=== PATIENT | female | born 1945 | race Caucasian/White ===

== ENCOUNTER → 2020-03-07 | Outpatient (CLI) | payer MEDICARE ==
[2020-03-07 12:28] LABS: Basophils % (A) 1 %; Eosinophils # (A) 0.1 k/uL (0-0.7); Eosinophils % (A) 2 %; HCT 40.3 % (34.0-46.0); HGB 13.2 gm/dL (11.4-16.0); Lymphocytes # (A) 0.7 k/uL (1.0-4.8); Lymphocytes % (A) 11 %; MCH 31.5 pg (25.0-35.0); MCHC 32.7 g/dL (31.0-37.0); MCV 96.4 fL (80.0-100.0); Mean Platelet Volume 7.1; Monocytes # (A) 0.4 k/uL (0-1.0); Monocytes % (A) 6 %; Neutrophils % (A) 79 %; Platelet Count 279 k/uL (150-450); RBC 4.18 m/uL (3.80-5.40); RDW 12.9 % (11.5-15.5); WBC 6.3 k/uL (3.8-10.6)
[2020-03-07 20:13] LABS: Hemoglobin A1C 6.3 % (4.0-6.0)
[2020-03-07 20:59] LABS: African American GFR (CKD) 84.8 (60.0-200.0); Albumin 4.4 g/dL (3.80-4.90); Albumin/Globulin Ratio 2.44 (1.60-3.17); Calcium 9.2 mg/dL (8.7-10.3); Chol/HDL Ratio 1.98; Globulin 1.8 g/dL (1.6-3.3); LDL Cholesterol,Calculated 69.6 mg/dL (0.0-131.0); Non-African American GFR(CKD) 73.1 (60.0-200.0); Potassium 4.7 mmol/L (3.5-5.5); Total Bilirubin 0.6 mg/dL (0.3-1.2); Total Protein 6.2 g/dL (6.2-8.2); VLDL Calculation 15.4 mg/dL (5.00-40.00)
== END | disposition home or self-care (01) ==
LOC: LABWHC1 09:44
DX: R79.89 Other specified abnormal findings of blood chemistry (principal); E78.00 Pure hypercholesterolemia, unspecified; R73.03 Prediabetes; E55.9 Vitamin D deficiency, unspecified
CPT/HCPCS: 36415; 80053; 80061; 82306; 83036; 84443; 85025

== ENCOUNTER → 2020-09-12 | Outpatient (CLI) | payer MEDICARE ==
--- NOTE | 2020-09-15 13:22 | MM ---
Reason for exam: screening (asymptomatic). Last mammogram was performed 18 years and 9 months ago. History: Patient is postmenopausal. Physical Findings: A clinical breast exam by your physician is recommended on an annual basis and results should be correlated with mammographic findings. MG 3D Screening Mammo W/Cad Bilateral CC and MLO view(s) were taken. Prior study comparison: March 20, 2017, mammogram, performed at [facility]. May 02, 2015, mammogram, performed at [facility]. There are scattered fibroglandular densities. Focal asymmetry right MLO view. No significant changes when compared with prior studies. ASSESSMENT: Benign, BI-RAD 2 RECOMMENDATION: Routine screening mammogram of both breasts in 1 year.
== END | disposition home or self-care (01) ==
LOC: RADMAMWWP 13:56
PROVIDERS: ATTEND Family Medicine
DX: Z12.31 Encounter for screening mammogram for malignant neoplasm of breast (principal)
CPT/HCPCS: 77063; 77067

== ENCOUNTER → 2021-04-03 | Outpatient (CLI) | payer MEDICARE ==
--- NOTE | 2021-04-04 08:11 | CT ---
EXAMINATION TYPE: CT cervical spine wo con DATE OF EXAM: 04/03/2021 COMPARISON: NONE HISTORY: right side neck pain CT DLP: 377 mGycm. Automated Exposure Control for Dose Reduction was Utilized. TECHNIQUE: CT scan of the cervical spine is obtained without contrast, axial images are obtained, sa gittal and coronal reformatted images are also reviewed. FINDINGS: Cervical spine is visualized in its entirety from C1 through upper thoracic levels, demonst rates satisfactory alignment without evidence of acute fracture or dislocation. Prevertebral soft ti ssue appears within normal limits. The C1-C2 articulation is within normal limits on the coronal carl ges. Vertebral body heights are maintained. There is disc calcification with moderate narrowing C3-C4 and C4-C5 levels. There is disc calcification with advanced narrowing and some ossific fusion at C5- C6 level. There is mild disc space narrowing with large anterior spurs at C2-C3 level. Axial images at C2-C3 level shows a left paracentral spur effacing the anterolateral thecal sac and u ncovertebral facet degenerative changes bilaterally causing mild bilateral neural foraminal narrowing . Axial images at C3-C4 level shows uncovertebral facet spurring and posterior bony projections mildly effacing left anterolateral thecal sac, there is moderate left and mild right-sided neural foraminal narrowing. Axial images at C4-C5 level shows uncovertebral facet spurring greater on the right causing moderate right greater than left bilateral neural foraminal narrowing. Axial images at C5-C6 level shows uncovertebral facet spurring greater on the left causing mild to mo derate left greater than right bilateral neural foraminal narrowing. Posterior bony projections of th e anterior thecal sac. Axial images at C6-C7 level show left-sided uncovertebral facet spurring greater on the left causing moderate left-sided neural foraminal narrowing. There is more mild right-sided neural foraminal narro wing noted. Axial images at C7-T1 level appear within normal limits. Lung apices show no pneumothorax. Thyroid gland appears within normal limits. IMPRESSION: Multilevel degenerative changes in the cervical spine as detailed above.
== END | disposition home or self-care (01) ==
LOC: RADCTMAIN 17:23
PROVIDERS: ATTEND Family Medicine
DX: M47.812 Spondylosis without myelopathy or radiculopathy, cervical region (principal)
CPT/HCPCS: 72125

== ENCOUNTER → 2021-04-17 | Outpatient (CLI) | payer MEDICARE ==
--- NOTE | 2021-04-17 08:44 | MR ---
EXAMINATION TYPE: MR brain wo/w con DATE OF EXAM: 04/17/2021 COMPARISON: NONE HISTORY: Headache TECHNIQUE: Multiplanar, multisequence images of the brain and brainstem is performed without and with IV contras t, utilizing 7 mL intravenous Gadavist . FINDINGS: Diffusion weighted images demonstrate no evidence of a recent infarct or other diffusion ab normality. There is mild ventricular and sulcal prominence. Some scattered small foci of T2 hyperint ensity throughout the white matter bilaterally are present. Approximately 15-20 small scattered lesio ns. Lesions are nonspecific in appearance and distribution. Midline structures demonstrate normal morphology. The craniocervical junction appears within normal limits. Post contrast images demonstrate no abnormal enhancement. The dural venous sinuses appear pa tent. The visualized sinuses are clear and the globes are intact. IMPRESSION: There is mild diffuse cerebral atrophy and mild nonspecific white matter changes favor pr oduct of chronic small vessel ischemic change in patient of this age And/or product of altered vascul ar mechanics related to product of migraine headaches is in differential. No enhancing masses are not ed.
== END | disposition home or self-care (01) ==
LOC: RADMRIMAIN 05:57
PROVIDERS: ATTEND Family Medicine
DX: G31.9 Degenerative disease of nervous system, unspecified (principal)
CPT/HCPCS: 70553; A9585

== ENCOUNTER → 2022-01-18 | Outpatient (CLI) | payer MEDICARE | END | disposition home or self-care (01) | LOC: LABWHC1 10:32 | PROVIDERS: ATTEND Otolaryngology | DX: J30.89 Other allergic rhinitis (principal) | CPT/HCPCS: 36415 ==

== ENCOUNTER 2022-02-06 12:42 | Emergency (ER) | payer MEDICARE ==
[2022-02-07] MEDS ORDERED: SODIUM CHLORIDE 0.9% 500 ML 500 ML IV STA (01:46)
[2022-02-07] MEDS ORDERED: ONDANSETRON 4 MG/2 ML VIAL IVP STA (01:46)
--- NOTE | 2022-02-07 02:12 | ED ---
General Adult HPI - General Stated complaint: SOB, chest pains,blood in urine Time Seen by Provider: 02/07/22 01:31 Source: patient, RN notes reviewed Mode of arrival: ambulatory Limitations: no limitations - History of Present Illness Initial comments: 76-year-old female presents to the emergency Department with complaints of left back and flank pain that has been ongoing for the past month. Patient states she was seen by her PCP who did a urine test earlier today and found it positive for blood therefore was sent to the emergency department to do concern of possible kidney stone. Patient reports accompanying symptom of nausea, no vomiting. States she has been taking Tylenol at home thinking that this was arthritis. Reports Tylenol did not alleviate her discomfort. Denies fever, chills headache, dizziness, chest pain, shortness of breath, abdominal pain, vomiting, diarrhea, dysuria, or hematuria. No recent heavy lifting, bending, or strenuous/exertional activity. Review of Systems ROS Statement: Those systems with pertinent positive or pertinent negative responses have been documented in the HPI. ROS Other: All systems not noted in ROS Statement are negative. General Exam Limitations: no limitations General appearance: alert, in no apparent distress (Well-developed, well- nourished female in no acute distress, though does appear somewhat uncomfortable.) ENT exam: Present: normal exam, normal oropharynx, mucous membranes moist Respiratory exam: Present: normal lung sounds bilaterally. Absent: respiratory distress, wheezes, rales, rhonchi, stridor Cardiovascular Exam: Present: regular rate, normal rhythm, normal heart sounds. Absent: systolic murmur, diastolic murmur, rubs, gallop, clicks GI/Abdominal exam: Present: soft, normal bowel sounds. Absent: distended, tenderness, guarding, rebound, rigid Extremities exam: Present: normal inspection, full ROM, normal capillary refill. Absent: pedal edema Back exam: Present: CVA tenderness (L) Neurological exam: Present: alert, oriented X3 Psychiatric exam: Present: flat affect Skin exam: Present: warm, dry, intact, normal color Course - Reevaluation(s) Reevaluation #1: 02/07/22 03:00 Patient updated on findings of laboratory studies including nitrite positive UTI. She has a penicillin ALLERGY therefore will be treated with nitrofurantoin and instructed to follow up with her PCP for a recheck. Medical Decision Making - Medical Decision Making This is a pleasant 76-year-old female who presents to the emergency Department with complaints of left back and flank pain. Upon exam, patient is well- appearing and in no acute distress. She has mild left CVA tenderness upon palpation. Minimal nausea and no vomiting. Laboratory studies were obtained showing Urinalysis with 1+ ketones, small amount of blood, nitrite positive, moderate leukocyte Estrase, 1 urine RBC/hpf, and 14 urine WBC/hpf. Given these findings, no imaging was necessary and she will be started on Antibiotic therapy for UTI. Instructed to follow up with her PCP for a recheck after treatment. Return parameters discussed in detail. Patient verbalizes understanding and agrees with this plan. Attending:Marcie. - Lab Data Result diagrams: 02/07/22 02:04 02/07/22 02:04 Lab Results 02/07/22 02/07/22 02/07/22 Range/Units 02:04 02:04 02:20 WBC 7.4 (3.8-10.6) k/uL RBC 4.42 (3.80-5.40) m/uL Hgb 13.6 (11.4-16.0) gm/dL Hct 41.9 (34.0-46.0) % MCV 94.7 (80.0-100.0) fL MCH 30.9 (25.0-35.0) pg MCHC 32.6 (31.0-37.0) g/dL RDW 12.7 (11.5-15.5) % Plt Count 283 (150-450) k/uL MPV 7.4 Neutrophils % 74 % Lymphocytes % 15 % Monocytes % 7 % Eosinophils % 2 % Basophils % 1 % Neutrophils # 5.4 (1.3-7.7) k/uL Lymphocytes # 1.1 (1.0-4.8) k/uL Monocytes # 0.5 (0-1.0) k/uL Eosinophils # 0.1 (0-0.7) k/uL Basophils # 0.1 (0-0.2) k/uL Sodium 132 L (137-145) mmol/L Potassium 4.0 (3.5-5.1) mmol/L Chloride 98 (98-107) mmol/L Carbon Dioxide 21 L (22-30) mmol/L Anion Gap 13 mmol/L BUN 11 (7-17) mg/dL Creatinine 0.59 (0.52-1.04) mg/dL Est GFR (CKD-EPI)AfAm >90 (>60 ml/min/1.73 sqM) Est GFR (CKD-EPI)NonAf >90 (>60 ml/min/1.73 sqM) Glucose 203 H (74-99) mg/dL Calcium 9.5 (8.4-10.2) mg/dL Total Bilirubin 0.6 (0.2-1.3) mg/dL AST 23 (14-36) U/L ALT 20 (4-34) U/L Alkaline Phosphatase 104 (38-126) U/L Total Protein 6.9 (6.3-8.2) g/dL Albumin 4.6 (3.5-5.0) g/dL Urine Color Yellow Urine Appearance Cloudy H (Clear) Urine pH 5.5 (5.0-8.0) Ur Specific [place] 1.014 (1.001-1.035) Urine Protein Negative (Negative) Urine Glucose (UA) Negative (Negative) Urine Ketones 1+ H (Negative) Urine Blood Small H (Negative) Urine Nitrite Positive H (Negative) Urine Bilirubin Negative (Negative) Urine Urobilinogen <2.0 (<2.0) mg/dL Ur Leukocyte Esterase Moderate H (Negative) Urine RBC 1 (0-5) /hpf Urine WBC 14 H (0-5) /hpf Ur Squamous Epith Cells 1 (0-4) /hpf Urine Bacteria Moderate H (None) /hpf Urine Mucus Rare H (None) /hpf Disposition Clinical Impression: UTI (urinary tract infection) Disposition: HOME SELF-CARE Condition: Stable Instructions (If sedation given, give patient instructions): Urinary Tract Infection in Women (ED) Additional Instructions: Increase intake of water. Urinate frequently. Take full course of antibiotic. Follow-up with your PCP for a recheck after completion of medication. Return to the emergency department with any new, worsening, or concerning symptoms. Is patient prescribed a controlled substance at d/c from ED?: No When asked, does pt state using other controlled substances?: No Referrals: German Leigh MD [Primary Care Provider] - 1-2 days Time of Disposition: 03:14
[2022-02-07 02:17] LABS: Basophils # (A) 0.1 k/uL (0-0.2); Basophils % (A) 1 %; Eosinophils # (A) 0.1 k/uL (0-0.7); Eosinophils % (A) 2 %; HCT 41.9 % (34.0-46.0); HGB 13.6 gm/dL (11.4-16.0); Lymphocytes # (A) 1.1 k/uL (1.0-4.8); Lymphocytes % (A) 15 %; MCH 30.9 pg (25.0-35.0); MCHC 32.6 g/dL (31.0-37.0); MCV 94.7 fL (80.0-100.0); Mean Platelet Volume 7.4; Monocytes # (A) 0.5 k/uL (0-1.0); Monocytes % (A) 7 %; Neutrophils # (A) 5.4 k/uL (1.3-7.7); Neutrophils % (A) 74 %; Platelet Count 283 k/uL (150-450); RBC 4.42 m/uL (3.80-5.40); RDW 12.7 % (11.5-15.5); WBC 7.4 k/uL (3.8-10.6)
[2022-02-07 02:26] LABS: ALT 20 U/L (4-34); AST 23 U/L (14-36); African American GFR (CKD) >90 (>60 ml/min/1.73 sqM); Albumin 4.6 g/dL (3.5-5.0); Alkaline Phosphatase 104 U/L (38-126); Anion Gap 13 mmol/L; Blood Urea Nitrogen 11 mg/dL (7-17); Calcium 9.5 mg/dL (8.4-10.2); Carbon Dioxide 21 mmol/L (22-30); Chloride 98 mmol/L (98-107); Glucose 203 mg/dL (74-99); Non-African American GFR(CKD) >90 (>60 ml/min/1.73 sqM); Sodium 132 mmol/L (137-145); Total Bilirubin 0.6 mg/dL (0.2-1.3); Total Protein 6.9 g/dL (6.3-8.2)
[2022-02-07] MEDS ORDERED: ACETAMINOPHEN TAB 500 MG TAB PO STA (02:44)
[2022-02-07 02:46] LABS: Appearance,Urine Cloudy (Clear); Bacteria,Urine Moderate /hpf; Bilirubin,Urine Negative (Negative); Blood,Urine Small (Negative); Color,Urine Yellow; Glucose,Urine (UA) Negative (Negative); Ketones,Urine 1+ (Negative); Leukocyte Esterase,Urine Moderate (Negative); Mucus,Urine Rare /hpf; Nitrite,Urine Positive (Negative); PH, Urine 5.5 (5.0-8.0); Protein,Urine Negative (Negative); RBC,Urine 1 /hpf (0-5); Specific Gravity,Urine 1.014 (1.001-1.035); Squamous Epithelial Cell,Urine 1 /hpf (0-4); Urobilinogen,Urine <2.0 mg/dL (<2.0); WBC,Urine 14 /hpf (0-5)
[2022-02-07] MEDS ORDERED: ACET/COD 300 MG/30 MG STARTER PACK 6 TAB BTL PO STA (03:12)
== END 2022-02-07 03:25 | disposition home or self-care (01) ==
LOC: EC 12:42
DX: N39.0 Urinary tract infection, site not specified (principal)
CPT/HCPCS: 36415; 80053; 85025; 81001; 87086; 99284; 96374; 96361; J2405

== ENCOUNTER 2022-02-13 18:15 | Emergency (ER) | payer MEDICARE ==
[2022-02-13 18:24] VITALS: RESP 18; TEMP 98
--- NOTE | 2022-02-13 18:51 | ED ---
Chest Pain HPI - General Chief Complaint: Chest Pain Stated Complaint: chest pain, ADRIAN, anxiety Time Seen by Provider: 02/13/22 18:21 Source: patient Mode of arrival: EMS - History of Present Illness Initial Comments: This patient is 76-year-old woman who presents with recurrence of epigastric pain radiating to her back. Patient has been seen here couple of times recently for this same. She states that she was given treatment for urinary tract infection and did briefly feel better but that the pain has recurred. She has a difficult time exactly characterizing it. No dyspnea, palpitations, vomiting though there is some associated nausea. MD Complaint: chest pain -: days(s) Onset: during rest Pain Location: epigastric Pain Radiation: back Severity: moderate Quality: aching Consistency: intermittent Improves With: eating Worsens With: nothing Context: other Anginal Symptoms: nausea Treatments Prior to Arrival: none - Related Data Home Medications Medication Instructions Recorded Confirmed Aspirin/Acetaminophen/Caffeine 0.5 tab PO TID 02/13/22 02/13/22 [Excedrin Extra Strength Caplet] Atorvastatin [Lipitor] 20 mg PO HS 02/13/22 02/13/22 Cephalexin [Keflex] 500 mg PO TID 02/13/22 02/13/22 Metoprolol Tartrate [Lopressor] 50 mg PO DAILY 02/13/22 02/13/22 Propafenone [Rythmol] 150 mg PO BID 02/13/22 02/13/22 lisinopriL 2.5 mg PO DAILY 02/13/22 02/13/22 metFORMIN HCL [Glucophage] 500 mg PO HS 02/13/22 02/13/22 Previous Rx's Medication Instructions Recorded HYDROcodone/APAP 5-325MG [[place] 1 tab PO Q4HR PRN 3 Days #12 tab 02/13/22 5-325] Pantoprazole [Protonix] 40 mg PO DAILY #10 tab 02/13/22 Allergies Allergy/AdvReac Type Severity Reaction Status Date / Time Penicillins Allergy Rash/Hives Verified 02/13/22 21:29 Review of Systems ROS Statement: Those systems with pertinent positive or pertinent negative responses have been documented in the HPI. ROS Other: All systems not noted in ROS Statement are negative. Constitutional: Denies: fever, chills Respiratory: Denies: cough, dyspnea Cardiovascular: Reports: as per HPI, chest pain. Denies: palpitations, edema, syncope Gastrointestinal: Reports: as per HPI, abdominal pain, nausea. Denies: vomiting, diarrhea, constipation Genitourinary: Denies: dysuria, hematuria Musculoskeletal: Reports: back pain Skin: Denies: rash Neurological: Denies: headache, weakness EKG Findings - EKG Results: EKG: interpreted by QUE CARMONA, sinus rhythm (Heart rate 68 bpm), normal axis, normal QRS, normal ST/T Past Medical History Past Medical History: Atrial Fibrillation, Diabetes Mellitus, Hypertension History of Any Multi-Drug Resistant Organisms: None Reported Past Surgical History: Appendectomy, Cholecystectomy, Heart Catheterization Past Psychological History: No Psychological Hx Reported Smoking Status: Never smoker Past Alcohol Use History: Occasional Past Drug Use History: None Reported General Exam General appearance: alert, in no apparent distress Head exam: Present: atraumatic, normocephalic Eye exam: Present: normal appearance. Absent: scleral icterus, conjunctival injection Neck exam: Present: normal inspection Respiratory exam: Present: normal lung sounds bilaterally. Absent: respiratory distress, wheezes, rales, rhonchi, stridor Cardiovascular Exam: Present: regular rate, normal rhythm, normal heart sounds. Absent: systolic murmur, diastolic murmur, rubs, gallop GI/Abdominal exam: Present: soft, tenderness (mild epigastric tenderness). Absent: distended, guarding, rebound, rigid, mass, pulsatile mass, hernia Extremities exam: Present: normal inspection, normal capillary refill. Absent: pedal edema, calf tenderness Back exam: Present: normal inspection. Absent: CVA tenderness (R), CVA tenderness (L) Neurological exam: Present: alert Skin exam: Present: warm, dry, intact, normal color. Absent: rash Course Vital Signs 02/13/22 02/13/22 02/13/22 18:17 20:36 22:50 Temperature 98.0 F Pulse Rate 64 68 65 Respiratory 18 18 18 Rate Blood Pressure 159/84 167/77 154/72 O2 Sat by Pulse 100 98 96 Oximetry Chest Pain MDM - MDM Patient 76-year-old woman with epigastric pain radiating to her back. Given the recurrent visits patient has CT included an workup which does appear to show s ome duodenitis. Discussed appropriate further care and follow-up, at this point patient would like to go home with medication. Discussed return parameters as well. Disposition Clinical Impression: Duodenitis Disposition: HOME SELF-CARE Condition: Good Instructions (If sedation given, give patient instructions): Duodenitis (ED) Prescriptions: HYDROcodone/APAP 5-325MG [[place] 5-325] 1 tab PO Q4HR PRN 3 Days #12 tab PRN Reason: Pain Pantoprazole [Protonix] 40 mg PO DAILY #10 tab Is patient prescribed a controlled substance at d/c from ED?: Yes When asked, does pt state using other controlled substances?: No If prescribed controlled substance>3 days was MAPS reviewed?: Prescribed <3 Days If opioid is for acute pain is fill amount 7 days or less?: Yes If Rx opioid, was Start Talking consent form obtained?: Yes Referrals: German Leigh MD [Primary Care Provider] - 1-2 days
[2022-02-13] MEDS ORDERED: HYDROcodone/APAP 5-325MG 1 EACH TAB PO STA (19:01)
[2022-02-13 20:00] LABS: Basophils # (A) 0.1 k/uL (0-0.2); Basophils % (A) 1 %; Eosinophils # (A) 0.2 k/uL (0-0.7); Eosinophils % (A) 2 %; HCT 42.3 % (34.0-46.0); HGB 13.7 gm/dL (11.4-16.0); Lymphocytes % (A) 12 %; MCH 30.7 pg (25.0-35.0); MCHC 32.5 g/dL (31.0-37.0); MCV 94.7 fL (80.0-100.0); Mean Platelet Volume 7.9; Monocytes # (A) 0.6 k/uL (0-1.0); Monocytes % (A) 7 %; Neutrophils # (A) 6.2 k/uL (1.3-7.7); Neutrophils % (A) 76 %; Platelet Count 315 k/uL (150-450); RBC 4.47 m/uL (3.80-5.40); RDW 12.4 % (11.5-15.5); WBC 8.2 k/uL (3.8-10.6)
[2022-02-13 20:11] LABS: ALT 23 U/L (4-34); AST 27 U/L (14-36); African American GFR (CKD) >90 (>60 ml/min/1.73 sqM); Albumin 4.6 g/dL (3.5-5.0); Alkaline Phosphatase 120 U/L (38-126); Anion Gap 15 mmol/L; Blood Urea Nitrogen 12 mg/dL (7-17); Carbon Dioxide 20 mmol/L (22-30); Chloride 101 mmol/L (98-107); Glucose 205 mg/dL (74-99); Magnesium 1.4 mg/dL (1.6-2.3); Non-African American GFR(CKD) 83 (>60 ml/min/1.73 sqM); Potassium 4.2 mmol/L (3.5-5.1); Sodium 136 mmol/L (137-145); Total Bilirubin 0.3 mg/dL (0.2-1.3); Total Protein 6.8 g/dL (6.3-8.2)
[2022-02-13 20:12] LABS: INR 0.9 (<1.2); Partial Thromboplastin Time 23.4 sec (22.0-30.0)
--- NOTE | 2022-02-13 20:28 | XR ---
EXAMINATION TYPE: XR chest 2V DATE OF EXAM: 02/13/2022 COMPARISON: NONE HISTORY: Chest pain TECHNIQUE: 2 views FINDINGS: Heart is normal. Lungs are clear. Diaphragm is normal. Bony thorax appears normal. There ar e chest leads. IMPRESSION: No active cardiopulmonary disease.
[2022-02-13 21:06] LABS: Appearance,Urine Clear (Clear); Bilirubin,Urine Negative (Negative); Blood,Urine Negative (Negative); Color,Urine Light Yellow; Glucose,Urine (UA) Negative (Negative); Ketones,Urine Negative (Negative); Leukocyte Esterase,Urine Negative (Negative); Nitrite,Urine Negative (Negative); Protein,Urine Negative (Negative); Urobilinogen,Urine <2.0 mg/dL (<2.0)
[2022-02-13] MEDS ORDERED: MAGNESIUM SULFATE-D5W PMX 1 GM in DEXTROSE/WATER 1 100ML.BAG IVPB ONE (22:10)
[2022-02-13 22:52] VITALS: BP 154/72; PULSE 65
--- NOTE | 2022-02-13 22:53 | CT ---
EXAM: CT Angiography Chest With Intravenous Contrast CLINICAL HISTORY: ITS.REASON CT Reason: back pain TECHNIQUE: Axial computed tomographic angiography images of the chest with intravenous contrast. CTDI is 13.29 mGy and DLP is 659.45 mGy-cm. This CT exam was performed using one or more of the following dose reduction techniques: automated exposure control, adjustment of the mA and/or kV according to patient size, and/or use of iterative reconstruction technique. MIP reconstructed images were created and reviewed. COMPARISON: Chest x-ray study of 02/13/2022. FINDINGS: Pulmonary arteries: No central pulmonary emboli is detected. No peripheral pulmonary emboli detected. Aorta: Atherosclerotic disease of the thoracic aorta. On sagittal imaging, atherosclerotic disease of the thoracic aorta is noted. No thoracic aortic aneurysm. Lungs: Minimal scarring and subsegmental atelectasis at the lung bases. The airway is normal. No mass. Pleural space: No pleural effusions are noted. No pneumothorax. Heart: Unremarkable. No cardiomegaly. No significant pericardial effusion. No evidence of RV dysfunction. Thyroid: The visualized thyroid gland is unremarkable. Bones/joints: Moderate to severe degenerative disc disease of the thoracic spine. No acute fracture. No dislocation. Soft tissues: Unremarkable. Lymph nodes: Unremarkable. No enlarged lymph nodes. Other findings: ASCVD. IMPRESSION: 1. No central or peripheral pulmonary emboli detected. 2. Atherosclerotic disease of the thoracic aorta which is otherwise unremarkable. 3. No evidence of thoracic aortic dissection. EXAM: CT Angiography Abdomen and Pelvis With Intravenous Contrast CLINICAL HISTORY: ITS.REASON CT Reason: back pain TECHNIQUE: Axial computed tomographic angiography images of the abdomen and pelvis with intravenous contrast. CTDI is 13.29 mGy and DLP is 659.45 mGy-cm. This CT exam was performed using one or more of the following dose reduction techniques: automated exposure control, adjustment of the mA and/or kV according to patient size, and/or use of iterative reconstruction technique. MIP reconstructed images were created and reviewed. COMPARISON: No previous studies. FINDINGS: VASCULATURE: Aorta: Atherosclerotic disease of the abdominal aorta extending to the common iliac arteries. Abdominal aorta is normal in caliber. No abdominal aortic aneurysm. No dissection. Celiac trunk and mesenteric arteries: Flow is noted within the celiac, SMA, the renal arteries, and KARLA. Renal arteries: See above. Iliac arteries: Good flow within the common iliac, external and internal iliac arteries, extending to the common femoral arteries. Lung bases: Unremarkable. No mass. No consolidation. ABDOMEN: Liver: Diffuse fatty infiltration of liver. Gallbladder and bile ducts: Status post cholecystectomy. No ductal dilation. Pancreas: Unremarkable. No ductal dilation. No mass. Spleen: Unremarkable. No splenomegaly. Adrenals: Unremarkable. No mass. Kidneys and ureters: No renal calculus or hydronephrosis. Stomach and bowel: Wall thickening of the proximal duodenum suggestive of duodenitis. Moderate quantity of stool throughout the colon without bowel obstruction. Diverticulosis without diverticulitis. PELVIS: Appendix: No appendicitis. Bladder: Bladder is underdistended. Reproductive: Unremarkable as visualized. ABDOMEN and PELVIS: Intraperitoneal space: Unremarkable. No significant fluid collection. No free air. Bones/joints: No acute fracture. No dislocation. Soft tissues: Unremarkable. Lymph nodes: Unremarkable. No enlarged lymph nodes. IMPRESSION: 1. Atherosclerotic disease of the abdominal aorta. 2. Good flow within abdominal aorta and its major branches. 3. Findings suggestive of proximal duodenitis is seen on coronal image 17. 4. Status post cholecystectomy. 5. No hydronephrosis. 6. No appendicitis. 7. No bowel obstruction. 8. There reticulosis without diverticulitis.
[2022-02-13] MEDS ORDERED: FAMOTIDINE 20 MG/2 ML VIAL IV STA (23:10)
[2022-02-13] MEDS ORDERED: PANTOPRAZOLE 40 MG/10 ML VIAL IVP STA (23:16)
== END 2022-02-13 23:40 | disposition home or self-care (01) ==
LOC: EC 18:15
DX: K29.80 Duodenitis without bleeding (principal); E11.9 Type 2 diabetes mellitus without complications; I10 Essential (primary) hypertension; Z88.0 Allergy status to penicillin
CPT/HCPCS: 36415; 93005; 80053; 83735; 84484; 85025; 85610; 85730; 81003; 71046; 71275; 74174; 99285; 96365; 96375; J3475; C9113; Q9967

== ENCOUNTER 2022-03-17 18:30 | Inpatient (IN) | payer MEDICARE ==
[2022-03-17] MEDS ORDERED: MORPHINE SULFATE 2 MG/ML SYRINGE IVP STA (19:56)
[2022-03-17] MEDS ORDERED: ONDANSETRON 4 MG/2 ML VIAL IVP STA (19:56)
[2022-03-17] MEDS ORDERED: SODIUM CHLORIDE 0.9% 500 ML 500 ML IV STA (19:56)
--- NOTE | 2022-03-17 20:07 | ED ---
Neck Injury/Pain HPI - General Chief Complaint: Neck Pain/Injury Stated Complaint: neck & back pain Time Seen by Provider: 03/17/22 19:46 Source: RN notes reviewed Mode of arrival: EMS Limitations: no limitations - History of Present Illness Initial Comments: This is a pleasant 76-year-old female who arrives via EMS. Patient states he started developing pain across her posterior shoulders and neck about 5 or 6 days ago. Patient states any movement exacerbates the pain. Patient states when she had the initial pain she felt like she could not move her left arm and some pain going down her left leg with some disability affecting her left leg as well. She states the legs have become normal but she still having a sense of pain to her neck which is exacerbated by any movement of the head. Patient states also exacerbated by moving the upper extremities. She is denying any chest pain. Patient denies any fall at home. She lives [place]. Note that the patient did slip out of the wheelchair on arrival here today. No headache, no fever or chills, no changes in vision or hearing, no sore throat or difficulty with speech,, no chest pain or shortness of breath, no abdominal pain, no nausea or vomiting, no changes in urination or bowel movements, no numbness or tingling, no extremity pain, no skin rashes or lesions. Past medical, surgical, social, and family history reviewed. - Related Data Home Medications Medication Instructions Recorded Confirmed Aspirin/Acetaminophen/Caffeine 0.5 tab PO TID 02/13/22 02/13/22 [Excedrin Extra Strength Caplet] Atorvastatin [Lipitor] 20 mg PO HS 02/13/22 02/13/22 Cephalexin [Keflex] 500 mg PO TID 02/13/22 02/13/22 Metoprolol Tartrate [Lopressor] 50 mg PO DAILY 02/13/22 02/13/22 Propafenone [Rythmol] 150 mg PO BID 02/13/22 02/13/22 lisinopriL 2.5 mg PO DAILY 02/13/22 02/13/22 metFORMIN HCL [Glucophage] 500 mg PO HS 02/13/22 02/13/22 Previous Rx's Medication Instructions Recorded HYDROcodone/APAP 5-325MG [[place] 1 tab PO Q4HR PRN 3 Days #12 tab 02/13/22 5-325] Pantoprazole [Protonix] 40 mg PO DAILY #10 tab 02/13/22 Allergies Allergy/AdvReac Type Severity Reaction Status Date / Time Penicillins Allergy Rash/Hives Verified 02/13/22 21:29 Review of Systems ROS Statement: Those systems with pertinent positive or pertinent negative responses have been documented in the HPI. ROS Other: All systems not noted in ROS Statement are negative. Past Medical History Past Medical History: Atrial Fibrillation, Diabetes Mellitus, Hypertension History of Any Multi-Drug Resistant Organisms: None Reported Past Surgical History: Appendectomy, Cholecystectomy, Heart Catheterization Past Psychological History: No Psychological Hx Reported Smoking Status: Never smoker Past Alcohol Use History: Occasional Past Drug Use History: None Reported General Exam - General Exam Comments Initial Comments: Somewhat thin and deconditioned appearing elderly female who appears to be slightly older than her stated age. In significant distress secondary to neck and pain in her posterior shoulder area. Limitations: no limitations General appearance: alert, in no apparent distress Head exam: Present: atraumatic, normocephalic, normal inspection Eye exam: Present: normal appearance, PERRL, EOMI. Absent: scleral icterus, conjunctival injection, periorbital swelling ENT exam: Present: normal exam, normal oropharynx, mucous membranes dry, mucous membranes moist, normal external ear exam Neck exam: Present: normal inspection, tenderness, other (Range of motion is limited. Patient has tenderness to cervical paraspinals. Axial rotation significantly limited. Forward flexion, extension, and lateral bending all limited secondary to pain). Absent: meningismus, full ROM, lymphadenopathy Respiratory exam: Present: normal lung sounds bilaterally. Absent: respiratory distress, wheezes, rales, rhonchi, stridor, chest wall tenderness, accessory muscle use, decreased breath sounds, prolonged expiratory Cardiovascular Exam: Present: normal rhythm, tachycardia, normal heart sounds. Absent: systolic murmur, diastolic murmur, rubs, gallop, clicks GI/Abdominal exam: Present: soft, normal bowel sounds. Absent: distended, tenderness, guarding, rebound, rigid Extremities exam: Present: normal inspection, full ROM, normal capillary refill. Absent: tenderness, pedal edema, joint swelling, calf tenderness Back exam: Present: normal inspection Neurological exam: Present: alert, oriented X3, CN II-XII intact, other (Gait not tested due to patient condition. Patient needed assistance getting from wheelchair into the bed.). Absent: motor sensory deficit Psychiatric exam: Present: normal affect, normal mood Skin exam: Present: warm, dry, intact, normal color. Absent: rash Course Vital Signs 03/17/22 03/17/22 03/18/22 19:33 22:22 01:53 Pulse Rate 116 H 93 93 Respiratory 18 18 16 Rate Blood Pressure 143/81 143/86 125/68 O2 Sat by Pulse 92 L 94 L 93 L Oximetry - Reevaluation(s) Reevaluation #1: 03/17/22 22:59 Computed tomography scan of the cervical spine shows multilevel degenerative disc disease which with corresponding to the patient's symptomology. No acute fracture. Brain shows no acute intracranial process. Angiography is essentially negative. Reevaluation #2: 03/17/22 23:03 Medical record is reviewed Symptoms are improved here in the emergency department Patient is informed of results and questions answered Patient in no distress Reevaluation #3: 03/18/22 00:50 Note that the patient is being admitted for inability to ambulate, generalized weakness due to presumed COVID-19 infection. Patient has no respiratory distress. Reevaluation #4: 03/18/22 02:57 Patient reevaluated several times about the course of stay. Patient neurologically intact. Alert and oriented 4. Cranial nerves II through XII intact. No focal neurologic deficits. Case was discussed in detail with the [facility] for Alisha ANDERSON. Patient admitted to that service for further evaluation and treatment. Medical Decision Making - Medical Decision Making This patient denies falling at home but 5 or 6 days ago states that she initially had trouble moving her left side. This does raise a suspicion of possible TIA. Patient states she had no mechanical injury. Now has pain in her neck and feels like she cannot move either arm or move her neck without significant pain. Patient did slip out of the wheelchair here in the ER today but states that she did not sustain any injury or does she have any pain in ex cess of what she came in with. Patient has been taking Excedrin at home. - Lab Data Result diagrams: 03/17/22 20:52 03/17/22 20:52 Lab Results 03/17/22 03/17/22 03/17/22 Range/Units 20:52 20:52 20:52 WBC 9.1 (3.8-10.6) k/uL RBC 3.84 (3.80-5.40) m/uL Hgb 12.3 (11.4-16.0) gm/dL Hct 34.8 (34.0-46.0) % MCV 90.6 (80.0-100.0) fL MCH 31.9 (25.0-35.0) pg MCHC 35.2 (31.0-37.0) g/dL RDW 12.3 (11.5-15.5) % Plt Count 278 (150-450) k/uL MPV 8.4 Neutrophils % 84 % Lymphocytes % 7 % Monocytes % 5 % Eosinophils % 0 % Basophils % 0 % Neutrophils # 7.6 (1.3-7.7) k/uL Lymphocytes # 0.6 L (1.0-4.8) k/uL Monocytes # 0.5 (0-1.0) k/uL Eosinophils # 0.0 (0-0.7) k/uL Basophils # 0.0 (0-0.2) k/uL Sodium 134 L (137-145) mmol/L Potassium 3.6 (3.5-5.1) mmol/L Chloride 96 L (98-107) mmol/L Carbon Dioxide 25 (22-30) mmol/L Anion Gap 13 mmol/L BUN 10 (7-17) mg/dL Creatinine 0.67 (0.52-1.04) mg/dL Est GFR (CKD-EPI)AfAm >90 (>60 ml/min/1.73 sqM) Est GFR (CKD-EPI)NonAf 86 (>60 ml/min/1.73 sqM) Glucose 194 H (74-99) mg/dL Calcium 9.2 (8.4-10.2) mg/dL Magnesium 1.4 L (1.6-2.3) mg/dL Total Bilirubin 0.8 (0.2-1.3) mg/dL AST 23 (14-36) U/L ALT 20 (4-34) U/L Alkaline Phosphatase 126 (38-126) U/L Troponin I <0.012 (0.000-0.034) ng/mL Total Protein 6.2 L (6.3-8.2) g/dL Albumin 3.8 (3.5-5.0) g/dL Urine Color Urine Appearance (Clear) Urine pH (5.0-8.0) Ur Specific [place] (1.001-1.035) Urine Protein (Negative) Urine Glucose (UA) (Negative) Urine Ketones (Negative) Urine Blood (Negative) Urine Nitrite (Negative) Urine Bilirubin (Negative) Urine Urobilinogen (<2.0) mg/dL Ur Leukocyte Esterase (Negative) Urine RBC (0-5) /hpf Urine WBC (0-5) /hpf Urine WBC Clumps (None) /hpf Ur Squamous Epith Cells (0-4) /hpf Urine Bacteria (None) /hpf Hyaline Casts (0-2) /lpf Urine Mucus (None) /hpf Coronavirus (PCR) (Not Detectd) 03/17/22 03/17/22 Range/Units 20:52 22:34 WBC (3.8-10.6) k/uL RBC (3.80-5.40) m/uL Hgb (11.4-16.0) gm/dL Hct (34.0-46.0) % MCV (80.0-100.0) fL MCH (25.0-35.0) pg MCHC (31.0-37.0) g/dL RDW (11.5-15.5) % Plt Count (150-450) k/uL MPV Neutrophils % % Lymphocytes % % Monocytes % % Eosinophils % % Basophils % % Neutrophils # (1.3-7.7) k/uL Lymphocytes # (1.0-4.8) k/uL Monocytes # (0-1.0) k/uL Eosinophils # (0-0.7) k/uL Basophils # (0-0.2) k/uL Sodium (137-145) mmol/L Potassium (3.5-5.1) mmol/L Chloride (98-107) mmol/L Carbon Dioxide (22-30) mmol/L Anion Gap mmol/L BUN (7-17) mg/dL Creatinine (0.52-1.04) mg/dL Est GFR (CKD-EPI)AfAm (>60 ml/min/1.73 sqM) Est GFR (CKD-EPI)NonAf (>60 ml/min/1.73 sqM) Glucose (74-99) mg/dL Calcium (8.4-10.2) mg/dL Magnesium (1.6-2.3) mg/dL Total Bilirubin (0.2-1.3) mg/dL AST (14-36) U/L ALT (4-34) U/L Alkaline Phosphatase (38-126) U/L Troponin I (0.000-0.034) ng/mL Total Protein (6.3-8.2) g/dL Albumin (3.5-5.0) g/dL Urine Color Yellow Urine Appearance Clear (Clear) Urine pH 6.0 (5.0-8.0) Ur Specific [place] 1.050 H (1.001-1.035) Urine Protein 1+ H (Negative) Urine Glucose (UA) Negative (Negative) Urine Ketones 2+ H (Negative) Urine Blood Negative (Negative) Urine Nitrite Negative (Negative) Urine Bilirubin Negative (Negative) Urine Urobilinogen 2.0 (<2.0) mg/dL Ur Leukocyte Esterase Moderate H (Negative) Urine RBC 1 (0-5) /hpf Urine WBC 29 H (0-5) /hpf Urine WBC Clumps Rare H (None) /hpf Ur Squamous Epith Cells 3 (0-4) /hpf Urine Bacteria Occasional H (None) /hpf Hyaline Casts 3 H (0-2) /lpf Urine Mucus Occasional H (None) /hpf Coronavirus (PCR) Detected A (Not Detectd) - EKG Data EKG Comments: EKG done at 2058 and read by the ED attending physician reveals sinus rhythm with a rate of 92 normal intervals. Borderline left axis deviation. Patient does have some T-wave flattening in the lateral precordial leads as well as lead 2 and aVF. This slightly more pronounced than the previous EKG from 02/13/2022. Disposition Clinical Impression: COVID-19, Cervicalgia, Hypomagnesemia, Inability to walk Disposition: ADMITTED IP TO THIS [facility] Condition: Poor Time of Disposition: 00:05
--- NOTE | 2022-03-17 20:45 | XR ---
EXAMINATION TYPE: XR chest 1V portable DATE OF EXAM: 03/17/2022 8:29 PM COMPARISON: Chest x-ray 02/13/2022 TECHNIQUE: XR chest 1V portable . CLINICAL INDICATION:Female, 76 years old with history of chest pain; FINDINGS: Lungs/Pleura: Low lung volumes are present. There is no evidence of pleural effusion, focal consolida tion, or pneumothorax. Pulmonary vascularity: Unremarkable. Heart/mediastinum: Heart is prominent in size which may be accentuated from low lung volumes. Athero sclerotic calcifications are seen in the aorta. Musculoskeletal: No acute osseous pathology. IMPRESSION: No acute cardiopulmonary disease/process.
[2022-03-17 21:13] LABS: Basophils % (A) 0 %; Eosinophils % (A) 0 %; HCT 34.8 % (34.0-46.0); HGB 12.3 gm/dL (11.4-16.0); Lymphocytes # (A) 0.6 k/uL (1.0-4.8); Lymphocytes % (A) 7 %; MCH 31.9 pg (25.0-35.0); MCHC 35.2 g/dL (31.0-37.0); MCV 90.6 fL (80.0-100.0); Mean Platelet Volume 8.4; Monocytes # (A) 0.5 k/uL (0-1.0); Monocytes % (A) 5 %; Neutrophils # (A) 7.6 k/uL (1.3-7.7); Neutrophils % (A) 84 %; Platelet Count 278 k/uL (150-450); RBC 3.84 m/uL (3.80-5.40); RDW 12.3 % (11.5-15.5); WBC 9.1 k/uL (3.8-10.6)
[2022-03-17 21:24] LABS: ALT 20 U/L (4-34); AST 23 U/L (14-36); African American GFR (CKD) >90 (>60 ml/min/1.73 sqM); Albumin 3.8 g/dL (3.5-5.0); Alkaline Phosphatase 126 U/L (38-126); Anion Gap 13 mmol/L; Blood Urea Nitrogen 10 mg/dL (7-17); Calcium 9.2 mg/dL (8.4-10.2); Carbon Dioxide 25 mmol/L (22-30); Chloride 96 mmol/L (98-107); Glucose 194 mg/dL (74-99); Magnesium 1.4 mg/dL (1.6-2.3); Non-African American GFR(CKD) 86 (>60 ml/min/1.73 sqM); Potassium 3.6 mmol/L (3.5-5.1); Sodium 134 mmol/L (137-145); Total Bilirubin 0.8 mg/dL (0.2-1.3); Total Protein 6.2 g/dL (6.3-8.2)
--- NOTE | 2022-03-17 22:09 | CT ---
EXAMINATION TYPE: CT brain cspine wo con CT DLP: 1383.3 mGycm, Automated exposure control for dose reduction was used. DATE OF EXAM: 03/17/2022 10:00 PM COMPARISON: MRI brain 04/17/2021. CLINICAL INDICATION:Female, 76 years old with history of neck pain; fall, neck pain TECHNIQUE: Brain: Multiple axial CT images of the brain were obtained without IV contrast. Cspine: Axial CT images from the skull base to the inferior aspect of T2 we obtained without intraven ous contrast. Coronal and sagittal reformatted images were also reviewed. FINDINGS: Brain: Extra-axial spaces: No abnormal extra-axial fluid collections. Ventricular system: Within normal limits Cerebral parenchyma: No acute intraparenchymal hemorrhage or mass effect. The amin-white junction is well differentiated. Scattered hypoattenuating areas are seen within the white matter. Cerebellum: Unremarkable. Mass effect: No evidence of midline shift. Intracranial vasculature: Atherosclerotic calcifications of the intracranial vessels. Soft tissues: Normal. Calvarium/osseous structures: No depressed skull fracture. Paranasal sinuses and mastoid air cells: Mild scattered mucosal thickening and or secretions. Visualized orbits: Bilateral aphakia Cervical spine: Fracture: None. Osseous structures: Multilevel degenerative disc disease changes with endplate spurring and disc oste ophyte complex's. Vertebral alignment: Dextro curvature of the cervical spine which may be positional. The craniocervic al and cervicothoracic junctions are normally aligned. Spinal canal/Neural Foramina: No evidence of significant spinal canal narrowing. No evidence for sign ificant neural foraminal stenosis. Neck soft tissues: Prevertebral soft tissues are within normal limits. Other: The airway is patent. The lung apices are clear. IMPRESSION: 1. No acute intracranial process. 2. No evidence for cervical spine fracture. 3. Moderate degenerative changes of the cervical spine.
--- NOTE | 2022-03-17 22:40 | CT ---
EXAMINATION TYPE: CT angio head neck DATE OF EXAM: 03/17/2022 COMPARISON: None HISTORY: neck pain after fall CT DLP: 405.6 mGycm Automated exposure control for dose reduction was used. CONTRAST: Performed with IV Contrast, patient injected with 65cc mL of Isovue 370. Images obtained from the aortic arch through the vertex of the brain with the IV contrast. There are Three-D postprocessed images. There is normal branching pattern of the great vessels and aortic arch. There is bilateral arterial f low in the subclavian arteries. There is arterial flow in the common internal and external carotid ar teries bilaterally. There is wide patency of the carotid artery bifurcations. There is arterial flow in both vertebral arteries. There is no evidence of carotid or vertebral artery aneurysm or dissectio n. There is arterial flow in the vertebral basilar artery system. There is arterial flow in the anterior middle and posterior cerebral arteries bilaterally. No mass ef fect. No evidence of intracranial aneurysm or neovascularity. No evidence of intracranial hemodynamic arterial stenosis. There is normal enhancement of the venous sinuses. There is normal aeration of th e mastoid sinuses. There is mucosal thickening in the ethmoid air cells. IMPRESSION: Negative CT angiogram of the neck. Negative CT angiogram of the brain. No evidence of stenosis.
[2022-03-17] MEDS ORDERED: Magnesium Replacement Protocol 1 EACH MISC MISCELLANE PRN (23:00)
[2022-03-17 23:03] LABS: Appearance,Urine Clear (Clear); Bacteria,Urine Occasional /hpf; Bilirubin,Urine Negative (Negative); Blood,Urine Negative (Negative); Color,Urine Yellow; Glucose,Urine (UA) Negative (Negative); Hyaline Casts,Urine 3 /lpf (0-2); Ketones,Urine 2+ (Negative); Leukocyte Esterase,Urine Moderate (Negative); Mucus,Urine Occasional /hpf; Nitrite,Urine Negative (Negative); Protein,Urine 1+ (Negative); RBC,Urine 1 /hpf (0-5); Squamous Epithelial Cell,Urine 3 /hpf (0-4); WBC,Urine 29 /hpf (0-5)
[2022-03-18] MEDS: MAGNESIUM SULFATE-D5W PMX 1 GM in DEXTROSE/WATER 1 100ML.BAG IVPB SCH ×3 (00:47→03:03)
[2022-03-18] MEDS ORDERED: NALOXONE 0.4 MG/ML 1 ML VIAL IV PRN (00:47)
[2022-03-18] MEDS ORDERED: ONDANSETRON 4 MG/2 ML VIAL IVP PRN (00:47)
[2022-03-18] MEDS: MORPHINE SULFATE 4 MG/ML SYRINGE IV PRN ×4 (03:01→21:34)
[2022-03-18] MEDS: SODIUM CHLORIDE 0.9% 1,000 ML IV SCH (03:02)
[2022-03-18] MEDS ORDERED: dexAMETHasone 2 MG TAB PO SCH (09:00)
[2022-03-18] MEDS ORDERED: HEPARIN SODIUM,PORCINE/PF 5,000 UNIT/0.5 ML SYRINGE SQ SCH (09:00)
[2022-03-18] MEDS: ALBUTEROL HFA INHALER INHALATION PRN (09:31)
[2022-03-18] MEDS: METOPROLOL TARTRATE 25 MG TAB PO SCH ×2 (11:39→21:34)
[2022-03-18] MEDS: ACETAMINOPHEN TAB 325 MG TAB PO PRN (17:30)
[2022-03-18] MEDS ORDERED: ZOLPIDEM 5 MG TAB PO PRN (20:20)
--- NOTE | 2022-03-18 20:34 | P.HPIM ---
History of Present Illness H&P Date: 03/18/22 Chief Complaint: Neck pain and back pain Patient is a 76-year-old female with a known history of hypertension, diabetes type 2 [id number] atrial fibrillation not on anticoagulation presents to ER by EMS. Patient states that patient started having back pain and pain across the shoulders and neck for the past 5 to 6 days. She felt like she could not move her left arm and also pain going down the left leg and unable to move around due to pain. Patient is having generalized body aches. No complaints of chest pain or shortness of breath. Patient otherwise denied any complaints of fever or chills. No fall or patient states that she slipped out of the wheelchair on arrival to the hospital.. No nausea vomiting abdominal pain or diarrhea. No headache or dizziness. No numbness or tingling. Urinary dysuria or hematuria. Patient was tachycardic on admission heart rate 116 and pulse ox 92% on room air. T-max 100.3 CT head and cervical spine showed no acute intracranial process. No evidence for cervical spine fracture. Moderate degenerative changes of the cervical spine. CT angiogram of the head and neck is negative. Chest x-ray showed no acute cardiopulmonary process EKG showed normal sinus rhythm Laboratory WBC 9.1 hemoglobin 12.3 and platelets 278 Sodium 134 potassium 3.6 chloride 96 bicarb is 25 BUN 10 and creatinine 0.67 and blood sugar is 194 magnesium 1.4 Urinalysis showed 2+ ketones moderate leukocyte esterase and elevated WBCs. Coronavirus PCR detected. Review of Systems Constitutional: Patient denies any fever or chills at home. Generalized weakness and body aches.. Abdomen: Patient denied any nausea or vomiting or abd. pain Cardiovascular: Patient denies any chest pain or short of breath no palpi tations. Respiratory: patient denied any cough . no sputum production. No shortness of breath Neurologic: Patient denied any numbness or tingling headache. Musculoskeletal: Patient denies any complaints of joint swelling or deformity. Patient complains of neck pain and back pain. Skin: Negative Psychiatric: Negative Endocrine: No heat or cold intolerance. No recent weight gain. Genitourinary: No dysuria or hematuria. All other 14 point ROS negative except the above Past Medical History Past Medical History: Atrial Fibrillation, Diabetes Mellitus, Hypertension History of Any Multi-Drug Resistant Organisms: None Reported Past Surgical History: Appendectomy, Cholecystectomy, Heart Catheterization Past Anesthesia/Blood Transfusion Reactions: No Reported Reaction Past Psychological History: No Psychological Hx Reported Smoking Status: Never smoker Past Alcohol Use History: Occasional Past Drug Use History: None Reported Medications and Allergies Home Medications Medication Instructions Recorded Confirmed Type Aspirin/Acetaminophen/Caffeine 0.5 - 1 tab PO TID PRN 02/13/22 03/18/22 History [Excedrin Extra Strength Caplet] Atorvastatin [Lipitor] 20 mg PO HS 02/13/22 03/18/22 History Metoprolol Tartrate [Lopressor] 50 mg PO BID 02/13/22 03/18/22 History Pantoprazole [Protonix] 40 mg PO DAILY #10 tab 02/13/22 03/18/22 Rx Propafenone [Rythmol] 150 mg PO BID 02/13/22 03/18/22 History lisinopriL 2.5 mg PO DAILY 02/13/22 03/18/22 History metFORMIN HCL [Glucophage] 500 mg PO HS 02/13/22 03/18/22 History Azelastine HCl 2 spr NASAL BID PRN 03/18/22 03/18/22 History Ipratropium Vivian 0.06%Nasal 2 spray EA NOSTRIL QID PRN 03/18/22 03/18/22 History [Atrovent Nasal 0.06%] Zolpidem [Ambien] 5 mg PO HS PRN 03/18/22 03/18/22 History Allergies Allergy/AdvReac Type Severity Reaction Status Date / Time Penicillins Allergy Rash/Hives Verified 03/18/22 12:09 Physical Exam Vitals: Vital Signs Temp Pulse Pulse Resp BP BP Pulse Ox 03/18/22 08:00 100.3 F H 112 H 17 142/84 93 L 03/18/22 05:54 98.0 F 65 18 126/62 94 L 03/18/22 03:48 60 16 133/63 92 L 03/18/22 01:53 93 16 125/68 93 L 03/17/22 22:22 93 18 143/86 94 L 03/17/22 19:33 116 H 18 143/81 92 L Intake and Output 03/17/22 03/18/22 03/18/22 22:59 06:59 14:59 Other: Weight 64.41 kg 64.41 kg PHYSICAL EXAMINATION: Patient is lying in the bed comfortably, no acute distress, awake alert and oriented.. HEENT: Normocephalic. Neck is supple. Pupils reactive. Nostrils clear. Oral cavity is moist. Neck reveals no JVD, carotid bruits, or thyromegaly. CHEST EXAMINATION: Trachea is central. Symmetrical expansion. Lung king clear to auscultation and percussion. CARDIAC: Normal S1, S2 with no gallops. No murmurs ABDOMEN: Soft. Bowel sounds present. Nontender. No organomegaly. No abdominal bruits. Extremities: reveal no edema. No clubbing or cyanosis Neurologically awake, alert, oriented x3 with well-coordinated movements. No focal deficits noted Skin: No rash or skin lesions. Psychiatric: Coperative. Nonsuicidal, Musculoskeletal: No joint swelling or deformity. Normal range of motion. Results CBC & Chem 7: 03/17/22 20:52 03/17/22 20:52 Labs: Abnormal Lab Results - Last 24 Hours (Table) 03/17/22 03/17/22 03/17/22 Range/Units 20:52 20:52 20:52 Lymphocytes # 0.6 L (1.0-4.8) k/uL Sodium 134 L (137-145) mmol/L Chloride 96 L (98-107) mmol/L Glucose 194 H (74-99) mg/dL Magnesium 1.4 L (1.6-2.3) mg/dL Total Protein 6.2 L (6.3-8.2) g/dL Ur Specific [place] (1.001-1.035) Urine Protein (Negative) Urine Ketones (Negative) Ur Leukocyte Esterase (Negative) Urine WBC (0-5) /hpf Urine WBC Clumps (None) /hpf Urine Bacteria (None) /hpf Hyaline Casts (0-2) /lpf Urine Mucus (None) /hpf Coronavirus (PCR) Detected A (Not Detectd) 03/17/22 Range/Units 22:34 Lymphocytes # (1.0-4.8) k/uL Sodium (137-145) mmol/L Chloride (98-107) mmol/L Glucose (74-99) mg/dL Magnesium (1.6-2.3) mg/dL Total Protein (6.3-8.2) g/dL Ur Specific [place] 1.050 H (1.001-1.035) Urine Protein 1+ H (Negative) Urine Ketones 2+ H (Negative) Ur Leukocyte Esterase Moderate H (Negative) Urine WBC 29 H (0-5) /hpf Urine WBC Clumps Rare H (None) /hpf Urine Bacteria Occasional H (None) /hpf Hyaline Casts 3 H (0-2) /lpf Urine Mucus Occasional H (None) /hpf Coronavirus (PCR) (Not Detectd) Thrombosis Risk Factor Assmnt - DVT/VTE Prophylaxis DVT/VTE Prophylaxis: Pharmacologic Prophylaxis ordered - Choose All That Apply Any of the Below Risk Factors Present?: No Each Risk Factor Represents 3 Points: Age 75 years or older Other congenital or acquired thrombophilia - If yes, enter type in comment: No Thrombosis Risk Factor Assessment Total Risk Factor Score: 3 Thrombosis Risk Factor Assessment Level: Moderate Risk Assessment and Plan Assessment: Acute COVID-19 infection Generalized weakness and body aches, neck pain Inability to move left upper and lower extremity likely due to pain. Work-up for acute CVA negative including CT head and CTA head and neck. Paroxysmal atrial fibrillation not on anticoagulation. On metoprolol and Rythmol. Diabetes type 2 [id number] Hypertension DVT prophylaxis Lovenox subcu Plan: Patient will be continued on telemetry monitoring. Continue with metoprolol and Rythmol. Oxygen supplementation as needed. Currently patient is on room air saturating at 92%. Follow-up respiratory status closely. Patient was also given a dose of dexamethasone in the ER. We will hold steroids at this time and continue with supportive care and multivitamins. Insulin sliding scale and follow-up closely. Prognosis guarded. PT OT will be consulted. Time with Patient: Greater than 30
[2022-03-18] MEDS: INSULIN ASPART (NovoLOG) 100 UNIT/ML VIAL SQ SCH (21:29)
[2022-03-18] MEDS: PROPAFENONE 150 MG TAB PO SCH (21:34)
[2022-03-18] MEDS: ATORVASTATIN 20 MG TAB PO SCH (21:34)
[2022-03-19] MEDS: SODIUM CHLORIDE 0.9% 1,000 ML IV SCH ×2 (00:13→13:22)
[2022-03-19 07:25] LABS: Glucose,Whole Blood 214 mg/dL (70-110)
[2022-03-19] MEDS: PROPAFENONE 150 MG TAB PO SCH ×2 (07:30→21:12)
[2022-03-19] MEDS: ACETAMINOPHEN TAB 325 MG TAB PO PRN (07:30)
[2022-03-19] MEDS: CHOLECALCIFEROL 25 MCG (1000 IU) TABLET PO SCH (07:30)
[2022-03-19] MEDS: ZINC SULFATE 220 MG CAP PO SCH (07:30)
[2022-03-19] MEDS: PANTOPRAZOLE 40 MG TABLET PO SCH (07:30)
[2022-03-19] MEDS: ASCORBIC ACID 500 MG TAB PO SCH (07:31)
[2022-03-19] MEDS: INSULIN ASPART (NovoLOG) 100 UNIT/ML VIAL SQ SCH ×4 (07:31→21:12)
[2022-03-19] MEDS: METOPROLOL TARTRATE 25 MG TAB PO SCH ×2 (07:31→21:12)
[2022-03-19] MEDS: ENOXAPARIN 40 MG/0.4 ML SYRINGE SQ SCH (07:31)
[2022-03-19] MEDS: ALBUTEROL HFA INHALER INHALATION PRN (09:17)
[2022-03-19 09:18] LABS: Basophils # (A) 0.03 X 10*3/uL (0.00-0.10); Basophils % (A) 0.3 %; Eosinophils # (A) 0.11 X 10*3/uL (0.04-0.35); Eosinophils % (A) 1.2 %; HCT 31.6 % (37.2-46.3); HGB 10.8 g/dL (12.0-15.0); Immature Grans, Automated 0.3 %; Lymphocytes # (A) 0.76 X 10*3/uL (0.90-5.00); Lymphocytes % (A) 8.5 %; MCH 30.9 pg (27.0-32.0); MCHC 34.2 g/dL (32.0-37.0); MCV 90.5 fL (80.0-97.0); Mean Platelet Volume 9.9 fL (9.5-12.2); Monocytes # (A) 0.86 X 10*3/uL (0.20-1.00); Monocytes % (A) 9.7 %; NRBC Per 100 WBC 0 /100 WBCS (0.0-0.0); Platelet Count 304 X 10*3/uL (140-440); RBC 3.49 X 10*6/uL (4.10-5.20); RDW 12.3 % (11.5-14.5); WBC 8.89 X 10*3/uL (4.50-10.00)
[2022-03-19 09:48] LABS: ALT 46 U/L (8-44); AST 55 U/L (13-35); African American GFR (CKD) 83.6 (60.0-200.0); Albumin 3.5 g/dL (3.8-4.9); Albumin/Globulin Ratio 1.75 (1.60-3.17); Alkaline Phosphatase 152 U/L (41-126); Blood Urea Nitrogen 7.6 mg/dL (9.0-27.0); Calcium 8.8 mg/dL (8.7-10.3); Carbon Dioxide 25.5 mmol/L (20.0-27.5); Chloride 98 mmol/L (96-109); Glucose 227 mg/dL (70-110); LDH 143 U/L (120-246); Magnesium 1.6 mg/dL (1.5-2.4); Non-African American GFR(CKD) 72.1 (60.0-200.0); Potassium 3.8 mmol/L (3.5-5.5); Sodium 134 mmol/L (135-145); Total Protein 5.5 g/dL (6.2-8.2)
[2022-03-19] MEDS ORDERED: Magnesium Replacement Protocol 1 EACH MISC MISCELLANE PRN (10:47)
[2022-03-19 11:23] LABS: Glucose,Whole Blood 301 mg/dL (70-110)
[2022-03-19] MEDS: MAGNESIUM SULFATE-D5W PMX 1 GM in DEXTROSE/WATER 1 100ML.BAG IVPB SCH ×2 (12:12→13:21)
[2022-03-19] MEDS: MORPHINE SULFATE 4 MG/ML SYRINGE IV PRN (12:30)
[2022-03-19 16:24] LABS: Glucose,Whole Blood 243 mg/dL (70-110)
--- NOTE | 2022-03-19 19:14 | CT ---
EXAMINATION TYPE: CT angio chest CT DLP: 312.4 mGycm, Automated exposure control for dose reduction was used. DATE OF EXAM: 03/19/2022 6:53 PM COMPARISON: 02/13/2022 CT. CLINICAL INDICATION:Female, 76 years old with history of elevated d-dimer; TECHNIQUE/CONTRAST: CTA scan of the thorax is performed with IV Contrast, patient injected with 80cc mL of Isovue 370, pu lmonary embolism protocol. MIP images are created and reviewed. FINDINGS: Pulmonary Artery: There is no evidence for a filling defect within the pulmonary vasculature to sugge st acute pulmonary embolism. The pulmonary artery is of normal size. Lungs/Pleura: No evidence of focal consolidation or pneumothorax. Trace bilateral pleural effusions s uggested. Airway: Large airways are patent. Heart: The heart is mildly enlarged for size. There is coronary artery atherosclerosis. Left atrial appendage occlusion device in place. Vasculature: No evidence of aortic aneurysm. Atherosclerosis of the arterial vasculature. Mediastinum: No gross evidence of adenopathy. Musculoskeletal: No acute osseous abnormalities, multilevel disc degeneration changes of the spine. Soft Tissues: Unremarkable. Lower neck: No significant findings. Upper Abdomen: Diffuse low-attenuation to the liver parenchyma. IMPRESSION: 1. No evidence of pulmonary embolism. 2. Hepatic steatosis.
[2022-03-19 19:49] LABS: Glucose,Whole Blood 255 mg/dL (70-110)
[2022-03-19] MEDS: ATORVASTATIN 20 MG TAB PO SCH (21:12)
[2022-03-20] MEDS: SODIUM CHLORIDE 0.9% 1,000 ML IV SCH ×3 (05:17→22:07)
[2022-03-20 07:02] LABS: Glucose,Whole Blood 222 mg/dL (70-110)
--- NOTE | 2022-03-20 07:02 | PN ---
PROGRESS NOTE SUBJECTIVE: This is a 76-year-old woman, who was admitted with COVID-19, is also running fever. The patient is ill looking today. No chest pain. No palpitations. No fever. The chest x-ray which was reviewed personally by me showed no acute abnormality. No fever. No cough. PHYSICAL EXAMINATION: VITAL SIGNS: Pulse is 85, blood pressure 110/60, respirations 16. CHEST: Clear to auscultation CARDIOVASCULAR: S1, S2. ABDOMEN: Soft. NERVOUS SYSTEM: No focal deficits. LABS: Hemoglobin 10.8. The rest of the labs are noted. UA possible UTI. ASSESSMENT: 1. Possible acute COVID-19. 2. Acute urinary tract infection, present on admission. 3. Diabetes mellitus, type 2. 4. Hypertension. RECOMMENDATIONS: Recommend to continue current management and symptomatic treatment. Recommend procalcitonin and empiric antibiotics also for UTI, cultures and also recommend Infectious Disease evaluation. Guarded prognosis. Further recommendations to follow. We will also check a D-dimer. See orders for details. MMODL / IJN: [id number] /
--- NOTE | 2022-03-20 07:27 | P.CONS ---
History of Present Illness - Reason for Consult Consult date: 03/19/22 - History of Present Illness Patient is a 76-year-old female presenting to the ER 2 days ago on 03/17/2022 for evaluation of pain to the posterior shoulder and neck area and this patient symptom has been going on for 5 to 6 days before presentation to the hospital patient denies any history of any trauma has been complaining of pain especially with the movement and has been complaining of some difficulty in the morning of the upper extremity patient denies any history of any fall patient denies having any headache or URI symptoms no fever no chills no chest pain or shortness with occasional cough no nausea vomiting abdominal pain no diarrhea with the symptom the patient was evaluated by the ER physician on arrival to the ER patient did have low-grade fever 100.3 F patient did have mild hypoxia O2 sats of 92% currently 96% on room air patient did have a normal white count with lymphopenia D-dimer was mildly elevated 3.79. Creatinine has been normal liver enzymes are normal procalcitonin was normal urine was mildly positive patient did have a positive COVID testing chest x-ray was negative for acute cardiopulmonary process patient did have a head and cervical spine CT no acute intracranial process no evidence of cervical spine fracture moderate degenerative disease infectious he was consulted for the positive COVID test Past Medical History Past Medical History: Atrial Fibrillation, Diabetes Mellitus, Hypertension History of Any Multi-Drug Resistant Organisms: None Reported Past Surgical History: Appendectomy, Cholecystectomy, Heart Catheterization Past Anesthesia/Blood Transfusion Reactions: No Reported Reaction Past Psychological History: No Psychological Hx Reported Smoking Status: Never smoker Past Alcohol Use History: Occasional Past Drug Use History: None Reported Medications and Allergies Home Medications Medication Instructions Recorded Confirmed Type Aspirin/Acetaminophen/Caffeine 0.5 - 1 tab PO TID PRN 02/13/22 03/18/22 History [Excedrin Extra Strength Caplet] Atorvastatin [Lipitor] 20 mg PO HS 02/13/22 03/18/22 History Metoprolol Tartrate [Lopressor] 50 mg PO BID 02/13/22 03/18/22 History Pantoprazole [Protonix] 40 mg PO DAILY #10 tab 02/13/22 03/18/22 Rx Propafenone [Rythmol] 150 mg PO BID 02/13/22 03/18/22 History lisinopriL 2.5 mg PO DAILY 02/13/22 03/18/22 History metFORMIN HCL [Glucophage] 500 mg PO HS 02/13/22 03/18/22 History Azelastine HCl 2 spr NASAL BID PRN 03/18/22 03/18/22 History Ipratropium [place] 0.06%Nasal 2 spray EA NOSTRIL QID PRN 03/18/22 03/18/22 His tory [Atrovent Nasal 0.06%] Zolpidem [Ambien] 5 mg PO HS PRN 03/18/22 03/18/22 History Allergies Allergy/AdvReac Type Severity Reaction Status Date / Time Penicillins Allergy Rash/Hives Verified 03/18/22 12:09 Physical Exam Vitals: Vital Signs Temp Pulse Resp BP Pulse Ox 03/19/22 14:00 98.9 F 85 16 120/67 97 03/19/22 10:00 98.6 F 72 16 112/74 96 03/19/22 06:52 100.1 F H 87 19 125/77 91 L 03/19/22 02:00 100.0 F H 84 17 146/82 93 L 03/18/22 20:00 98.6 F 98 16 139/73 93 L Intake and Output 03/19/22 03/19/22 03/19/22 06:59 14:59 22:59 Intake Total 500 Output Total 600 Balance 500 -600 Intake: Oral 500 Output: Urine 600 Other: Voiding Method External Catheter # Voids 2 Results CBC & Chem 7: 03/19/22 04:48 03/19/22 04:48 Labs: Abnormal Lab Results - Last 24 Hours (Table) 03/19/22 03/19/22 03/19/22 Range/Units 04:48 04:48 04:48 RBC 3.49 L (4.10-5.20) X 10*6/uL Hgb 10.8 L (12.0-15.0) g/dL Hct 31.6 L (37.2-46.3) % Lymphocytes # 0.76 L (0.90-5.00) X 10*3/uL Sodium 134 L (135-145) mmol/L BUN 7.6 L (9.0-27.0) mg/dL BUN/Creatinine Ratio 9.50 L (12.00-20.00) Ratio Glucose 227 H (70-110) mg/dL POC Glucose (mg/dL) (70-110) mg/dL Hemoglobin A1c 8.3 H (0.0-6.0) % AST 55 H (13-35) U/L ALT 46 H (8-44) U/L Alkaline Phosphatase 152 H (41-126) U/L C-Reactive Protein 19.60 H (0.00-0.80) mg/dL Total Protein 5.5 L (6.2-8.2) g/dL Albumin 3.5 L (3.8-4.9) g/dL 03/19/22 03/19/22 03/19/22 Range/Units 07:16 11:21 16:22 RBC (4.10-5.20) X 10*6/uL Hgb (12.0-15.0) g/dL Hct (37.2-46.3) % Lymphocytes # (0.90-5.00) X 10*3/uL Sodium (135-145) mmol/L BUN (9.0-27.0) mg/dL BUN/Creatinine Ratio (12.00-20.00) Ratio Glucose (70-110) mg/dL POC Glucose (mg/dL) 214 H 301 H 243 H (70-110) mg/dL Hemoglobin A1c (0.0-6.0) % AST (13-35) U/L ALT (8-44) U/L Alkaline Phosphatase (41-126) U/L C-Reactive Protein (0.00-0.80) mg/dL Total Protein (6.2-8.2) g/dL Albumin (3.8-4.9) g/dL Microbiology - Last 24 Hours (Table) 03/17/22 22:34 Urine Culture - Preliminary Urine,Voided Gram Neg Bacilli Assessment and Plan Plan: 1patient presented to hospital predominantly with the neck and upper back pain in this patient also have a low-grade fever did have a positive COVID test concerning for possible mild covid19 infection as the patient is currently not hypoxic or need for supplemental oxygen. 2symptom onset has been more than a week ago and the patient not requiring any supplemental oxygen both these factors will disqualify her for remdesivir per [facility] policy. 3patient to continue with the current supportive treatment of Lovenox zinc and ascorbic acid. 4we will check inflammatory markers 5-droplet isolation and respiratory support We will follow on clinical condition and cultures to further adjust medication if needed Thank you for this consultation will follow this patient along with you Time with Patient: Greater than 30
[2022-03-20] MEDS: METOPROLOL TARTRATE 25 MG TAB PO SCH ×2 (07:50→19:55)
[2022-03-20] MEDS: PANTOPRAZOLE 40 MG TABLET PO SCH (07:50)
[2022-03-20] MEDS: PROPAFENONE 150 MG TAB PO SCH ×2 (07:50→19:56)
[2022-03-20] MEDS: ZINC SULFATE 220 MG CAP PO SCH (07:50)
[2022-03-20] MEDS: ASCORBIC ACID 500 MG TAB PO SCH (07:50)
[2022-03-20] MEDS: INSULIN ASPART (NovoLOG) 100 UNIT/ML VIAL SQ SCH ×4 (07:50→19:54)
[2022-03-20] MEDS: ENOXAPARIN 40 MG/0.4 ML SYRINGE SQ SCH (07:51)
[2022-03-20] MEDS: CHOLECALCIFEROL 25 MCG (1000 IU) TABLET PO SCH (07:51)
[2022-03-20] MEDS: ALBUTEROL HFA INHALER INHALATION PRN (09:23)
[2022-03-20 10:10] LABS: Appearance,Urine Clear (Clear); Bilirubin,Urine Negative (Negative); Blood,Urine Negative (Negative); Color,Urine Yellow; Glucose,Urine (UA) 4+ (Negative); Ketones,Urine Negative (Negative); Leukocyte Esterase,Urine Small (Negative); Mucus,Urine Rare /hpf; Nitrite,Urine Negative (Negative); PH, Urine 6.5 (5.0-8.0); Protein,Urine 1+ (Negative); RBC,Urine 2 /hpf (0-5); Specific Gravity,Urine 1.021 (1.001-1.035); Squamous Epithelial Cell,Urine 1 /hpf (0-4); Urobilinogen,Urine <2.0 mg/dL (<2.0); WBC,Urine 7 /hpf (0-5)
[2022-03-20 10:37] LABS: Basophils # (A) 0.03 X 10*3/uL (0.00-0.10); Basophils % (A) 0.3 %; Eosinophils # (A) 0.08 X 10*3/uL (0.04-0.35); Eosinophils % (A) 0.9 %; HGB 10.3 g/dL (12.0-15.0); Immature Grans, Automated 0.3 %; Lymphocytes # (A) 0.75 X 10*3/uL (0.90-5.00); Lymphocytes % (A) 8.3 %; MCH 30.7 pg (27.0-32.0); MCHC 33.2 g/dL (32.0-37.0); MCV 92.5 fL (80.0-97.0); Monocytes # (A) 0.89 X 10*3/uL (0.20-1.00); Monocytes % (A) 9.8 %; NRBC Per 100 WBC 0 /100 WBCS (0.0-0.0); Neutrophils # (A) 7.29 X 10*3/uL (1.80-7.70); Neutrophils % (A) 80.4 %; Platelet Count 304 X 10*3/uL (140-440); RBC 3.35 X 10*6/uL (4.10-5.20); RDW 12.1 % (11.5-14.5); WBC 9.07 X 10*3/uL (4.50-10.00)
[2022-03-20] MEDS: ACETAMINOPHEN TAB 325 MG TAB PO PRN (10:51)
[2022-03-20 10:52] LABS: C Reactive Protein 18.7 mg/dL (0.00-0.80); Magnesium 1.6 mg/dL (1.5-2.4)
[2022-03-20 11:02] LABS: African American GFR (CKD) 98.2 (60.0-200.0); Albumin 3.4 g/dL (3.8-4.9); Albumin/Globulin Ratio 1.42 (1.60-3.17); Anion Gap 13.3 mmol/L (10.00-18.00); BUN/Creat Ratio 9.14 Ratio (12.00-20.00); Blood Urea Nitrogen 6.4 mg/dL (9.0-27.0); Calcium 8.9 mg/dL (8.7-10.3); Carbon Dioxide 23.7 mmol/L (20.0-27.5); Globulin 2.4 g/dL (1.6-3.3); Non-African American GFR(CKD) 84.8 (60.0-200.0); Potassium 3.9 mmol/L (3.5-5.5); Total Bilirubin 0.5 mg/dL (0.30-1.20); Total Protein 5.8 g/dL (6.2-8.2)
[2022-03-20] MEDS ORDERED: MAGNESIUM SULFATE-D5W PMX 1 GM in DEXTROSE/WATER 1 100ML.BAG IVPB ONE (11:02)
[2022-03-20 11:11] LABS: Erythrocyte Sedimentation Rate 93 mm/Hr (0-30)
[2022-03-20] MEDS: MAGNESIUM SULFATE-D5W PMX 1 GM in DEXTROSE/WATER 1 100ML.BAG IVPB SCH ×2 (11:29→12:31)
[2022-03-20 11:47] LABS: Glucose,Whole Blood 245 mg/dL (70-110)
[2022-03-20] MEDS: ALBUTEROL HFA INHALER INHALATION SCH ×2 (14:55→21:31)
--- NOTE | 2022-03-20 16:06 | P.PN ---
Subjective Progress Note Date: 03/20/22 This is a 76-year-old female who was recently admitted with generalized weakness fevers and found to have COVID-19 infection. Patient also started on antibiotics for urinary tract infection with preliminary culture showing gram- negative bacilli. Patient is extremely weak and physical therapy evaluated the patient recommending ECF. Case management is following and patient now agreeable to rehab and awaiting insurance authorization. Encouraged incentive spirometer and continued use at least 10 times every hour while awake. Patient did have albuterol inhalers as needed and will make that scheduled and encouraged increased activity as tolerated. Encouraged oral intake and will continue gentle IV hydration and follow-up labs. Patient is currently afebrile denies chest pain or shortness of breath. Patient reports to feeling weak and ill although somewhat improved from yesterday. Review of systems: Constitutional: reports of fatigue, fever, or chills Cardiovascular: No reports of chest pain or palpitations Respiratory: No reports of shortness of breath or cough GI: No reports of nausea, no reports of of vomiting, reports poor oral intake : No reports of dysuria or retention Neurovascular: reports of generalized weakness All medications have been reviewed Active Medications Acetaminophen (Acetaminophen Tab 325 Mg Tab) 650 mg PO Q6HR PRN PRN Reason: Mild Pain or Fever > 100.5 Last Admin: 03/20/22 10:51 Dose: 650 mg Albuterol Sulfate (Albuterol Hfa Inhaler) 2 puff INHALATION RT-Q6H [facility] Last Admin: 03/20/22 14:55 Dose: 2 puff Ascorbic Acid (Ascorbic Acid 500 Mg Tab) 500 mg PO DAILY [facility] Last Admin: 03/20/22 07:50 Dose: 500 mg Atorvastatin Calcium (Atorvastatin 20 Mg Tab) 20 mg PO HS [facility] Last Admin: 03/19/22 21:12 Dose: 20 mg Cholecalciferol (Cholecalciferol 25 Mcg (1000 Iu) Tablet) 25 mcg PO DAILY [facility] Last Admin: 03/20/22 07:51 Dose: 25 mcg Enoxaparin Sodium (Enoxaparin 40 Mg/0.4 Ml Syringe) 40 mg SQ DAILY [facility] Last Admin: 03/20/22 07:51 Dose: 40 mg Sodium Chloride (Saline 0.9%) 1,000 mls @ 75 mls/hr IV .[id number] [facility] Last Admin: 03/20/22 09:13 Dose: 75 mls/hr Ceftriaxone Sodium 2 gm/ (Sodium Chloride) 50 mls @ 100 mls/hr IVPB Q24HR [facility]; Protocol Last Admin: 03/20/22 07:49 Dose: 100 mls/hr Insulin Aspart (Insulin Aspart (Novolog) 100 Unit/Ml Vial) 0 unit SQ ACHS [facility]; Protocol Last Admin: 03/20/22 12:38 Dose: 2 unit Lisinopril (Lisinopril 2.5 Mg Tab) 2.5 mg PO DAILY [facility] Last Admin: 03/20/22 07:51 Dose: 2.5 mg Metoprolol Tartrate (Metoprolol Tartrate 25 Mg Tab) 25 mg PO BID [facility] Last Admin: 03/20/22 07:50 Dose: 25 mg Miscellaneous Information (Magnesium Replacement Protocol 1 Each Misc) 1 each MISCELLANE DAILY PRN; Protocol PRN Reason: Per Protocol Morphine Sulfate (Morphine Sulfate 4 Mg/Ml Syringe) 4 mg IV Q4HR PRN PRN Reason: Severe Pain (Scale 7 to 10) Last Admin: 03/19/22 12:30 Dose: 4 mg Naloxone HCl (Naloxone 0.4 Mg/Ml 1 Ml Vial) 0.2 mg IV Q2M PRN PRN Reason: Opioid Reversal Ondansetron HCl (Ondansetron 4 Mg/2 Ml Vial) 4 mg IVP Q8HR PRN PRN Reason: Nausea And Vomiting Pantoprazole Sodium (Pantoprazole 40 Mg Tablet) 40 mg PO [id number] [facility] Last Admin: 03/20/22 07:50 Dose: 40 mg Propafenone HCl (Propafenone 150 Mg Tab) 150 mg PO BID [facility] Last Admin: 03/20/22 07:50 Dose: 150 mg Zinc Sulfate (Zinc Sulfate 220 Mg Cap) 220 mg PO DAILY [facility] Last Admin: 03/20/22 07:50 Dose: 220 mg Zolpidem Tartrate (Zolpidem 5 Mg Tab) 5 mg PO HS PRN PRN Reason: Insomnia PHYSICAL EXAMINATION: GENERAL: The patient is alert and oriented x4, Well developed, well nourished. Ill-appearing elderly female HEENT: Pupils are round and equally reacting to light. EOMI. no scleral icterus. No conjunctival pallor. Normocephalic, atraumatic. No pharyngeal erythema. No thyromegaly. CARDIOVASCULAR: S1 and S2 muffled PULMONARY: diminished breath sounds bilaterally with no wheezing or rhonchi noted. ABDOMEN: soft. Nontender on exam. non-distended, normoactive bowel sounds. No palpable organomegaly. MUSCULOSKELETAL: No joint swelling or deformity. EXTREMITIES: No cyanosis, clubbing, or pedal edema. NEUROLOGICAL: Gross neurological examination did not reveal any focal deficits. Diffuse weakness SKIN: No rashes. Assessment: Acute COVID-19 infection Acute urinary tract infection, present on admission with Klebsiella pneumonia growing in the cultures Diabetes mellitus type 2, [id number] History of paroxysmal atrial fibrillation, currently rate controlled, not on anticoagulation Hypertension Elevated d-dimer with no evidence of PE on CTA GI prophylaxis DVT prophylaxis Full code Plan: Recommend to continue with current medications and management with anxiety following. Preliminary urine cultures were showing gram-negative bacilli although have resulted is Klebsiella pneumonia today and patient is continued on ceftriaxone with sensitivities. Will continue and transitioned oral antibiotics on discharge. Patient with significant weakness and will continue IV hydration and PT/OT therapy recommending ECF. Patient initially was resistant although agreeable to go to [facility]. Case management following working on insurance authorization. Recommend repeat labs in a.m. with possible discharge in 24 hours. Due to multiple convex medical issues, prognosis is guarded. The impression and plan of care has been dictated by Alisha Hunter, nurse practitioner as directed. Dr. Fortino MD I have performed a history and examination and MDM of this patient, discussed the same with the dictator, and agree with the dictator's assessment and plan as written ,documented as a scribe. Based on total visit time, I have performed more than 50% of the visit. Any additional findings or plans will be noted. Objective - Vital Signs Vital signs: Vital Signs Temp 98.6 F 03/20/22 13:52 Pulse 76 03/20/22 13:52 Resp 17 03/20/22 13:52 BP 131/79 03/20/22 13:52 Pulse Ox 94 L 03/20/22 13:52 FiO2 Intake & Output 03/19/22 03/20/22 03/20/22 18:59 06:59 18:59 Intake Total 1080 Output Total 800 Balance 280 Intake: Oral 1080 Output: Urine 800 Other: Voiding Method External Catheter # Voids 4 1 - Labs CBC & Chem 7: 03/20/22 06:35 03/20/22 06:35 Labs: Abnormal Lab Results - Last 24 Hours (Table) 03/19/22 03/19/22 03/19/22 Range/Units 16:09 16:22 19:48 RBC (4.10-5.20) X 10*6/uL Hgb (12.0-15.0) g/dL Hct (37.2-46.3) % Lymphocytes # (0.90-5.00) X 10*3/uL ESR (0-30) mm/Hr D-Dimer 3.79 H (<0.60) mg/L FEU BUN (9.0-27.0) mg/dL BUN/Creatinine Ratio (12.00-20.00) Ratio Glucose (70-110) mg/dL POC Glucose (mg/dL) 243 H 255 H (70-110) mg/dL AST (13-35) U/L Alkaline Phosphatase (41-126) U/L C-Reactive Protein (0.00-0.80) mg/dL Total Protein (6.2-8.2) g/dL Albumin (3.8-4.9) g/dL Albumin/Globulin Ratio (1.60-3.17) g/dL Urine Protein (Negative) Urine Glucose (UA) (Negative) Ur Leukocyte Esterase (Negative) Urine WBC (0-5) /hpf Urine Mucus (None) /hpf 03/20/22 03/20/22 03/20/22 Range/Units 06:35 06:35 07:00 RBC 3.35 L (4.10-5.20) X 10*6/uL Hgb 10.3 L (12.0-15.0) g/dL Hct 31.0 L (37.2-46.3) % Lymphocytes # 0.75 L (0.90-5.00) X 10*3/uL ESR 93 H (0-30) mm/Hr D-Dimer (<0.60) mg/L FEU BUN 6.4 L (9.0-27.0) mg/dL BUN/Creatinine Ratio 9.14 L (12.00-20.00) Ratio Glucose 200 H (70-110) mg/dL POC Glucose (mg/dL) 222 H (70-110) mg/dL AST 37 H (13-35) U/L Alkaline Phosphatase 162 H (41-126) U/L C-Reactive Protein 18.70 H (0.00-0.80) mg/dL Total Protein 5.8 L (6.2-8.2) g/dL Albumin 3.4 L (3.8-4.9) g/dL Albumin/Globulin Ratio 1.42 L (1.60-3.17) g/dL Urine Protein (Negative) Urine Glucose (UA) (Negative) Ur Leukocyte Esterase (Negative) Urine WBC (0-5) /hpf Urine Mucus (None) /hpf 03/20/22 03/20/22 Range/Units 10:00 11:45 RBC (4.10-5.20) X 10*6/uL Hgb (12.0-15.0) g/dL Hct (37.2-46.3) % Lymphocytes # (0.90-5.00) X 10*3/uL ESR (0-30) mm/Hr D-Dimer (<0.60) mg/L FEU BUN (9.0-27.0) mg/dL BUN/Creatinine Ratio (12.00-20.00) Ratio Glucose (70-110) mg/dL POC Glucose (mg/dL) 245 H (70-110) mg/dL AST (13-35) U/L Alkaline Phosphatase (41-126) U/L C-Reactive Protein (0.00-0.80) mg/dL Total Protein (6.2-8.2) g/dL Albumin (3.8-4.9) g/dL Albumin/Globulin Ratio (1.60-3.17) g/dL Urine Protein 1+ H (Negative) Urine Glucose (UA) 4+ H (Negative) Ur Leukocyte Esterase Small H (Negative) Urine WBC 7 H (0-5) /hpf Urine Mucus Rare H (None) /hpf Microbiology - Last 24 Hours (Table) 03/17/22 22:34 Urine Culture - Final Urine,Voided Klebsiella pneumoniae
[2022-03-20 16:53] LABS: Glucose,Whole Blood 296 mg/dL (70-110)
[2022-03-20] MEDS: ATORVASTATIN 20 MG TAB PO SCH (19:54)
[2022-03-20 20:03] LABS: Glucose,Whole Blood 253 mg/dL (70-110)
[2022-03-21] MEDS: ALBUTEROL HFA INHALER INHALATION SCH ×3 (00:18→12:07)
[2022-03-21 07:21] LABS: Glucose,Whole Blood 210 mg/dL (70-110)
[2022-03-21] MEDS: INSULIN ASPART (NovoLOG) 100 UNIT/ML VIAL SQ SCH ×3 (07:54→17:13)
[2022-03-21] MEDS: ENOXAPARIN 40 MG/0.4 ML SYRINGE SQ SCH (07:54)
[2022-03-21] MEDS: CHOLECALCIFEROL 25 MCG (1000 IU) TABLET PO SCH (07:55)
[2022-03-21] MEDS: ZINC SULFATE 220 MG CAP PO SCH (07:55)
[2022-03-21] MEDS: ASCORBIC ACID 500 MG TAB PO SCH (07:55)
[2022-03-21] MEDS: METOPROLOL TARTRATE 25 MG TAB PO SCH (07:55)
[2022-03-21] MEDS: PROPAFENONE 150 MG TAB PO SCH (07:56)
[2022-03-21] MEDS: PANTOPRAZOLE 40 MG TABLET PO SCH (07:56)
[2022-03-21 08:57] LABS: Basophils # (A) 0.04 X 10*3/uL (0.00-0.10); Basophils % (A) 0.4 %; Eosinophils # (A) 0.08 X 10*3/uL (0.04-0.35); Eosinophils % (A) 0.8 %; HCT 30.3 % (37.2-46.3); HGB 10.4 g/dL (12.0-15.0); Immature Grans, Automated 0.5 %; Lymphocytes # (A) 0.85 X 10*3/uL (0.90-5.00); Lymphocytes % (A) 8.9 %; MCH 31.2 pg (27.0-32.0); MCHC 34.3 g/dL (32.0-37.0); Mean Platelet Volume 9.9 fL (9.5-12.2); Monocytes # (A) 0.82 X 10*3/uL (0.20-1.00); Monocytes % (A) 8.6 %; NRBC Per 100 WBC 0 /100 WBCS (0.0-0.0); Neutrophils # (A) 7.68 X 10*3/uL (1.80-7.70); Neutrophils % (A) 80.8 %; Platelet Count 356 X 10*3/uL (140-440); RBC 3.33 X 10*6/uL (4.10-5.20); RDW 12.3 % (11.5-14.5); WBC 9.52 X 10*3/uL (4.50-10.00)
[2022-03-21 09:13] LABS: African American GFR (CKD) 83.6 (60.0-200.0); Albumin 3.6 g/dL (3.8-4.9); Albumin/Globulin Ratio 1.57 (1.60-3.17); Anion Gap 13.7 mmol/L (10.00-18.00); BUN/Creat Ratio 11.13 Ratio (12.00-20.00); Blood Urea Nitrogen 8.9 mg/dL (9.0-27.0); Carbon Dioxide 24.3 mmol/L (20.0-27.5); Globulin 2.3 g/dL (1.6-3.3); Magnesium 1.6 mg/dL (1.5-2.4); Non-African American GFR(CKD) 72.1 (60.0-200.0); Potassium 3.8 mmol/L (3.5-5.5); Total Bilirubin 0.5 mg/dL (0.30-1.20); Total Protein 5.9 g/dL (6.2-8.2)
[2022-03-21 11:52] LABS: Glucose,Whole Blood 231 mg/dL (70-110)
[2022-03-21 16:07] VITALS: BP 146/78; PULSE 89; RESP 16; TEMP 99.4
[2022-03-21 16:47] LABS: Glucose,Whole Blood 244 mg/dL (70-110)
--- NOTE | 2022-03-21 17:42 | P.DS ---
Providers Date of admission: 03/18/22 01:23 Expected date of discharge: 03/21/22 Attending physician: Eric Freitas Consults: 03/19/22 15:44 Consult Physician Routine Consulting Provider: Leonor Angela Consult Reason/Comments: covid Do you want consulting provider notified?: Yes Primary care physician: German Leigh Hospital Course: Final diagnosis Acute COVID-19 infection Acute urinary tract infection, present on admission with Klebsiella pneumonia growing in the cultures Diabetes mellitus type 2, [id number] History of paroxysmal atrial fibrillation, currently rate controlled, not on anticoagulation Hypertension Elevated d-dimer with no evidence of PE on CTA GI prophylaxis DVT prophylaxis Full code Discharge disposition Patient is being discharged in a stable condition with guarded prognosis to home with home care. Patient will follow-up with Dr. Leigh in the outpatient setting upon discharge. Patient is to continue with ceftin 500mg bid for the next five days to complete the course. Patient to continue with covid vitamins as well. Total time taken is greater than 35 minutes. Hospital course This is a 76-year-old female who was recently admitted with weakness and also UTI and also covid 19 infection and was being closely monitored. Patient with poor oral intake and dehydration and was hydrated and started on IV ceftriaxone along with vitamin c,d, and zinc. Patient urine cultures showing klebsiella pneumonia with sensitivities. Patient will continue on ceftin for 5 days bid to complete the course. ID following. Patient with weakness and evaluated by pt/ot and initially recommending ecf and patient was agreeable. Patient worked with physical therapy today with some improvement and would now like to go home with home care. Patient to follow up with Dr. Leigh this week. Currently no reports of chest pain, shortness of breath, or palpitations. Patient is afebrile. No reports of nausea or vomiting and patient is tolerating diet. Patient will be discharged home today. guarded prognosis Physical exam: Gen: This is a 76 year old female who is awake and alert and oriented x3. thin built eldery female HEENT: Head is atraumatic, normocephalic. Pupils equal, round. Sclerae is anicteric. NECK: Supple. No JVD. No lymphadenopathy. No thyromegaly. LUNGS: diminished breath sounds with no wheezes or rhonchi. No intercostal r etractions. HEART: Regular rate and rhythm. No murmur. ABDOMEN: Soft. Bowel sounds are present. No masses. No tenderness. EXTREMITIES: No pedal edema. No calf tenderness. NEUROLOGICAL: Patient is awake, alert and oriented x3. Cranial nerves 2 through 12 are grossly intact. Please refer to medication reconciliation sheet for a list of medications. The impression and plan of care has been dictated by Alisha Hunter, Nurse Practitioner as directed. MD Marisel I have performed a history and examination and MDM of this patient, discussed the same with the dictator, and agree with the dictator's assessment and plan as written ,documented as a scribe. Based on total visit time, I have performed more than 50% of the visit. Patient Condition at Discharge: Fair Plan - Discharge Summary Discharge Rx Participant: No New Discharge Prescriptions: New Metoprolol Tartrate [Lopressor] 25 mg PO BID 30 Days #60 tab Albuterol Inhaler [Ventolin Hfa Inhaler] 2 puff INHALATION RT-Q6H 30 Days #1 each Cholecalciferol [Vitamin D3 (25 Mcg = 1000 Iu)] 25 mcg PO DAILY #30 tab Zinc Sulfate [Orazinc] 220 mg PO DAILY 14 Days #14 cap Acetaminophen Tab [Tylenol] 650 mg PO Q6HR PRN tab PRN Reason: Mild Pain Or Fever > 100.5 Ascorbic Acid [Vitamin C] 500 mg PO DAILY 30 Days #30 tab cefUROXime axetiL [Ceftin] 500 mg PO BID 5 Days #10 tab Continue lisinopriL 2.5 mg PO DAILY Aspirin/Acetaminophen/Caffeine [Excedrin Extra Strength Caplet] 0.5 - 1 tab PO TID PRN PRN Reason: Migraine Headache Zolpidem [Ambien] 5 mg PO HS PRN PRN Reason: Insomnia Ipratropium [place] 0.06%Nasal [Atrovent Nasal 0.06%] 2 spray EA NOSTRIL QID PRN PRN Reason: WATERY NOSE metFORMIN HCL [Glucophage] 500 mg PO HS Propafenone [Rythmol] 150 mg PO BID Atorvastatin [Lipitor] 20 mg PO HS Pantoprazole [Protonix] 40 mg PO DAILY #10 tab Azelastine HCl 2 spr NASAL BID PRN PRN Reason: Allergy Symptoms Discontinued Metoprolol Tartrate [Lopressor] 50 mg PO BID Discharge Medication List Aspirin/Acetaminophen/Caffeine [Excedrin Extra Strength Caplet] 0.5 - 1 tab PO TID PRN 02/13/22 [History] Atorvastatin [Lipitor] 20 mg PO HS 02/13/22 [History] Pantoprazole [Protonix] 40 mg PO DAILY #10 tab 02/13/22 [Rx] Propafenone [Rythmol] 150 mg PO BID 02/13/22 [History] lisinopriL 2.5 mg PO DAILY 02/13/22 [History] metFORMIN HCL [Glucophage] 500 mg PO HS 02/13/22 [History] Azelastine HCl 2 spr NASAL BID PRN 03/18/22 [History] Ipratropium [place] 0.06%Nasal [Atrovent Nasal 0.06%] 2 spray EA NOSTRIL QID PRN 03/18/22 [History] Zolpidem [Ambien] 5 mg PO HS PRN 03/18/22 [History] Acetaminophen Tab [Tylenol] 650 mg PO Q6HR PRN tab 03/21/22 [Rx] Albuterol Inhaler [Ventolin Hfa Inhaler] 2 puff INHALATION RT-Q6H 30 Days #1 each 03/21/22 [Rx] Ascorbic Acid [Vitamin C] 500 mg PO DAILY 30 Days #30 tab 03/21/22 [Rx] Cholecalciferol [Vitamin D3 (25 Mcg = 1000 Iu)] 25 mcg PO DAILY #30 tab 03/21/22 [Rx] Metoprolol Tartrate [Lopressor] 25 mg PO BID 30 Days #60 tab 03/21/22 [Rx] Zinc Sulfate [Orazinc] 220 mg PO DAILY 14 Days #14 cap 03/21/22 [Rx] cefUROXime axetiL [Ceftin] 500 mg PO BID 5 Days #10 tab 03/21/22 [Rx] Follow up Appointment(s)/Referral(s): German Leigh MD [Primary Care Provider] - 1-2 days [facility], [NON-STAFF] - 1-2 Days Activity/Diet/Wound Care/Special Instructions: Activity Limited until follow-up Follow-up with primary care provider on discharge Continue with current medications Continue with antibiotics until finished Continue with incentive spirometer at least 10 times every hour while awake Discharge Disposition: HOME WITH HOME HEALTH SERVICES
== END 2022-03-21 18:30 | disposition home health service (06) | DRG 178 ==
LOC: EC 18:30 → 4SSUR 03-18 01:23
PROVIDERS: ADMIT Hospitalist; ATTEND Hospitalist
DX: U07.1 COVID-19 (principal); N39.0 Urinary tract infection, site not specified; E11.9 Type 2 diabetes mellitus without complications; I10 Essential (primary) hypertension; D72.810 Lymphocytopenia; B96.1 Klebsiella pneumoniae [K. pneumoniae] as the cause of diseases classified elsewhere; E83.42 Hypomagnesemia; I48.0 Paroxysmal atrial fibrillation; E86.0 Dehydration; R00.0 Tachycardia, unspecified; M50.30 Other cervical disc degeneration, unspecified cervical region; R26.2 Difficulty in walking, not elsewhere classified; R09.02 Hypoxemia; R79.89 Other specified abnormal findings of blood chemistry; M54.89 Other dorsalgia; R31.9 Hematuria, unspecified; Z28.310 Unvaccinated for COVID-19; Z79.899 Other long term (current) drug therapy; Z79.84 Long term (current) use of oral hypoglycemic drugs; Z88.0 Allergy status to penicillin
CPT/HCPCS: 36415; 70450; 70496; 70498; 71045; 71275; 72125; 80053; 81001; 83036; 83615; 83735; 83880; 84145; 84443; 84484; 85025; 85379; 85652; 86140; 87077; 87086; 87186; 87635; 93005; 94640; 96365; 96366; 96375; 99285

== ENCOUNTER 2022-05-17 22:44 | Inpatient (IN) | payer MEDICARE ==
[2022-05-17] MEDS ORDERED: SODIUM CHLORIDE 0.9% 1,000 ML IV STA (22:57)
[2022-05-17] MEDS ORDERED: ONDANSETRON 4 MG/2 ML VIAL IVP STA (22:57)
[2022-05-17] MEDS ORDERED: SODIUM CHLORIDE 0.9% 500 ML 500 ML IV STA (22:57)
--- NOTE | 2022-05-17 22:58 | ED ---
Weakness HPI - General Chief complaint: Nausea/Vomiting/Diarrhea Stated complaint: Diarrhea, COVID + Time Seen by Provider: 05/17/22 22:57 Source: patient, RN notes reviewed, old records reviewed Mode of arrival: EMS Limitations: no limitations - History of Present Illness Initial comments: This is a 77 show female DF for evaluation. Patient coming in for weakness not feeling well. Patient is positive for Kovic positive for fever no significant current shortness of breath but does have cough bodyaches pains and weakness. Decreased appetite lightheadedness and dizziness and dehydration per patient MD Complaint: generalized weakness, lack of energy, difficulty walking -: days(s) Location: generalized Severity: severe Severity scale (1-10): 8 Quality: tingling, aching Consistency: constant Improves with: none Worsens with: none Context: recent illness, history of similar Associated Symptoms: loss of appetite, nausea/vomiting, shortness of breath - Related Data Home Medications Medication Instructions Recorded Confirmed Aspirin/Acetaminophen/Caffeine 0.5 - 1 tab PO TID PRN 02/13/22 05/18/22 [Excedrin Extra Strength Caplet] Atorvastatin [Lipitor] 20 mg PO HS 02/13/22 05/18/22 Propafenone [Rythmol] 150 mg PO BID 02/13/22 05/18/22 lisinopriL 2.5 mg PO DAILY 02/13/22 05/18/22 metFORMIN HCL [Glucophage] 500 mg PO HS 02/13/22 05/18/22 Azelastine HCl [Astelin Nasal 2 spr NASAL BID PRN 03/18/22 05/18/22 [place]] Ipratropium [place] 0.06%Nasal 2 spray EA NOSTRIL QID PRN 03/18/22 05/18/22 [Atrovent Nasal 0.06%] Albuterol Inhaler [Ventolin Hfa 2 puff INHALATION RT-Q6H PRN 05/18/22 05/18/22 Inhaler] Metoprolol Tartrate [Lopressor] 50 mg PO DAILY 05/18/22 05/18/22 Montelukast [Singulair] 10 mg PO HS 05/18/22 05/18/22 traZODone HCL 100 mg PO HS 05/18/22 05/18/22 Previous Rx's Medication Instructions Recorded Pantoprazole [Protonix] 40 mg PO DAILY #10 tab 02/13/22 Acetaminophen Tab [Tylenol] 650 mg PO Q6HR PRN tab 03/21/22 Ascorbic Acid [Vitamin C] 500 mg PO DAILY 30 Days #30 tab 03/21/22 Cholecalciferol [Vitamin D3 (25 25 mcg PO DAILY #30 tab 03/21/22 Mcg = 1000 Iu)] Zinc Sulfate [Orazinc] 220 mg PO DAILY 14 Days #14 cap 03/21/22 Allergies Allergy/AdvReac Type Severity Reaction Status Date / Time Penicillins Allergy Rash/Hives Verified 05/18/22 07:29 on entire body Review of Systems ROS Statement: Those systems with pertinent positive or pertinent negative responses have been documented in the HPI. ROS Other: All systems not noted in ROS Statement are negative. Past Medical History Past Medical History: Atrial Fibrillation, Diabetes Mellitus, Hypertension History of Any Multi-Drug Resistant Organisms: None Reported Past Surgical History: Appendectomy, Cholecystectomy, Heart Catheterization Past Anesthesia/Blood Transfusion Reactions: No Reported Reaction Past Psychological History: No Psychological Hx Reported Smoking Status: Never smoker Past Alcohol Use History: Occasional Past Drug Use History: None Reported General Exam Limitations: no limitations General appearance: alert, in no apparent distress Head exam: Present: atraumatic, normocephalic, normal inspection Eye exam: Present: normal appearance, PERRL, EOMI. Absent: scleral icterus, conjunctival injection, periorbital swelling ENT exam: Present: normal exam, mucous membranes moist Neck exam: Present: normal inspection. Absent: tenderness, meningismus, lymphadenopathy Respiratory exam: Present: normal lung sounds bilaterally. Absent: respiratory distress, wheezes, rales, rhonchi, stridor Cardiovascular Exam: Present: regular rate, normal rhythm, normal heart sounds. Absent: systolic murmur, diastolic murmur, rubs, gallop, clicks GI/Abdominal exam: Present: soft, normal bowel sounds. Absent: distended, tenderness, guarding, rebound, rigid Extremities exam: Present: normal inspection, full ROM, normal capillary refill. Absent: tenderness, pedal edema, joint swelling, calf tenderness Back exam: Present: normal inspection Neurological exam: Present: alert, oriented X3, CN II-XII intact Psychiatric exam: Present: normal affect, normal mood Skin exam: Present: warm, dry, intact, normal color. Absent: rash Course Vital Signs 1205/18/22 05/18/22 22:53 00:00 01:00 Temperature 97.7 F Pulse Rate 97 90 88 Respiratory 18 16 16 Rate Blood Pressure 142/99 162/89 124/63 O2 Sat by Pulse 100 98 98 Oximetry 05/18/22 05/18/22 05/18/22 02:00 02:15 02:35 Temperature 98.5 F 98.4 F 98.5 F Pulse Rate 86 88 87 Respiratory 16 16 16 Rate Blood Pressure 101/56 113/59 118/60 O2 Sat by Pulse 98 98 Oximetry 05/18/22 05/18/22 05/18/22 04:07 04:25 04:50 Temperature 98.4 F 98.5 F 98.2 F Pulse Rate 80 80 81 Respiratory 16 16 16 Rate Blood Pressure 120/71 116/45 110/72 O2 Sat by Pulse 98 99 98 Oximetry 05/18/22 05/18/22 05/18/22 05:10 06:31 09:00 Temperature 98.4 F 98.5 F Pulse Rate 81 77 83 Respiratory 16 16 16 Rate Blood Pressure 117/63 116/58 124/74 O2 Sat by Pulse 98 98 96 Oximetry 05/18/22 05/18/22 05/18/22 10:00 11:00 11:15 Temperature Pulse Rate 87 Respiratory 18 Rate Blood Pressure 126/78 145/95 128/57 O2 Sat by Pulse Oximetry 05/18/22 05/18/22 05/18/22 11:30 11:45 12:00 Temperature Pulse Rate Respiratory Rate Blood Pressure 128/57 99/64 99/64 O2 Sat by Pulse Oximetry 05/18/22 05/18/22 05/18/22 12:15 12:30 12:45 Temperature Pulse Rate Respiratory Rate Blood Pressure 114/56 114/56 106/60 O2 Sat by Pulse Oximetry 05/18/22 05/18/22 05/18/22 13:00 13:15 13:30 Temperature Pulse Rate 90 Respiratory 18 Rate Blood Pressure 106/60 107/63 107/63 O2 Sat by Pulse 97 Oximetry 05/18/22 05/18/22 05/18/22 13:45 14:00 14:15 Temperature Pulse Rate Respiratory Rate Blood Pressure 112/74 112/74 134/78 O2 Sat by Pulse Oximetry 05/18/22 05/18/22 05/18/22 14:30 14:45 15:00 Temperature Pulse Rate 116 H Respiratory 20 Rate Blood Pressure 138/74 128/88 128/88 O2 Sat by Pulse 94 L Oximetry 05/18/22 05/18/22 05/18/22 15:15 15:30 15:45 Temperature Pulse Rate 114 H Respiratory Rate Blood Pressure 119/70 119/70 109/72 O2 Sat by Pulse Oximetry 05/18/22 16:00 Temperature Pulse Rate 110 H Respiratory 18 Rate Blood Pressure 109/72 O2 Sat by Pulse Oximetry - Reevaluation(s) Reevaluation #1: 05/17/22 Medical record is reviewed Patient symptoms improved here in the ER Patient informed of results and questions answered Reevaluation #2: Here in the emergency this patient was found to have positive GI bleed Medical Decision Making - Medical Decision Making 77 female DF for evaluation. Patient does have positive coronavirus. We'll admit for supportive care - Lab Data Result diagrams: 05/25/22 04:05 05/25/22 04:05 Lab Results 05/17/22 05/17/22 05/17/22 Range/Units 22:59 22:59 22:59 WBC 6.6 (3.8-10.6) k/uL RBC 3.36 L (3.80-5.40) m/uL Hgb 10.7 L (11.4-16.0) gm/dL Hct 30.9 L (34.0-46.0) % MCV 91.9 (80.0-100.0) fL MCH 31.9 (25.0-35.0) pg MCHC 34.8 (31.0-37.0) g/dL RDW 14.3 (11.5-15.5) % Plt Count 247 (150-450) k/uL MPV 8.4 Neutrophils % 63 % Lymphocytes % 24 % Monocytes % 6 % Eosinophils % 3 % Basophils % 1 % Neutrophils # 4.1 (1.3-7.7) k/uL Lymphocytes # 1.5 (1.0-4.8) k/uL Monocytes # 0.4 (0-1.0) k/uL Eosinophils # 0.2 (0-0.7) k/uL Basophils # 0.1 (0-0.2) k/uL PT 10.7 (9.0-12.0) sec INR 1.0 (<1.2) APTT 19.9 L (22.0-30.0) sec Sodium 136 L (137-145) mmol/L Potassium 4.3 (3.5-5.1) mmol/L Chloride 105 (98-107) mmol/L Carbon Dioxide 19 L (22-30) mmol/L Anion Gap 12 mmol/L BUN 31 H (7-17) mg/dL Creatinine 0.65 (0.52-1.04) mg/dL Est GFR (CKD-EPI)AfAm >90 (>60 ml/min/1.73 sqM) Est GFR (CKD-EPI)NonAf 87 (>60 ml/min/1.73 sqM) Glucose 153 H (74-99) mg/dL Lactic Ac Sepsis Rflx Plasma Lactic Acid [place] (0.7-2.0) mmol/L Calcium 9.5 (8.4-10.2) mg/dL Phosphorus 3.4 (2.5-4.5) mg/dL Magnesium 1.3 L (1.6-2.3) mg/dL Total Bilirubin 0.5 (0.2-1.3) mg/dL AST 25 (14-36) U/L ALT 22 (4-34) U/L Alkaline Phosphatase 76 (38-126) U/L Troponin I (0.000-0.034) ng/mL Total Protein 5.9 L (6.3-8.2) g/dL Albumin 3.9 (3.5-5.0) g/dL Blood Type Blood Type Confirm Blood Type Recheck Bld Type Recheck Status Antibody Screen Crossmatch Spec Expiration Date 05/17/22 05/17/22 05/18/22 Range/Units 22:59 22:59 00:14 WBC (3.8-10.6) k/uL RBC (3.80-5.40) m/uL Hgb (11.4-16.0) gm/dL Hct (34.0-46.0) % MCV (80.0-100.0) fL MCH (25.0-35.0) pg MCHC (31.0-37.0) g/dL RDW (11.5-15.5) % Plt Count (150-450) k/uL MPV Neutrophils % % Lymphocytes % % Monocytes % % Eosinophils % % Basophils % % Neutrophils # (1.3-7.7) k/uL Lymphocytes # (1.0-4.8) k/uL Monocytes # (0-1.0) k/uL Eosinophils # (0-0.7) k/uL Basophils # (0-0.2) k/uL PT (9.0-12.0) sec INR (<1.2) APTT (22.0-30.0) sec Sodium (137-145) mmol/L Potassium (3.5-5.1) mmol/L Chloride (98-107) mmol/L Carbon Dioxide (22-30) mmol/L Anion Gap mmol/L BUN (7-17) mg/dL Creatinine (0.52-1.04) mg/dL Est GFR (CKD-EPI)AfAm (>60 ml/min/1.73 sqM) Est GFR (CKD-EPI)NonAf (>60 ml/min/1.73 sqM) Glucose (74-99) mg/dL Lactic Ac Sepsis Rflx Y Plasma Lactic Acid [place] 4.0 H* (0.7-2.0) mmol/L Calcium (8.4-10.2) mg/dL Phosphorus (2.5-4.5) mg/dL Magnesium (1.6-2.3) mg/dL Total Bilirubin (0.2-1.3) mg/dL AST (14-36) U/L ALT (4-34) U/L Alkaline Phosphatase (38-126) U/L Troponin I <0.012 (0.000-0.034) ng/mL Total Protein (6.3-8.2) g/dL Albumin (3.5-5.0) g/dL Blood Type Blood Type Confirm Blood Type Recheck Bld Type Recheck Status Antibody Screen Crossmatch Spec Expiration Date 05/18/22 05/18/22 Range/Units 00:20 00:25 WBC (3.8-10.6) k/uL RBC (3.80-5.40) m/uL Hgb (11.4-16.0) gm/dL Hct (34.0-46.0) % MCV (80.0-100.0) fL MCH (25.0-35.0) pg MCHC (31.0-37.0) g/dL RDW (11.5-15.5) % Plt Count (150-450) k/uL MPV Neutrophils % % Lymphocytes % % Monocytes % % Eosinophils % % Basophils % % Neutrophils # (1.3-7.7) k/uL Lymphocytes # (1.0-4.8) k/uL Monocytes # (0-1.0) k/uL Eosinophils # (0-0.7) k/uL Basophils # (0-0.2) k/uL PT (9.0-12.0) sec INR (<1.2) APTT (22.0-30.0) sec Sodium (137-145) mmol/L Potassium (3.5-5.1) mmol/L Chloride (98-107) mmol/L Carbon Dioxide (22-30) mmol/L Anion Gap mmol/L BUN (7-17) mg/dL Creatinine (0.52-1.04) mg/dL Est GFR (CKD-EPI)AfAm (>60 ml/min/1.73 sqM) Est GFR (CKD-EPI)NonAf (>60 ml/min/1.73 sqM) Glucose (74-99) mg/dL Lactic Ac Sepsis Rflx Plasma Lactic Acid [place] (0.7-2.0) mmol/L Calcium (8.4-10.2) mg/dL Phosphorus (2.5-4.5) mg/dL Magnesium (1.6-2.3) mg/dL Total Bilirubin (0.2-1.3) mg/dL AST (14-36) U/L ALT (4-34) U/L Alkaline Phosphatase (38-126) U/L Troponin I (0.000-0.034) ng/mL Total Protein (6.3-8.2) g/dL Albumin (3.5-5.0) g/dL Blood Type O Positive Blood Type Confirm O Positive Blood Type Recheck No Previous Record Bld Type Recheck Status CABO Indicated Antibody Screen NEGATIVE Crossmatch See Detail Spec Expiration Date 05/21/20222319 - Radiology Data Radiology results: report reviewed (Chest x-rays negative for acute disease), image reviewed Disposition Clinical Impression: Dehydration, GI bleed, Melena, Bleeding duodenal ulcer, COVID-19, Nausea and vomiting, Diarrhea Disposition: ADMITTED IP TO THIS HOSP Condition: Serious Is patient prescribed a controlled substance at d/c from ED?: No Time of Disposition: 00:45
[2022-05-17 23:40] LABS: Basophils # (A) 0.1 k/uL (0-0.2); Basophils % (A) 1 %; Eosinophils # (A) 0.2 k/uL (0-0.7); Eosinophils % (A) 3 %; HCT 30.9 % (34.0-46.0); HGB 10.7 gm/dL (11.4-16.0); Lymphocytes # (A) 1.5 k/uL (1.0-4.8); Lymphocytes % (A) 24 %; MCH 31.9 pg (25.0-35.0); MCHC 34.8 g/dL (31.0-37.0); MCV 91.9 fL (80.0-100.0); Mean Platelet Volume 8.4; Monocytes # (A) 0.4 k/uL (0-1.0); Monocytes % (A) 6 %; Neutrophils # (A) 4.1 k/uL (1.3-7.7); Neutrophils % (A) 63 %; Platelet Count 247 k/uL (150-450); RBC 3.36 m/uL (3.80-5.40); RDW 14.3 % (11.5-15.5); WBC 6.6 k/uL (3.8-10.6)
[2022-05-17 23:50] LABS: ALT 22 U/L (4-34); AST 25 U/L (14-36); African American GFR (CKD) >90 (>60 ml/min/1.73 sqM); Albumin 3.9 g/dL (3.5-5.0); Alkaline Phosphatase 76 U/L (38-126); Anion Gap 12 mmol/L; Blood Urea Nitrogen 31 mg/dL (7-17); Calcium 9.5 mg/dL (8.4-10.2); Carbon Dioxide 19 mmol/L (22-30); Chloride 105 mmol/L (98-107); Glucose 153 mg/dL (74-99); Magnesium 1.3 mg/dL (1.6-2.3); Non-African American GFR(CKD) 87 (>60 ml/min/1.73 sqM); Phosphorus 3.4 mg/dL (2.5-4.5); Potassium 4.3 mmol/L (3.5-5.1); Sodium 136 mmol/L (137-145); Total Bilirubin 0.5 mg/dL (0.2-1.3); Total Protein 5.9 g/dL (6.3-8.2)
[2022-05-18 00:01] LABS: Prothrombin Time 10.7 sec (9.0-12.0)
[2022-05-18 00:03] LABS: Partial Thromboplastin Time 19.9 sec (22.0-30.0)
[2022-05-18] MEDS ORDERED: PANTOPRAZOLE 40 MG/10 ML VIAL IVP STA (00:12)
[2022-05-18] MEDS ORDERED: diphenhydrAMINE 50 MG/ML 1 ML VIAL IVP STA (00:13)
[2022-05-18] MEDS ORDERED: ACET/COD 300 MG/30 MG STARTER PACK 6 TAB BTL PO STA (00:36)
[2022-05-18] MEDS ORDERED: ONDANSETRON 4 MG ODT STARTER PACK 2 TAB BTL PO STA (00:36)
[2022-05-18] MEDS ORDERED: ONDANSETRON 4 MG/2 ML VIAL IVP PRN (00:38)
[2022-05-18] MEDS ORDERED: NALOXONE 0.4 MG/ML 1 ML VIAL IV PRN (00:38)
[2022-05-18] MEDS: SODIUM CHLORIDE 0.9% 1,000 ML IV SCH ×2 (01:45→19:17)
[2022-05-18] MEDS ORDERED: LORazepam 1 MG TAB PO STA (04:04)
[2022-05-18] MEDS: PANTOPRAZOLE 40 MG/10 ML VIAL IVP SCH ×2 (09:00→23:11)
--- NOTE | 2022-05-18 11:49 | P.CONS ---
History of Present Illness - Reason for Consult Consult date: 05/18/22 GI bleed Requesting physician: Santos Jack - Chief Complaint Black stool - History of Present Illness This is a pleasant 77-year-old female with a past medical history of atrial fibrillation not on anticoagulation, diabetes mellitus and hypertension. Patient came in yesterday with complaints of nausea vomiting and multiple episodes of black loose stool. Patient does have a history of atrial fibrillation however had watchman put in about 4 years ago. She she does take Excedrin daily. She denies any previous history of peptic ulcer disease and no previous EGD. Her last colonoscopy she states was 6-7 years ago. She states she is unsure what color her vomit was was mostly food. But she states that she had multiple loose stools yesterday. She is denying any abdominal pain, no nausea or vomiting at this time. She was noted to have an elevated BUN of 31 on admission with a stable hemoglobin of 10.7. Gastroenterology was consulted for to complete. Labs WBC 6.6 hemoglobin 10.7 hematocrit 30.9 platelet count 247,019 or 1.0 sodium 136 potassium 4.3 BUN 31 creatinine 0.65 glucose 153, lactic acid 4.0 now 2.0 magnesium 1.3 total bilirubin 0.5 AST 25 ALT 22 alkaline phosphatase 76 Review of Systems REVIEW OF SYSTEMS: CARDIOPULMONARY: No chest pain or shortness of breath. Gastrointestinal: No abdominal pain or epigastric pain, no acid reflux. Patient had diarrhea which she states was black, multiple episodes yesterday. Nausea with vomiting. No hematemesis, coffee-ground emesis. GENITOURINARY: No dysuria or hematuria. MUSCULOSKELETAL: Reports normal range of motion. SKIN: No rashes. No jaundice. ENDOCRINE: No chills, fevers. No excessive weight gain or loss. No polydipsia or polyuria. PSYCHIATRIC: Unremarkable. NEUROLOGY: No change in mental status. Denies dizziness, headache. ENT: Vision unremarkable. CONSTITUTIONAL: No recent weight loss. No fever, chills, night sweats. Past Medical History Past Medical History: Atrial Fibrillation, Diabetes Mellitus, Hypertension History of Any Multi-Drug Resistant Organisms: None Reported Past Surgical History: Appendectomy, Cholecystectomy, Heart Catheterization Past Anesthesia/Blood Transfusion Reactions: No Reported Reaction Past Psychological History: No Psychological Hx Reported Smoking Status: Never smoker Past Alcohol Use History: Occasional Past Drug Use History: None Reported Medications and Allergies Home Medications Medication Instructions Recorded Confirmed Type Aspirin/Acetaminophen/Caffeine 0.5 - 1 tab PO TID PRN 02/13/22 05/18/22 History [Excedrin Extra Strength Caplet] Atorvastatin [Lipitor] 20 mg PO HS 02/13/22 05/18/22 History Pantoprazole [Protonix] 40 mg PO DAILY #10 tab 02/13/22 05/18/22 Rx Propafenone [Rythmol] 150 mg PO BID 02/13/22 05/18/22 History lisinopriL 2.5 mg PO DAILY 02/13/22 05/18/22 History metFORMIN HCL [Glucophage] 500 mg PO HS 02/13/22 05/18/22 History Azelastine HCl [Astelin Nasal 2 spr NASAL BID PRN 03/18/22 05/18/22 History [place]] Ipratropium [place] 0.06%Nasal 2 spray EA NOSTRIL QID PRN 03/18/22 05/18/22 History [Atrovent Nasal 0.06%] Acetaminophen Tab [Tylenol] 650 mg PO Q6HR PRN tab 03/21/22 05/18/22 Rx Ascorbic Acid [Vitamin C] 500 mg PO DAILY 30 Days #30 tab 03/21/22 05/18/22 Rx Cholecalciferol [Vitamin D3 (25 25 mcg PO DAILY #30 tab 03/21/22 05/18/22 Rx Mcg = 1000 Iu)] Zinc Sulfate [Orazinc] 220 mg PO DAILY 14 Days #14 cap 03/21/22 05/18/22 Rx Albuterol Inhaler [Ventolin Hfa 2 puff INHALATION RT-Q6H PRN 05/18/22 05/18/22 History Inhaler] Metoprolol Tartrate [Lopressor] 50 mg PO DAILY 05/18/22 05/18/22 History Montelukast [Singulair] 10 mg PO HS 05/18/22 05/18/22 History traZODone HCL 100 mg PO HS 05/18/22 05/18/22 History Allergies Allergy/AdvReac Type Severity Reaction Status Date / Time Penicillins Allergy Rash/Hives Verified 05/18/22 07:29 on entire body Physical Exam Vitals: Vital Signs Temp Pulse Resp BP Pulse Ox 05/18/22 06:31 98.5 F 77 16 116/58 98 05/18/22 05:10 98.4 F 81 16 117/63 98 05/18/22 04:50 98.2 F 81 16 110/72 98 05/18/22 04:25 98.5 F 80 16 116/45 99 05/18/22 04:07 98.4 F 80 16 120/71 98 05/18/22 02:35 98.5 F 87 16 118/60 98 05/18/22 02:15 98.4 F 88 16 113/59 98 05/18/22 02:00 98.5 F 86 16 101/56 05/18/22 01:00 88 16 124/63 98 05/18/22 00:00 90 16 162/89 98 05/17/22 22:53 97.7 F 97 18 142/99 100 Intake and Output 05/17/22 05/18/22 05/18/22 22:59 06:59 14:59 Intake Total 561 Balance 561 Intake: Blood Product 561 Rc Pheresis 2 As3 Unit 281 [id number] Rc Pheresis As-3 Unit 280 [id number] Other: Weight 63.503 kg General appearance: The patient is alert, oriented, appears in no acute distress. HET: Head is normocephalic and atraumatic. Conjunctiva pink. Sclera anicteric. Neck: Supple without lymphadenopathy. Trachea midline. Heart: S1 S2. Regular rate and rhythm. Lungs: Clear to auscultation. Abdomen: Soft, nontender, nondistended with bowel sounds. No guarding or rigidity. Skin: No rashes. No jaundice. Extremities: Normal skin color and turgor. No pedal edema. Neurological: No focal deficits. Alert and oriented x3. Results CBC & Chem 7: 05/17/22 22:59 05/17/22 22:59 Labs: Abnormal Lab Results - Last 24 Hours (Table) 05/17/22 05/17/22 05/17/22 Range/Units 22:59 22:59 22:59 RBC 3.36 L (3.80-5.40) m/uL Hgb 10.7 L (11.4-16.0) gm/dL Hct 30.9 L (34.0-46.0) % APTT 19.9 L (22.0-30.0) sec Sodium 136 L (137-145) mmol/L Carbon Dioxide 19 L (22-30) mmol/L BUN 31 H (7-17) mg/dL Glucose 153 H (74-99) mg/dL Plasma Lactic Acid [place] (0.7-2.0) mmol/L Magnesium 1.3 L (1.6-2.3) mg/dL Total Protein 5.9 L (6.3-8.2) g/dL Crossmatch 05/17/22 05/18/22 Range/Units 22:59 00:20 RBC (3.80-5.40) m/uL Hgb (11.4-16.0) gm/dL Hct (34.0-46.0) % APTT (22.0-30.0) sec Sodium (137-145) mmol/L Carbon Dioxide (22-30) mmol/L BUN (7-17) mg/dL Glucose (74-99) mg/dL Plasma Lactic Acid [place] 4.0 H* (0.7-2.0) mmol/L Magnesium (1.6-2.3) mg/dL Total Protein (6.3-8.2) g/dL Crossmatch See Detail Assessment and Plan (1) GI bleed Narrative/Plan: 77-year-old female with past medical history of atrial fibrillation on anticoagulation however does state that she takes Excedrin daily presented to the emergency department with nausea vomiting and diarrhea. Patient states cannot pull loose stools yesterday Or black. She denies any hematemesis and states that she vomited was mostly food. Denies any abdominal pain no previous history of GI bleed no previous history of peptic ulcer disease. Hemoglobin stable at 10.7 or patient did have an elevated BUN of 31 which can be consistent with an upper GI bleed as well as black tarry stools. Possible etiologies include peptic ulcer disease, gastritis, esophagitis, AVM or other possible etiologies. We'll proceed with EGD this afternoon. Current Visit: Yes Status: Acute Code(s): K92.2 - GASTROINTESTINAL HEMORRHAGE, UNSPECIFIED SNOMED Code(s): 51399152 (2) Nausea and vomiting Current Visit: Yes Status: Acute Code(s): R11.2 - NAUSEA WITH VOMITING, UNSPECIFIED SNOMED Code(s): 53950046 (3) Diarrhea Narrative/Plan: Collect stool for C. diff Current Visit: Yes Status: Acute Code(s): R19.7 - DIARRHEA, UNSPECIFIED SNOMED Code(s): 48246186 (4) Melena Current Visit: Yes Status: Acute Code(s): K92.1 - MELENA SNOMED Code(s): 0210007 (5) Hypomagnesemia Current Visit: No Status: Acute Code(s): E83.42 - HYPOMAGNESEMIA SNOMED Code(s): 808709658 Plan: 1. Continue symptomatic and supportive care 2. Keep nothing by mouth 3. Protonix 40 mg daily 4. Daily CBC, transfuse her hemoglobin less than 7 5. Stool C. diff ordered 6. Patient scheduled for EGD this afternoon. Procedure discussed with patient including risks and benefits and patient is agreeable to proceed. Thank you for allowing us to participate in the care of the patient, the GI service will sign off, gastroenterology will not be available at the hospital this weekend and through next week. If further evaluation by gastroenterology is required the patient will need transfer as per the primary team's discretion. Dr. Mark Miller I agree with the dictator's note, documented as a scribe by Anat Camarillo.
[2022-05-18] MEDS ORDERED: ACETAMINOPHEN TAB 325 MG TAB PO PRN (12:49)
[2022-05-18] MEDS ORDERED: IPRATROPIUM BROMIDE 0.06% NASAL SPRAY (15 ML) EA NOSTRIL PRN (12:49)
[2022-05-18] MEDS ORDERED: ALBUTEROL NEBULIZED 2.5 MG/3 ML INHALATION PRN (12:49)
--- NOTE | 2022-05-18 12:56 | P.HPIM ---
History of Present Illness Patient is a pleasant thousand 7-year-old female with known history of atrial fibrillation but not on anticoagulation had a watchman procedure in the past came in with the complaints of multiple episodes of natalie blood in the stools. Patient does take Excedrin for migraine. Patient had history of peptic ulcer disease in the past denied any history of aortic sclerosis. Patient denied any abdominal pain. Patient is comparing of lightheadedness generalized weakness and tiredness. The patient's of present hemoglobin is around 10.7. Patient denied any hematemesis. REVIEW OF SYSTEMS: CONSTITUTIONAL: No fever, no malaise, no fatigue. HEENT: No recent visual problems or hearing problems. Denied any sore throat. CARDIOVASCULAR: No chest pain, orthopnea, PND, no palpitations, no syncope. PULMONARY: No shortness of breath, no cough, no hemoptysis. GASTROINTESTINAL: No diarrhea, no nausea, no vomiting, no abdominal pain. NEUROLOGICAL: No headaches, no weakness, no numbness. HEMATOLOGICAL: Denies any bleeding or petechiae. GENITOURINARY: Denies any burning micturition, frequency, or urgency. MUSCULOSKELETAL/RHEUMATOLOGICAL: Denies any joint pain, swelling, or any muscle pain. ENDOCRINE: Denies any polyuria or polydipsia. The rest of the 14-point review of systems is negative. PHYSICAL EXAMINATION: GENERAL: The patient is alert and oriented x3, not in any acute distress. Well developed, well nourished. HEENT: Pupils are round and equally reacting to light. EOMI. No scleral icterus. Does have conjunctival pallor. Normocephalic, atraumatic. No pharyngeal erythema. No thyromegaly. CARDIOVASCULAR: S1 and S2 present. No murmurs, rubs, or gallops. PULMONARY: Chest is clear to auscultation, no wheezing or crackles. ABDOMEN: Soft, nontender, nondistended, normoactive bowel sounds. No palpable o rganomegaly. MUSCULOSKELETAL: No joint swelling or deformity. EXTREMITIES: No cyanosis, clubbing, or pedal edema. NEUROLOGICAL: Gross neurological examination did not reveal any focal deficits. SKIN: No rashes. Assessment and plan -Acute GI bleed most probably lower GI bleed although there is concern about BECAUSE of which patient will start with upper GI endoscopy if that is negative may need colonoscopy at that time patient will be continued on Protonix gastroneurology evaluated the patient. Patient had acute symptomatic anemia from acute GI bleed -Atrial fibrillation presently not on any anticoagulation patient has proximal A. fib patient had a watchman procedure -Type 2 diabetes mellitus and patient will be started on sliding scale lisinopril will be held because of acute GI bleed and concerns of low blood pressure patient has symptomatic anemia. -Migraine for which patient takes Excedrin which can cause peptic ulcer disease DVT prophylaxis: Early ambulation and SCDs Past Medical History Past Medical History: Atrial Fibrillation, Diabetes Mellitus, Hypertension History of Any Multi-Drug Resistant Organisms: None Reported Past Surgical History: Appendectomy, Cholecystectomy, Heart Catheterization Past Anesthesia/Blood Transfusion Reactions: No Reported Reaction Past Psychological History: No Psychological Hx Reported Smoking Status: Never smoker Past Alcohol Use History: Occasional Past Drug Use History: None Reported Medications and Allergies Home Medications Medication Instructions Recorded Confirmed Type Aspirin/Acetaminophen/Caffeine 0.5 - 1 tab PO TID PRN 02/13/22 05/18/22 History [Excedrin Extra Strength Caplet] Atorvastatin [Lipitor] 20 mg PO HS 02/13/22 05/18/22 History Pantoprazole [Protonix] 40 mg PO DAILY #10 tab 02/13/22 05/18/22 Rx Propafenone [Rythmol] 150 mg PO BID 02/13/22 05/18/22 History lisinopriL 2.5 mg PO DAILY 02/13/22 05/18/22 History metFORMIN HCL [Glucophage] 500 mg PO HS 02/13/22 05/18/22 History Azelastine HCl [Astelin Nasal 2 spr NASAL BID PRN 03/18/22 05/18/22 History [place]] Ipratropium [place] 0.06%Nasal 2 spray EA NOSTRIL QID PRN 03/18/22 05/18/22 History [Atrovent Nasal 0.06%] Acetaminophen Tab [Tylenol] 650 mg PO Q6HR PRN tab 03/21/22 05/18/22 Rx Ascorbic Acid [Vitamin C] 500 mg PO DAILY 30 Days #30 tab 03/21/22 05/18/22 Rx Cholecalciferol [Vitamin D3 (25 25 mcg PO DAILY #30 tab 03/21/22 05/18/22 Rx Mcg = 1000 Iu)] Zinc Sulfate [Orazinc] 220 mg PO DAILY 14 Days #14 cap 03/21/22 05/18/22 Rx Albuterol Inhaler [Ventolin Hfa 2 puff INHALATION RT-Q6H PRN 05/18/22 05/18/22 History Inhaler] Metoprolol Tartrate [Lopressor] 50 mg PO DAILY 05/18/22 05/18/22 History Montelukast [Singulair] 10 mg PO HS 05/18/22 05/18/22 History traZODone HCL 100 mg PO HS 05/18/22 05/18/22 History Allergies Allergy/AdvReac Type Severity Reaction Status Date / Time Penicillins Allergy Rash/Hives Verified 05/18/22 07:29 on entire body Physical Exam Vitals: Vital Signs Temp Pulse Resp BP Pulse Ox 05/18/22 10:00 87 18 126/78 05/18/22 09:00 83 16 124/74 96 05/18/22 06:31 98.5 F 77 16 116/58 98 05/18/22 05:10 98.4 F 81 16 117/63 98 05/18/22 04:50 98.2 F 81 16 110/72 98 05/18/22 04:25 98.5 F 80 16 116/45 99 05/18/22 04:07 98.4 F 80 16 120/71 98 05/18/22 02:35 98.5 F 87 16 118/60 98 05/18/22 02:15 98.4 F 88 16 113/59 98 05/18/22 02:00 98.5 F 86 16 101/56 05/18/22 01:00 88 16 124/63 98 05/18/22 00:00 90 16 162/89 98 05/17/22 22:53 97.7 F 97 18 142/99 100 Intake and Output 05/17/22 05/18/22 05/18/22 22:59 06:59 14:59 Intake Total 561 Balance 561 Intake: Blood Product 561 Rc Pheresis 2 As3 Unit 281 [id number] Rc Pheresis As-3 Unit 280 [id number] Other: Weight 63.503 kg Results CBC & Chem 7: 05/17/22 22:59 05/17/22 22:59 Labs: Abnormal Lab Results - Last 24 Hours (Table) 05/17/22 05/17/22 05/17/22 Range/Units 22:59 22:59 22:59 RBC 3.36 L (3.80-5.40) m/uL Hgb 10.7 L (11.4-16.0) gm/dL Hct 30.9 L (34.0-46.0) % APTT 19.9 L (22.0-30.0) sec Sodium 136 L (137-145) mmol/L Carbon Dioxide 19 L (22-30) mmol/L BUN 31 H (7-17) mg/dL Glucose 153 H (74-99) mg/dL Plasma Lactic Acid Berhane (0.7-2.0) mmol/L Magnesium 1.3 L (1.6-2.3) mg/dL Total Protein 5.9 L (6.3-8.2) g/dL Crossmatch 05/17/22 05/18/22 Range/Units 22:59 00:20 RBC (3.80-5.40) m/uL Hgb (11.4-16.0) gm/dL Hct (34.0-46.0) % APTT (22.0-30.0) sec Sodium (137-145) mmol/L Carbon Dioxide (22-30) mmol/L BUN (7-17) mg/dL Glucose (74-99) mg/dL Plasma Lactic Acid Berhane 4.0 H* (0.7-2.0) mmol/L Magnesium (1.6-2.3) mg/dL Total Protein (6.3-8.2) g/dL Crossmatch See Detail
[2022-05-18] MEDS ORDERED: LIDOCAINE 2% INJ 20 MG/ML (2 ML VIAL) ONE ×2 (16:03→19:41)
[2022-05-18] MEDS ORDERED: PROPOFOL 10 MG/ML 20 ML VIAL IV ONE ×2 (16:03→19:41)
[2022-05-18] MEDS ORDERED: SODIUM CHLORIDE 0.9% 500 ML 500 ML IV ONE ×2 (16:04→16:38)
--- NOTE | 2022-05-18 16:45 | P.PCN ---
Date of Procedure: 05/18/22 Procedure(s) Performed: BRIEF HISTORY: Patient is a 77-year-old, pleasant, at female admitted hospital with black tarry stools since yesterday. She was seen in consultation the [facility] morning and hemoglobin was 10.6 g/dL. She is scheduled for an upper endoscopy today. The patient states in the last 10 hours she had multiple episodes of black tarry stools. Has been taking Excedrin with aspirin at home. No prior history of peptic ulcer disease.. PROCEDURE PERFORMED: Esophagogastroduodenoscopy with injection epinephrine and attempted Endo Clip placement. PREOPERATIVE DIAGNOSIS: Acute upper GI bleed. IV sedation per anesthesia. PROCEDURE: After informed consent was obtained, the patient was brought into the endoscopy unit. IV sedation was administered by Anesthesia under continuous monitoring. Initially the [employer] GIF-140 video endoscope was inserted into the mouth. Esophagus intubated without any difficulty. It was gradually advanced into the stomach and duodenum and carefully examined. The bulb of the duodenum appeared normal. As fresh blood noted in the duodenal bulb with clots noted. Irrigation was performed. At this time there was a tight duodenal stricture identified along the duodenal sweep and just distal to the stricture there was a visible vessel with active bleeding identified. At this time I injected 1 in 10,000 epinephrine and total of 30 mL was injected with good hemostasis. All of this I attempted to place endoclips but was not successful. Unfortunately the scope could not be advanced beyond the tight stricture. The scope at this time was withdrawn to the stomach, adequately insufflated with air, and upon careful examination, mucosa of the antrum, body, cardia and the fundus appeared normal. The scope was then withdrawn into the esophagus. The GE junction was located at 39 cm from the incisors. The esophagus appeared normal. There were no erosions or ulcerations seen and the patient tolerated the procedure well. IMPRESSION: 1. 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 Status post injection epinephrine and total of 15 mL injected with hemostasis. Attempted Endo Clip placement but was not successful.. 2. Small hiatal hernia.. RECOMMENDATIONS: The findings of this examination were discussed with the patient. No family present with the patient. She'll be transferred to the intensive care unit. was notified. Continue with Protonix 40 mg twice daily. Keep her nothing by mouth for now. Stat CBC and transfuse if hemoglobin is less than 8. Surgical consultation with Dr. Coreas was requested and he is aware of the patient's condition..
[2022-05-18 17:01] LABS: Glucose,Whole Blood 243 mg/dL (70-110)
[2022-05-18 17:39] LABS: Anisocytosis Slight; Basophils % (A) 0 %; Eosinophils # (A) 0.1 k/uL (0-0.7); Eosinophils % (A) 1 %; HCT 24.4 % (34.0-46.0); Lymphocytes # (A) 0.9 k/uL (1.0-4.8); Lymphocytes % (A) 13 %; MCH 31.2 pg (25.0-35.0); MCHC 33.4 g/dL (31.0-37.0); MCV 93.4 fL (80.0-100.0); Mean Platelet Volume 8.3; Monocytes # (A) 0.3 k/uL (0-1.0); Monocytes % (A) 4 %; Neutrophils % (A) 81 %; Platelet Count 174 k/uL (150-450); RBC 2.61 m/uL (3.80-5.40); RDW 16.2 % (11.5-15.5); WBC 7.4 k/uL (3.8-10.6)
[2022-05-18 17:53] LABS: HGB 8.1 gm/dL (11.4-16.0)
[2022-05-18] MEDS ORDERED: ROCURONIUM 10 MG/ML (5 ML VIAL) IV ONE (19:41)
[2022-05-18] MEDS ORDERED: fentaNYL (PF) 50 MCG/ML 2 ML AMP ONE (19:41)
[2022-05-18] MEDS ORDERED: SUCCINYLCHOLINE CHLORIDE 200 MG/10 ML VIAL IV ONE (19:41)
[2022-05-18] MEDS ORDERED: MIDAZOLAM 2 MG/2 ML VIAL ONE (19:41)
[2022-05-18] MEDS ORDERED: LACTATED RINGERS 1,000 ML IV ONE (19:44)
[2022-05-18] MEDS ORDERED: SODIUM CHLORIDE 0.9% 1,000 ML IV ONE (19:44)
[2022-05-18 19:47] LABS: Anisocytosis Slight; HCT 22.5 % (34.0-46.0); HGB 7.6 gm/dL (11.4-16.0); MCH 31.4 pg (25.0-35.0); MCHC 33.7 g/dL (31.0-37.0); MCV 93.1 fL (80.0-100.0); Mean Platelet Volume 7.9; Platelet Count 163 k/uL (150-450); RBC 2.41 m/uL (3.80-5.40); RDW 16.2 % (11.5-15.5); WBC 7.6 k/uL (3.8-10.6)
--- NOTE | 2022-05-18 19:53 | P.GSCN ---
History of Present Illness Consult date: 05/18/22 Reason for Consult: GI bleeding History of present illness: 77-year-old female came to the ER yesterday evening with acute GI bleed. Patient was having black stools. Apparently she was vomiting but reports are that this was nonbloody. Stools were black in color. Hemoglobin was 10.7. Patient was given 2 units repeat hemoglobin this afternoon after EGD was performed is 8.1 and recheck a few hours later 7.6. Patient has received a total of 2 units of blood. She is not on blood thinners. No history of known ulcer disease. During her EGD Dr. [place] was unable to intubate the duodenal bulb however she could see active bleeding coming from the duodenal bulb. At the injection initially did lead to cessation of the bleeding which restarted during the endoscopy. Attempts at clip placement were unsuccessful. Repeat appendectomy ejection temporized the bleeding again. After she has been in the ICU for the last few hours she has had continuous frequent melanotic stools. Patient states she feels like she is still bleeding. Hemodynamically is stable. Review of Systems The patient denies any acute changes in vision or hearing, no dysphagia or odynophagia, no chest pain or shortness of breath, no dysuria or hematuria, no headache, no runny nose, no unexplained weight loss Past Medical History Past Medical History: Atrial Fibrillation, Diabetes Mellitus, Hypertension History of Any Multi-Drug Resistant Organisms: None Reported Past Surgical History: Appendectomy, Cholecystectomy, Heart Catheterization Past Anesthesia/Blood Transfusion Reactions: No Reported Reaction Past Psychological History: No Psychological Hx Reported Smoking Status: Never smoker Past Alcohol Use History: Occasional Past Drug Use History: None Reported Medications and Allergies Home Medications Medication Instructions Recorded Confirmed Type Aspirin/Acetaminophen/Caffeine 0.5 - 1 tab PO TID PRN 02/13/22 05/18/22 History [Excedrin Extra Strength Caplet] Atorvastatin [Lipitor] 20 mg PO HS 02/13/22 05/18/22 History Pantoprazole [Protonix] 40 mg PO DAILY #10 tab 02/13/22 05/18/22 Rx Propafenone [Rythmol] 150 mg PO BID 02/13/22 05/18/22 History lisinopriL 2.5 mg PO DAILY 02/13/22 05/18/22 History metFORMIN HCL [Glucophage] 500 mg PO HS 02/13/22 05/18/22 History Azelastine HCl [Astelin Nasal 2 spr NASAL BID PRN 03/18/22 05/18/22 History [place]] Ipratropium [place] 0.06%Nasal 2 spray EA NOSTRIL QID PRN 03/18/22 05/18/22 His tory [Atrovent Nasal 0.06%] Acetaminophen Tab [Tylenol] 650 mg PO Q6HR PRN tab 03/21/22 05/18/22 Rx Ascorbic Acid [Vitamin C] 500 mg PO DAILY 30 Days #30 tab 03/21/22 05/18/22 Rx Cholecalciferol [Vitamin D3 (25 25 mcg PO DAILY #30 tab 03/21/22 05/18/22 Rx Mcg = 1000 Iu)] Zinc Sulfate [Orazinc] 220 mg PO DAILY 14 Days #14 cap 03/21/22 05/18/22 Rx Albuterol Inhaler [Ventolin Hfa 2 puff INHALATION RT-Q6H PRN 05/18/22 05/18/22 History Inhaler] Metoprolol Tartrate [Lopressor] 50 mg PO DAILY 05/18/22 05/18/22 History Montelukast [Singulair] 10 mg PO HS 05/18/22 05/18/22 History traZODone HCL 100 mg PO HS 05/18/22 05/18/22 History Allergies Allergy/AdvReac Type Severity Reaction Status Date / Time Penicillins Allergy Rash/Hives Verified 05/18/22 07:29 on entire body Surgical - Exam Vital Signs Temp Pulse Resp BP Pulse Ox 97.7 F 97 18 142/99 100 05/17/22 22:53 05/17/22 22:53 05/17/22 22:53 05/17/22 22:53 05/17/22 22:53 Physical exam: General: Well-developed, well-nourished HEENT: Normocephalic, sclerae nonicteric, conjunctiva pale Abdomen: Nontender, mild distention Extremities: No edema Neuro: Alert and oriented, anxious Results - Labs 05/18/22 19:33 05/17/22 22:59 Abnormal Lab Results - Last 24 Hours (Table) 05/17/22 05/17/22 05/17/22 Range/Units 22:59 22:59 22:59 RBC 3.36 L (3.80-5.40) m/uL Hgb 10.7 L (11.4-16.0) gm/dL Hct 30.9 L (34.0-46.0) % RDW (11.5-15.5) % Lymphocytes # (1.0-4.8) k/uL APTT 19.9 L (22.0-30.0) sec Sodium 136 L (137-145) mmol/L Carbon Dioxide 19 L (22-30) mmol/L BUN 31 H (7-17) mg/dL Glucose 153 H (74-99) mg/dL POC Glucose (mg/dL) (70-110) mg/dL Plasma Lactic Acid Ber[place]ane (0.7-2.0) mmol/L Magnesium 1.3 L (1.6-2.3) mg/dL Total Protein 5.9 L (6.3-8.2) g/dL Crossmatch 05/17/22 05/18/22 05/18/22 Range/Units 22:59 00:20 17:00 RBC (3.80-5.40) m/uL Hgb (11.4-16.0) gm/dL Hct (34.0-46.0) % RDW (11.5-15.5) % Lymphocytes # (1.0-4.8) k/uL APTT (22.0-30.0) sec Sodium (137-145) mmol/L Carbon Dioxide (22-30) mmol/L BUN (7-17) mg/dL Glucose (74-99) mg/dL POC Glucose (mg/dL) 243 H (70-110) mg/dL Plasma Lactic Acid [place] 4.0 H* (0.7-2.0) mmol/L Magnesium (1.6-2.3) mg/dL Total Protein (6.3-8.2) g/dL Crossmatch See Detail 05/18/22 05/18/22 Range/Units 17:06 19:33 RBC 2.61 L 2.41 L (3.80-5.40) m/uL Hgb 8.1 L D 7.6 L (11.4-16.0) gm/dL Hct 24.4 L 22.5 L (34.0-46.0) % RDW 16.2 H 16.2 H (11.5-15.5) % Lymphocytes # 0.9 L (1.0-4.8) k/uL APTT (22.0-30.0) sec Sodium (137-145) mmol/L Carbon Dioxide (22-30) mmol/L BUN (7-17) mg/dL Glucose (74-99) mg/dL POC Glucose (mg/dL) (70-110) mg/dL Plasma Lactic Acid [place] (0.7-2.0) mmol/L Magnesium (1.6-2.3) mg/dL Total Protein (6.3-8.2) g/dL Crossmatch Diabetes panel 05/17/22 Range/Units 22:59 Sodium 136 L (137-145) mmol/L Potassium 4.3 (3.5-5.1) mmol/L Chloride 105 (98-107) mmol/L Carbon Dioxide 19 L (22-30) mmol/L BUN 31 H (7-17) mg/dL Creatinine 0.65 (0.52-1.04) mg/dL Glucose 153 H (74-99) mg/dL Calcium 9.5 (8.4-10.2) mg/dL AST 25 (14-36) U/L ALT 22 (4-34) U/L Alkaline Phosphatase 76 (38-126) U/L Total Protein 5.9 L (6.3-8.2) g/dL Albumin 3.9 (3.5-5.0) g/dL Calcium panel 05/17/22 Range/Units 22:59 Calcium 9.5 (8.4-10.2) mg/dL Phosphorus 3.4 (2.5-4.5) mg/dL Albumin 3.9 (3.5-5.0) g/dL Pituitary panel 05/17/22 Range/Units 22:59 Sodium 136 L (137-145) mmol/L Potassium 4.3 (3.5-5.1) mmol/L Chloride 105 (98-107) mmol/L Carbon Dioxide 19 L (22-30) mmol/L BUN 31 H (7-17) mg/dL Creatinine 0.65 (0.52-1.04) mg/dL Glucose 153 H (74-99) mg/dL Calcium 9.5 (8.4-10.2) mg/dL Adrenal panel 05/17/22 Range/Units 22:59 Sodium 136 L (137-145) mmol/L Potassium 4.3 (3.5-5.1) mmol/L Chloride 105 (98-107) mmol/L Carbon Dioxide 19 L (22-30) mmol/L BUN 31 H (7-17) mg/dL Creatinine 0.65 (0.52-1.04) mg/dL Glucose 153 H (74-99) mg/dL Calcium 9.5 (8.4-10.2) mg/dL Total Bilirubin 0.5 (0.2-1.3) mg/dL AST 25 (14-36) U/L ALT 22 (4-34) U/L Alkaline Phosphatase 76 (38-126) U/L Total Protein 5.9 L (6.3-8.2) g/dL Albumin 3.9 (3.5-5.0) g/dL Assessment and Plan (1) Bleeding duodenal ulcer Narrative/Plan: 77 row female with actively bleeding duodenal ulcer. Options reviewed with the patient and also her daughter by phone. We'll proceed with exploratory laparotomy with control of bleeding duodenal ulcer at this time. Risks of rebleeding, leak, abscess, peritonitis, stricture, recurrent ulceration, hernia, respiratory failure, reviewed. They understand and wish to proceed. Current Visit: Yes Status: Acute Code(s): K26.4 - CHRONIC OR UNSPECIFIED DUODENAL ULCER WITH HEMORRHAGE SNOMED Code(s): 39614454
[2022-05-18] MEDS ORDERED: SODIUM CHLORIDE 0.9% 50 ML with ceFAZolin 2,000 MG IV ONE ×2 (20:00)
[2022-05-18] MEDS ORDERED: ATORVASTATIN 20 MG TAB PO SCH (21:00)
[2022-05-18] MEDS ORDERED: PROPAFENONE 150 MG TAB PO SCH (21:00)
[2022-05-18] MEDS ORDERED: traZODone HCL 100 MG TAB PO SCH (21:00)
[2022-05-18] MEDS ORDERED: propofoL 100 ML IV ONE (21:59)
[2022-05-18 22:02] LABS: Glucose,Whole Blood 218 mg/dL (70-110)
--- NOTE | 2022-05-18 22:08 | P.OP ---
Date of Procedure: 05/18/22 Procedure(s) Performed: PREOPERATIVE DIAGNOSIS: Bleeding duodenal ulcer POSTOPERATIVE DIAGNOSIS: Same with abdominal adhesions PROCEDURE: Exploratory laparotomy, lysis of adhesions, oversewing of bleeding duodenal ulcer SURGEON: Joss EBL: 50 mL ANESTHESIA: Gen. COMPLICATIONS: None OPERATIVE PROCEDURE: Patient placed on the operating table in the supine position. The patient was placed under general anesthesia. Upper midline incision was made using the scalpel. The saphenous tissues and fascia were d ivided using electrocautery. The patient had some adhesions between the omentum and the gallbladder fossa that were lysed using a combination of electrocautery and the 12 mm clipper where there were small vessels present. That allowed me to visualize the course of the second portion of the duodenum. There was some chronic adhesions of the elvi-intestinal fat in the duodenal region were divided using electrocautery. I could then visualize the pylorus in the first several centimeters of the duodenal wall nicely. There did appear to be some scarring along the medial aspect of the duodenum where the first and second portion of the duodenum met. An incision was made longitudinally along the distal stomach carrying this across the pyloric stricture into the duodenum. The length of this incision once we had adequate visualization was approximate 5 cm. Digital palpation of the wall of the duodenum did not initially reveal any definite abnormalities other than the scarring at the stricture site at the pylorus itself. I could not feel a posterior ulceration. As I'm more closely examined the duodenum I noticed that there was a 5 mm ulceration along the medial wall which corresponded with the area of scarring seen externally. The wall of the duodenum in that area was extremely thin and close to perforation. I suspect there was a periduodenal vessel that was the source of bleeding. 2 separate interrupted 3-0 silk sutures were then used internally to ligate the base of the ulcer here. There was no more room for additional suturing. No bleeding was seen during the evaluation of the duodenum. There were no other abnormalities noted and I was able to palpate the wall of the duodenum down to the middle of the third portion of the duodenum. I then closed the pyloromyotomy transversely. An inner running layer of 3-0 Vicryl sutures were first used followed by interrupted 3-0 GI silk sutures. No tearing of the serosa was seen. The abdomen was irrigated. A drain was placed exiting the right side of the abdomen running along the lateral aspect of the duodenum and beneath the liver margin. I then used to seal fibrin glue along the suture line. I then had excess stomach that was somewhat redundant there. This was loosely sutured on top of the closure as well. The midline fascia was then reapproximated using 2 separate #1 double-stranded PDS suture. Subcutaneous tissues were irrigated. No bleeding was seen. Skin was then closed using kirstie. Sterile dressings applied. DISPOSITION: Guarded to the ICU. Spoke with the patient's daughter Justine by phone after the completion of the case with an update as to her condition. She tolerated the procedure well.
[2022-05-18 22:27] LABS: ABG Base Excess -6.5 mmol/L; ABG HCO3 20 mmol/L (21-25); ABG PCO2 39 mmHg (35-45); ABG PH 7.31 (7.35-7.45); ABG PO2 356 mmHg (83-108); ABG TCO2 21 mmol/L (19-24); Allen Test Performed? Yes
[2022-05-18] MEDS: LACTATED RINGERS 1,000 ML IV SCH (22:35)
--- NOTE | 2022-05-18 22:39 | XR ---
EXAMINATION TYPE: XR chest 1V portable DATE OF EXAM: 05/18/2022 COMPARISON: 03/17/2022 HISTORY: Check tube placement TECHNIQUE: FINDINGS: The endotracheal tube is 1.5 cm from the karl. There is nasogastric tube in the stomach. Heart size is normal. There are no hilar masses. There is some mild linear density right midlung field. IMPRESSION: There is mild linear infiltrate or atelectasis in the right mid lung which appears new co mpared to old exam. No heart failure seen.
[2022-05-18 22:56] LABS: Glucose,Whole Blood 262 mg/dL (70-110)
[2022-05-18] MEDS: INSULIN ASPART (NovoLOG) 100 UNIT/ML VIAL SQ SCH (23:01)
[2022-05-18] MEDS: MORPHINE SULFATE 2 MG/ML SYRINGE IVP PRN (23:30)
[2022-05-19] MEDS: HYDROmorphone 1 MG/ML 1 ML SYRINGE IVP PRN ×5 (00:17→20:10)
[2022-05-19 02:37] LABS: Anisocytosis Moderate; HCT 28.6 % (34.0-46.0); MCH 29.2 pg (25.0-35.0); MCHC 33.8 g/dL (31.0-37.0); Microcytosis Slight; Platelet Count 171 k/uL (150-450); RBC 3.31 m/uL (3.80-5.40); RDW 21.7 % (11.5-15.5); WBC 13.1 k/uL (3.8-10.6)
[2022-05-19 03:00] LABS: HGB 9.7 gm/dL (11.4-16.0); MCV 86.3 fL (80.0-100.0)
[2022-05-19] MEDS: MORPHINE SULFATE 2 MG/ML SYRINGE IVP PRN ×4 (03:01→23:51)
[2022-05-19 03:14] LABS: Appearance,Urine Clear (Clear); Bacteria,Urine Rare /hpf; Bilirubin,Urine Negative (Negative); Blood,Urine Negative (Negative); Color,Urine Yellow; Glucose,Urine (UA) Negative (Negative); Ketones,Urine Trace (Negative); Leukocyte Esterase,Urine Small (Negative); Mucus,Urine Rare /hpf; Nitrite,Urine Negative (Negative); Protein,Urine Negative (Negative); RBC,Urine 3 /hpf (0-5); Specific Gravity,Urine 1.022 (1.001-1.035); Squamous Epithelial Cell,Urine <1 /hpf (0-4); Urobilinogen,Urine <2.0 mg/dL (<2.0); WBC,Urine 6 /hpf (0-5)
[2022-05-19 06:04] LABS: ABG Base Excess -4.4 mmol/L; ABG HCO3 19 mmol/L (21-25); ABG Oxygen Saturation 99.6 % (94-97); ABG PCO2 27 mmHg (35-45); ABG PH 7.46 (7.35-7.45); ABG PO2 132 mmHg (83-108); ABG TCO2 20 mmol/L (19-24); Allen Test Performed? Yes
[2022-05-19 06:39] LABS: Anisocytosis Moderate; Basophils % (A) 0 %; Eosinophils % (A) 0 %; HCT 27.6 % (34.0-46.0); HGB 9.5 gm/dL (11.4-16.0); Lymphocytes # (A) 0.5 k/uL (1.0-4.8); Lymphocytes % (A) 4 %; MCH 29.6 pg (25.0-35.0); MCHC 34.4 g/dL (31.0-37.0); MCV 86.2 fL (80.0-100.0); Mean Platelet Volume 8.3; Microcytosis Slight; Monocytes # (A) 0.6 k/uL (0-1.0); Monocytes % (A) 5 %; Neutrophils % (A) 89 %; Platelet Count 180 k/uL (150-450); RBC 3.21 m/uL (3.80-5.40); RDW 21.8 % (11.5-15.5); WBC 12.3 k/uL (3.8-10.6)
[2022-05-19 06:47] LABS: Glucose,Whole Blood 207 mg/dL (70-110)
[2022-05-19] MEDS: INSULIN ASPART (NovoLOG) 100 UNIT/ML VIAL SQ SCH ×4 (06:50→23:52)
[2022-05-19 06:54] LABS: ALT 29 U/L (4-34); AST 39 U/L (14-36); African American GFR (CKD) >90 (>60 ml/min/1.73 sqM); Albumin 2.9 g/dL (3.5-5.0); Alkaline Phosphatase 46 U/L (38-126); Anion Gap 7 mmol/L; Blood Urea Nitrogen 20 mg/dL (7-17); Calcium 7.3 mg/dL (8.4-10.2); Carbon Dioxide 17 mmol/L (22-30); Chloride 112 mmol/L (98-107); Glucose 191 mg/dL (74-99); Non-African American GFR(CKD) 89 (>60 ml/min/1.73 sqM); Potassium 3.6 mmol/L (3.5-5.1); Sodium 136 mmol/L (137-145); Total Bilirubin 0.7 mg/dL (0.2-1.3); Total Protein 4.7 g/dL (6.3-8.2)
[2022-05-19] MEDS ORDERED: Potassium Replacement Protocol 1 EACH MISC MISCELLANE PRN (06:58)
--- NOTE | 2022-05-19 08:07 | XR ---
EXAMINATION TYPE: XR chest 1V portable DATE OF EXAM: 05/19/2022 5:53 AM COMPARISON: Chest radiographs from 05/18/2022 TECHNIQUE: XR chest 1V portable Portable AP radiograph of the chest. CLINICAL INDICATION:Female, 77 years old with history of Tube Placement; FINDINGS: Lungs/Pleura: There is no evidence of pleural effusion, focal consolidation, or pneumothorax. Pulmonary vascularity: Unremarkable. Heart/mediastinum: Cardiomediastinal silhouette is unremarkable. Musculoskeletal: No acute osseous pathology. Other findings: Upper abdominal surgical clips and skin kirstie. Lines/Tubes: Endotracheal tube with distal tip 2.2 cm above the karl Nasogastric tube with its distal tip and side-port projecting under the diaphragm. IMPRESSION: Support tubes in appropriate position.
[2022-05-19] MEDS: POTASSIUM CHLORIDE 10 MEQ in WATER FOR INJECTION 1 100ML.BAG IVPB SCH ×4 (08:58→14:54)
[2022-05-19] MEDS: PANTOPRAZOLE 40 MG/10 ML VIAL IVP SCH ×2 (08:59→20:11)
[2022-05-19] MEDS: LACTATED RINGERS 1,000 ML IV SCH ×2 (08:59→18:04)
[2022-05-19] MEDS ORDERED: METOPROLOL TARTRATE 50 MG TAB PO SCH (09:00)
[2022-05-19] MEDS ORDERED: CHLORHEXIDINE GLUCONATE 15 ML CUP MUCOUS MEM SCH (09:00)
--- NOTE | 2022-05-19 10:03 | P.PN ---
Subjective Progress Note Date: 05/19/22 Principal diagnosis: Duodenal ulcer Patient doing well today. Hemodynamically stable overnight. Hemoglobin is stable at 9.5. Has received a total of 3 units. NG tube is bilious. JAYASHREE drain serosanguineous. Objective - Vital Signs Vital signs: Vital Signs Temp 97.9 F 05/19/22 08:00 Pulse 94 05/19/22 09:00 Resp 20 05/19/22 09:00 BP 151/86 05/19/22 09:00 Pulse Ox 99 05/19/22 09:00 FiO2 40 05/19/22 09:00 Intake & Output 05/18/22 05/19/22 05/19/22 18:59 06:59 18:59 Intake Total 1650 3248.760 491.446 Output Total 985 105 Balance 1650 2263.760 386.446 Weight 72.8 kg Intake: IV 500 2825 400 Lactated Ringers 1,000 ml 800 300 @ 100 mls/hr IV .Q10H [facility] Rx#:[id number] Potassium Chloride 10 meq 100 In Water For Injection 1 100ml.bag @ 100 mls/hr IVPB Q1H [facility] Rx#: [id number] Sodium Chloride 0.9% 1, 75 000 ml @ 75 mls/hr IV . [id number] [facility] Rx#:[id number] Intake, IV Titration 1150 144.760 91.446 Amount Sodium Chloride 0.9% 1, 150 75 000 ml @ 75 mls/hr IV . [id number] [facility] Rx#:[id number] Sodium Chloride 0.9% 500 1000 ml 500 ml @ 0 mls/hr IV . [facility] Rx#: [id number] propofoL 1,000 mg In 69.760 91.446 Empty Bag 1 bag @ 15 MCG/ KG/MIN 5.715 mls/hr IV . [id number] [facility] Rx#:[id number] Blood Product 279 Rc Pheresis As-3 Unit 279 [id number] Output: Drainage 50 20 Right Abdomen 50 20 Urine 885 85 Estimated Blood Loss 50 Other: Voiding Method Indwelling Catheter # Bowel Movements 2 1 - Exam Abdomen: Soft, nondistended, incision with small amount of strikethrough inferiorly - Labs CBC & Chem 7: 05/19/22 05:58 05/19/22 05:58 Labs: Abnormal Lab Results - Last 24 Hours (Table) 05/18/22 05/18/22 05/18/22 Range/Units 00:20 17:00 17:06 WBC (3.8-10.6) k/uL RBC 2.61 L (3.80-5.40) m/uL Hgb 8.1 L D (11.4-16.0) gm/dL Hct 24.4 L (34.0-46.0) % RDW 16.2 H (11.5-15.5) % Neutrophils # (1.3-7.7) k/uL Lymphocytes # 0.9 L (1.0-4.8) k/uL ABG pH (7.35-7.45) ABG pCO2 (35-45) mmHg ABG pO2 (83-108) mmHg ABG HCO3 (21-25) mmol/L ABG O2 Saturation (94-97) % Sodium (137-145) mmol/L Chloride (98-107) mmol/L Carbon Dioxide (22-30) mmol/L BUN (7-17) mg/dL Glucose (74-99) mg/dL POC Glucose (mg/dL) 243 H (70-110) mg/dL Calcium (8.4-10.2) mg/dL AST (14-36) U/L Total Protein (6.3-8.2) g/dL Albumin (3.5-5.0) g/dL Urine Ketones (Negative) Ur Leukocyte Esterase (Negative) Urine WBC (0-5) /hpf Urine Bacteria (None) /hpf Urine Mucus (None) /hpf Crossmatch See Detail 05/18/22 05/18/22 05/18/22 Range/Units 19:33 22:00 22:24 WBC (3.8-10.6) k/uL RBC 2.41 L (3.80-5.40) m/uL Hgb 7.6 L (11.4-16.0) gm/dL Hct 22.5 L (34.0-46.0) % RDW 16.2 H (11.5-15.5) % Neutrophils # (1.3-7.7) k/uL Lymphocytes # (1.0-4.8) k/uL ABG pH 7.31 L (7.35-7.45) ABG pCO2 (35-45) mmHg ABG pO2 356 H (83-108) mmHg ABG HCO3 20 L (21-25) mmol/L ABG O2 Saturation 100.0 H (94-97) % Sodium (137-145) mmol/L Chloride (98-107) mmol/L Carbon Dioxide (22-30) mmol/L BUN (7-17) mg/dL Glucose (74-99) mg/dL POC Glucose (mg/dL) 218 H (70-110) mg/dL Calcium (8.4-10.2) mg/dL AST (14-36) U/L Total Protein (6.3-8.2) g/dL Albumin (3.5-5.0) g/dL Urine Ketones (Negative) Ur Leukocyte Esterase (Negative) Urine WBC (0-5) /hpf Urine Bacteria (None) /hpf Urine Mucus (None) /hpf Crossmatch 05/18/22 05/19/22 05/19/22 Range/Units 22:55 02:06 02:55 WBC 13.1 H (3.8-10.6) k/uL RBC 3.31 L (3.80-5.40) m/uL Hgb 9.7 L D (11.4-16.0) gm/dL Hct 28.6 L (34.0-46.0) % RDW 21.7 H (11.5-15.5) % Neutrophils # (1.3-7.7) k/uL Lymphocytes # (1.0-4.8) k/uL ABG pH (7.35-7.45) ABG pCO2 (35-45) mmHg ABG pO2 (83-108) mmHg ABG HCO3 (21-25) mmol/L ABG O2 Saturation (94-97) % Sodium (137-145) mmol/L Chloride (98-107) mmol/L Carbon Dioxide (22-30) mmol/L BUN (7-17) mg/dL Glucose (74-99) mg/dL POC Glucose (mg/dL) 262 H (70-110) mg/dL Calcium (8.4-10.2) mg/dL AST (14-36) U/L Total Protein (6.3-8.2) g/dL Albumin (3.5-5.0) g/dL Urine Ketones Trace H (Negative) Ur Leukocyte Esterase Small H (Negative) Urine WBC 6 H (0-5) /hpf Urine Bacteria Rare H (None) /hpf Urine Mucus Rare H (None) /hpf Crossmatch 05/19/22 05/19/22 05/19/22 Range/Units 05:58 05:58 06:02 WBC 12.3 H (3.8-10.6) k/uL RBC 3.21 L (3.80-5.40) m/uL Hgb 9.5 L (11.4-16.0) gm/dL Hct 27.6 L (34.0-46.0) % RDW 21.8 H (11.5-15.5) % Neutrophils # 11.0 H (1.3-7.7) k/uL Lymphocytes # 0.5 L (1.0-4.8) k/uL ABG pH 7.46 H (7.35-7.45) ABG pCO2 27 L (35-45) mmHg ABG pO2 132 H (83-108) mmHg ABG HCO3 19 L (21-25) mmol/L ABG O2 Saturation 99.6 H (94-97) % Sodium 136 L (137-145) mmol/L Chloride 112 H (98-107) mmol/L Carbon Dioxide 17 L (22-30) mmol/L BUN 20 H (7-17) mg/dL Glucose 191 H (74-99) mg/dL POC Glucose (mg/dL) (70-110) mg/dL Calcium 7.3 L (8.4-10.2) mg/dL AST 39 H (14-36) U/L Total Protein 4.7 L (6.3-8.2) g/dL Albumin 2.9 L (3.5-5.0) g/dL Urine Ketones (Negative) Ur Leukocyte Esterase (Negative) Urine WBC (0-5) /hpf Urine Bacteria (None) /hpf Urine Mucus (None) /hpf Crossmatch 05/19/22 Range/Units 06:45 WBC (3.8-10.6) k/uL RBC (3.80-5.40) m/uL Hgb (11.4-16.0) gm/dL Hct (34.0-46.0) % RDW (11.5-15.5) % Neutrophils # (1.3-7.7) k/uL Lymphocytes # (1.0-4.8) k/uL ABG pH (7.35-7.45) ABG pCO2 (35-45) mmHg ABG pO2 (83-108) mmHg ABG HCO3 (21-25) mmol/L ABG O2 Saturation (94-97) % Sodium (137-145) mmol/L Chloride (98-107) mmol/L Carbon Dioxide (22-30) mmol/L BUN (7-17) mg/dL Glucose (74-99) mg/dL POC Glucose (mg/dL) 207 H (70-110) mg/dL Calcium (8.4-10.2) mg/dL AST (14-36) U/L Total Protein (6.3-8.2) g/dL Albumin (3.5-5.0) g/dL Urine Ketones (Negative) Ur Leukocyte Esterase (Negative) Urine WBC (0-5) /hpf Urine Bacteria (None) /hpf Urine Mucus (None) /hpf Crossmatch Assessment and Plan (1) Bleeding duodenal ulcer Narrative/Plan: Patient doing well postoperatively. She is awake on the ventilator. Hemodynamically is stable. Attempts to wean today. Continue antiacids. Current Visit: Yes Status: Acute Code(s): K26.4 - CHRONIC OR UNSPECIFIED DUODENAL ULCER WITH HEMORRHAGE SNOMED Code(s): 82535960
--- NOTE | 2022-05-19 11:47 | P.CNPUL ---
History of Present Illness Consult date: 05/19/22 Chief complaint: GIB History of present illness: 77-year-old female patient who was taken to the operating room for ongoing GI bleed. The patient was having upper GI bleed. The patient had an endoscopy by gastroenterology and was unable to control the bleed as there was an area of stenosis and the bleeding was post the area of duodenal stenosis. Based on that, the patient was taken to the operating room for a bleeding duodenal ulcer. The patient underwent expected laparotomy, lysis of adhesions, oversewing of the bleeding duodenal ulcer was done. Estimated blood loss was 50 mL. The patient was Intubated and currently she is in intensive care unit. This morning, she is off sedation and she is calm and comfortable, awake and follo wing commands and answering questions. She is currently on assist-control mode of mechanical ventilation rate of 20 with a tidal volume of 450 and FiO2 40% with a PEEP of 5. Noted yesterday she received a total of 3 units of packed RBC. The lowest hemoglobin was 7.6 and currently is at 9.5. Coagulation profile has been within normal limits. The patient takes excessive nonsteroidal anti-inflammatory medication. She does not take any form of anticoagulants. Blood gases this morning is showing a pH of 7.46 with a pCO2 of 27 and pO2 132. Chest x-ray essentially within normal limits. She has history of atrial fibrillation. Current rhythm is sinus pH is diabetic and she has hypertension. No other active issues for now. Hemodynamically stable. She is on no pressors. IV fluids are in the form of lactated Ringer at the rate of 100 mL an hour. Urine output is 20 mL an hour. Review of Systems ROS unobtainable: due to endotracheal tube Past Medical History Past Medical History: Atrial Fibrillation, Diabetes Mellitus, Hypertension History of Any Multi-Drug Resistant Organisms: None Reported Past Surgical History: Appendectomy, Cholecystectomy, Heart Catheterization Past Anesthesia/Blood Transfusion Reactions: No Reported Reaction Past Psychological History: No Psychological Hx Reported Smoking Status: Never smoker Past Alcohol Use History: Occasional Past Drug Use History: None Reported Medications and Allergies Home Medications Medication Instructions Recorded Confirmed Type Aspirin/Acetaminophen/Caffeine 0.5 - 1 tab PO TID PRN 02/13/22 05/18/22 History [Excedrin Extra Strength Caplet] Atorvastatin [Lipitor] 20 mg PO HS 02/13/22 05/18/22 History Pantoprazole [Protonix] 40 mg PO DAILY #10 tab 02/13/22 05/18/22 Rx Propafenone [Rythmol] 150 mg PO BID 02/13/22 05/18/22 History lisinopriL 2.5 mg PO DAILY 02/13/22 05/18/22 History metFORMIN HCL [Glucophage] 500 mg PO HS 02/13/22 05/18/22 History Azelastine HCl [Astelin Nasal 2 spr NASAL BID PRN 03/18/22 05/18/22 History [place]] Ipratropium [place] 0.06%Nasal 2 spray EA NOSTRIL QID PRN 03/18/22 05/18/22 History [Atrovent Nasal 0.06%] Acetaminophen Tab [Tylenol] 650 mg PO Q6HR PRN tab 03/21/22 05/18/22 Rx Ascorbic Acid [Vitamin C] 500 mg PO DAILY 30 Days #30 tab 03/21/22 05/18/22 Rx Cholecalciferol [Vitamin D3 (25 25 mcg PO DAILY #30 tab 03/21/22 05/18/22 Rx Mcg = 1000 Iu)] Zinc Sulfate [Orazinc] 220 mg PO DAILY 14 Days #14 cap 03/21/22 05/18/22 Rx Albuterol Inhaler [Ventolin Hfa 2 puff INHALATION RT-Q6H PRN 05/18/22 05/18/22 History Inhaler] Metoprolol Tartrate [Lopressor] 50 mg PO DAILY 05/18/22 05/18/22 History Montelukast [Singulair] 10 mg PO HS 05/18/22 05/18/22 History traZODone HCL 100 mg PO HS 05/18/22 05/18/22 History Allergies Allergy/AdvReac Type Severity Reaction Status Date / Time Penicillins Allergy Rash/Hives Verified 05/18/22 07:29 on entire body Physical Exam Vitals: Vital Signs Temp Pulse Resp BP Pulse Ox FiO2 05/19/22 11:00 90 20 133/85 98 40 05/19/22 10:00 101 H 20 132/92 98 40 05/19/22 09:00 94 20 151/86 99 40 05/19/22 08:16 40 05/19/22 08:00 97.9 F 98 20 142/79 98 40 05/19/22 07:00 96 20 150/97 98 40 05/19/22 06:30 101 H 20 130/89 98 40 05/19/22 06:00 106 H 20 140/82 99 40 05/19/22 05:30 101 H 20 156/87 100 40 05/19/22 05:00 96 20 157/91 99 40 05/19/22 04:30 106 H 20 156/87 99 40 05/19/22 04:00 98.8 F 98 20 156/89 99 40 05/19/22 03:53 40 05/19/22 03:45 96 20 151/89 99 40 05/19/22 03:30 98 20 158/92 99 40 05/19/22 03:26 40 05/19/22 03:20 40 05/19/22 03:15 96 20 153/86 99 40 05/19/22 03:00 94 20 139/86 99 40 05/19/22 02:45 96 20 137/82 99 40 05/19/22 02:30 99 20 149/80 99 40 05/19/22 02:19 40 05/19/22 02:15 96 20 153/91 99 40 05/19/22 02:00 97 20 141/79 99 40 05/19/22 01:45 97 20 139/80 99 40 05/19/22 01:30 97 20 128/78 97 40 05/19/22 01:15 98 20 126/80 99 40 05/19/22 01:00 99.6 F 101 H 20 127/80 99 40 05/19/22 00:45 101 H 20 128/74 99 40 05/19/22 00:30 105 H 20 112/74 98 40 05/19/22 00:15 108 H 20 114/75 99 50 05/19/22 00:08 40 05/19/22 00:00 99.5 F 106 H 21 116/75 99 40 05/18/22 23:45 112 H 22 125/79 99 50 05/18/22 23:30 107 H 20 131/91 99 50 05/18/22 23:15 98.6 F 99 20 104/72 98 50 05/18/22 23:00 117 H 22 168/92 96 50 05/18/22 22:55 98.8 F 112 H 20 168/92 05/18/22 22:45 99.1 F 108 H 20 139/80 94 L 50 05/18/22 22:33 50 05/18/22 22:30 106 H 20 171/92 97 50 05/18/22 22:15 98.2 F 109 H 20 144/76 98 100 05/18/22 22:10 100 05/18/22 22:00 92 13 05/18/22 19:30 87 21 160/74 100 05/18/22 19:15 87 20 162/69 97 05/18/22 19:00 78 23 97/80 99 05/18/22 18:45 77 23 99 05/18/22 18:30 98 19 98 05/18/22 18:17 98.1 F 84 23 97/80 98 05/18/22 16:00 110 H 18 109/72 05/18/22 15:45 114 H 109/72 05/18/22 15:30 119/70 05/18/22 15:15 119/70 05/18/22 15:00 116 H 20 128/88 94 L 05/18/22 14:45 128/88 05/18/22 14:30 138/74 05/18/22 14:15 134/78 05/18/22 14:00 112/74 05/18/22 13:45 112/74 05/18/22 13:30 90 18 107/63 97 05/18/22 13:15 107/63 05/18/22 13:00 106/60 05/18/22 12:45 106/60 05/18/22 12:30 114/56 05/18/22 12:15 114/56 05/18/22 12:00 99/64 05/18/22 11:45 99/64 Intake and Output 05/18/22 05/19/22 05/19/22 22:59 06:59 14:59 Intake Total 3753.969 1144.791 811.386 Output Total 550 435 155 Balance 3203.969 709.791 656.386 Intake: IV 2525 800 700 Lactated Ringers 1,000 ml 800 500 @ 100 mls/hr IV .Q10H [facility] Rx#:[id number] Potassium Chloride 10 meq 200 In Water For Injection 1 100ml.bag @ 100 mls/hr IVPB Q1H [facility] Rx#: [id number] Sodium Chloride 0.9% 1, 75 000 ml @ 75 mls/hr IV . [id number] [facility] Rx#:[id number] Intake, IV Titration 1228.969 65.791 111.386 Amount Sodium Chloride 0.9% 1, 225 000 ml @ 75 mls/hr IV . [id number] [facility] Rx#:[id number] Sodium Chloride 0.9% 500 1000 ml 500 ml @ 0 mls/hr IV . [facility] Rx#: [id number] propofoL 1,000 mg In 3.969 65.791 111.386 Empty Bag 1 bag @ 15 MCG/ KG/MIN 5.715 mls/hr IV . [id number] [facility] Rx#:[id number] Blood Product 0 279 Rc Pheresis As-3 Unit 0 279 [id number] Output: Drainage 50 20 Right Abdomen 50 20 Urine 500 385 135 Estimated Blood Loss 50 Other: Voiding Method Indwelling Catheter Indwelling Catheter # Bowel Movements 1 Weight 72.8 kg Gen. appearance the patient is awake and comfortable. She has an NG tube in place and she also has an orotracheal tube in place. She is awake and alert and following commands and answering questions. Head exam was generally normal. There was no scleral icterus or corneal arcus. Mucous membranes were moist. Neck was supple and without jugular venous distension, thyromegaly, or carotid bruits. Carotids were easily palpable bilaterally. There was no adenopathy. Lungs were clear to auscultation and percussion, and with normal diaphragmatic excursion. No wheezes or rales were noted. Cardiac exam revealed the PMI to be normally situated and sized. The rhythm was regular and no extrasystoles were noted during several minutes of auscultation. The first and second heart sounds were normal and physiologic splitting of the second heart sound was noted. There were no murmurs, rubs, clicks, or gallops. Abdomen is soft and the patient is admitted abdominal incision which is essentially dry. The patient has a JAYASHREE drain in the right lower quadrant. Hypoactive bowel sounds. No direct tenderness. No rebound tenderness or guarding. The extremities are slightly edematous. There is equal and symmetrical pulses Neurologically, the patient is awake and alert and the patient does not have any focal neurological deficit. Cranial nerves are essentially intact. Results - Laboratory Findings CBC and BMP: 1217/22 05:58 05/19/22 05:58 ABG ABG pH 7.46 (7.35-7.45) H 05/19/22 06:02 ABG pCO2 27 mmHg (35-45) L 05/19/22 06:02 ABG pO2 132 mmHg (83-108) H 05/19/22 06:02 ABG O2 Saturation 99.6 % (94-97) H 05/19/22 06:02 PT/INR, D-dimer PT 10.7 sec (9.0-12.0) 05/17/22 22:59 INR 1.0 (<1.2) 05/17/22 22:59 Abnormal lab findings: Abnormal Labs 05/17/22 05/17/22 05/17/22 22:59 22:59 22:59 WBC RBC 3.36 L Hgb 10.7 L Hct 30.9 L RDW Neutrophils # Lymphocytes # APTT 19.9 L ABG pH ABG pCO2 ABG pO2 ABG HCO3 ABG O2 Saturation Sodium 136 L Chloride Carbon Dioxide 19 L BUN 31 H Glucose 153 H POC Glucose (mg/dL) Plasma Lactic Acid [place] Calcium Magnesium 1.3 L AST Total Protein 5.9 L Albumin Urine Ketones Ur Leukocyte Esterase Urine WBC Urine Bacteria Urine Mucus Crossmatch 05/17/22 05/18/22 05/18/22 22:59 00:20 17:00 WBC RBC Hgb Hct RDW Neutrophils # Lymphocytes # APTT ABG pH ABG pCO2 ABG pO2 ABG HCO3 ABG O2 Saturation Sodium Chloride Carbon Dioxide BUN Glucose POC Glucose (mg/dL) 243 H Plasma Lactic Acid [place] 4.0 H* Calcium Magnesium AST Total Protein Albumin Urine Ketones Ur Leukocyte Esterase Urine WBC Urine Bacteria Urine Mucus Crossmatch See Detail 05/18/22 05/18/22 05/18/22 17:06 19:33 22:00 WBC RBC 2.61 L 2.41 L Hgb 8.1 L D 7.6 L Hct 24.4 L 22.5 L RDW 16.2 H 16.2 H Neutrophils # Lymphocytes # 0.9 L APTT ABG pH ABG pCO2 ABG pO2 ABG HCO3 ABG O2 Saturation Sodium Chloride Carbon Dioxide BUN Glucose POC Glucose (mg/dL) 218 H Plasma Lactic Acid [place] Calcium Magnesium AST Total Protein Albumin Urine Ketones Ur Leukocyte Esterase Urine WBC Urine Bacteria Urine Mucus Crossmatch 05/18/22 05/18/22 05/19/22 22:24 22:55 02:06 WBC 13.1 H RBC 3.31 L Hgb 9.7 L D Hct 28.6 L RDW 21.7 H Neutrophils # Lymphocytes # APTT ABG pH 7.31 L ABG pCO2 ABG pO2 356 H ABG HCO3 20 L ABG O2 Saturation 100.0 H Sodium Chloride Carbon Dioxide BUN Glucose POC Glucose (mg/dL) 262 H Plasma Lactic Acid [place] Calcium Magnesium AST Total Protein Albumin Urine Ketones Ur Leukocyte Esterase Urine WBC Urine Bacteria Urine Mucus Crossmatch 05/19/22 05/19/22 05/19/22 02:55 05:58 05:58 WBC 12.3 H RBC 3.21 L Hgb 9.5 L Hct 27.6 L RDW 21.8 H Neutrophils # 11.0 H Lymphocytes # 0.5 L APTT ABG pH ABG pCO2 ABG pO2 ABG HCO3 ABG O2 Saturation Sodium 136 L Chloride 112 H Carbon Dioxide 17 L BUN 20 H Glucose 191 H POC Glucose (mg/dL) Plasma Lactic Acid [place] Calcium 7.3 L Magnesium AST 39 H Total Protein 4.7 L Albumin 2.9 L Urine Ketones Trace H Ur Leukocyte Esterase Small H Urine WBC 6 H Urine Bacteria Rare H Urine Mucus Rare H Crossmatch 05/19/22 05/19/22 06:02 06:45 WBC RBC Hgb Hct RDW Neutrophils # Lymphocytes # APTT ABG pH 7.46 H ABG pCO2 27 L ABG pO2 132 H ABG HCO3 19 L ABG O2 Saturation 99.6 H Sodium Chloride Carbon Dioxide BUN Glucose POC Glucose (mg/dL) 207 H Plasma Lactic Acid [place] Calcium Magnesium AST Total Protein Albumin Urine Ketones Ur Leukocyte Esterase Urine WBC Urine Bacteria Urine Mucus Crossmatch - Diagnostic Findings Chest x-ray: image reviewed Assessment and Plan Plan: Upper GI bleeding secondary to bleeding duodenal ulcer Bleeding duodenal ulcer status post expected laparotomy, oversewing of the ulcer in addition to lisinopril adhesions. The patient's postop day #1 Blood loss anemia with a lowest hemoglobin of 7.6. The patient received a total of 3 units of packed RBC, currently stable hemoglobin Acute hypoxic respiratory failure following abdominal surgery, chest x-ray was noted. Blood gas was noted and the patient seems to be ready for extubation History of atrial fibrillation current rhythm is sinus Hypertension Diabetes mellitus Plan Continue lactated Ringer at the same rate of 75 mL an hour Patient is on no sedation Weaning parameters were checked and that adequate We will extubate the patient on nasal cannula We will going to keep the NG tube in place and keep the patient nothing by mouth for now Compression devices lower extremities Sliding-scale insulin coverage IV Protonix We'll continue to follow Time with Patient: Greater than 30
[2022-05-19 12:15] LABS: Glucose,Whole Blood 159 mg/dL (70-110)
--- NOTE | 2022-05-19 15:07 | P.PN ---
Subjective Patient is a pleasant thousand 7-year-old female with known history of atrial fibrillation but not on anticoagulation had a watchman procedure in the past came in with the complaints of multiple episodes of natalie blood in the stools. Patient does take Excedrin for migraine. Patient had history of peptic ulcer disease in the past denied any history of aortic sclerosis. Patient denied any abdominal pain. Patient is comparing of lightheadedness generalized weakness and tiredness. The patient's of present hemoglobin is around 10.7. Patient d enied any hematemesis. 05/19/2022 Patient is admitted for acute GI bleed, underwent upper GI endoscopy showed a be actively bleeding duodenal ulcer which was then cauterized. Subsequently patient was a taken to or for expiratory laparotomy lysis of adhesions and oversewing of a bleeding duodenal ulcer and patient was subsequently admitted to ICU and patient was intubated overnight patient was extubated today. Patient doesn't really has an NG tube with a greenish brownish discharge patient is bit drowsy. Review of systems: Unable to obtain as patient is bit drowsy and sleepy PHYSICAL EXAMINATION: GENERAL: Drowsy sleeping HEENT: Pupils are round and equally reacting to light. EOMI. No scleral icterus. Does have conjunctival pallor. Normocephalic, atraumatic. No pharyngeal erythema. No thyromegaly. CARDIOVASCULAR: S1 and S2 present. No murmurs, rubs, or gallops. PULMONARY: Chest is clear to auscultation, no wheezing or crackles. ABDOMEN: Soft, nontender, nondistended, normoactive bowel sounds. No palpable organomegaly. MUSCULOSKELETAL: No joint swelling or deformity. EXTREMITIES: No cyanosis, clubbing, or pedal edema. NEUROLOGICAL: Patient is bit drowsy from pain medications SKIN: No rashes. Assessment and plan -Acute GI bleed : Actively bleeding duodenal ulcer, patient or in the laparotomy and oversewing of duodenal ulcer. Patient will be continued on Protonix p resently has an NG tube significant drainage patient is receiving IV -Atrial fibrillation presently not on any anticoagulation patient has proximal A. fib patient had a watchman procedure -Type 2 diabetes mellitus and patient will be started on sliding scale. -Migraine for which patient takes Excedrin which can cause peptic ulcer disease DVT prophylaxis: Early ambulation and SCDs Objective - Vital Signs Vital signs: Vital Signs Temp 99.0 F 05/19/22 12:00 Pulse 105 H 12/17/22 14:00 Resp 23 05/19/22 14:00 BP 132/66 05/19/22 14:00 Pulse Ox 97 05/19/22 14:00 FiO2 40 05/19/22 12:00 Intake & Output 05/18/22 05/19/22 05/19/22 18:59 06:59 18:59 Intake Total 1650 3248.760 1011.386 Output Total 985 201 Balance 1650 2263.760 810.386 Weight 72.8 kg Intake: IV 500 2825 900 Lactated Ringers 1,000 ml 800 700 @ 100 mls/hr IV .Q10H [facility] Rx#:[id number] Potassium Chloride 10 meq 200 In Water For Injection 1 100ml.bag @ 100 mls/hr IVPB Q1H [facility] Rx#: [id number] Sodium Chloride 0.9% 1, 75 000 ml @ 75 mls/hr IV . [id number] [facility] Rx#:[id number] Intake, IV Titration 1150 144.760 111.386 Amount Sodium Chloride 0.9% 1, 150 75 000 ml @ 75 mls/hr IV . [id number] [facility] Rx#:[id number] Sodium Chloride 0.9% 500 1000 ml 500 ml @ 0 mls/hr IV . [facility] Rx#: [id number] propofoL 1,000 mg In 69.760 111.386 Empty Bag 1 bag @ 15 MCG/ KG/MIN 5.715 mls/hr IV . [id number] [facility] Rx#:[id number] Blood Product 279 Rc Pheresis As-3 Unit 279 [id number] Output: Drainage 50 20 Right Abdomen 50 20 Urine 885 181 Estimated Blood Loss 50 Other: Voiding Method Indwelling Catheter Indwelling Catheter # Bowel Movements 2 1 - Labs CBC & Chem 7: 05/19/22 05:58 05/19/22 12:58 Labs: Abnormal Lab Results - Last 24 Hours (Table) 05/18/22 05/18/22 05/18/22 Range/Units 00:20 17:00 17:06 WBC (3.8-10.6) k/uL RBC 2.61 L (3.80-5.40) m/uL Hgb 8.1 L D (11.4-16.0) gm/dL Hct 24.4 L (34.0-46.0) % RDW 16.2 H (11.5-15.5) % Neutrophils # (1.3-7.7) k/uL Lymphocytes # 0.9 L (1.0-4.8) k/uL ABG pH (7.35-7.45) ABG pCO2 (35-45) mmHg ABG pO2 (83-108) mmHg ABG HCO3 (21-25) mmol/L ABG O2 Saturation (94-97) % Sodium (137-145) mmol/L Chloride (98-107) mmol/L Carbon Dioxide (22-30) mmol/L BUN (7-17) mg/dL Glucose (74-99) mg/dL POC Glucose (mg/dL) 243 H (70-110) mg/dL Calcium (8.4-10.2) mg/dL AST (14-36) U/L Total Protein (6.3-8.2) g/dL Albumin (3.5-5.0) g/dL Urine Ketones (Negative) Ur Leukocyte Esterase (Negative) Urine WBC (0-5) /hpf Urine Bacteria (None) /hpf Urine Mucus (None) /hpf Crossmatch See Detail 05/18/22 05/18/22 05/18/22 Range/Units 19:33 22:00 22:24 WBC (3.8-10.6) k/uL RBC 2.41 L (3.80-5.40) m/uL Hgb 7.6 L (11.4-16.0) gm/dL Hct 22.5 L (34.0-46.0) % RDW 16.2 H (11.5-15.5) % Neutrophils # (1.3-7.7) k/uL Lymphocytes # (1.0-4.8) k/uL ABG pH 7.31 L (7.35-7.45) ABG pCO2 (35-45) mmHg ABG pO2 356 H (83-108) mmHg ABG HCO3 20 L (21-25) mmol/L ABG O2 Saturation 100.0 H (94-97) % Sodium (137-145) mmol/L Chloride (98-107) mmol/L Carbon Dioxide (22-30) mmol/L BUN (7-17) mg/dL Glucose (74-99) mg/dL POC Glucose (mg/dL) 218 H (70-110) mg/dL Calcium (8.4-10.2) mg/dL AST (14-36) U/L Total Protein (6.3-8.2) g/dL Albumin (3.5-5.0) g/dL Urine Ketones (Negative) Ur Leukocyte Esterase (Negative) Urine WBC (0-5) /hpf Urine Bacteria (None) /hpf Urine Mucus (None) /hpf Crossmatch 05/18/22 05/19/22 05/19/22 Range/Units 22:55 02:06 02:55 WBC 13.1 H (3.8-10.6) k/uL RBC 3.31 L (3.80-5.40) m/uL Hgb 9.7 L D (11.4-16.0) gm/dL Hct 28.6 L (34.0-46.0) % RDW 21.7 H (11.5-15.5) % Neutrophils # (1.3-7.7) k/uL Lymphocytes # (1.0-4.8) k/uL ABG pH (7.35-7.45) ABG pCO2 (35-45) mmHg ABG pO2 (83-108) mmHg ABG HCO3 (21-25) mmol/L ABG O2 Saturation (94-97) % Sodium (137-145) mmol/L Chloride (98-107) mmol/L Carbon Dioxide (22-30) mmol/L BUN (7-17) mg/dL Glucose (74-99) mg/dL POC Glucose (mg/dL) 262 H (70-110) mg/dL Calcium (8.4-10.2) mg/dL AST (14-36) U/L Total Protein (6.3-8.2) g/dL Albumin (3.5-5.0) g/dL Urine Ketones Trace H (Negative) Ur Leukocyte Esterase Small H (Negative) Urine WBC 6 H (0-5) /hpf Urine Bacteria Rare H (None) /hpf Urine Mucus Rare H (None) /hpf Crossmatch 05/19/22 05/19/22 05/19/22 Range/Units 05:58 05:58 06:02 WBC 12.3 H (3.8-10.6) k/uL RBC 3.21 L (3.80-5.40) m/uL Hgb 9.5 L (11.4-16.0) gm/dL Hct 27.6 L (34.0-46.0) % RDW 21.8 H (11.5-15.5) % Neutrophils # 11.0 H (1.3-7.7) k/uL Lymphocytes # 0.5 L (1.0-4.8) k/uL ABG pH 7.46 H (7.35-7.45) ABG pCO2 27 L (35-45) mmHg ABG pO2 132 H (83-108) mmHg ABG HCO3 19 L (21-25) mmol/L ABG O2 Saturation 99.6 H (94-97) % Sodium 136 L (137-145) mmol/L Chloride 112 H (98-107) mmol/L Carbon Dioxide 17 L (22-30) mmol/L BUN 20 H (7-17) mg/dL Glucose 191 H (74-99) mg/dL POC Glucose (mg/dL) (70-110) mg/dL Calcium 7.3 L (8.4-10.2) mg/dL AST 39 H (14-36) U/L Total Protein 4.7 L (6.3-8.2) g/dL Albumin 2.9 L (3.5-5.0) g/dL Urine Ketones (Negative) Ur Leukocyte Esterase (Negative) Urine WBC (0-5) /hpf Urine Bacteria (None) /hpf Urine Mucus (None) /hpf Crossmatch 05/19/22 05/19/22 Range/Units 06:45 12:14 WBC (3.8-10.6) k/uL RBC (3.80-5.40) m/uL Hgb (11.4-16.0) gm/dL Hct (34.0-46.0) % RDW (11.5-15.5) % Neutrophils # (1.3-7.7) k/uL Lymphocytes # (1.0-4.8) k/uL ABG pH (7.35-7.45) ABG pCO2 (35-45) mmHg ABG pO2 (83-108) mmHg ABG HCO3 (21-25) mmol/L ABG O2 Saturation (94-97) % Sodium (137-145) mmol/L Chloride (98-107) mmol/L Carbon Dioxide (22-30) mmol/L BUN (7-17) mg/dL Glucose (74-99) mg/dL POC Glucose (mg/dL) 207 H 159 H (70-110) mg/dL Calcium (8.4-10.2) mg/dL AST (14-36) U/L Total Protein (6.3-8.2) g/dL Albumin (3.5-5.0) g/dL Urine Ketones (Negative) Ur Leukocyte Esterase (Negative) Urine WBC (0-5) /hpf Urine Bacteria (None) /hpf Urine Mucus (None) /hpf Crossmatch
[2022-05-19 17:59] LABS: Glucose,Whole Blood 214 mg/dL (70-110)
[2022-05-19 23:48] LABS: Glucose,Whole Blood 157 mg/dL (70-110)
[2022-05-20] MEDS: LACTATED RINGERS 1,000 ML IV SCH ×3 (00:02→21:25)
[2022-05-20] MEDS: HYDROmorphone 1 MG/ML 1 ML SYRINGE IVP PRN ×2 (02:14→22:04)
[2022-05-20 06:11] LABS: Glucose,Whole Blood 171 mg/dL (70-110)
[2022-05-20] MEDS: MORPHINE SULFATE 2 MG/ML SYRINGE IVP PRN ×5 (06:15→21:21)
[2022-05-20] MEDS: INSULIN ASPART (NovoLOG) 100 UNIT/ML VIAL SQ SCH ×3 (06:15→18:38)
[2022-05-20 06:25] LABS: Anisocytosis Moderate; Basophils # (A) 0.1 k/uL (0-0.2); Basophils % (A) 1 %; Eosinophils # (A) 0.1 k/uL (0-0.7); Eosinophils % (A) 1 %; HCT 22.8 % (34.0-46.0); Lymphocytes # (A) 0.8 k/uL (1.0-4.8); Lymphocytes % (A) 10 %; MCH 28.9 pg (25.0-35.0); MCHC 33.9 g/dL (31.0-37.0); MCV 85.3 fL (80.0-100.0); Mean Platelet Volume 8.4; Microcytosis Slight; Monocytes # (A) 0.6 k/uL (0-1.0); Monocytes % (A) 7 %; Neutrophils # (A) 6.8 k/uL (1.3-7.7); Neutrophils % (A) 78 %; Platelet Count 148 k/uL (150-450); RBC 2.68 m/uL (3.80-5.40); RDW 21.3 % (11.5-15.5); WBC 8.7 k/uL (3.8-10.6)
[2022-05-20 06:26] LABS: HGB 7.8 gm/dL (11.4-16.0)
[2022-05-20 06:28] LABS: African American GFR (CKD) >90 (>60 ml/min/1.73 sqM); Anion Gap 4 mmol/L; Blood Urea Nitrogen 12 mg/dL (7-17); Calcium 7.1 mg/dL (8.4-10.2); Carbon Dioxide 23 mmol/L (22-30); Chloride 111 mmol/L (98-107); Glucose 149 mg/dL (74-99); Non-African American GFR(CKD) 89 (>60 ml/min/1.73 sqM); Potassium 3.7 mmol/L (3.5-5.1); Sodium 138 mmol/L (137-145)
[2022-05-20] MEDS: PANTOPRAZOLE 40 MG/10 ML VIAL IVP SCH ×2 (08:22→20:00)
[2022-05-20] MEDS: POTASSIUM CHLORIDE 10 MEQ in WATER FOR INJECTION 1 100ML.BAG IVPB SCH ×3 (08:23→22:32)
[2022-05-20] MEDS ORDERED: METOPROLOL TARTRATE 5 MG/5 ML VIAL IVP ONE ×2 (08:57→15:44)
--- NOTE | 2022-05-20 09:58 | P.PN ---
Subjective Progress Note Date: 05/20/22 Principal diagnosis: Duodenal ulcer Patient sitting up in a chair today. She was extubated yesterday. Complaining of mild incisional soreness and also soreness from the nasogastric tube. Gastric output has been bilious however today there was noted to be some blood with in the gastric tubing itself. No stools. JAYASHREE drain is serosanguineous. Somewhat more tachycardic today at 124. Blood pressure is stable. Hemoglobin 7.8 from 9.5 yesterday. Objective - Vital Signs Vital signs: Vital Signs Temp 99.3 F 05/20/22 08:54 Pulse 124 H 05/20/22 09:00 Resp 15 05/20/22 09:00 BP 139/83 05/20/22 09:00 Pulse Ox 97 05/20/22 09:00 FiO2 40 05/19/22 12:00 Intake & Output 05/19/22 05/20/22 05/20/22 18:59 06:59 18:59 Intake Total 4161.553 9383 300 Output Total 683 530 310 Balance 928.386 570 -10 Weight 77.2 kg Intake: IV 1500 1100 300 Lactated Ringers 1,000 ml 1300 1100 200 @ 100 mls/hr IV .Q10H [facility] Rx#:[id number] Potassium Chloride 10 meq 200 100 In Water For Injection 1 100ml.bag @ 100 mls/hr IVPB Q1H [facility] Rx#: [id number] Intake, IV Titration 111.386 Amount propofoL 1,000 mg In 111.386 Empty Bag 1 bag @ 15 MCG/ KG/MIN 5.715 mls/hr IV . [id number] [facility] Rx#:[id number] Output: Gastric Drainage 300 200 Drainage 60 40 Right Abdomen 60 40 Urine 323 490 110 Other: Voiding Method Indwelling Catheter Indwelling Catheter Indwelling Catheter - Exam Abdomen: Soft, nondistended, incision clean and dry, JAYASHREE serosanguineous - Labs CBC & Chem 7: 05/20/22 05:59 05/20/22 05:59 Labs: Abnormal Lab Results - Last 24 Hours (Table) 05/18/22 05/19/22 05/19/22 Range/Units 00:20 12:14 17:58 RBC (3.80-5.40) m/uL Hgb (11.4-16.0) gm/dL Hct (34.0-46.0) % RDW (11.5-15.5) % Plt Count (150-450) k/uL Lymphocytes # (1.0-4.8) k/uL Chloride (98-107) mmol/L Glucose (74-99) mg/dL POC Glucose (mg/dL) 159 H 214 H (70-110) mg/dL Calcium (8.4-10.2) mg/dL Crossmatch See Detail 05/19/22 05/20/22 05/20/22 Range/Units 23:46 05:59 05:59 RBC 2.68 L (3.80-5.40) m/uL Hgb 7.8 L D (11.4-16.0) gm/dL Hct 22.8 L (34.0-46.0) % RDW 21.3 H (11.5-15.5) % Plt Count 148 L (150-450) k/uL Lymphocytes # 0.8 L (1.0-4.8) k/uL Chloride 111 H (98-107) mmol/L Glucose 149 H (74-99) mg/dL POC Glucose (mg/dL) 157 H (70-110) mg/dL Calcium 7.1 L (8.4-10.2) mg/dL Crossmatch 05/20/22 Range/Units 06:10 RBC (3.80-5.40) m/uL Hgb (11.4-16.0) gm/dL Hct (34.0-46.0) % RDW (11.5-15.5) % Plt Count (150-450) k/uL Lymphocytes # (1.0-4.8) k/uL Chloride (98-107) mmol/L Glucose (74-99) mg/dL POC Glucose (mg/dL) 171 H (70-110) mg/dL Calcium (8.4-10.2) mg/dL Crossmatch Assessment and Plan (1) Bleeding duodenal ulcer Narrative/Plan: Patient overall doing fairly well. The blood present in the gastrostomy tube is most likely related to gastric wall suctioning. Its a very small volume and would not necessarily explain the patient's tachycardia or hemoglobin. When the patient was actively bleeding she was having numerous melanotic stools. She has not had any further stools. Continue to watch closely. Certainly if patient has evidence of significant rebleed would recommend tertiary care transfer for possible angioembolization and advanced GI support. No need for that at this time however. We'll watch closely. Keep nasogastric tube in place. Continue antiacids. Current Visit: Yes Status: Acute Code(s): K26.4 - CHRONIC OR UNSPECIFIED DUODENAL ULCER WITH HEMORRHAGE SNOMED Code(s): 27105593
[2022-05-20] MEDS: ACETAMINOPHEN IV (For NPO) 1,000 MG in EMPTY BAG 1 BAG IVPB PRN ×2 (10:35→23:39)
[2022-05-20 12:00] LABS: Glucose,Whole Blood 167 mg/dL (70-110)
--- NOTE | 2022-05-20 13:17 | P.PN ---
Subjective Progress Note Date: 05/20/22 On 05/20/2022, the patient is extubated and the patient is currently sitting up on a chair. NG tube is in place. She was having some gastric output and earlier this morning shows also producing some minimal amount of bloody output from the NG. She drops her hemoglobin down to 7.8 and the patient will be given units of packed RBC per surgical recommendation. He remains nothing by mouth. JAYASHREE drain is in place. Output has been 40 mL over the past 8 hours and the patient is on 2 L O2 nasal cannula. She remains on lactated Ringer at the rate of 100 mL an hour. Overall fluid balance +1.5 L over the past 24 hours. The patient's hemoglobin is at 7.8 with a white cell count of 8.7. Bicarb was 23 BUN is 12 creatinine 0.6. She remains on 2 L of oxygen by nasal cannula. Her cardiac rhythm remains sinus. She is using the incentive spirometer. She is falling approximately thousand. Objective - Vital Signs Vital signs: Vital Signs Temp 99.7 F H 05/20/22 12:00 Pulse 112 H 05/20/22 12:00 Resp 19 05/20/22 12:00 BP 132/82 05/20/22 12:00 Pulse Ox 96 05/20/22 12:00 FiO2 40 05/19/22 12:00 Intake & Output 05/19/22 05/20/22 05/20/22 18:59 06:59 18:59 Intake Total 7780.284 1272 900 Output Total 683 530 620 Balance 928.386 570 280 Weight 77.2 kg Intake: IV 1500 1100 900 ACETAMINOPHEN IV (For NPO 100 ) 1,000 mg In Empty Bag 1 bag @ 400 mls/hr IVPB Q6HR [facility] Rx#:[id number] Lactated Ringers 1,000 ml 1300 1100 600 @ 100 mls/hr IV .Q10H [facility] Rx#:[id number] Potassium Chloride 10 meq 200 200 In Water For Injection 1 100ml.bag @ 100 mls/hr IVPB Q1H [facility] Rx#: [id number] Intake, IV Titration 111.386 Amount propofoL 1,000 mg In 111.386 Empty Bag 1 bag @ 15 MCG/ KG/MIN 5.715 mls/hr IV . [id number] [facility] Rx#:[id number] Blood Product 0 Unit 0 Output: Gastric Drainage 300 300 Drainage 60 40 Right Abdomen 60 40 Urine 323 490 320 Other: Voiding Method Indwelling Catheter Indwelling Catheter Indwelling Catheter - Exam Gen. appearance the patient is awake extubated on 2 L of oxygen by nasal cannula Head exam was generally normal. There was no scleral icterus or corneal arcus. Mucous membranes were moist. Neck was supple and without jugular venous distension, thyromegaly, or carotid bruits. Carotids were easily palpable bilaterally. There was no adenopathy. Lungs were clear to auscultation and percussion, and with normal diaphragmatic excursion. No wheezes or rales were noted. Cardiac exam revealed the PMI to be normally situated and sized. The rhythm was regular and no extrasystoles were noted during several minutes of auscultation. The first and second heart sounds were normal and physiologic splitting of the second heart sound was noted. There were no murmurs, rubs, clicks, or gallops. Abdomen is soft and the patient is admitted abdominal incision which is essentially dry. The patient has a JAYASHREE drain in the right lower quadrant. Hypoactive bowel sounds. No direct tenderness. No rebound tenderness or guarding. The extremities are slightly edematous. There is equal and symmetrical pulses Neurologically, the patient is awake and alert and the patient does not have any focal neurological deficit. Cranial nerves are essentially intact. - Labs CBC & Chem 7: 05/20/22 05:59 05/20/22 05:59 Labs: Abnormal Lab Results - Last 24 Hours (Table) 05/18/22 05/19/22 05/19/22 Range/Units 00:20 17:58 23:46 RBC (3.80-5.40) m/uL Hgb (11.4-16.0) gm/dL Hct (34.0-46.0) % RDW (11.5-15.5) % Plt Count (150-450) k/uL Lymphocytes # (1.0-4.8) k/uL Chloride (98-107) mmol/L Glucose (74-99) mg/dL POC Glucose (mg/dL) 214 H 157 H (70-110) mg/dL Plasma Lactic Acid [place] (0.7-2.0) mmol/L Calcium (8.4-10.2) mg/dL Crossmatch See Detail 12/05/20/22 05/20/22 Range/Units 05:59 05:59 06:10 RBC 2.68 L (3.80-5.40) m/uL Hgb 7.8 L D (11.4-16.0) gm/dL Hct 22.8 L (34.0-46.0) % RDW 21.3 H (11.5-15.5) % Plt Count 148 L (150-450) k/uL Lymphocytes # 0.8 L (1.0-4.8) k/uL Chloride 111 H (98-107) mmol/L Glucose 149 H (74-99) mg/dL POC Glucose (mg/dL) 171 H (70-110) mg/dL Plasma Lactic Acid [place] (0.7-2.0) mmol/L Calcium 7.1 L (8.4-10.2) mg/dL Crossmatch 05/20/22 05/20/22 Range/Units 11:15 11:59 RBC (3.80-5.40) m/uL Hgb (11.4-16.0) gm/dL Hct (34.0-46.0) % RDW (11.5-15.5) % Plt Count (150-450) k/uL Lymphocytes # (1.0-4.8) k/uL Chloride (98-107) mmol/L Glucose (74-99) mg/dL POC Glucose (mg/dL) 167 H (70-110) mg/dL Plasma Lactic Acid [place] 0.6 L (0.7-2.0) mmol/L Calcium (8.4-10.2) mg/dL Crossmatch Assessment and Plan Plan: Upper GI bleeding secondary to bleeding duodenal ulcer, currently inactive and stable. The patient is postop day #2. Hemoglobin today is at 7.8. NG tube still in place. The patient remains nothing by mouth. Bleeding duodenal ulcer status post expected laparotomy, oversewing of the ulcer in addition to lisinopril adhesions. The patient's postop day # 2 Blood loss anemia with a lowest hemoglobin of 7.8. The patient received a total of 3 units of packed RBC, currently stable hemoglobin, another units of packed RBC to be given to this patient today. Acute hypoxic respiratory failure following abdominal surgery, chest x-ray was noted. Blood gas was noted and the patient seems to be ready for extubation History of atrial fibrillation current rhythm is sinus Hypertension Diabetes mellitus Plan Continue lactated Ringer at the same rate of 100 mL an hour Transfused another unit of packed RBC Continue using incentive spirometer We will going to keep the NG tube in place and keep the patient nothing by mouth for now Compression devices lower extremities Sliding-scale insulin coverage IV Protonix Monitor the output from the JAYASHREE Pain control with Dilaudid We'll continue to follow
[2022-05-20] MEDS: CEFEPIME 2 GM in SODIUM CHLORIDE 0.9% 100 ML IVPB SCH ×2 (15:25→23:59)
--- NOTE | 2022-05-20 15:26 | XR ---
EXAMINATION TYPE: XR chest 1V portable DATE OF EXAM: 05/20/2022 3:13 PM COMPARISON: Chest radiographs from 05/19/2011 TECHNIQUE: XR chest 1V portable Portable AP radiograph of the chest. CLINICAL INDICATION:Female, 77 years old with history of fever; FINDINGS: Lungs/Pleura: There is no evidence of pleural effusion, focal consolidation, or pneumothorax. Pulmonary vascularity: Unremarkable. Heart/mediastinum: Cardiomediastinal silhouette is unremarkable. Musculoskeletal: No acute osseous pathology. Other findings: None Lines/Tubes: Nasogastric tube with its distal tip and side-port projecting under the diaphragm. IMPRESSION: 1. No acute cardiopulmonary disease/process. 2. Nasogastric tube in appropriate position.
[2022-05-20] MEDS: metroNIDAZOLE-NS PMX 500 MG in SALINE 1 100ML.BAG IVPB SCH (16:08)
[2022-05-20] MEDS: FLUCONAZOLE IN NACL,ISO-OSM 200 MG in SALINE 1 100ML.BAG IVPB SCH (17:16)
[2022-05-20 18:12] LABS: Glucose,Whole Blood 174 mg/dL (70-110)
[2022-05-20 21:04] LABS: Anisocytosis Slight; HCT 24.8 % (34.0-46.0); HGB 8.3 gm/dL (11.4-16.0); Hypochromasia Slight; MCH 30.2 pg (25.0-35.0); MCHC 33.7 g/dL (31.0-37.0); MCV 89.8 fL (80.0-100.0); Mean Platelet Volume 7.9; Platelet Count 147 k/uL (150-450); RBC 2.76 m/uL (3.80-5.40); RDW 19.3 % (11.5-15.5)
--- NOTE | 2022-05-20 21:49 | P.CONS ---
History of Present Illness - Reason for Consult Consult date: 05/20/22 Fever Requesting physician: Alondra Barrientos - Chief Complaint Nausea vomiting x few days - History of Present Illness Patient is a 77-year-old female with a past medical history significant for diabetes mellitus hypertension and atrial fibrillation presenting to the ER 3 days ago for evaluation of nausea vomiting and multiple episodes of black stools in this patient who did have a previous history of peptic ulcer disease patient was evaluated by GI services and the patient did have EGD with evidence of bleeding duodenal ulcer which could not be treated en doscopically subsequently was evaluated by general surgery taken to the OR this patient is status post laparotomy oversewing of the bleeding duodenal ulcer there was no mention of any perforation as for his the surgical note is concerned however there was lysis of adhesion done, the patient did spike a fever this morning of 100.1F and the patient was slightly tachycardic that has prompted this infectious disease consultation, patient currently denies having any headache or urinary symptoms no chest pain or shortness of breath she did have some cough but not bringing up any sputum the patient is currently on room air patient be complaining of abdominal pain mostly epigastric area, which is s harp almost 10 out of 10 with some relief of the pain medication patient denies having any diarrhea Review of Systems Positive point has been mentioned in the HPI rest of the systems are negative Past Medical History Past Medical History: Atrial Fibrillation, Diabetes Mellitus, Hypertension History of Any Multi-Drug Resistant Organisms: None Reported Past Surgical History: Appendectomy, Cholecystectomy, Heart Catheterization Past Anesthesia/Blood Transfusion Reactions: No Reported Reaction Past Psychological History: No Psychological Hx Reported Smoking Status: Never smoker Past Alcohol Use History: Occasional Past Drug Use History: None Reported Medications and Allergies Home Medications Medication Instructions Recorded Confirmed Type Aspirin/Acetaminophen/Caffeine 0.5 - 1 tab PO TID PRN 02/13/22 05/18/22 History [Excedrin Extra Strength Caplet] Atorvastatin [Lipitor] 20 mg PO HS 02/13/22 05/18/22 History Pantoprazole [Protonix] 40 mg PO DAILY #10 tab 02/13/22 05/18/22 Rx Propafenone [Rythmol] 150 mg PO BID 02/13/22 05/18/22 History lisinopriL 2.5 mg PO DAILY 02/13/22 05/18/22 History metFORMIN HCL [Glucophage] 500 mg PO HS 02/13/22 05/18/22 History Azelastine HCl [Astelin Nasal 2 spr NASAL BID PRN 03/18/22 05/18/22 History [place]] Ipratropium [place] 0.06%Nasal 2 spray EA NOSTRIL QID PRN 03/18/22 05/18/22 History [Atrovent Nasal 0.06%] Acetaminophen Tab [Tylenol] 650 mg PO Q6HR PRN tab 03/21/22 05/18/22 Rx Ascorbic Acid [Vitamin C] 500 mg PO DAILY 30 Days #30 tab 03/21/22 05/18/22 Rx Cholecalciferol [Vitamin D3 (25 25 mcg PO DAILY #30 tab 03/21/22 05/18/22 Rx Mcg = 1000 Iu)] Zinc Sulfate [Orazinc] 220 mg PO DAILY 14 Days #14 cap 03/21/22 05/18/22 Rx Albuterol Inhaler [Ventolin Hfa 2 puff INHALATION RT-Q6H PRN 05/18/22 05/18/22 H istory Inhaler] Metoprolol Tartrate [Lopressor] 50 mg PO DAILY 05/18/22 05/18/22 History Montelukast [Singulair] 10 mg PO HS 05/18/22 05/18/22 History traZODone HCL 100 mg PO HS 05/18/22 05/18/22 History Allergies Allergy/AdvReac Type Severity Reaction Status Date / Time Penicillins Allergy Rash/Hives Verified 05/18/22 07:29 on entire body Physical Exam Vitals: Vital Signs Temp Pulse Resp BP Pulse Ox 05/20/22 15:00 115 H 20 137/72 95 05/20/22 14:00 114 H 18 154/79 94 L 05/20/22 13:29 99.1 F 112 H 16 154/79 94 L 05/20/22 13:00 101 H 15 130/75 95 05/20/22 12:00 99.7 F H 112 H 19 132/82 96 05/20/22 11:00 103 H 19 139/65 96 05/20/22 10:41 100 F H 114 H 17 139/65 97 05/20/22 10:32 100 F H 121 H 24 126/63 94 L 05/20/22 10:21 100 F H 112 H 22 128/69 96 05/20/22 10:11 100.1 F H 113 H 19 142/68 96 05/20/22 10:00 114 H 19 136/68 96 05/20/22 09:00 124 H 15 139/83 97 05/20/22 08:54 99.3 F 05/20/22 08:43 96 05/20/22 08:00 99.7 F H 125 H 15 133/67 93 L 05/20/22 07:00 112 H 17 144/79 98 05/20/22 06:00 113 H 13 136/68 98 05/20/22 05:00 112 H 17 114/62 97 05/20/22 04:00 98.8 F 110 H 16 114/60 98 05/20/22 03:00 109 H 16 128/68 97 05/20/22 02:00 111 H 17 125/73 98 05/20/22 01:00 105 H 18 159/72 97 05/20/22 00:00 110 H 17 139/64 97 05/19/22 23:00 105 H 17 136/66 98 05/19/22 22:00 108 H 17 121/68 97 05/19/22 21:00 102 H 14 142/68 96 05/19/22 20:00 98.8 F 98 19 163/75 98 05/19/22 19:53 99 05/19/22 19:00 106 H 19 175/93 99 05/19/22 18:00 105 H 19 162/81 99 05/19/22 17:00 108 H 18 153/72 97 05/19/22 16:00 98.8 F 101 H 17 169/79 98 Intake and Output 05/20/22 05/20/22 05/20/22 06:59 14:59 22:59 Intake Total 800 1410 100 Output Total 430 730 70 Balance 370 680 30 Intake: IV 800 1100 100 ACETAMINOPHEN IV (For NPO 100 ) 1,000 mg In Empty Bag 1 bag @ 400 mls/hr IVPB Q6HR PRN Rx#:[id number] Lactated Ringers 1,000 ml 800 800 100 @ 100 mls/hr IV .Q10H BEN Rx#:[id number] Potassium Chloride 10 meq 200 In Water For Injection 1 100ml.bag @ 100 mls/hr IVPB Q1H BEN Rx#: [id number] Blood Product 310 Rc As-1 Unit 310 [id number] Output: Gastric Drainage 300 Drainage 40 Right Abdomen 40 Urine 390 430 70 Other: Voiding Method Indwelling Catheter Indwelling Catheter # Voids 1 Weight 77.2 kg GENERAL DESCRIPTION: Elderly female lying in bed, no distress. No tachypnea or accessory muscle of respiration use. HEENT: Shows Pallor , no scleral icterus. Oral mucous membrane is dry. No pharyngeal erythema or thrush NECK: Trachea central, no thyromegaly. LUNGS: Unlabored breathing. Decreased breath sound the bases. No wheeze or crackle. HEART: S1, S2, regular rate and rhythm. No loud murmur ABDOMEN: Soft, incision is intact, mild distention and tenderness EXTREMITIES: No edema of feet. SKIN: No rash, no masses palpable. NEUROLOGICAL: The patient is awake, alert, oriented x3, mood and affect normal. Results CBC & Chem 7: 05/20/22 20:49 05/20/22 20:49 Labs: Abnormal Lab Results - Last 24 Hours (Table) 05/18/22 05/19/22 05/19/22 Range/Units 00:20 17:58 23:46 RBC (3.80-5.40) m/uL Hgb (11.4-16.0) gm/dL Hct (34.0-46.0) % RDW (11.5-15.5) % Plt Count (150-450) k/uL Lymphocytes # (1.0-4.8) k/uL Chloride (98-107) mmol/L Glucose (74-99) mg/dL POC Glucose (mg/dL) 214 H 157 H (70-110) mg/dL Plasma Lactic Acid Berhane (0.7-2.0) mmol/L Calcium (8.4-10.2) mg/dL Crossmatch See Detail 05/20/22 05/20/22 05/20/22 Range/Units 05:59 05:59 06:10 RBC 2.68 L (3.80-5.40) m/uL Hgb 7.8 L D (11.4-16.0) gm/dL Hct 22.8 L (34.0-46.0) % RDW 21.3 H (11.5-15.5) % Plt Count 148 L (150-450) k/uL Lymphocytes # 0.8 L (1.0-4.8) k/uL Chloride 111 H (98-107) mmol/L Glucose 149 H (74-99) mg/dL POC Glucose (mg/dL) 171 H (70-110) mg/dL Plasma Lactic Acid Berhane (0.7-2.0) mmol/L Calcium 7.1 L (8.4-10.2) mg/dL Crossmatch 05/20/22 05/20/22 Range/Units 11:15 11:59 RBC (3.80-5.40) m/uL Hgb (11.4-16.0) gm/dL Hct (34.0-46.0) % RDW (11.5-15.5) % Plt Count (150-450) k/uL Lymphocytes # (1.0-4.8) k/uL Chloride (98-107) mmol/L Glucose (74-99) mg/dL POC Glucose (mg/dL) 167 H (70-110) mg/dL Plasma Lactic Acid Berhane 0.6 L (0.7-2.0) mmol/L Calcium (8.4-10.2) mg/dL Crossmatch Assessment and Plan (1) Fever Current Visit: Yes Status: Acute Code(s): R50.9 - FEVER, UNSPECIFIED SNOMED Code(s): 821135936 Plan: 1patient with SIRS in this patient with a low-grade fever and tachycardia more likely related to abdominal source in this patient who did have a bleeding due to none also which could not be treated endoscopy status post laparotomy with lysis of adhesion and oversewing of the bleeding duodenal ulcer will need to cover for the enteric gram-negative both aerobes and anaerobes plus minus yeast 2-patient with a penicillin ALLERGY that would limit the number of antibiotic safety use 3blood culture has been obtained we will order a CRP and a pro-calcitonin 4will empirically add cefepime Flagyl and Diflucan while waiting for the culture to be finalize We will follow on clinical condition and cultures to further adjust medication if needed Thank you for this consultation will follow this patient with you Time with Patient: Greater than 30
--- NOTE | 2022-05-20 23:10 | P.PN ---
Subjective Progress Note Date: 05/20/22 Patient is a pleasant thousand 7-year-old female with known history of atrial fibrillation but not on anticoagulation had a watchman procedure in the past came in with the complaints of multiple episodes of natalie blood in the stools. Patient does take Excedrin for migraine. Patient had history of peptic ulcer disease in the past denied any history of aortic sclerosis. Patient denied any abdominal pain. Patient is comparing of lightheadedness generalized weakness and tiredness. The patient's of present hemoglobin is around 10.7. Patient denied any hematemesis. 05/19/2022 Patient is admitted for acute GI bleed, underwent upper GI endoscopy showed a be actively bleeding duodenal ulcer which was then cauterized. Subsequently patient was a taken to or for expiratory laparotomy lysis of adhesions and oversewing of a bleeding duodenal ulcer and patient was subsequently admitted to ICU and patient was intubated overnight patient was extubated today. Patient doesn't really has an NG tube with a greenish brownish discharge patient is bit drowsy. 05/20/2022 Patient is evaluated today in intensive care unit she is postoperative day #2 for exploratory laporatomy lysis of adhesions and oversewing of bleeding duodenal ulcer. Patient has been maintained NPO status strict with NG Tube for decompression and has had brownish in color with about 540 mLs in the canister. During evaluation this morning there was natalie red blood return in the NG tube small amount. Patient continues to report abdominal pain epigastric which is somewhat controlled with IV pain medication. She is awake and alert answering questions however is still drowsy and fatigued. Labs today are showing white count 8.7, hgb 7.8 today dropped from 9.5 yesterday morning. Patient has received 3 units of PRBC's this admission so far. Heart rate has been steadily increasing up into the 120s and maintaining sinus mechanism. Does have history of atrial fibrillation and has not been receiving oral rate control medications. Would consider one time small dose of metoprolol, however if this is an acute bleed would be cautionery to avoid hypotensive episode. She is maintained on IV fluids with lactated ringers at 100 mls per hour. Surgery will be notified of blood in NG tube, further recommendations pending. Sodium improved today 138, potassium 3.7, BUN 12, creatinine 0.90. Blood glucose 170s, calcium 7.1. Review of Systems Constitutional: Reports fatigue, denies fever Cardio vascular: denied any chest pain, palpitations Gastrointestinal: denied any nausea, vomiting, diarrhea, has abdominal pain. Pulmonary: Denied any shortness of breath cough Neurologic: Denied any new focal deficits Generalized weakness. All inpatient medications were reviewed and appropriate changes in these medications as dictated in the interval history and assessment and plan. PHYSICAL EXAMINATION: GENERAL: Drowsy but awake and alert. In intensive care unit sitting up in chair. HEENT: Pupils are round and equally reacting to light. EOMI. No scleral icterus. Does have conjunctival pallor. Normocephalic, atraumatic. No pharyngeal erythema. No thyromegaly. CARDIOVASCULAR: S1 and S2 present. No murmurs, rubs, or gallops. Tachycardic, regular PULMONARY: Chest is clear to auscultation, no wheezing or crackles. ABDOMEN: Soft, tender, nondistended, normoactive bowel sounds. No palpable organomegaly. NG tube in place MUSCULOSKELETAL: No joint swelling or deformity. EXTREMITIES: No cyanosis, clubbing, or pedal edema. NEUROLOGICAL: Patient is bit drowsy from pain medications SKIN: No rashes. Assessment and plan -Acute GI bleed : Actively bleeding duodenal ulcer found on EGD, patient is postoperative exploratory laparotomy, lysis of adhesions, and oversewing of duodenal ulcer. Patient will be continued on Protonix presently has an NG tube with small amount of natalie blood on return. Continues on IV fluids with lactated ringers at 100 mls per hour. -Anemia from acute blood loss from bleeding duodenal ulcer status post 3 units of PRBCs and today hemoglobin today is 7.8. -Fever with tachycardia possible sepsis likely abdominal source, blood culture is taken, infectious disease has been consulted. -Atrial fibrillation presently not on any anticoagulation patient has paroxysmal A. fib patient had a watchman procedure, currently maintaining sinus tachycardia. -Type 2 diabetes mellitus and patient will be started on sliding scale, blood glucose 170s. -History peptic ulcer disease -Migraine for which patient takes Excedrin which can cause peptic ulcer disease DVT prophylaxis: Early ambulation and SCDs GI prophylaxis: Continues on IV protonix Full Code Plan Continue to monitor closely in intensive care unit. NG tube in place and continue to monitor for increased blood return. Surgery will be notified. Patient does have low graded fever 99.7 with recent abdominal surgery there is concern for possible sepsis from abdominal source. Will Check lactic acid, procalcitonin and also blood cultures, patient is also tachycardic which will be monitored closely. Infectious disease consultation. Further recommendations pending. The impression and plan of care has been dictated by Alondra Barrientos, Nurse Practitioner as directed. Dr. Margarito MD I have performed a history and physical examination and medical decision making of this patient, discussed the same with the dictator, and agree with the dictators assessment and plan as written, documented as a scribe. Based on total visit time, I have performed more than 50% of this visit. Objective - Vital Signs Vital signs: Vital Signs Temp 99.3 F 05/20/22 08:54 Pulse 125 H 05/20/22 08:00 Resp 15 05/20/22 08:00 BP 133/67 05/20/22 08:00 Pulse Ox 96 05/20/22 08:43 FiO2 40 05/19/22 12:00 Intake & Output 05/19/22 05/20/22 05/20/22 18:59 06:59 18:59 Intake Total 7194.087 5000 300 Output Total 683 530 310 Balance 928.386 570 -10 Weight 77.2 kg Intake: IV 1500 1100 300 Lactated Ringers 1,000 ml 1300 1100 200 @ 100 mls/hr IV .Q10H BEN Rx#:[id number] Potassium Chloride 10 meq 200 100 In Water For Injection 1 100ml.bag @ 100 mls/hr IVPB Q1H BEN Rx#: [id number] Intake, IV Titration 111.386 Amount propofoL 1,000 mg In 111.386 Empty Bag 1 bag @ 15 MCG/ KG/MIN 5.715 mls/hr IV . [id number] BEN Rx#:[id number] Output: Gastric Drainage 300 200 Drainage 60 40 Right Abdomen 60 40 Urine 323 490 110 Other: Voiding Method Indwelling Catheter Indwelling Catheter - Labs CBC & Chem 7: 05/20/22 20:49 05/20/22 20:49 Labs: Abnormal Lab Results - Last 24 Hours (Table) 05/19/22 05/19/22 05/19/22 Range/Units 12:14 17:58 23:46 RBC (3.80-5.40) m/uL Hgb (11.4-16.0) gm/dL Hct (34.0-46.0) % RDW (11.5-15.5) % Plt Count (150-450) k/uL Lymphocytes # (1.0-4.8) k/uL Chloride (98-107) mmol/L Glucose (74-99) mg/dL POC Glucose (mg/dL) 159 H 214 H 157 H (70-110) mg/dL Calcium (8.4-10.2) mg/dL 05/20/22 05/20/22 05/20/22 Range/Units 05:59 05:59 06:10 RBC 2.68 L (3.80-5.40) m/uL Hgb 7.8 L D (11.4-16.0) gm/dL Hct 22.8 L (34.0-46.0) % RDW 21.3 H (11.5-15.5) % Plt Count 148 L (150-450) k/uL Lymphocytes # 0.8 L (1.0-4.8) k/uL Chloride 111 H (98-107) mmol/L Glucose 149 H (74-99) mg/dL POC Glucose (mg/dL) 171 H (70-110) mg/dL Calcium 7.1 L (8.4-10.2) mg/dL Assessment and Plan Time with Patient: Less than 30
[2022-05-20 23:53] LABS: Glucose,Whole Blood 166 mg/dL (70-110)
[2022-05-21] MEDS: POTASSIUM CHLORIDE 10 MEQ in WATER FOR INJECTION 1 100ML.BAG IVPB SCH ×7 (00:02→19:15)
[2022-05-21] MEDS: metroNIDAZOLE-NS PMX 500 MG in SALINE 1 100ML.BAG IVPB SCH ×4 (00:11→23:14)
[2022-05-21] MEDS: HYDROmorphone 1 MG/ML 1 ML SYRINGE IVP PRN ×6 (02:24→20:25)
[2022-05-21 06:01] LABS: Glucose,Whole Blood 161 mg/dL (70-110)
[2022-05-21] MEDS: INSULIN ASPART (NovoLOG) 100 UNIT/ML VIAL SQ SCH ×5 (06:07→23:46)
[2022-05-21 06:21] LABS: Anisocytosis Slight; Basophils % (A) 0 %; Eosinophils # (A) 0.3 k/uL (0-0.7); Eosinophils % (A) 4 %; HCT 24.4 % (34.0-46.0); HGB 8.1 gm/dL (11.4-16.0); Lymphocytes # (A) 0.8 k/uL (1.0-4.8); Lymphocytes % (A) 12 %; MCH 29.7 pg (25.0-35.0); MCHC 33.1 g/dL (31.0-37.0); MCV 89.7 fL (80.0-100.0); Mean Platelet Volume 8.4; Monocytes # (A) 0.5 k/uL (0-1.0); Monocytes % (A) 7 %; Neutrophils # (A) 5.5 k/uL (1.3-7.7); Neutrophils % (A) 74 %; Platelet Count 146 k/uL (150-450); RBC 2.72 m/uL (3.80-5.40); RDW 19.2 % (11.5-15.5); WBC 7.3 k/uL (3.8-10.6)
[2022-05-21 06:41] LABS: ALT 18 U/L (4-34); AST 21 U/L (14-36); African American GFR (CKD) >90 (>60 ml/min/1.73 sqM); Albumin 2.5 g/dL (3.5-5.0); Alkaline Phosphatase 50 U/L (38-126); Anion Gap 3 mmol/L; Blood Urea Nitrogen 7 mg/dL (7-17); Calcium 7.3 mg/dL (8.4-10.2); Carbon Dioxide 20 mmol/L (22-30); Chloride 111 mmol/L (98-107); Glucose 141 mg/dL (74-99); Magnesium 1.1 mg/dL (1.6-2.3); Non-African American GFR(CKD) >90 (>60 ml/min/1.73 sqM); Potassium 3.7 mmol/L (3.5-5.1); Sodium 134 mmol/L (137-145); Total Bilirubin 0.6 mg/dL (0.2-1.3); Total Protein 4.2 g/dL (6.3-8.2)
[2022-05-21] MEDS ORDERED: Magnesium Replacement Protocol 1 EACH MISC MISCELLANE PRN (07:14)
[2022-05-21] MEDS: MAGNESIUM SULFATE-D5W PMX 1 GM in DEXTROSE/WATER 1 100ML.BAG IVPB SCH ×3 (08:31→12:31)
[2022-05-21] MEDS: PANTOPRAZOLE 40 MG/10 ML VIAL IVP SCH ×2 (09:04→20:24)
[2022-05-21] MEDS: CEFEPIME 2 GM in SODIUM CHLORIDE 0.9% 100 ML IVPB SCH ×3 (09:06→23:14)
[2022-05-21] MEDS: LACTATED RINGERS 1,000 ML IV SCH ×2 (09:07→23:15)
[2022-05-21] MEDS ORDERED: METOPROLOL TARTRATE 5 MG/5 ML VIAL IVP ONE (11:13)
[2022-05-21 11:35] LABS: Glucose,Whole Blood 200 mg/dL (70-110)
--- NOTE | 2022-05-21 11:55 | P.PN ---
Subjective Progress Note Date: 05/21/22 CHIEF COMPLAINT: Duodenal ulcer HISTORY OF PRESENT ILLNESS: Patient is currently in the ICU. She is postop day #2 status post exploratory laparotomy, lysis of adhesions, oversewing of bleeding duodenal ulcer. She has NG tube in place with about 50 mL output this morning. The output to the NG tube has been having intermittent bleeding otherwise its bilious in color. Hemoglobin slightly down 8.1 this morning. The patient has had low-grade fevers and has been tachycardic. Antibiotics were adjusted by infectious disease. Patient reports that her pain is controlled. Denies any nausea. Patient denies any gas or bowel movement. Currently afebrile WBC 7.3 Hgb A.3 on 8.1 platelets 146 sodium 134 potassium 3.7 creatinine 0.53 magnesium is 1.1 JAYASHREE drain 30 mL serosanguineous output this morning. Patient did receive a unit of blood yesterday morning hemoglobin was 7.8 PHYSICAL EXAM: VITAL SIGNS: Reviewed. GENERAL: Well-developed in no acute distress. HEENT: No sclera icterus. Extraocular movements grossly intact. Moist buccal mucosa. Head is atraumatic, normocephalic. ABDOMEN: Soft. Nondistended. Nontender. Incisional dressing small area of shadowing distal aspect of dressing NEUROLOGIC: Alert and oriented. Cranial nerves II through XII grossly intact. ASSESSMENT: 1. Duodenal ulcer status post exploratory laparotomy, lysis of adhesions, oversewing of bleeding duodenal ulcer 2. Acute GI bleed secondary to duodenal ulcer 3. Acute blood loss anemia 4. Low-grade fevers 5. Hypomagnesemia PLAN: -Continue NG tube. Intermittent bleeding from NG tube Most likely related to gastric suctioning. Continue to monitor -Keep patient nothing by mouth -Continue IV Protonix -Encouraged patient to use incentive spirometer -Continue monitor hemoglobin -Magnesium being replaced Physician Hydropress Operator note has been reviewed by physician. Signing provider agrees with the documented findings, assessment, and plan of care. I have personally seen and examined the patient, reviewed the INSPECTION CLERK /PAs history, exam and MDM and agree with the assessment and plan as written. Based on total visit time, I have performed more than 50% of the visit. As above: Patient doing well today. She is having Ehrman episodes of anxiety. Low-grade fevers. No abdominal pain at present. The nasogastric tube has had a few episodes where the output appears bloody and then immediately goes back to bilious output. I suspect this is from gastric wall suctioning. Continue to follow hemoglobin. Tentatively plan nasogastric tube removal tomorrow. Objective - Vital Signs Vital signs: Vital Signs Temp 98.6 F 05/21/22 04:00 Pulse 115 H 05/21/22 07:00 Resp 18 05/21/22 07:00 BP 147/78 05/21/22 07:00 Pulse Ox 96 05/21/22 07:00 FiO2 21 05/20/22 19:45 Intake & Output 05/20/22 05/21/22 05/21/22 18:59 06:59 18:59 Intake Total 2350 1800 100 Output Total 1295 835 380 Balance 1055 965 -280 Weight 74.6 kg Intake: IV 1800 1800 100 ACETAMINOPHEN IV (For NPO 100 200 ) 1,000 mg In Empty Bag 1 bag @ 400 mls/hr IVPB Q6HR PRN Rx#:[id number] Cefepime 2 gm In Sodium 100 100 Chloride 0.9% 100 ml @ 25 mls/hr IVPB Q8HR BEN Rx# :[id number] Lactated Ringers 1,000 ml 1300 1000 100 @ 100 mls/hr IV .Q10H BEN Rx#:[id number] Potassium Chloride 10 meq 200 400 In Water For Injection 1 100ml.bag @ 100 mls/hr IVPB Q1H BEN Rx#: [id number] PMX 500 100 100 mg In Saline 1 100ml.bag @ 100 mls/hr IVPB Q8HR BEN Rx#:[id number] Oral 240 Blood Product 310 Rc As-1 Unit 310 [id number] Output: Gastric Drainage 440 250 Drainage 40 30 Right Abdomen 40 30 Urine 815 835 100 Other: Voiding Method Indwelling Catheter Indwelling Catheter # Voids 1 - Labs CBC & Chem 7: 05/21/22 05:50 05/21/22 05:50 Labs: Abnormal Lab Results - Last 24 Hours (Table) 05/18/22 05/20/22 05/20/22 Range/Units 00:20 11:15 11:59 RBC (3.80-5.40) m/uL Hgb (11.4-16.0) gm/dL Hct (34.0-46.0) % RDW (11.5-15.5) % Plt Count (150-450) k/uL Lymphocytes # (1.0-4.8) k/uL Sodium (137-145) mmol/L Potassium (3.5-5.1) mmol/L Chloride (98-107) mmol/L Carbon Dioxide (22-30) mmol/L Glucose (74-99) mg/dL POC Glucose (mg/dL) 167 H (70-110) mg/dL Plasma Lactic Acid Berhane 0.6 L (0.7-2.0) mmol/L Calcium (8.4-10.2) mg/dL Magnesium (1.6-2.3) mg/dL Total Protein (6.3-8.2) g/dL Albumin (3.5-5.0) g/dL Crossmatch See Detail 05/20/22 05/20/22 05/20/22 Range/Units 18:11 20:49 20:49 RBC 2.76 L (3.80-5.40) m/uL Hgb 8.3 L (11.4-16.0) gm/dL Hct 24.8 L (34.0-46.0) % RDW 19.3 H (11.5-15.5) % Plt Count 147 L (150-450) k/uL Lymphocytes # (1.0-4.8) k/uL Sodium (137-145) mmol/L Potassium 3.3 L (3.5-5.1) mmol/L Chloride (98-107) mmol/L Carbon Dioxide (22-30) mmol/L Glucose (74-99) mg/dL POC Glucose (mg/dL) 174 H (70-110) mg/dL Plasma Lactic Acid [place] (0.7-2.0) mmol/L Calcium (8.4-10.2) mg/dL Magnesium (1.6-2.3) mg/dL Total Protein (6.3-8.2) g/dL Albumin (3.5-5.0) g/dL Crossmatch 05/20/22 05/21/22 05/21/22 Range/Units 23:52 05:50 05:50 RBC 2.72 L (3.80-5.40) m/uL Hgb 8.1 L (11.4-16.0) gm/dL Hct 24.4 L (34.0-46.0) % RDW 19.2 H (11.5-15.5) % Plt Count 146 L (150-450) k/uL Lymphocytes # 0.8 L (1.0-4.8) k/uL Sodium 134 L (137-145) mmol/L Potassium (3.5-5.1) mmol/L Chloride 111 H (98-107) mmol/L Carbon Dioxide 20 L (22-30) mmol/L Glucose 141 H (74-99) mg/dL POC Glucose (mg/dL) 166 H (70-110) mg/dL Plasma Lactic Acid Berhane (0.7-2.0) mmol/L Calcium 7.3 L (8.4-10.2) mg/dL Magnesium 1.1 L (1.6-2.3) mg/dL Total Protein 4.2 L (6.3-8.2) g/dL Albumin 2.5 L (3.5-5.0) g/dL Crossmatch 05/21/22 05/21/22 Range/Units 05:59 11:34 RBC (3.80-5.40) m/uL Hgb (11.4-16.0) gm/dL Hct (34.0-46.0) % RDW (11.5-15.5) % Plt Count (150-450) k/uL Lymphocytes # (1.0-4.8) k/uL Sodium (137-145) mmol/L Potassium (3.5-5.1) mmol/L Chloride (98-107) mmol/L Carbon Dioxide (22-30) mmol/L Glucose (74-99) mg/dL POC Glucose (mg/dL) 161 H 200 H (70-110) mg/dL Plasma Lactic Acid Berhane (0.7-2.0) mmol/L Calcium (8.4-10.2) mg/dL Magnesium (1.6-2.3) mg/dL Total Protein (6.3-8.2) g/dL Albumin (3.5-5.0) g/dL Crossmatch Microbiology - Last 24 Hours (Table) 05/21/22 00:22 Sputum Culture - Preliminary Sputum
--- NOTE | 2022-05-21 12:48 | P.PN ---
Subjective Progress Note Date: 05/21/22 Principal diagnosis: Postop fever Patient is a 77 year female presenting to the hospital with abdominal pain and diarrhea and black stools patient did have EGD with evidence of duodenal ulcer that could not be treated endoscopy status post laparotomy and overseeing of the duodenal ulcer and lysis of adhesion patient subsequently did spike a fever on 05/20/2022. On today's evaluation that is 05/21/2022 patient did have a low-grade fever off 100.5 last evening and the patient is afebrile this morning patient is currently breathing comfortably on room air has been coming of some palpitation abdominal pain is currently controlled patient did have NG was some dark fluid but no natalie blood no chest pain or cough and no diarrhea reported Objective - Vital Signs Vital signs: Vital Signs Temp 98.6 F 05/21/22 04:00 Pulse 115 H 05/21/22 07:00 Resp 18 05/21/22 07:00 BP 147/78 05/21/22 07:00 Pulse Ox 96 05/21/22 07:00 FiO2 21 05/20/22 19:45 Intake & Output 05/20/22 05/21/22 05/21/22 18:59 06:59 18:59 Intake Total 2350 1800 100 Output Total 1295 835 380 Balance 1055 965 -280 Weight 74.6 kg Intake: IV 1800 1800 100 ACETAMINOPHEN IV (For NPO 100 200 ) 1,000 mg In Empty Bag 1 bag @ 400 mls/hr IVPB Q6HR PRN Rx#:[id number] Cefepime 2 gm In Sodium 100 100 Chloride 0.9% 100 ml @ 25 mls/hr IVPB Q8HR BEN Rx# :[id number] Lactated Ringers 1,000 ml 1300 1000 100 @ 100 mls/hr IV .Q10H BEN Rx#:[id number] Potassium Chloride 10 meq 200 400 In Water For Injection 1 100ml.bag @ 100 mls/hr IVPB Q1H BEN Rx#: [id number] metroNIDAZOLE-NS PMX 500 100 100 mg In Saline 1 100ml.bag @ 100 mls/hr IVPB Q8HR BEN Rx#:[id number] Oral 240 Blood Product 310 Rc As-1 Unit 310 [id number] Output: Gastric Drainage 440 250 Drainage 40 30 Right Abdomen 40 30 Urine 815 835 100 Other: Voiding Method Indwelling Catheter Indwelling Catheter # Voids 1 - Exam GENERAL DESCRIPTION: An elderly female lying in bed in no distress RESPIRATORY SYSTEM: Unlabored breathing , decreased breath sounds at bases HEART: S1 S2 regular rate and rhythm , ABDOMEN: Soft , no tenderness EXTREMITIES: No edema feet - Labs CBC & Chem 7: 05/21/22 05:50 05/21/22 05:50 Labs: Abnormal Lab Results - Last 24 Hours (Table) 05/18/22 05/20/22 05/20/22 Range/Units 00:20 11:15 11:59 RBC (3.80-5.40) m/uL Hgb (11.4-16.0) gm/dL Hct (34.0-46.0) % RDW (11.5-15.5) % Plt Count (150-450) k/uL Lymphocytes # (1.0-4.8) k/uL Sodium (137-145) mmol/L Potassium (3.5-5.1) mmol/L Chloride (98-107) mmol/L Carbon Dioxide (22-30) mmol/L Glucose (74-99) mg/dL POC Glucose (mg/dL) 167 H (70-110) mg/dL Plasma Lactic Acid Berhane 0.6 L (0.7-2.0) mmol/L Calcium (8.4-10.2) mg/dL Magnesium (1.6-2.3) mg/dL Total Protein (6.3-8.2) g/dL Albumin (3.5-5.0) g/dL Crossmatch See Detail 05/20/22 05/20/22 05/20/22 Range/Units 18:11 20:49 20:49 RBC 2.76 L (3.80-5.40) m/uL Hgb 8.3 L (11.4-16.0) gm/dL Hct 24.8 L (34.0-46.0) % RDW 19.3 H (11.5-15.5) % Plt Count 147 L (150-450) k/uL Lymphocytes # (1.0-4.8) k/uL Sodium (137-145) mmol/L Potassium 3.3 L (3.5-5.1) mmol/L Chloride (98-107) mmol/L Carbon Dioxide (22-30) mmol/L Glucose (74-99) mg/dL POC Glucose (mg/dL) 174 H (70-110) mg/dL Plasma Lactic Acid Berhane (0.7-2.0) mmol/L Calcium (8.4-10.2) mg/dL Magnesium (1.6-2.3) mg/dL Total Protein (6.3-8.2) g/dL Albumin (3.5-5.0) g/dL Crossmatch 05/20/22 05/21/22 05/21/22 Range/Units 23:52 05:50 05:50 RBC 2.72 L (3.80-5.40) m/uL Hgb 8.1 L (11.4-16.0) gm/dL Hct 24.4 L (34.0-46.0) % RDW 19.2 H (11.5-15.5) % Plt Count 146 L (150-450) k/uL Lymphocytes # 0.8 L (1.0-4.8) k/uL Sodium 134 L (137-145) mmol/L Potassium (3.5-5.1) mmol/L Chloride 111 H (98-107) mmol/L Carbon Dioxide 20 L (22-30) mmol/L Glucose 141 H (74-99) mg/dL POC Glucose (mg/dL) 166 H (70-110) mg/dL Plasma Lactic Acid Berhane (0.7-2.0) mmol/L Calcium 7.3 L (8.4-10.2) mg/dL Magnesium 1.1 L (1.6-2.3) mg/dL Total Protein 4.2 L (6.3-8.2) g/dL Albumin 2.5 L (3.5-5.0) g/dL Crossmatch 05/21/22 Range/Units 05:59 RBC (3.80-5.40) m/uL Hgb (11.4-16.0) gm/dL Hct (34.0-46.0) % RDW (11.5-15.5) % Plt Count (150-450) k/uL Lymphocytes # (1.0-4.8) k/uL Sodium (137-145) mmol/L Potassium (3.5-5.1) mmol/L Chloride (98-107) mmol/L Carbon Dioxide (22-30) mmol/L Glucose (74-99) mg/dL POC Glucose (mg/dL) 161 H (70-110) mg/dL Plasma Lactic Acid Berhane (0.7-2.0) mmol/L Calcium (8.4-10.2) mg/dL Magnesium (1.6-2.3) mg/dL Total Protein (6.3-8.2) g/dL Albumin (3.5-5.0) g/dL Crossmatch Microbiology - Last 24 Hours (Table) 05/21/22 00:22 Sputum Culture - Preliminary Sputum Assessment and Plan (1) Fever Current Visit: Yes Status: Acute Code(s): R50.9 - FEVER, UNSPECIFIED SNOMED Code(s): 245827982 Plan: 1patient with SIRS in this patient with a low-grade fever and tachycardia more likely related to abdominal source in this patient who did have a bleeding due to none also which could not be treated endoscopy status post laparotomy with lysis of adhesion and oversewing of the bleeding duodenal ulcer will need to cover for the enteric gram-negative both aerobes and anaerobes plus minus yeast 2-patient with a penicillin ALLERGY that would limit the number of antibiotic safety use 3blood culture as well as CRP and a pro-calcitonin are currently pending 4patient to continue with cefepime Flagyl and Diflucan and monitor clinical course closely Time with Patient: Less than 30
--- NOTE | 2022-05-21 13:32 | P.PN ---
Subjective Progress Note Date: 05/21/22 Principal diagnosis: Acute upper GI bleeding secondary to duodenal ulcer On 05/20/2022, the patient is extubated and the patient is currently sitting up on a chair. NG tube is in place. She was having some gastric output and earlier this morning shows also producing some minimal amount of bloody output from the NG. She drops her hemoglobin down to 7.8 and the patient will be given units of packed RBC per surgical recommendation. He remains nothing by mouth. JAYASHREE drain is in place. Output has been 40 mL over the past 8 hours and the patient is on 2 L O2 nasal cannula. She remains on lactated Ringer at the rate of 100 mL an hour. Overall fluid balance +1.5 L over the past 24 hours. The patient's hemoglobin is at 7.8 with a white cell count of 8.7. Bicarb was 23 B UN is 12 creatinine 0.6. She remains on 2 L of oxygen by nasal cannula. Her cardiac rhythm remains sinus. She is using the incentive spirometer. She is falling approximately thousand. Reevaluated today on 05/21/22 patient seems to be doing very well today, she is not in any distress. Hemoglobin this morning is 8.1, patient received a unit of packed RBCs yesterday, and she received a total of 4 units since admission continues to have intermittent coffee-ground material through the nasogastric tube, hemodynamically stable, not in distress. She is on 2 L nasal cannula, O2 sats is 96%. She is doing overall quite well Objective - Vital Signs Vital signs: Vital Signs Temp 98.6 F 05/21/22 04:00 Pulse 115 H 05/21/22 07:00 Resp 18 05/21/22 07:00 BP 147/78 05/21/22 07:00 Pulse Ox 96 05/21/22 07:00 FiO2 21 05/20/22 19:45 Intake & Output 05/20/22 05/21/22 05/21/22 18:59 06:59 18:59 Intake Total 2350 1800 100 Output Total 1295 835 380 Balance 1055 965 -280 Weight 74.6 kg Intake: IV 1800 1800 100 ACETAMINOPHEN IV (For NPO 100 200 ) 1,000 mg In Empty Bag 1 bag @ 400 mls/hr IVPB Q6HR PRN Rx#:[id number] Cefepime 2 gm In Sodium 100 100 Chloride 0.9% 100 ml @ 25 mls/hr IVPB Q8HR BEN Rx# :[id number] Lactated Ringers 1,000 ml 1300 1000 100 @ 100 mls/hr IV .Q10H BEN Rx#:[id number] Potassium Chloride 10 meq 200 400 In Water For Injection 1 100ml.bag @ 100 mls/hr IVPB Q1H BEN Rx#: [id number] metroNIDAZOLE-NS PMX 500 100 100 mg In Saline 1 100ml.bag @ 100 mls/hr IVPB Q8HR BEN Rx#:[id number] Oral 240 Blood Product 310 Rc As-1 Unit 310 [id number] Output: Gastric Drainage 440 250 Drainage 40 30 Right Abdomen 40 30 Urine 815 835 100 Other: Voiding Method Indwelling Catheter Indwelling Catheter # Voids 1 - Exam Physical Exam: Revealed a 77-year-old female in no distress. Head: Atraumatic, normocephalic HEENT:[Neck is supple.] [No neck masses.] [No thyromegaly.] [No JVD.] Chest: [Clear throughout, no crackles, no rhonchi, no wheezes.] Cardiac Exam: [Normal S1 and S2, no S3 gallop, no murmur.] Abdomen: [Soft, nontender, no megaly, no rebound, no guarding, normal bowel sounds.] Extremities: [No clubbing, no edema, no cyanosis.] Neurological Exam: [No focal neurologic deficit.] Psychiatric: Normal mood affect and normal mental status examination. Skin: No rashes - Labs CBC & Chem 7: 05/21/22 05:50 05/21/22 05:50 Labs: Abnormal Lab Results - Last 24 Hours (Table) 05/18/22 05/20/22 05/20/22 Range/Units 00:20 18:11 20:49 RBC 2.76 L (3.80-5.40) m/uL Hgb 8.3 L (11.4-16.0) gm/dL Hct 24.8 L (34.0-46.0) % RDW 19.3 H (11.5-15.5) % Plt Count 147 L (150-450) k/uL Lymphocytes # (1.0-4.8) k/uL Sodium (137-145) mmol/L Potassium (3.5-5.1) mmol/L Chloride (98-107) mmol/L Carbon Dioxide (22-30) mmol/L Glucose (74-99) mg/dL POC Glucose (mg/dL) 174 H (70-110) mg/dL Calcium (8.4-10.2) mg/dL Magnesium (1.6-2.3) mg/dL Total Protein (6.3-8.2) g/dL Albumin (3.5-5.0) g/dL Crossmatch See Detail 05/20/22 05/20/22 05/21/22 Range/Units 20:49 23:52 05:50 RBC 2.72 L (3.80-5.40) m/uL Hgb 8.1 L (11.4-16.0) gm/dL Hct 24.4 L (34.0-46.0) % RDW 19.2 H (11.5-15.5) % Plt Count 146 L (150-450) k/uL Lymphocytes # 0.8 L (1.0-4.8) k/uL Sodium (137-145) mmol/L Potassium 3.3 L (3.5-5.1) mmol/L Chloride (98-107) mmol/L Carbon Dioxide (22-30) mmol/L Glucose (74-99) mg/dL POC Glucose (mg/dL) 166 H (70-110) mg/dL Calcium (8.4-10.2) mg/dL Magnesium (1.6-2.3) mg/dL Total Protein (6.3-8.2) g/dL Albumin (3.5-5.0) g/dL Crossmatch 05/21/22 05/21/22 05/21/22 Range/Units 05:50 05:59 11:34 RBC (3.80-5.40) m/uL Hgb (11.4-16.0) gm/dL Hct (34.0-46.0) % RDW (11.5-15.5) % Plt Count (150-450) k/uL Lymphocytes # (1.0-4.8) k/uL Sodium 134 L (137-145) mmol/L Potassium (3.5-5.1) mmol/L Chloride 111 H (98-107) mmol/L Carbon Dioxide 20 L (22-30) mmol/L Glucose 141 H (74-99) mg/dL POC Glucose (mg/dL) 161 H 200 H (70-110) mg/dL Calcium 7.3 L (8.4-10.2) mg/dL Magnesium 1.1 L (1.6-2.3) mg/dL Total Protein 4.2 L (6.3-8.2) g/dL Albumin 2.5 L (3.5-5.0) g/dL Crossmatch Microbiology - Last 24 Hours (Table) 05/21/22 00:22 Sputum Culture - Preliminary Sputum Assessment and Plan Assessment: Impression: Acute upper GI bleeding secondary to bleeding duodenal ulcer status post exploratory laparotomy and repair of bleeding was an ulcer postoperative day #3. Blood loss anemia secondary to above. Acute. History of atrial fibrillation presently in sinus rhythm Benign essential hypertension Type 2 diabetes Recommendation: Continue present supportive care measures Continue IV Protonix Continue nasogastric tube to suction Continue to monitor hemoglobin on a daily basis and transfuse if hemoglobin below 7 Continue pain control with Dilaudid Possible transfer out of the ICU within the next 24 hours We will continue to Time with Patient: Less than 30
--- NOTE | 2022-05-21 16:47 | P.PN ---
Subjective Progress Note Date: 05/21/22 Patient is a pleasant thousand 7-year-old female with known history of atrial fibrillation but not on anticoagulation had a watchman procedure in the past came in with the complaints of multiple episodes of natalie blood in the stools. Patient does take Excedrin for migraine. Patient had history of peptic ulcer disease in the past denied any history of aortic sclerosis. Patient denied any abdominal pain. Patient is comparing of lightheadedness generalized weakness and tiredness. The patient's of present hemoglobin is around 10.7. Patient denied any hematemesis. 05/19/2022 Patient is admitted for acute GI bleed, underwent upper GI endoscopy showed a be actively bleeding duodenal ulcer which was then cauterized. Subsequently patient was a taken to or for expiratory laparotomy lysis of adhesions and oversewing of a bleeding duodenal ulcer and patient was subsequently admitted to ICU and patient was intubated overnight patient was extubated today. Patient doesn't really has an NG tube with a greenish brownish discharge patient is bit drowsy. 05/20/2022 Patient is evaluated today in intensive care unit she is postoperative day #2 for exploratory laporatomy lysis of adhesions and oversewing of bleeding duodenal ulcer. Patient has been maintained NPO status strict with NG Tube for decompression and has had brownish in color with about 540 mLs in the canister. During evaluation this morning there was natalie red blood return in the NG tube small amount. Patient continues to report abdominal pain epigastric which is somewhat controlled with IV pain medication. She is awake and alert answering questions however is still drowsy and fatigued. Labs today are showing white count 8.7, hgb 7.8 today dropped from 9.5 yesterday morning. Patient has received 3 units of PRBC's this admission so far. Heart rate has been steadily increasing up into the 120s and maintaining sinus mechanism. Does have history of atrial fibrillation and has not been receiving oral rate control medications. Would consider one time small dose of metoprolol, however if this is an acute bleed would be cautionery to avoid hypotensive episode. She is maintained on IV fluids with lactated ringers at 100 mls per hour. Surgery will be notified of blood in NG tube, further recommendations pending. Sodium improved today 138, potassium 3.7, BUN 12, creatinine 0.90. Blood glucose 170s, calcium 7.1. 05/21/2022 Patient evaluated in the intensive care unit resting in bed. She is postoperative day #3. JAYASHREE drain in place RLQ with serosanguinous drainage. Abdominal pain has improved down to 5/10 states it is less sharp today. Bowels are active, no bowel movement yet. Continues with NG tube with intermittent epis odes of red blood noted in NG tube. Hemoglobin today 8.1. Status post 1 unit of PRBC yesterday. Heart rate is elevated today in the 120s -130s sinus tachycardia rate is regular one exam. She received IV lopressor 2.5 mg around 11 and a second dose was given after lunch. Heart rate is now 107. Continues on IV antibiotics. Cultures pending. Potassium 3.7 today, magnesium 1.1. Review of Systems Constitutional: Reports fatigue, denies fever. Reports anxiety. Cardio vascular: denied any chest pain, palpitations Gastrointestinal: denied any nausea, vomiting, diarrhea, has abdominal pain. Pulmonary: Denied any shortness of breath cough Neurologic: Denied any new focal deficits Generalized weakness. All inpatient medications were reviewed and appropriate changes in these medications as dictated in the interval history and assessment and plan. PHYSICAL EXAMINATION: GENERAL: Drowsy but awake and alert. In intensive care unit sitting up in chair. HEENT: Pupils are round and equally reacting to light. EOMI. No scleral icterus. Does have conjunctival pallor. Normocephalic, atraumatic. No pharyngeal erythema. No thyromegaly. CARDIOVASCULAR: S1 and S2 present. No murmurs, rubs, or gallops. Tachycardic, regular PULMONARY: Chest is clear to auscultation, no wheezing or crackles. ABDOMEN: Soft, tender, nondistended, normoactive bowel sounds. No palpable organomegaly. NG tube in place. Postsurgical abdomen dressing intact. JAYASHREE drain RLQ with serosanguineous drainage. MUSCULOSKELETAL: No joint swelling or deformity. EXTREMITIES: No cyanosis, clubbing, or pedal edema. Generalized peripheral edema. NEUROLOGICAL: Patient is bit drowsy from pain medications SKIN: No rashes. Assessment and plan -Acute GI bleed : Actively bleeding duodenal ulcer found on EGD, patient is postoperative exploratory laparotomy, lysis of adhesions, and oversewing of duodenal ulcer. Patient will be continued on Protonix presently has an NG tube and is NPO with ice chips. Continues on IV fluids with lactated ringers at 100 mls per hour. -Anemia from acute blood loss from bleeding duodenal ulcer status post 3 units of PRBCs and today hemoglobin today is 8.1. -Fever with tachycardia possible sepsis likely abdominal source, blood culture is taken, infectious disease has been consulted. -Atrial fibrillation presently not on any anticoagulation patient has paroxysmal A. fib patient had a watchman procedure, currently maintaining sinus tachycardia. -Type 2 diabetes mellitus and patient will be started on sliding scale, blood glucose 170s. -History peptic ulcer disease -Migraine for which patient takes Excedrin which can cause peptic ulcer disease DVT prophylaxis: Early ambulation and SCDs GI prophylaxis: Continues on IV protonix Full Code Plan Continue to monitor closely in intensive care unit. Possible downgrade today. NG tube in place and continue to monitor for increased blood return. Hemoglobin stable today. Infectious disease consultation, continue IV antibiotics. PRN lopr essor for elevated heart rate. Resume metoprolol when cleared for oral medication by surgery. Further recommendations pending. PT/OT consult in place. Repeat labs in AM. The impression and plan of care has been dictated by Alondra Barrientos, Nurse Practitioner as directed. Dr. Margarito MD I have performed a history and physical examination and medical decision making of this patient, discussed the same with the dictator, and agree with the dictators assessment and plan as written, documented as a scribe. Based on total visit time, I have performed more than 50% of this visit. Objective - Vital Signs Vital signs: Vital Signs Temp 98.6 F 05/21/22 04:00 Pulse 115 H 05/21/22 07:00 Resp 18 05/21/22 07:00 BP 147/78 05/21/22 07:00 Pulse Ox 96 05/21/22 07:00 FiO2 21 05/20/22 19:45 Intake & Output 05/20/22 05/21/22 05/21/22 18:59 06:59 18:59 Intake Total 2350 1800 100 Output Total 1295 835 380 Balance 1055 965 -280 Weight 74.6 kg Intake: IV 1800 1800 100 ACETAMINOPHEN IV (For NPO 100 200 ) 1,000 mg In Empty Bag 1 bag @ 400 mls/hr IVPB Q6HR PRN Rx#:[id number] Cefepime 2 gm In Sodium 100 100 Chloride 0.9% 100 ml @ 25 mls/hr IVPB Q8HR BEN Rx# :[id number] Lactated Ringers 1,000 ml 1300 1000 100 @ 100 mls/hr IV .Q10H BEN Rx#:[id number] Potassium Chloride 10 meq 200 400 In Water For Injection 1 100ml.bag @ 100 mls/hr IVPB Q1H BEN Rx#: [id number] metroNIDAZOLE-NS PMX 500 100 100 mg In Saline 1 100ml.bag @ 100 mls/hr IVPB Q8HR BEN Rx#:[id number] Oral 240 Blood Product 310 Rc As-1 Unit 310 [id number] Output: Gastric Drainage 440 250 Drainage 40 30 Right Abdomen 40 30 Urine 815 835 100 Other: Voiding Method Indwelling Catheter Indwelling Catheter # Voids 1 - Labs CBC & Chem 7: 05/21/22 05:50 05/21/22 15:27 Labs: Abnormal Lab Results - Last 24 Hours (Table) 05/18/22 05/20/22 05/20/22 Range/Units 00:20 11:15 11:59 RBC (3.80-5.40) m/uL Hgb (11.4-16.0) gm/dL Hct (34.0-46.0) % RDW (11.5-15.5) % Plt Count (150-450) k/uL Lymphocytes # (1.0-4.8) k/uL Sodium (137-145) mmol/L Potassium (3.5-5.1) mmol/L Chloride (98-107) mmol/L Carbon Dioxide (22-30) mmol/L Glucose (74-99) mg/dL POC Glucose (mg/dL) 167 H (70-110) mg/dL Plasma Lactic Acid Berhane 0.6 L (0.7-2.0) mmol/L Calcium (8.4-10.2) mg/dL Magnesium (1.6-2.3) mg/dL Total Protein (6.3-8.2) g/dL Albumin (3.5-5.0) g/dL Crossmatch See Detail 05/20/22 05/20/22 05/20/22 Range/Units 18:11 20:49 20:49 RBC 2.76 L (3.80-5.40) m/uL Hgb 8.3 L (11.4-16.0) gm/dL Hct 24.8 L (34.0-46.0) % RDW 19.3 H (11.5-15.5) % Plt Count 147 L (150-450) k/uL Lymphocytes # (1.0-4.8) k/uL Sodium (137-145) mmol/L Potassium 3.3 L (3.5-5.1) mmol/L Chloride (98-107) mmol/L Carbon Dioxide (22-30) mmol/L Glucose (74-99) mg/dL POC Glucose (mg/dL) 174 H (70-110) mg/dL Plasma Lactic Acid Berhane (0.7-2.0) mmol/L Calcium (8.4-10.2) mg/dL Magnesium (1.6-2.3) mg/dL Total Protein (6.3-8.2) g/dL Albumin (3.5-5.0) g/dL Crossmatch 05/20/22 05/21/22 05/21/22 Range/Units 23:52 05:50 05:50 RBC 2.72 L (3.80-5.40) m/uL Hgb 8.1 L (11.4-16.0) gm/dL Hct 24.4 L (34.0-46.0) % RDW 19.2 H (11.5-15.5) % Plt Count 146 L (150-450) k/uL Lymphocytes # 0.8 L (1.0-4.8) k/uL Sodium 134 L (137-145) mmol/L Potassium (3.5-5.1) mmol/L Chloride 111 H (98-107) mmol/L Carbon Dioxide 20 L (22-30) mmol/L Glucose 141 H (74-99) mg/dL POC Glucose (mg/dL) 166 H (70-110) mg/dL Plasma Lactic Acid Berhane (0.7-2.0) mmol/L Calcium 7.3 L (8.4-10.2) mg/dL Magnesium 1.1 L (1.6-2.3) mg/dL Total Protein 4.2 L (6.3-8.2) g/dL Albumin 2.5 L (3.5-5.0) g/dL Crossmatch 05/21/22 Range/Units 05:59 RBC (3.80-5.40) m/uL Hgb (11.4-16.0) gm/dL Hct (34.0-46.0) % RDW (11.5-15.5) % Plt Count (150-450) k/uL Lymphocytes # (1.0-4.8) k/uL Sodium (137-145) mmol/L Potassium (3.5-5.1) mmol/L Chloride (98-107) mmol/L Carbon Dioxide (22-30) mmol/L Glucose (74-99) mg/dL POC Glucose (mg/dL) 161 H (70-110) mg/dL Plasma Lactic Acid Berhane (0.7-2.0) mmol/L Calcium (8.4-10.2) mg/dL Magnesium (1.6-2.3) mg/dL Total Protein (6.3-8.2) g/dL Albumin (3.5-5.0) g/dL Crossmatch Microbiology - Last 24 Hours (Table) 05/21/22 00:22 Sputum Culture - Preliminary Sputum Assessment and Plan Time with Patient: Greater than 30
[2022-05-21] MEDS: FLUCONAZOLE IN NACL,ISO-OSM 200 MG in SALINE 1 100ML.BAG IVPB SCH (17:07)
[2022-05-21 19:12] LABS: Glucose,Whole Blood 176 mg/dL (70-110)
[2022-05-21] MEDS: LORazepam 2 MG/ML INJ IV PRN (22:13)
[2022-05-21] MEDS: METOPROLOL TARTRATE 5 MG/5 ML VIAL IVP PRN (23:33)
[2022-05-21 23:45] LABS: Glucose,Whole Blood 151 mg/dL (70-110)
[2022-05-22] MEDS: POTASSIUM CHLORIDE 10 MEQ in WATER FOR INJECTION 1 100ML.BAG IVPB SCH ×2 (00:41→02:21)
[2022-05-22] MEDS: HYDROmorphone 1 MG/ML 1 ML SYRINGE IVP PRN ×5 (00:43→21:05)
[2022-05-22] MEDS: LORazepam 2 MG/ML INJ IV PRN (03:15)
[2022-05-22] MEDS: METOPROLOL TARTRATE 5 MG/5 ML VIAL IVP PRN (05:00)
[2022-05-22] MEDS ORDERED: DILTIAZEM 125 MG in SODIUM CHLORIDE 0.9% 100 ML IV SCH ×2 (06:00→09:00)
[2022-05-22 06:03] LABS: Anisocytosis Slight; Basophils % (A) 0 %; Eosinophils # (A) 0.2 k/uL (0-0.7); Eosinophils % (A) 3 %; HCT 23.4 % (34.0-46.0); HGB 8.1 gm/dL (11.4-16.0); Lymphocytes # (A) 0.7 k/uL (1.0-4.8); Lymphocytes % (A) 8 %; MCH 30.7 pg (25.0-35.0); MCHC 34.4 g/dL (31.0-37.0); MCV 89.4 fL (80.0-100.0); Mean Platelet Volume 7.9; Monocytes # (A) 0.7 k/uL (0-1.0); Monocytes % (A) 8 %; Neutrophils # (A) 6.4 k/uL (1.3-7.7); Neutrophils % (A) 77 %; Platelet Count 171 k/uL (150-450); RBC 2.62 m/uL (3.80-5.40); RDW 18.9 % (11.5-15.5); WBC 8.3 k/uL (3.8-10.6)
[2022-05-22 06:27] LABS: African American GFR (CKD) >90 (>60 ml/min/1.73 sqM); Anion Gap 2 mmol/L; Blood Urea Nitrogen 3 mg/dL (7-17); Calcium 7.6 mg/dL (8.4-10.2); Carbon Dioxide 24 mmol/L (22-30); Chloride 108 mmol/L (98-107); Glucose 155 mg/dL (74-99); Magnesium 1.5 mg/dL (1.6-2.3); Non-African American GFR(CKD) >90 (>60 ml/min/1.73 sqM); Potassium 3.8 mmol/L (3.5-5.1); Sodium 134 mmol/L (137-145)
[2022-05-22 06:33] LABS: Glucose,Whole Blood 175 mg/dL (70-110)
[2022-05-22] MEDS ORDERED: diphenhydrAMINE 50 MG/ML 1 ML VIAL IVP STA (06:52)
[2022-05-22] MEDS: INSULIN ASPART (NovoLOG) 100 UNIT/ML VIAL SQ SCH ×4 (07:02→20:31)
[2022-05-22] MEDS: PANTOPRAZOLE 40 MG/10 ML VIAL IVP SCH ×2 (08:14→20:19)
[2022-05-22] MEDS: CEFEPIME 2 GM in SODIUM CHLORIDE 0.9% 100 ML IVPB SCH ×3 (08:15→23:22)
[2022-05-22] MEDS: metroNIDAZOLE-NS PMX 500 MG in SALINE 1 100ML.BAG IVPB SCH ×3 (08:15→23:21)
[2022-05-22] MEDS: LACTATED RINGERS 1,000 ML IV SCH ×2 (08:15→17:33)
[2022-05-22] MEDS: MAGNESIUM SULFATE-D5W PMX 1 GM in DEXTROSE/WATER 1 100ML.BAG IVPB SCH ×2 (08:15→10:53)
--- NOTE | 2022-05-22 08:57 | P.CRDCN ---
History of Present Illness History of present illness: HISTORY OF PRESENTING ILLNESS Patient is a pleasant 77-year-old female with history of paroxysmal atrial fibrillation status post watchman procedure approximate 2018, diabetes mellitus type 2, hypertension, GI bleed who presents secondary to GI bleeding. Patient initially had undergone workup and watchman procedure 4 years ago and states she has not had much issues with bleeding since that time. She has only been on aspirin since then. She denies any history of stroke or TIA. Unfortunately she started having bleeding which was unable to be controlled with endoscopy and therefore underwent exploratory laparotomy 05/18 with control of the bleeding. She had been in sinus rhythm on presentation however converted to atrial fibrillation overnight with elevated heart rates in the 120s and 130s. She was placed on Cardizem drip currently at 10 with heart rates in the 100 to 1:15 r jose. She denies any chest pain or pressure. She does have some difficulty and pain on her left side when she swallows. Currently she is nothing by mouth and not taking any oral medications. She had previously been on Rythmol as well as metoprolol 50 mg once a day however had previously been on Lopressor 25 twice a day. She denies any history of CAD or heart failure. Patient had been followi ng with a telecommunications field engineer in [place] however no recent echo or stress test. REVIEW OF SYSTEMS At the time of my exam: CONSTITUTIONAL: Denies fever or chills. CARDIOVASCULAR: +chest pain with swallowing, no shortness of breath, orthopnea, PND +palpitations. RESPIRATORY: Denies cough. GASTROINTESTINAL: Denies abdominal pain, diarrhea, constipation, nausea or vomiting. MUSCULOSKELETAL: Denies myalgias. NEUROLOGIC: Denies numbness, tingling or weakness. ENDOCRINE: Denies fatigue, weight change, polydipsia or polyurina. GENITOURINARY: Denies burning, hematuria or urgency with micturation. HEMATOLOGIC: Denies history of anemia or bleeding. PHYSICAL EXAMINATION Vital signs reviewed. CONSTITUTIONAL: No apparent distress. HEENT: Head is normocephalic. Pupils are equal, round. Sclerae anicteric. Mucous membranes of the mouth are moist. No JVD. No carotid bruit. CHEST EXAMINATION: Lungs are clear to auscultation. No chest wall tenderness is noted on palpation or with deep breathing. HEART EXAMINATION: Irregular rate and rhythm. S1, S2 heard. No murmurs, gallops or rub. ABDOMEN: Soft, nontender. Positive bowel sounds. EXTREMITIES: 2+ peripheral pulses, no lower extremity edema and no calf tenderness. NEUROLOGIC EXAMINATION: Patient is awake, alert and oriented x3. ASSESSMENT 1. Acute GI bleed status post exploratory laparotomy and PRBCs transfusion 2. Paroxysmal atrial fibrillation currently A. fib with mild RVR 3. Hypertension 4. Status post watchman procedure 5. Anemia PLAN Continue with a Cardizem drip given she is currently nothing by mouth. Once able to take oral medications we will restart metoprolol with the extended release Toprol. Currently appears fairly well controlled with the Cardizem drip. No signs of heart failure. Cautious IV fluids. Further recommendations to follow. Past Medical History Past Medical History: Atrial Fibrillation, Diabetes Mellitus, Hypertension History of Any Multi-Drug Resistant Organisms: None Reported Past Surgical History: Appendectomy, Cholecystectomy, Heart Catheterization Past Anesthesia/Blood Transfusion Reactions: No Reported Reaction Past Psychological History: No Psychological Hx Reported Smoking Status: Never smoker Past Alcohol Use History: Occasional Past Drug Use History: None Reported Medications and Allergies Home Medications Medication Instructions Recorded Confirmed Type Aspirin/Acetaminophen/Caffeine 0.5 - 1 tab PO TID PRN 02/13/22 05/18/22 History [Excedrin Extra Strength Caplet] Atorvastatin [Lipitor] 20 mg PO HS 02/13/22 05/18/22 History Pantoprazole [Protonix] 40 mg PO DAILY #10 tab 02/13/22 05/18/22 Rx Propafenone [Rythmol] 150 mg PO BID 02/13/22 05/18/22 History lisinopriL 2.5 mg PO DAILY 02/13/22 05/18/22 History metFORMIN HCL [Glucophage] 500 mg PO HS 02/13/22 05/18/22 History Azelastine HCl [Astelin Nasal 2 spr NASAL BID PRN 03/18/22 05/18/22 History Fletcher] Ipratropium [place] 0.06%Nasal 2 spray EA NOSTRIL QID PRN 03/18/22 05/18/22 History [Atrovent Nasal 0.06%] Acetaminophen Tab [Tylenol] 650 mg PO Q6HR PRN tab 03/21/22 05/18/22 Rx Ascorbic Acid [Vitamin C] 500 mg PO DAILY 30 Days #30 tab 03/21/22 05/18/22 Rx Cholecalciferol [Vitamin D3 (25 25 mcg PO DAILY #30 tab 03/21/22 05/18/22 Rx Mcg = 1000 Iu)] Zinc Sulfate [Orazinc] 220 mg PO DAILY 14 Days #14 cap 03/21/22 05/18/22 Rx Albuterol Inhaler [Ventolin Hfa 2 puff INHALATION RT-Q6H PRN 05/18/22 05/18/22 History Inhaler] Metoprolol Tartrate [Lopressor] 50 mg PO DAILY 05/18/22 05/18/22 History Montelukast [Singulair] 10 mg PO HS 05/18/22 05/18/22 History traZODone HCL 100 mg PO HS 05/18/22 05/18/22 History Allergies Allergy/AdvReac Type Severity Reaction Status Date / Time Penicillins Allergy Rash/Hives Verified 05/18/22 07:29 on entire body Physical Exam Vitals: Vital Signs Temp Pulse Resp BP Pulse Ox 05/22/22 08:00 99.7 F H 101 H 24 137/72 96 05/22/22 07:00 23 108/75 98 05/22/22 06:00 142 H 13 111/90 96 05/22/22 05:00 156 H 26 H 112/78 97 05/22/22 04:00 97.9 F 128 H 63 H 112/78 98 05/22/22 03:00 14 117/67 94 L 05/22/22 02:00 112 H 20 131/68 97 05/22/22 01:00 115 H 15 150/90 98 05/22/22 00:00 98.4 F 121 H 19 145/68 97 05/21/22 23:11 117 H 22 145/68 98 05/21/22 23:00 107 H 19 149/70 98 05/21/22 22:00 105 H 16 148/87 98 05/21/22 21:00 14 145/78 94 L 05/21/22 20:00 99 F 108 H 15 133/90 98 05/21/22 19:00 105 H 14 144/73 98 05/21/22 18:00 106 H 17 152/75 97 05/21/22 17:00 118 H 22 140/76 97 05/21/22 16:00 98.7 F 116 H 15 131/78 99 05/21/22 15:00 107 H 21 136/70 97 05/21/22 14:00 104 H 26 H 144/66 92 L 05/21/22 13:00 114 H 20 131/60 93 L 05/21/22 12:00 99.7 F H 97 20 179/90 97 05/21/22 11:00 109 H 16 136/67 97 05/21/22 10:00 113 H 16 162/77 96 05/21/22 09:00 114 H 20 120/70 99 Intake and Output 05/21/22 05/22/22 05/22/22 22:59 06:59 14:59 Intake Total 1300 1050 200 Output Total 1135 1775 450 Balance 165 -725 -250 Intake: IV 1000 950 200 Cefepime 2 gm In Sodium 100 100 Chloride 0.9% 100 ml @ 25 mls/hr IVPB Q8HR [facility] Rx# :[id number] Lactated Ringers 1,000 ml 800 750 200 @ 100 mls/hr IV .Q10H [facility] Rx#:[id number] metroNIDAZOLE-NS PMX 500 100 100 mg In Saline 1 100ml.bag @ 100 mls/hr IVPB Q8HR [facility] Rx#:[id number] Intake, IV Titration 300 100 Amount Fluconazole in NaCl,Iso- 100 Osm 200 mg In Saline 1 100ml.bag @ 100 mls/hr IVPB Q24H [facility] Rx#: [id number] Potassium Chloride 10 meq 200 100 In Water For Injection 1 100ml.bag @ 100 mls/hr IVPB Q1H [facility] Rx#: [id number] Output: Gastric Drainage 300 250 Drainage 50 Right Abdomen 50 Urine 835 1525 400 Other: Voiding Method Indwelling Catheter Indwelling Catheter Indwelling Catheter Weight 77.1 kg Results 05/22/22 05:33 05/22/22 05:33 CBC 05/22/22 Range/Units 05:33 WBC 8.3 (3.8-10.6) k/uL RBC 2.62 L (3.80-5.40) m/uL Hgb 8.1 L (11.4-16.0) gm/dL Hct 23.4 L (34.0-46.0) % Plt Count 171 (150-450) k/uL Comprehensive Metabolic Panel 05/21/22 05/21/22 05/22/22 Range/Units 15:27 22:30 05:33 Sodium 134 L (137-145) mmol/L Potassium 3.6 3.9 3.8 (3.5-5.1) mmol/L Chloride 108 H (98-107) mmol/L Carbon Dioxide 24 (22-30) mmol/L BUN 3 L (7-17) mg/dL Creatinine 0.51 L (0.52-1.04) mg/dL Glucose 155 H (74-99) mg/dL Calcium 7.6 L (8.4-10.2) mg/dL Current Medications Generic Name Dose Route Start Last Admin Trade Name Freq PRN Reason Stop Dose Admin Albuterol Sulfate 2.5 mg 05/18/22 12:49 Albuterol Nebulized 2.5 Mg/3 Ml INHALATION RT-Q6H PRN Shortness Of Breath Hydromorphone HCl 1 mg 05/18/22 00:38 05/22/22 04:16 Hydromorphone 1 Mg/Ml 1 Ml Syringe IVP 1 mg Q3HR PRN Administration Severe Pain (Scale 7 to 10) Lactated Ringer's 1,000 mls @ 100 mls/hr 05/18/22 22:33 05/22/22 08:15 Lactated Ringers IV 100 mls/hr .Q10H BEN Administration Acetaminophen 1,000 mg/ IV 100 mls @ 400 mls/hr 05/20/22 10:15 05/20/22 23:39 Solution IVPB 400 mls/hr Q6HR PRN Administration Fever>101 Cefepime HCl 2 gm/ Sodium 100 mls @ 25 mls/hr 05/20/22 16:00 05/22/22 08:15 Chloride IVPB 25 mls/hr Q8HR BEN Administration Protocol Fluconazole/Sodium Chloride 100 mls @ 100 mls/hr 05/20/22 16:00 05/21/22 17:07 200 mg/ IV Solution IVPB 100 mls/hr Q24H BEN Administration Protocol Metronidazole 500 mg/ IV 100 mls @ 100 mls/hr 05/20/22 16:00 05/22/22 08:15 Solution IVPB 100 mls/hr Q8HR BEN Administration Protocol Diltiazem HCl 125 mg/ Sodium 125 mls @ 10 mls/hr 05/22/22 06:00 05/22/22 05:59 Chloride IV 10 mg/hr .[id number] BEN 10 mls/hr Administration 10 MG/HR Magnesium Sulfate/Dextrose 1 100 mls @ 100 mls/hr 05/22/22 08:00 05/22/22 08:15 gm/ IV Solution IVPB 05/22/22 09:59 100 mls/hr Q1H BEN Administration Insulin Aspart 0 unit 05/19/22 18:00 05/22/22 07:02 Insulin Aspart (Novolog) 100 Unit/Ml Vial SQ 1 unit Q6H BEN Administration Protocol Ipratropium [place] 2 spray 05/18/22 12:49 Ipratropium [place] 0.06% Nasal [place] (15 Ml) EA NOSTRIL QID PRN WATERY NOSE Lorazepam 1 mg 05/18/22 22:00 05/22/22 03:15 Lorazepam 2 Mg/Ml Inj IV 1 mg Q1HR PRN Administration Anxiety Metoprolol Tartrate 2.5 mg 05/21/22 16:39 05/22/22 05:00 Metoprolol Tartrate 5 Mg/5 Ml Vial IVP 2.5 mg Q6HR PRN Administration Heart Rate - HIGH Miscellaneous Information 1 each 05/19/22 06:58 Potassium Replacement Protocol 1 Each Mis MISCELLANE DAILY PRN Per Protocol Protocol Miscellaneous Information 1 each 05/21/22 07:14 Magnesium Replacement Protocol 1 Each Mis MISCELLANE DAILY PRN Per Protocol Protocol Morphine Sulfate 2 mg 05/18/22 22:00 05/20/22 21:21 Morphine Sulfate 2 Mg/Ml Syringe IVP 2 mg Q1HR PRN Administration Pain/Discomfort Naloxone HCl 0.2 mg 05/18/22 00:38 Naloxone 0.4 Mg/Ml 1 Ml Vial IV Q2M PRN Opioid Reversal Ondansetron HCl 4 mg 05/18/22 00:38 05/18/22 17:09 Ondansetron 4 Mg/2 Ml Vial IVP 4 mg Q8HR PRN Administration Nausea And Vomiting Pantoprazole Sodium 40 mg 05/18/22 09:00 05/22/22 08:14 Pantoprazole 40 Mg/10 Ml Vial IVP 40 mg BID BEN Administration Intake and Output 05/21/22 05/22/22 05/22/22 22:59 06:59 14:59 Intake Total 1300 1050 200 Output Total 1135 1775 450 Balance 165 -725 -250 Intake: IV 1000 950 200 Cefepime 2 gm In Sodium 100 100 Chloride 0.9% 100 ml @ 25 mls/hr IVPB Q8HR [facility] Rx# :[id number] Lactated Ringers 1,000 ml 800 750 200 @ 100 mls/hr IV .Q10H [facility] Rx#:[id number] metroNIDAZOLE-NS PMX 500 100 100 mg In Saline 1 100ml.bag @ 100 mls/hr IVPB Q8HR [facility] Rx#:[id number] Intake, IV Titration 300 100 Amount Fluconazole in NaCl,Iso- 100 Osm 200 mg In Saline 1 100ml.bag @ 100 mls/hr IVPB Q24H [facility] Rx#: [id number] Potassium Chloride 10 meq 200 100 In Water For Injection 1 100ml.bag @ 100 mls/hr IVPB Q1H [facility] Rx#: [id number] Output: Gastric Drainage 300 250 Drainage 50 Right Abdomen 50 Urine 835 1525 400 Other: Voiding Method Indwelling Catheter Indwelling Catheter Indwelling Catheter Weight 77.1 kg 05/22/22 05:33 05/22/22 05:33
[2022-05-22 11:34] LABS: Glucose,Whole Blood 215 mg/dL (70-110)
--- NOTE | 2022-05-22 11:58 | P.PN ---
Subjective Progress Note Date: 05/22/22 Principal diagnosis: Acute upper GI bleeding secondary to duodenal ulcer On 05/20/2022, the patient is extubated and the patient is currently sitting up on a chair. NG tube is in place. She was having some gastric output and earlier this morning shows also producing some minimal amount of bloody output from the NG. She drops her hemoglobin down to 7.8 and the patient will be given units of packed RBC per surgical recommendation. He remains nothing by mouth. JAYASHREE drain is in place. Output has been 40 mL over the past 8 hours and the patient is on 2 L O2 nasal cannula. She remains on lactated Ringer at the rate of 100 mL an hour. Overall fluid balance +1.5 L over the past 24 hours. The patient's hemoglobin is at 7.8 with a white cell count of 8.7. Bicarb was 23 B UN is 12 creatinine 0.6. She remains on 2 L of oxygen by nasal cannula. Her cardiac rhythm remains sinus. She is using the incentive spirometer. She is falling approximately thousand. Reevaluated today on 05/21/22 patient seems to be doing very well today, she is not in any distress. Hemoglobin this morning is 8.1, patient received a unit of packed RBCs yesterday, and she received a total of 4 units since admission continues to have intermittent coffee-ground material through the nasogastric tube, hemodynamically stable, not in distress. She is on 2 L nasal cannula, O2 sats is 96%. She is doing overall quite well Reevaluated today on 05/22/22, patient remains in the ICU, no active GI bleeding noted. Did not require any blood transfusions in the last 24 hours. Hemoglobin is stable. Nonetheless the patient developed atrial fibrillation with RVR, patient was started on Cardizem drip at 10 mg per hour, she was already on beta blockers and she was given metoprolol earlier. Patient will be seen by cardiology on consultation, and apparently she does have history of paroxysmal a trial fibrillation in the past. Patient is on 2 L nasal cannula, O2 saturation is 95%. Her IV fluid is normal saline at 50 mL per hour, and she is presently on Cardizem drip at 10 mg per hour. Nasogastric tube remains in place. And again no active bleeding noted. Objective - Vital Signs Vital signs: Vital Signs Temp 99.7 F H 05/22/22 08:00 Pulse 90 05/22/22 11:00 Resp 19 05/22/22 11:00 BP 132/67 05/22/22 11:00 Pulse Ox 95 05/22/22 11:00 FiO2 21 05/20/22 19:45 Intake & Output 05/21/22 05/22/22 05/22/22 18:59 06:59 18:59 Intake Total 2300 1550 500 Output Total 1445 2585 975 Balance 413 -6522 -847 Weight 77.1 kg Intake: IV 1600 1350 500 Cefepime 2 gm In Sodium 200 100 Chloride 0.9% 100 ml @ 25 mls/hr IVPB Q8HR [facility] Rx# :[id number] Lactated Ringers 1,000 ml 1200 1150 500 @ 100 mls/hr IV .Q10H [facility] Rx#:[id number] metroNIDAZOLE-NS PMX 500 200 100 mg In Saline 1 100ml.bag @ 100 mls/hr IVPB Q8HR [facility] Rx#:[id number] Intake, IV Titration 700 200 Amount Fluconazole in NaCl,Iso- 100 Osm 200 mg In Saline 1 100ml.bag @ 100 mls/hr IVPB Q24H [facility] Rx#: [id number] Magnesium Sulfate-D5w Pmx 300 1 gm In Dextrose/Water 1 100ml.bag @ 100 mls/hr IVPB Q1H [facility] Rx#: [id number] Potassium Chloride 10 meq 200 In Water For Injection 1 100ml.bag @ 100 mls/hr IVPB Q1H [facility] Rx#: [id number] Potassium Chloride 10 meq 100 200 In Water For Injection 1 100ml.bag @ 100 mls/hr IVPB Q1H [facility] Rx#: [id number] Output: Gastric Drainage 250 550 Drainage 50 50 Right Abdomen 50 50 Urine 1145 2035 925 Other: Voiding Method Indwelling Catheter Indwelling Catheter Indwelling Catheter - Exam Physical Exam: Revealed a 77-year-old female in no distress. Head: Atraumatic, normocephalic, nasogastric tube remains in place HEENT:[Neck is supple.] [No neck masses.] [No thyromegaly.] [No JVD.] Chest: [Clear throughout, no crackles, no rhonchi, no wheezes.] Cardiac Exam: Irregular irregular [Normal S1 and S2, no S3 gallop, no murmur.] Abdomen: [Soft, nontender, no megaly, no rebound, no guarding, normal bowel sounds.] Extremities: [No clubbing, no edema, no cyanosis.] Neurological Exam: [No focal neurologic deficit.] Psychiatric: Normal mood affect and normal mental status examination. Skin: No rashes - Labs CBC & Chem 7: 05/22/22 05:33 05/22/22 05:33 Labs: Abnormal Lab Results - Last 24 Hours (Table) 05/21/22 05/21/22 05/22/22 Range/Units 19:09 23:43 05:33 RBC (3.80-5.40) m/uL Hgb (11.4-16.0) gm/dL Hct (34.0-46.0) % RDW (11.5-15.5) % Lymphocytes # (1.0-4.8) k/uL Sodium 134 L (137-145) mmol/L Chloride 108 H (98-107) mmol/L BUN 3 L (7-17) mg/dL Creatinine 0.51 L (0.52-1.04) mg/dL Glucose 155 H (74-99) mg/dL POC Glucose (mg/dL) 176 H 151 H (70-110) mg/dL Calcium 7.6 L (8.4-10.2) mg/dL Magnesium 1.5 L (1.6-2.3) mg/dL 05/22/22 05/22/22 05/22/22 Range/Units 05:33 06:32 11:33 RBC 2.62 L (3.80-5.40) m/uL Hgb 8.1 L (11.4-16.0) gm/dL Hct 23.4 L (34.0-46.0) % RDW 18.9 H (11.5-15.5) % Lymphocytes # 0.7 L (1.0-4.8) k/uL Sodium (137-145) mmol/L Chloride (98-107) mmol/L BUN (7-17) mg/dL Creatinine (0.52-1.04) mg/dL Glucose (74-99) mg/dL POC Glucose (mg/dL) 175 H 215 H (70-110) mg/dL Calcium (8.4-10.2) mg/dL Magnesium (1.6-2.3) mg/dL Microbiology - Last 24 Hours (Table) 05/21/22 00:22 Gram Stain - Preliminary Sputum Sputum Culture - Preliminary 05/20/22 11:15 Blood Culture - Preliminary Blood No Growth after 24 hours Assessment and Plan Assessment: Impression: Acute upper GI bleeding secondary to bleeding duodenal ulcer status post exploratory laparotomy and repair of bleeding was an ulcer postoperative day #4 Paroxysmal atrial fibrillation, required placement on Cardizem overnight. Patient is also maintained on beta blockers orally Blood loss anemia secondary to above. Acute. Benign essential hypertension Type 2 diabetes Recommendation: Continue Cardizem, Cardiology on consultation Continue present supportive care measures Continue IV Protonix Continue nasogastric tube to suction Continue to monitor in the ICU for now another 24 hours We will continue to follow Time with Patient: Less than 30
--- NOTE | 2022-05-22 13:31 | P.PN ---
Subjective Progress Note Date: 05/22/22 CHIEF COMPLAINT: Duodenal ulcer HISTORY OF PRESENT ILLNESS: Patient is currently in the ICU. She is postop day #3 status post exploratory laparotomy, lysis of adhesions, oversewing of bleeding duodenal ulcer. Patient has had no further bleeding through NG tube. Patient has had no bowel movements. Patient did have A. fib with RVR was evaluated by cardiology and currently on a Cardizem drip. Hemoglobin stayed stable at 8.1. Her magnesium 1.5 is being replaced. She's afebrile. She was currently nothing by mouth except for ice chips. Patient seen and examined with Dr. gan PHYSICAL EXAM: VITAL SIGNS: Reviewed. GENERAL: Well-developed in no acute distress. HEENT: No sclera icterus. Extraocular movements grossly intact. Moist buccal mucosa. Head is atraumatic, normocephalic. ABDOMEN: Soft. Nondistended. Nontender. Incision site clean dry and intact NEUROLOGIC: Alert and oriented. Cranial nerves II through XII grossly intact. ASSESSMENT: 1. Duodenal ulcer status post exploratory laparotomy, lysis of adhesions, oversewing of bleeding duodenal ulcer 2. Acute GI bleed secondary to duodenal ulcer 3. Acute blood loss anemia 4. Low-grade fevers 5. Hypomagnesemia 6. Intermittent bleeding from NG tube Most likely related to gastric suctioning. now resolved PLAN: -Discontinue NG tube -Start clear liquid diet -Incisional dressing changed -Continue IV Protonix -Encouraged patient to use incentive spirometer -Continue monitor hemoglobin -Magnesium being replaced Physician Consumer Relations Specialist note has been reviewed by physician. Signing provider agrees with the documented findings, assessment, and plan of care. Objective - Vital Signs Vital signs: Vital Signs Temp 99.4 F 05/22/22 12:00 Pulse 92 05/22/22 12:00 Resp 21 05/22/22 12:00 BP 138/66 05/22/22 12:00 Pulse Ox 98 05/22/22 12:00 FiO2 21 05/20/22 19:45 Intake & Output 05/21/22 05/22/22 05/22/22 18:59 06:59 18:59 Intake Total 2300 1550 600 Output Total 1445 2585 1025 Balance 855 -1035 -425 Weight 77.1 kg Intake: IV 1600 1350 600 Cefepime 2 gm In Sodium 200 100 Chloride 0.9% 100 ml @ 25 mls/hr IVPB Q8HR [facility] Rx# :[id number] Lactated Ringers 1,000 ml 1200 1150 600 @ 100 mls/hr IV .Q10H [facility] Rx#:[id number] metroNIDAZOLE-NS PMX 500 200 100 mg In Saline 1 100ml.bag @ 100 mls/hr IVPB Q8HR [facility] Rx#:[id number] Intake, IV Titration 700 200 Amount Fluconazole in NaCl,Iso- 100 Osm 200 mg In Saline 1 100ml.bag @ 100 mls/hr IVPB Q24H [facility] Rx#: [id number] Magnesium Sulfate-D5w Pmx 300 1 gm In Dextrose/Water 1 100ml.bag @ 100 mls/hr IVPB Q1H [facility] Rx#: [id number] Potassium Chloride 10 meq 200 In Water For Injection 1 100ml.bag @ 100 mls/hr IVPB Q1H [facility] Rx#: [id number] Potassium Chloride 10 meq 100 200 In Water For Injection 1 100ml.bag @ 100 mls/hr IVPB Q1H [facility] Rx#: [id number] Output: Gastric Drainage 250 550 Drainage 50 50 Right Abdomen 50 50 Urine 1145 2035 975 Other: Voiding Method Indwelling Catheter Indwelling Catheter Indwelling Catheter - Labs CBC & Chem 7: 05/22/22 05:33 05/22/22 05:33 Labs: Abnormal Lab Results - Last 24 Hours (Table) 05/21/22 05/21/22 05/22/22 Range/Units 19:09 23:43 05:33 RBC (3.80-5.40) m/uL Hgb (11.4-16.0) gm/dL Hct (34.0-46.0) % RDW (11.5-15.5) % Lymphocytes # (1.0-4.8) k/uL Sodium 134 L (137-145) mmol/L Chloride 108 H (98-107) mmol/L BUN 3 L (7-17) mg/dL Creatinine 0.51 L (0.52-1.04) mg/dL Glucose 155 H (74-99) mg/dL POC Glucose (mg/dL) 176 H 151 H (70-110) mg/dL Calcium 7.6 L (8.4-10.2) mg/dL Magnesium 1.5 L (1.6-2.3) mg/dL 05/22/22 05/22/22 05/22/22 Range/Units 05:33 06:32 11:33 RBC 2.62 L (3.80-5.40) m/uL Hgb 8.1 L (11.4-16.0) gm/dL Hct 23.4 L (34.0-46.0) % RDW 18.9 H (11.5-15.5) % Lymphocytes # 0.7 L (1.0-4.8) k/uL Sodium (137-145) mmol/L Chloride (98-107) mmol/L BUN (7-17) mg/dL Creatinine (0.52-1.04) mg/dL Glucose (74-99) mg/dL POC Glucose (mg/dL) 175 H 215 H (70-110) mg/dL Calcium (8.4-10.2) mg/dL Magnesium (1.6-2.3) mg/dL Microbiology - Last 24 Hours (Table) 05/21/22 00:22 Gram Stain - Preliminary Sputum Sputum Culture - Preliminary 05/20/22 11:15 Blood Culture - Preliminary Blood No Growth after 24 hours
--- NOTE | 2022-05-22 14:07 | P.PN ---
Subjective Progress Note Date: 05/22/22 Patient is a pleasant thousand 7-year-old female with known history of atrial fibrillation but not on anticoagulation had a watchman procedure in the past came in with the complaints of multiple episodes of natalie blood in the stools. Patient does take Excedrin for migraine. Patient had history of peptic ulcer disease in the past denied any history of aortic sclerosis. Patient denied any abdominal pain. Patient is comparing of lightheadedness generalized weakness and tiredness. The patient's of present hemoglobin is around 10.7. Patient denied any hematemesis. 05/19/2022 Patient is admitted for acute GI bleed, underwent upper GI endoscopy showed a be actively bleeding duodenal ulcer which was then cauterized. Subsequently patient was a taken to or for expiratory laparotomy lysis of adhesions and oversewing of a bleeding duodenal ulcer and patient was subsequently admitted to ICU and patient was intubated overnight patient was extubated today. Patient doesn't really has an NG tube with a greenish brownish discharge patient is bit drowsy. 05/20/2022 Patient is evaluated today in intensive care unit she is postoperative day #2 for exploratory laporatomy lysis of adhesions and oversewing of bleeding duodenal ulcer. Patient has been maintained NPO status strict with NG Tube for decompression and has had brownish in color with about 540 mLs in the canister. During evaluation this morning there was natalie red blood return in the NG tube small amount. Patient continues to report abdominal pain epigastric which is somewhat controlled with IV pain medication. She is awake and alert answering questions however is still drowsy and fatigued. Labs today are showing white count 8.7, hgb 7.8 today dropped from 9.5 yesterday morning. Patient has received 3 units of PRBC's this admission so far. Heart rate has been steadily increasing up into the 120s and maintaining sinus mechanism. Does have history of atrial fibrillation and has not been receiving oral rate control medications. Would consider one time small dose of metoprolol, however if this is an acute bleed would be cautionery to avoid hypotensive episode. She is maintained on IV fluids with lactated ringers at 100 mls per hour. Surgery will be notified of blood in NG tube, further recommendations pending. Sodium improved today 138, potassium 3.7, BUN 12, creatinine 0.90. Blood glucose 170s, calcium 7.1. 05/21/2022 Patient evaluated in the intensive care unit resting in bed. She is postoperative day #3. JAYASHREE drain in place RLQ with serosanguinous drainage. Abdominal pain has improved down to 5/10 states it is less sharp today. Bowels are active, no bowel movement yet. Continues with NG tube with intermittent epis odes of red blood noted in NG tube. Hemoglobin today 8.1. Status post 1 unit of PRBC yesterday. Heart rate is elevated today in the 120s -130s sinus tachycardia rate is regular one exam. She received IV lopressor 2.5 mg around 11 and a second dose was given after lunch. Heart rate is now 107. Continues on IV antibiotics. Cultures pending. Potassium 3.7 today, magnesium 1.1. 05/22/2022 Patient continues to be monitored in intensive care unit, postoperative day #4. NG tube remains with 550 mL output overnight. Reports abdominal pain down to 5/10 and reports as less sharp in nature. No BM yet. Heart rate remained elevated and patient converted into atrial fibrillation. Cardiology was consulte d and pt was placed on IV cardizem. Anticoagulation currently on hold. Hemoglobin today 8.1. Continues with low grade fever t max overnight 99.7. on IV cefepime, IV metronidazole, IV fluconazole. Blood culture remains negative, sputum culture pending. Review of Systems Constitutional: Reports fatigue, denies fever. Reports anxiety. Cardio vascular: denied any chest pain, palpitations Gastrointestinal: denied any nausea, vomiting, diarrhea, has abdominal pain. Pulmonary: Denied any shortness of breath cough Neurologic: Denied any new focal deficits Generalized weakness. All inpatient medications were reviewed and appropriate changes in these medications as dictated in the interval history and assessment and plan. PHYSICAL EXAMINATION: GENERAL: Alert x 3 continues to be fatigued. HEENT: Pupils are round and equally reacting to light. EOMI. No scleral icterus. Does have conjunctival pallor. Normocephalic, atraumatic. No pharyngeal erythema. No thyromegaly. CARDIOVASCULAR: S1 and S2 present. No murmurs, rubs, or gallops. Tachycardic, regular PULMONARY: Chest is clear to auscultation, no wheezing or crackles. ABDOMEN: Soft, tender, nondistended, normoactive bowel sounds. No palpable organomegaly. NG tube in place. Postsurgical abdomen dressing intact. JAYASHREE drain RLQ with serosanguineous drainage. MUSCULOSKELETAL: No joint swelling or deformity. EXTREMITIES: No cyanosis, clubbing, or pedal edema. Generalized peripheral edema. NEUROLOGICAL: Patient is bit drowsy from pain medications SKIN: No rashes. Assessment and plan -Acute GI bleed : Actively bleeding duodenal ulcer found on EGD, patient is postoperative exploratory laparotomy, lysis of adhesions, and oversewing of duodenal ulcer. Patient will be continued on Protonix presently has an NG tube and is NPO with ice chips. Continues on IV fluids with lactated ringers at 100 mls per hour. -Anemia from acute blood loss from bleeding duodenal ulcer status post 3 units of PRBCs and today hemoglobin today is 8.1. -Fever with tachycardia possible sepsis likely abdominal source, blood culture is taken, infectious disease has been consulted. -Atrial fibrillation presently not on any anticoagulation patient has paroxysmal A. fib patient had a watchman procedure, currently maintaining sinus tachycardia. -Type 2 diabetes mellitus and patient will be started on sliding scale, blood glucose 170s. -History peptic ulcer disease -Migraine for which patient takes Excedrin which can cause peptic ulcer disease DVT prophylaxis: Early ambulation and SCDs GI prophylaxis: Continues on IV protonix Full Code Plan Continue to monitor closely in intensive care unit. NG tube in place. Hemoglobin stable today. Infectious disease consultation, continue IV antibiotics. Cardiology consultation in place for heart rate control Infectious disease following cultures. Further recommendations pending. PT/OT consult in place. Repeat labs in AM. The impression and plan of care has been dictated by Alondra Barrientos, Nurse Practitioner as directed. Dr. Margarito MD I have performed a history and physical examination and medical decision making of this patient, discussed the same with the dictator, and agree with the dictators assessment and plan as written, documented as a scribe. Based on total visit time, I have performed more than 50% of this visit. Objective - Vital Signs Vital signs: Vital Signs Temp 99.7 F H 05/22/22 08:00 Pulse 96 05/22/22 09:00 Resp 27 H 05/22/22 09:00 BP 146/63 05/22/22 09:00 Pulse Ox 94 L 05/22/22 09:00 FiO2 21 05/20/22 19:45 Intake & Output 05/21/22 05/22/22 05/22/22 18:59 06:59 18:59 Intake Total 2300 1550 200 Output Total 1445 2585 450 Balance 855 -1035 -250 Weight 77.1 kg Intake: IV 1600 1350 200 Cefepime 2 gm In Sodium 200 100 Chloride 0.9% 100 ml @ 25 mls/hr IVPB Q8HR [facility] Rx# :[id number] Lactated Ringers 1,000 ml 1200 1150 200 @ 100 mls/hr IV .Q10H [facility] Rx#:[id number] metroNIDAZOLE-NS PMX 500 200 100 mg In Saline 1 100ml.bag @ 100 mls/hr IVPB Q8HR [facility] Rx#:[id number] Intake, IV Titration 700 200 Amount Fluconazole in NaCl,Iso- 100 Osm 200 mg In Saline 1 100ml.bag @ 100 mls/hr IVPB Q24H [facility] Rx#: [id number] Magnesium Sulfate-D5w Pmx 300 1 gm In Dextrose/Water 1 100ml.bag @ 100 mls/hr IVPB Q1H [facility] Rx#: [id number] Potassium Chloride 10 meq 200 In Water For Injection 1 100ml.bag @ 100 mls/hr IVPB Q1H [facility] Rx#: [id number] Potassium Chloride 10 meq 100 200 In Water For Injection 1 100ml.bag @ 100 mls/hr IVPB Q1H [facility] Rx#: [id number] Output: Gastric Drainage 250 550 Drainage 50 50 Right Abdomen 50 50 Urine 1145 2035 400 Other: Voiding Method Indwelling Catheter Indwelling Catheter Indwelling Catheter - Labs CBC & Chem 7: 05/22/22 05:33 05/22/22 05:33 Labs: Abnormal Lab Results - Last 24 Hours (Table) 05/21/22 05/21/22 05/21/22 Range/Units 11:34 19:09 23:43 RBC (3.80-5.40) m/uL Hgb (11.4-16.0) gm/dL Hct (34.0-46.0) % RDW (11.5-15.5) % Lymphocytes # (1.0-4.8) k/uL Sodium (137-145) mmol/L Chloride (98-107) mmol/L BUN (7-17) mg/dL Creatinine (0.52-1.04) mg/dL Glucose (74-99) mg/dL POC Glucose (mg/dL) 200 H 176 H 151 H (70-110) mg/dL Calcium (8.4-10.2) mg/dL Magnesium (1.6-2.3) mg/dL 05/22/22 05/22/22 05/22/22 Range/Units 05:33 05:33 06:32 RBC 2.62 L (3.80-5.40) m/uL Hgb 8.1 L (11.4-16.0) gm/dL Hct 23.4 L (34.0-46.0) % RDW 18.9 H (11.5-15.5) % Lymphocytes # 0.7 L (1.0-4.8) k/uL Sodium 134 L (137-145) mmol/L Chloride 108 H (98-107) mmol/L BUN 3 L (7-17) mg/dL Creatinine 0.51 L (0.52-1.04) mg/dL Glucose 155 H (74-99) mg/dL POC Glucose (mg/dL) 175 H (70-110) mg/dL Calcium 7.6 L (8.4-10.2) mg/dL Magnesium 1.5 L (1.6-2.3) mg/dL Microbiology - Last 24 Hours (Table) 05/21/22 00:22 Gram Stain - Preliminary Sputum Sputum Culture - Preliminary 05/20/22 11:15 Blood Culture - Preliminary Blood No Growth after 24 hours Assessment and Plan Time with Patient: Less than 30
[2022-05-22] MEDS: ACETAMINOPHEN IV (For NPO) 1,000 MG in EMPTY BAG 1 BAG IVPB PRN (14:37)
[2022-05-22] MEDS: FLUCONAZOLE IN NACL,ISO-OSM 200 MG in SALINE 1 100ML.BAG IVPB SCH (16:23)
--- NOTE | 2022-05-22 16:32 | P.PN ---
Subjective Progress Note Date: 05/22/22 Principal diagnosis: Postop fever Patient is a 77 year female presenting to the hospital with abdominal pain and diarrhea and black stools patient did have EGD with evidence of duodenal ulcer that could not be treated endoscopy status post laparotomy and overseeing of the duodenal ulcer and lysis of adhesion patient subsequently did spike a fever on 05/20/2022. On today's evaluation that is 05/22/2022 patient did have a low-grade fever of 99.7 degrees Fahrenheit this morning , patient is currently breathing comfortably on 2 L nasal cannula, the patient denies having any chest pain or shortness with occasional cough, abdominal pain is currently controlled still h ave the NG, patient did not have any bowel movement per the nursing staff Objective - Vital Signs Vital signs: Vital Signs Temp 99.7 F H 05/22/22 08:00 Pulse 90 05/22/22 11:00 Resp 19 05/22/22 11:00 BP 132/67 05/22/22 11:00 Pulse Ox 95 05/22/22 11:00 FiO2 21 05/20/22 19:45 Intake & Output 05/21/22 05/22/22 05/22/22 18:59 06:59 18:59 Intake Total 2300 1550 500 Output Total 1445 2585 975 Balance 101 -7583 -578 Weight 77.1 kg Intake: IV 1600 1350 500 Cefepime 2 gm In Sodium 200 100 Chloride 0.9% 100 ml @ 25 mls/hr IVPB Q8HR [facility] Rx# :[id number] Lactated Ringers 1,000 ml 1200 1150 500 @ 100 mls/hr IV .Q10H [facility] Rx#:[id number] metroNIDAZOLE-NS PMX 500 200 100 mg In Saline 1 100ml.bag @ 100 mls/hr IVPB Q8HR [facility] Rx#:[id number] Intake, IV Titration 700 200 Amount Fluconazole in NaCl,Iso- 100 Osm 200 mg In Saline 1 100ml.bag @ 100 mls/hr IVPB Q24H [facility] Rx#: [id number] Magnesium Sulfate-D5w Pmx 300 1 gm In Dextrose/Water 1 100ml.bag @ 100 mls/hr IVPB Q1H [facility] Rx#: [id number] Potassium Chloride 10 meq 200 In Water For Injection 1 100ml.bag @ 100 mls/hr IVPB Q1H [facility] Rx#: [id number] Potassium Chloride 10 meq 100 200 In Water For Injection 1 100ml.bag @ 100 mls/hr IVPB Q1H [facility] Rx#: [id number] Output: Gastric Drainage 250 550 Drainage 50 50 Right Abdomen 50 50 Urine 1145 2035 925 Other: Voiding Method Indwelling Catheter Indwelling Catheter Indwelling Catheter - Exam GENERAL DESCRIPTION: An elderly female lying in bed in no distress RESPIRATORY SYSTEM: Unlabored breathing , decreased breath sounds at bases HEART: S1 S2 regular rate and rhythm , ABDOMEN: Soft , no tenderness EXTREMITIES: No edema feet - Labs CBC & Chem 7: 05/22/22 05:33 05/22/22 05:33 Labs: Abnormal Lab Results - Last 24 Hours (Table) 05/21/22 05/21/22 05/22/22 Range/Units 19:09 23:43 05:33 RBC (3.80-5.40) m/uL Hgb (11.4-16.0) gm/dL Hct (34.0-46.0) % RDW (11.5-15.5) % Lymphocytes # (1.0-4.8) k/uL Sodium 134 L (137-145) mmol/L Chloride 108 H (98-107) mmol/L BUN 3 L (7-17) mg/dL Creatinine 0.51 L (0.52-1.04) mg/dL Glucose 155 H (74-99) mg/dL POC Glucose (mg/dL) 176 H 151 H (70-110) mg/dL Calcium 7.6 L (8.4-10.2) mg/dL Magnesium 1.5 L (1.6-2.3) mg/dL 05/22/22 05/22/22 05/22/22 Range/Units 05:33 06:32 11:33 RBC 2.62 L (3.80-5.40) m/uL Hgb 8.1 L (11.4-16.0) gm/dL Hct 23.4 L (34.0-46.0) % RDW 18.9 H (11.5-15.5) % Lymphocytes # 0.7 L (1.0-4.8) k/uL Sodium (137-145) mmol/L Chloride (98-107) mmol/L BUN (7-17) mg/dL Creatinine (0.52-1.04) mg/dL Glucose (74-99) mg/dL POC Glucose (mg/dL) 175 H 215 H (70-110) mg/dL Calcium (8.4-10.2) mg/dL Magnesium (1.6-2.3) mg/dL Microbiology - Last 24 Hours (Table) 05/21/22 00:22 Gram Stain - Preliminary Sputum Sputum Culture - Preliminary 05/20/22 11:15 Blood Culture - Preliminary Blood No Growth after 24 hours Assessment and Plan (1) Fever Current Visit: Yes Status: Acute Code(s): R50.9 - FEVER, UNSPECIFIED SNOMED Code(s): 404923528 Plan: 1patient with SIRS in this patient with a low-grade fever and tachycardia more likely related to abdominal source in this patient who did have a bleeding due to none also which could not be treated endoscopy status post laparotomy with lysis of adhesion and oversewing of the bleeding duodenal ulcer will need to c over for the enteric gram-negative both aerobes and anaerobes plus minus yeast 2-patient with a penicillin ALLERGY that would limit the number of antibiotic safety use 3blood culture sputum cultures are currently pending 4patient seemed had was some clinical improvement and will continue with cefe pime Flagyl and Diflucan and monitor clinical course closely Time with Patient: Less than 30
[2022-05-22 18:00] LABS: Glucose,Whole Blood 235 mg/dL (70-110)
[2022-05-22 20:28] LABS: Glucose,Whole Blood 183 mg/dL (70-110)
[2022-05-23] MEDS: LACTATED RINGERS 1,000 ML IV SCH ×2 (02:25→10:00)
[2022-05-23] MEDS: HYDROmorphone 1 MG/ML 1 ML SYRINGE IVP PRN ×2 (02:28→06:10)
[2022-05-23 05:39] LABS: Anisocytosis Slight; HCT 22.7 % (34.0-46.0); HGB 7.5 gm/dL (11.4-16.0); Hypochromasia Slight; MCH 29.7 pg (25.0-35.0); Mean Platelet Volume 8.3; Platelet Count 204 k/uL (150-450); RBC 2.52 m/uL (3.80-5.40); WBC 8.6 k/uL (3.8-10.6)
[2022-05-23 05:51] LABS: African American GFR (CKD) >90 (>60 ml/min/1.73 sqM); Anion Gap 4 mmol/L; Blood Urea Nitrogen 3 mg/dL (7-17); Calcium 7.9 mg/dL (8.4-10.2); Carbon Dioxide 24 mmol/L (22-30); Chloride 106 mmol/L (98-107); Glucose 163 mg/dL (74-99); Magnesium 1.5 mg/dL (1.6-2.3); Non-African American GFR(CKD) >90 (>60 ml/min/1.73 sqM); Potassium 3.3 mmol/L (3.5-5.1); Sodium 134 mmol/L (137-145)
[2022-05-23] MEDS: POTASSIUM CHLORIDE 10 MEQ in WATER FOR INJECTION 1 100ML.BAG IVPB SCH ×3 (06:10→09:02)
[2022-05-23] MEDS: MAGNESIUM SULFATE-D5W PMX 1 GM in DEXTROSE/WATER 1 100ML.BAG IVPB SCH ×2 (06:20→08:46)
[2022-05-23 06:47] LABS: Glucose,Whole Blood 194 mg/dL (70-110)
[2022-05-23] MEDS: INSULIN ASPART (NovoLOG) 100 UNIT/ML VIAL SQ SCH ×4 (06:50→20:39)
--- NOTE | 2022-05-23 08:34 | P.PN ---
Subjective HISTORY OF PRESENTING ILLNESS Patient is a pleasant 77-year-old female with history of paroxysmal atrial fibrillation status post watchman procedure approximate 2018, diabetes mellitus type 2, hypertension, GI bleed who presents secondary to GI bleeding. Patient initially had undergone workup and watchman procedure 4 years ago and states she has not had much issues with bleeding since that time. She has only been on aspirin since then. She denies any history of stroke or TIA. Unfortunately she started having bleeding which was unable to be controlled with endoscopy and therefore underwent exploratory laparotomy 05/18 with control of the bleeding. She had been in sinus rhythm on presentation however converted to atrial fibrillation overnight with elevated heart rates in the 120s and 130s. She was placed on Cardizem drip currently at 10 with heart rates in the 100 to 1:15 range. She denies any chest pain or pressure. She does have some difficulty and pain on her left side when she swallows. Currently she is nothing by mouth and not taking any oral medications. She had previously been on Rythmol as well as metoprolol 50 mg once a day however had previously been on Lopressor 25 twice a day. She denies any history of CAD or heart failure. Patient had been following with a brake lining driller in [place] however no recent echo or stress test. 05/23 Patient seen and examined. Patient tolerating clear liquid diet. Denies any chest pain or pressure. He remains in A. fib with heart rates 90s to 100s. PHYSICAL EXAMINATION Vital signs reviewed. CONSTITUTIONAL: No apparent distress. HEENT: Head is normocephalic. Pupils are equal, round. Sclerae anicteric. Mucous membranes of the mouth are moist. No JVD. No carotid bruit. CHEST EXAMINATION: Lungs are clear to auscultation. No chest wall tenderness is noted on palpation or with deep breathing. HEART EXAMINATION: Irregular rate and rhythm. S1, S2 heard. No murmurs, gallops or rub. ABDOMEN: Soft, nontender. Positive bowel sounds. EXTREMITIES: 2+ peripheral pulses, no lower extremity edema and no calf tenderness. NEUROLOGIC EXAMINATION: Patient is awake, alert and oriented x3. ASSESSMENT 1. Acute GI bleed status post exploratory laparotomy and PRBCs transfusion 2. Paroxysmal atrial fibrillation currently A. fib with mild RVR 3. Hypertension 4. Status post watchman procedure 5. Anemia PLAN Patient currently able to tolerate oral medications and we will add Toprol. Monitor response. Continue to hold antiplatelets however ideally restart in next 3-4 weeks if hemoglobin stable given some risk of thromboembolism from watchman however watchman was approximate 4-5 years ago. Objective - Vital Signs Vital signs: Vital Signs Temp 99.8 F H 05/23/22 04:00 Pulse 99 05/23/22 07:00 Resp 18 05/23/22 07:00 BP 114/58 05/23/22 07:00 Pulse Ox 96 05/23/22 07:00 FiO2 21 05/20/22 19:45 Intake & Output 05/22/22 05/23/22 05/23/22 18:59 06:59 18:59 Intake Total 1200 1520 100 Output Total 1875 870 60 Balance -675 650 40 Weight 77.5 kg Intake: IV 1200 1400 100 Cefepime 2 gm In Sodium 100 Chloride 0.9% 100 ml @ 25 mls/hr IVPB Q8HR [facility] Rx# :[id number] Lactated Ringers 1,000 ml 1200 1200 100 @ 100 mls/hr IV .Q10H [facility] Rx#:[id number] metroNIDAZOLE-NS PMX 500 100 mg In Saline 1 100ml.bag @ 100 mls/hr IVPB Q8HR [facility] Rx#:[id number] Oral 120 Output: Drainage 50 40 30 Right Abdomen 50 40 30 Urine 1825 830 30 Other: Voiding Method Indwelling Catheter Indwelling Catheter - Labs CBC & Chem 7: 05/23/22 05:07 05/23/22 05:07 Labs: Abnormal Lab Results - Last 24 Hours (Table) 05/22/22 05/22/22 05/22/22 Range/Units 11:33 17:59 20:27 RBC (3.80-5.40) m/uL Hgb (11.4-16.0) gm/dL Hct (34.0-46.0) % RDW (11.5-15.5) % Sodium (137-145) mmol/L Potassium (3.5-5.1) mmol/L BUN (7-17) mg/dL Glucose (74-99) mg/dL POC Glucose (mg/dL) 215 H 235 H 183 H (70-110) mg/dL Calcium (8.4-10.2) mg/dL Magnesium (1.6-2.3) mg/dL 05/23/22 05/23/22 05/23/22 Range/Units 05:07 05:07 06:46 RBC 2.52 L (3.80-5.40) m/uL Hgb 7.5 L (11.4-16.0) gm/dL Hct 22.7 L (34.0-46.0) % RDW 19.0 H (11.5-15.5) % Sodium 134 L (137-145) mmol/L Potassium 3.3 L (3.5-5.1) mmol/L BUN 3 L (7-17) mg/dL Glucose 163 H (74-99) mg/dL POC Glucose (mg/dL) 194 H (70-110) mg/dL Calcium 7.9 L (8.4-10.2) mg/dL Magnesium 1.5 L (1.6-2.3) mg/dL Microbiology - Last 24 Hours (Table) 05/21/22 00:22 Gram Stain - Final Sputum Sputum Culture - Final 05/20/22 11:15 Blood Culture - Preliminary Blood No Growth after 48 hours
[2022-05-23] MEDS: CEFEPIME 2 GM in SODIUM CHLORIDE 0.9% 100 ML IVPB SCH ×2 (08:49→16:54)
[2022-05-23] MEDS: PANTOPRAZOLE 40 MG/10 ML VIAL IVP SCH ×2 (08:51→20:23)
[2022-05-23] MEDS: ACETAMINOPHEN TAB 325 MG TAB PO PRN ×2 (08:59→20:46)
[2022-05-23] MEDS ORDERED: METOPROLOL SUCCINATE (ER) 50 MG TAB.ER.24H PO SCH (09:00)
[2022-05-23] MEDS ORDERED: Potassium Replacement Protocol 1 EACH MISC MISCELLANE PRN (09:03)
[2022-05-23] MEDS: metroNIDAZOLE-NS PMX 500 MG in SALINE 1 100ML.BAG IVPB SCH ×2 (09:15→16:53)
[2022-05-23] MEDS ORDERED: POTASSIUM CHLORIDE ER 20 MEQ TAB.ER PO SCH (10:00)
--- NOTE | 2022-05-23 11:33 | P.PN ---
Subjective Progress Note Date: 05/23/22 CHIEF COMPLAINT: Duodenal ulcer HISTORY OF PRESENT ILLNESS: Patient is currently in the ICU. She is postop day #5 status post exploratory laparotomy, lysis of adhesions, oversewing of bleeding duodenal ulcer. Patient had NG tube discontinued yesterday. She is tolerating a clear liquid diet. She reports her abdominal pain is controlled and improving every day. Still has had no flatus or bowel movement. Low-grade temp of 99.8. Mild tachycardia. Heart rate improved. Cardiology following regards to her A. fib. White count is 8.6 hemoglobin 8.1 down to 7.5 potassium is 3.3 magnesium 1.5 Patient seen and examined with Dr. gan who is covering for Dr. Coreas PHYSICAL EXAM: VITAL SIGNS: Reviewed. GENERAL: Well-developed in no acute distress. HEENT: No sclera icterus. Extraocular movements grossly intact. Moist buccal mucosa. Head is atraumatic, normocephalic. ABDOMEN: Soft. Nondistended. Incision site clean dry and intact NEUROLOGIC: Alert and oriented. Cranial nerves II through XII grossly intact. ASSESSMENT: 1. Duodenal ulcer status post exploratory laparotomy, lysis of adhesions, oversewing of bleeding duodenal ulcer 2. Acute GI bleed secondary to duodenal ulcer 3. Acute blood loss anemia 4. Low-grade fevers 5. Hypomagnesemia and hypokalemia 6. Intermittent bleeding from NG tube Most likely related to gastric suctioning. now resolved PLAN: -Continue clear liquid diet -Continue IV Protonix -Continue supportive care -Encouraged patient to use incentive spirometer -Continue monitor hemoglobin -Magnesium and potassium being replaced -Encouraged patient to increase activity level -No anticoagulation Physician Service Electrician note has been reviewed by physician. Signing provider agrees with the documented findings, assessment, and plan of care. Objective - Vital Signs Vital signs: Vital Signs Temp 99.1 F 05/23/22 08:00 Pulse 93 05/23/22 10:00 Resp 21 05/23/22 10:00 BP 125/79 05/23/22 10:00 Pulse Ox 97 05/23/22 10:00 FiO2 21 05/20/22 19:45 Intake & Output 05/22/22 05/23/22 05/23/22 18:59 06:59 18:59 Intake Total 1200 1520 320 Output Total 1875 870 245 Balance -675 650 75 Weight 77.5 kg 77.5 kg Intake: IV 1200 1400 320 Cefepime 2 gm In Sodium 100 Chloride 0.9% 100 ml @ 25 mls/hr IVPB Q8HR [facility] Rx# :[id number] Lactated Ringers 1,000 ml 1200 1200 320 @ 20 mls/hr IV .Q24H [facility] Rx#:[id number] metroNIDAZOLE-NS PMX 500 100 mg In Saline 1 100ml.bag @ 100 mls/hr IVPB Q8HR [facility] Rx#:[id number] Oral 120 Output: Drainage 50 40 30 Right Abdomen 50 40 30 Urine 1825 830 215 Other: Voiding Method Indwelling Catheter Indwelling Catheter - Labs CBC & Chem 7: 05/23/22 05:07 05/23/22 05:07 Labs: Abnormal Lab Results - Last 24 Hours (Table) 05/22/22 05/22/22 05/22/22 Range/Units 11:33 17:59 20:27 RBC (3.80-5.40) m/uL Hgb (11.4-16.0) gm/dL Hct (34.0-46.0) % RDW (11.5-15.5) % Sodium (137-145) mmol/L Potassium (3.5-5.1) mmol/L BUN (7-17) mg/dL Glucose (74-99) mg/dL POC Glucose (mg/dL) 215 H 235 H 183 H (70-110) mg/dL Calcium (8.4-10.2) mg/dL Magnesium (1.6-2.3) mg/dL 05/23/22 05/23/22 05/23/22 Range/Units 05:07 05:07 06:46 RBC 2.52 L (3.80-5.40) m/uL Hgb 7.5 L (11.4-16.0) gm/dL Hct 22.7 L (34.0-46.0) % RDW 19.0 H (11.5-15.5) % Sodium 134 L (137-145) mmol/L Potassium 3.3 L (3.5-5.1) mmol/L BUN 3 L (7-17) mg/dL Glucose 163 H (74-99) mg/dL POC Glucose (mg/dL) 194 H (70-110) mg/dL Calcium 7.9 L (8.4-10.2) mg/dL Magnesium 1.5 L (1.6-2.3) mg/dL Microbiology - Last 24 Hours (Table) 05/21/22 00:22 Gram Stain - Final Sputum Sputum Culture - Final 05/20/22 11:15 Blood Culture - Preliminary Blood No Growth after 48 hours
[2022-05-23 11:44] LABS: Glucose,Whole Blood 211 mg/dL (70-110)
--- NOTE | 2022-05-23 13:37 | P.PN ---
Subjective Progress Note Date: 05/23/22 Principal diagnosis: Acute upper GI bleeding secondary to duodenal ulcer On 05/20/2022, the patient is extubated and the patient is currently sitting up on a chair. NG tube is in place. She was having some gastric output and earlier this morning shows also producing some minimal amount of bloody output from the NG. She drops her hemoglobin down to 7.8 and the patient will be given units of packed RBC per surgical recommendation. He remains nothing by mouth. JAYASHREE drain is in place. Output has been 40 mL over the past 8 hours and the patient is on 2 L O2 nasal cannula. She remains on lactated Ringer at the rate of 100 mL an hour. Overall fluid balance +1.5 L over the past 24 hours. The patient's hemoglobin is at 7.8 with a white cell count of 8.7. Bicarb was 23 B UN is 12 creatinine 0.6. She remains on 2 L of oxygen by nasal cannula. Her cardiac rhythm remains sinus. She is using the incentive spirometer. She is falling approximately thousand. Reevaluated today on 05/21/22 patient seems to be doing very well today, she is not in any distress. Hemoglobin this morning is 8.1, patient received a unit of packed RBCs yesterday, and she received a total of 4 units since admission continues to have intermittent coffee-ground material through the nasogastric tube, hemodynamically stable, not in distress. She is on 2 L nasal cannula, O2 sats is 96%. She is doing overall quite well Reevaluated today on 05/22/22, patient remains in the ICU, no active GI bleeding noted. Did not require any blood transfusions in the last 24 hours. Hemoglobin is stable. Nonetheless the patient developed atrial fibrillation with RVR, patient was started on Cardizem drip at 10 mg per hour, she was already on beta blockers and she was given metoprolol earlier. Patient will be seen by cardiology on consultation, and apparently she does have history of paroxysmal a trial fibrillation in the past. Patient is on 2 L nasal cannula, O2 saturation is 95%. Her IV fluid is normal saline at 50 mL per hour, and she is presently on Cardizem drip at 10 mg per hour. Nasogastric tube remains in place. And again no active bleeding noted. Reevaluated today on 05/23/22, patient remains in the ICU, no evidence of any active bleeding, her atrial fibrillation seems to be better controlled, rate ranging between 90 up to 100. Hemoglobin is 7.5, did not require any blood transfusion in the last few days. Patient is hemodynamically stable, hence I plan to transfer the patient out of the ICU to a monitor bed on the cardiac floor sometime today if possible. WBC count is 8.6 hemoglobin 7.5 electrolytes are normal renal profile is normal, magnesium is a bit on the low side at 1.5, being corrected Objective - Vital Signs Vital signs: Vital Signs Temp 99.1 F 05/23/22 08:00 Pulse 93 05/23/22 10:00 Resp 21 05/23/22 10:00 BP 125/79 05/23/22 10:00 Pulse Ox 97 05/23/22 10:00 FiO2 05/20/22 19:45 Intake & Output 05/22/22 05/23/22 05/23/22 18:59 06:59 18:59 Intake Total 1200 1520 320 Output Total 1875 870 245 Balance -675 650 75 Weight 77.5 kg 77.5 kg Intake: IV 1200 1400 320 Cefepime 2 gm In Sodium 100 Chloride 0.9% 100 ml @ 25 mls/hr IVPB Q8HR BEN Rx# :[id number] Lactated Ringers 1,000 ml 1200 1200 320 @ 20 mls/hr IV .Q24H BEN Rx#:[id number] metroNIDAZOLE-NS PMX 500 100 mg In Saline 1 100ml.bag @ 100 mls/hr IVPB Q8HR BEN Rx#:[id number] Oral 120 Output: Drainage 50 40 30 Right Abdomen 50 40 30 Urine 1825 830 215 Other: Voiding Method Indwelling Catheter Indwelling Catheter - Exam Physical Exam: Revealed a 77-year-old female in no distress. On 2 L nasal cannula, O2 sats is 97%. Head: Atraumatic, normocephalic HEENT:[Neck is supple.] [No neck masses.] [No thyromegaly.] [No JVD.] Chest: [Clear throughout, no crackles, no rhonchi, no wheezes.] Cardiac Exam: Irregular irregular [Normal S1 and S2, no S3 gallop, no murmur.] Abdomen: [Soft, nontender, no megaly, no rebound, no guarding, normal bowel sounds.] Extremities: [No clubbing, no edema, no cyanosis.] Neurological Exam: [No focal neurologic deficit.] Psychiatric: Normal mood affect and normal mental status examination. Skin: No rashes - Labs CBC & Chem 7: 05/23/22 05:07 05/23/22 05:07 Labs: Abnormal Lab Results - Last 24 Hours (Table) 05/22/22 05/22/22 05/23/22 Range/Units 17:59 20:27 05:07 RBC (3.80-5.40) m/uL Hgb (11.4-16.0) gm/dL Hct (34.0-46.0) % RDW (11.5-15.5) % Sodium 134 L (137-145) mmol/L Potassium 3.3 L (3.5-5.1) mmol/L BUN 3 L (7-17) mg/dL Glucose 163 H (74-99) mg/dL POC Glucose (mg/dL) 235 H 183 H (70-110) mg/dL Calcium 7.9 L (8.4-10.2) mg/dL Magnesium 1.5 L (1.6-2.3) mg/dL 05/23/22 05/23/22 05/23/22 Range/Units 05:07 06:46 11:43 RBC 2.52 L (3.80-5.40) m/uL Hgb 7.5 L (11.4-16.0) gm/dL Hct 22.7 L (34.0-46.0) % RDW 19.0 H (11.5-15.5) % Sodium (137-145) mmol/L Potassium (3.5-5.1) mmol/L BUN (7-17) mg/dL Glucose (74-99) mg/dL POC Glucose (mg/dL) 194 H 211 H (70-110) mg/dL Calcium (8.4-10.2) mg/dL Magnesium (1.6-2.3) mg/dL Microbiology - Last 24 Hours (Table) 05/20/22 11:15 Blood Culture - Preliminary Blood No Growth after 72 hours 05/21/22 00:22 Gram Stain - Final Sputum Sputum Culture - Final Assessment and Plan Assessment: Impression: Acute upper GI bleeding secondary to bleeding duodenal ulcer status post exploratory laparotomy and repair of bleeding was an ulcer postoperative day #5 Paroxysmal atrial fibrillation, being followed by cardiology. On metoprolol, rate seems to be better controlled. Blood loss anemia secondary to above. Resolved. Benign essential hypertension Type 2 diabetes Recommendation: Transfer patient out of the ICU to a monitor bed on the cardiac floor. Needs to remain on beta blockers for her cardiac arrhythmia. Advanced diet as tolerated and as recommended by surgery on the case. Continue present supportive care measures Continue IV Protonix We will continue to follow Time with Patient: Less than 30
[2022-05-23] MEDS: MORPHINE SULFATE 2 MG/ML SYRINGE IVP PRN ×3 (14:12→20:22)
--- NOTE | 2022-05-23 14:40 | P.PN ---
Subjective Progress Note Date: 05/23/22 Patient is a pleasant thousand 7-year-old female with known history of atrial fibrillation but not on anticoagulation had a watchman procedure in the past came in with the complaints of multiple episodes of natalie blood in the stools. Patient does take Excedrin for migraine. Patient had history of peptic ulcer disease in the past denied any history of aortic sclerosis. Patient denied any abdominal pain. Patient is comparing of lightheadedness generalized weakness and tiredness. The patient's of present hemoglobin is around 10.7. Patient denied any hematemesis. 05/19/2022 Patient is admitted for acute GI bleed, underwent upper GI endoscopy showed a be actively bleeding duodenal ulcer which was then cauterized. Subsequently patient was a taken to or for expiratory laparotomy lysis of adhesions and oversewing of a bleeding duodenal ulcer and patient was subsequently admitted to ICU and patient was intubated overnight patient was extubated today. Patient doesn't really has an NG tube with a greenish brownish discharge patient is bit drowsy. 05/20/2022 Patient is evaluated today in intensive care unit she is postoperative day #2 for exploratory laporatomy lysis of adhesions and oversewing of bleeding duodenal ulcer. Patient has been maintained NPO status strict with NG Tube for decompression and has had brownish in color with about 540 mLs in the canister. During evaluation this morning there was natalie red blood return in the NG tube small amount. Patient continues to report abdominal pain epigastric which is somewhat controlled with IV pain medication. She is awake and alert answering questions however is still drowsy and fatigued. Labs today are showing white count 8.7, hgb 7.8 today dropped from 9.5 yesterday morning. Patient has received 3 units of PRBC's this admission so far. Heart rate has been steadily increasing up into the 120s and maintaining sinus mechanism. Does have history of atrial fibrillation and has not been receiving oral rate control medications. Would consider one time small dose of metoprolol, however if this is an acute bleed would be cautionery to avoid hypotensive episode. She is maintained on IV fluids with lactated ringers at 100 mls per hour. Surgery will be notified of blood in NG tube, further recommendations pending. Sodium improved today 138, potassium 3.7, BUN 12, creatinine 0.90. Blood glucose 170s, calcium 7.1. 05/21/2022 Patient evaluated in the intensive care unit resting in bed. She is postoperative day #3. JAYASHREE drain in place RLQ with serosanguinous drainage. Abdominal pain has improved down to 5/10 states it is less sharp today. Bowels are active, no bowel movement yet. Continues with NG tube with intermittent epis odes of red blood noted in NG tube. Hemoglobin today 8.1. Status post 1 unit of PRBC yesterday. Heart rate is elevated today in the 120s -130s sinus tachycardia rate is regular one exam. She received IV lopressor 2.5 mg around 11 and a second dose was given after lunch. Heart rate is now 107. Continues on IV antibiotics. Cultures pending. Potassium 3.7 today, magnesium 1.1. 05/22/2022 Patient continues to be monitored in intensive care unit, postoperative day #4. NG tube remains with 550 mL output overnight. Reports abdominal pain down to 5/10 and reports as less sharp in nature. No BM yet. Heart rate remained elevated and patient converted into atrial fibrillation. Cardiology was consulte d and pt was placed on IV cardizem. Anticoagulation currently on hold. Hemoglobin today 8.1. Continues with low grade fever t max overnight 99.7. on IV cefepime, IV metronidazole, IV fluconazole. Blood culture remains negative, sputum culture pending. 05/23/2022 Patient is monitored in intensive care unit. NG tube has been discontinued. Diet has been advanced, clear liquid. Continues on IV cardizem and heart rate has improved to 90-100s. Overall abdominal pain continues to improve. She is curre ntly rating pain about a 3/10. She has no gas or no bowel movement, bowel sounds are increasing. Hemoglobin today 7.5, there is no further blood noted in the NG tube. Sodium stable at 134, potassium today 3.3 and magnesium 1.5 and patient will receive supplementation. Continues with intermittent low grade temps 99, blood pressure 121/66, continues on 2L nasal cannula. Oxygen saturation 98%. Review of Systems Constitutional: Reports fatigue, denies fever. Reports anxiety. Cardio vascular: denied any chest pain, palpitations Gastrointestinal: denied any nausea, vomiting, diarrhea, has abdominal pain improving today 3/10. Reports no gas, no BM. Pulmonary: Denied any shortness of breath cough Neurologic: Denied any new focal deficits Generalized weakness. All inpatient medications were reviewed and appropriate changes in these medications as dictated in the interval history and assessment and plan. PHYSICAL EXAMINATION: GENERAL: Alert x 3 continues to be fatigued. HEENT: Pupils are round and equally reacting to light. EOMI. No scleral icterus. Does have conjunctival pallor. Normocephalic, atraumatic. No pharyngeal erythema. No thyromegaly. CARDIOVASCULAR: S1 and S2 present. No murmurs, rubs, or gallops. Tachycardic, regular PULMONARY: Chest is clear to auscultation, no wheezing or crackles. ABDOMEN: Soft, tender, nondistended, normoactive bowel sounds. No palpable organ omegaly. Postsurgical abdomen dressing intact. JAYASHREE drain RLQ with serosanguineous drainage. MUSCULOSKELETAL: No joint swelling or deformity. EXTREMITIES: No cyanosis, clubbing, or pedal edema. Generalized peripheral edema. NEUROLOGICAL: More awake and alert no focal weakness. Does have diffuse genera lized weaknes. SKIN: No rashes. Assessment and plan -Acute GI bleed : Actively bleeding duodenal ulcer found on EGD, patient is postoperative exploratory laparotomy, lysis of adhesions, and oversewing of duodenal ulcer. Patient will be continued on Protonix. NG tube discontinued, diet advanced to clears. -Anemia from acute blood loss from bleeding duodenal ulcer status post 3 units of PRBCs and today hemoglobin today is 7.5. -Fever with tachycardia possible sepsis likely abdominal source, blood culture is taken, infectious disease has been consulted. -Atrial fibrillation presently not on any anticoagulation patient has paroxysmal A. fib patient had a watchman procedure, converted to atrial fibrillation with RVR improved on IV cardizem. -Type 2 diabetes mellitus and patient will be started on sliding scale, blood glucose 170s. -History peptic ulcer disease -Migraine for which patient takes Excedrin which can cause peptic ulcer disease DVT prophylaxis: Early ambulation and SCDs GI prophylaxis: Continues on IV protonix Full Code Plan Continue to monitor closely in intensive care unit. NG tube has been discontinued and patients diet has been advanced. Hemoglobin stable today. Infectious disease consultation, continue IV antibiotics. Cardiology consultation in place for heart rate control Infectious disease following cultures. Further recommendations pending. PT/OT consult in place. Repeat labs in AM. Patient will most likely be downgraded from ICU today. The impression and plan of care has been dictated by Alondra Barrientos, Nurse Practitioner as directed. Dr. Margarito MD I have performed a history and physical examination and medical decision making of this patient, discussed the same with the dictator, and agree with the dictators assessment and plan as written, documented as a scribe. Based on total visit time, I have performed more than 50% of this visit. Objective - Vital Signs Vital signs: Vital Signs Temp 99.1 F 05/23/22 08:00 Pulse 93 05/23/22 10:00 Resp 21 05/23/22 10:00 BP 125/79 05/23/22 10:00 Pulse Ox 97 05/23/22 10:00 FiO2 21 05/20/22 19:45 Intake & Output 05/22/22 05/23/22 05/23/22 18:59 06:59 18:59 Intake Total 1200 1520 320 Output Total 1875 870 245 Balance -675 650 75 Weight 77.5 kg 77.5 kg Intake: IV 1200 1400 320 Cefepime 2 gm In Sodium 100 Chloride 0.9% 100 ml @ 25 mls/hr IVPB Q8HR BEN Rx# :[id number] Lactated Ringers 1,000 ml 1200 1200 320 @ 20 mls/hr IV .Q24H BEN Rx#:[id number] metroNIDAZOLE-NS PMX 500 100 mg In Saline 1 100ml.bag @ 100 mls/hr IVPB Q8HR BEN Rx#:[id number] Oral 120 Output: Drainage 50 40 30 Right Abdomen 50 40 30 Urine 1825 830 215 Other: Voiding Method Indwelling Catheter Indwelling Catheter - Labs CBC & Chem 7: 05/23/22 05:07 05/23/22 05:07 Labs: Abnormal Lab Results - Last 24 Hours (Table) 05/22/22 05/22/22 05/23/22 Range/Units 17:59 20:27 05:07 RBC (3.80-5.40) m/uL Hgb (11.4-16.0) gm/dL Hct (34.0-46.0) % RDW (11.5-15.5) % Sodium 134 L (137-145) mmol/L Potassium 3.3 L (3.5-5.1) mmol/L BUN 3 L (7-17) mg/dL Glucose 163 H (74-99) mg/dL POC Glucose (mg/dL) 235 H 183 H (70-110) mg/dL Calcium 7.9 L (8.4-10.2) mg/dL Magnesium 1.5 L (1.6-2.3) mg/dL 05/23/22 05/23/22 05/23/22 Range/Units 05:07 06:46 11:43 RBC 2.52 L (3.80-5.40) m/uL Hgb 7.5 L (11.4-16.0) gm/dL Hct 22.7 L (34.0-46.0) % RDW 19.0 H (11.5-15.5) % Sodium (137-145) mmol/L Potassium (3.5-5.1) mmol/L BUN (7-17) mg/dL Glucose (74-99) mg/dL POC Glucose (mg/dL) 194 H 211 H (70-110) mg/dL Calcium (8.4-10.2) mg/dL Magnesium (1.6-2.3) mg/dL Microbiology - Last 24 Hours (Table) 05/21/22 00:22 Gram Stain - Final Sputum Sputum Culture - Final 05/20/22 11:15 Blood Culture - Preliminary Blood No Growth after 48 hours Assessment and Plan Time with Patient: Less than 30
[2022-05-23 17:26] LABS: Glucose,Whole Blood 218 mg/dL (70-110)
[2022-05-23] MEDS: FLUCONAZOLE IN NACL,ISO-OSM 200 MG in SALINE 1 100ML.BAG IVPB SCH (17:58)
[2022-05-23 20:34] LABS: Glucose,Whole Blood 198 mg/dL (70-110)
[2022-05-23] MEDS: METOPROLOL TARTRATE 5 MG/5 ML VIAL IVP PRN (20:49)
--- NOTE | 2022-05-23 22:05 | P.PN ---
Subjective Progress Note Date: 05/23/22 Principal diagnosis: Postop fever Patient is a 77 year female presenting to the hospital with abdominal pain and diarrhea and black stools patient did have EGD with evidence of duodenal ulcer that could not be treated endoscopy status post laparotomy and overseeing of the duodenal ulcer and lysis of adhesion patient subsequently did spike a fever on 05/20/2022. On today's evaluation that is 05/23/2022 patient did have a low-grade fever of 99.8 degrees Fahrenheit earlier this morning the patient is afebrile since then , patient is currently breathing comfortably on room air, the patient denies having any chest pain, the patient did have occasional dry cough, the patient abdominal pain is currently controlled, has been started on a clear liquid diet which she has been tolerating Objective - Vital Signs Vital signs: Vital Signs Temp 99.1 F 05/23/22 08:00 Pulse 93 05/23/22 10:00 Resp 05/23/22 10:00 BP 125/79 05/23/22 10:00 Pulse Ox 97 05/23/22 10:00 FiO2 05/20/22 19:45 Intake & Output 05/22/22 05/23/22 05/23/22 18:59 06:59 18:59 Intake Total 1200 1520 320 Output Total 1875 870 245 Balance -675 650 75 Weight 77.5 kg 77.5 kg Intake: IV 1200 1400 320 Cefepime 2 gm In Sodium 100 Chloride 0.9% 100 ml @ 25 mls/hr IVPB Q8HR BEN Rx# :[id number] Lactated Ringers 1,000 ml 1200 1200 320 @ 20 mls/hr IV .Q24H BEN Rx#:[id number] metroNIDAZOLE-NS PMX 500 100 mg In Saline 1 100ml.bag @ 100 mls/hr IVPB Q8HR BEN Rx#:[id number] Oral 120 Output: Drainage 50 40 30 Right Abdomen 50 40 30 Urine 1825 830 215 Other: Voiding Method Indwelling Catheter Indwelling Catheter - Exam GENERAL DESCRIPTION: An elderly female lying in bed in no distress RESPIRATORY SYSTEM: Unlabored breathing , decreased breath sounds at bases HEART: S1 S2 regular rate and rhythm , ABDOMEN: Soft , no tenderness EXTREMITIES: No edema feet - Labs CBC & Chem 7: 05/23/22 05:07 12/21/22 05:07 Labs: Abnormal Lab Results - Last 24 Hours (Table) 05/22/22 05/22/22 05/22/22 Range/Units 11:33 17:59 20:27 RBC (3.80-5.40) m/uL Hgb (11.4-16.0) gm/dL Hct (34.0-46.0) % RDW (11.5-15.5) % Sodium (137-145) mmol/L Potassium (3.5-5.1) mmol/L BUN (7-17) mg/dL Glucose (74-99) mg/dL POC Glucose (mg/dL) 215 H 235 H 183 H (70-110) mg/dL Calcium (8.4-10.2) mg/dL Magnesium (1.6-2.3) mg/dL 05/23/22 05/23/22 05/23/22 Range/Units 05:07 05:07 06:46 RBC 2.52 L (3.80-5.40) m/uL Hgb 7.5 L (11.4-16.0) gm/dL Hct 22.7 L (34.0-46.0) % RDW 19.0 H (11.5-15.5) % Sodium 134 L (137-145) mmol/L Potassium 3.3 L (3.5-5.1) mmol/L BUN 3 L (7-17) mg/dL Glucose 163 H (74-99) mg/dL POC Glucose (mg/dL) 194 H (70-110) mg/dL Calcium 7.9 L (8.4-10.2) mg/dL Magnesium 1.5 L (1.6-2.3) mg/dL Microbiology - Last 24 Hours (Table) 05/21/22 00:22 Gram Stain - Final Sputum Sputum Culture - Final 05/20/22 11:15 Blood Culture - Preliminary Blood No Growth after 48 hours Assessment and Plan (1) Fever Current Visit: Yes Status: Acute Code(s): R50.9 - FEVER, UNSPECIFIED SNOMED Code(s): 959887858 Plan: 1patient with SIRS in this patient with a low-grade fever and tachycardia more likely related to abdominal source in this patient who did have a bleeding due to none also which could not be treated endoscopy status post laparotomy with lysis of adhesion and oversewing of the bleeding duodenal ulcer will need to cover for the enteric gram-negative both aerobes and anaerobes plus minus yeast 2-patient with a penicillin ALLERGY that would limit the number of antibiotic safety use 3blood culture sputum cultures are so far negative 4patient has shown some clinical improvement and will continue with current antibiotic treatment of cefepime Flagyl and Diflucan and continue supportive care Time with Patient: Less than 30
[2022-05-24] MEDS: CEFEPIME 2 GM in SODIUM CHLORIDE 0.9% 100 ML IVPB SCH ×3 (00:06→17:38)
[2022-05-24] MEDS: metroNIDAZOLE-NS PMX 500 MG in SALINE 1 100ML.BAG IVPB SCH ×3 (00:06→17:58)
[2022-05-24] MEDS: MORPHINE SULFATE 2 MG/ML SYRINGE IVP PRN ×5 (01:14→22:28)
[2022-05-24] MEDS: METOPROLOL TARTRATE 5 MG/5 ML VIAL IVP PRN (05:00)
[2022-05-24 07:06] LABS: Glucose,Whole Blood 172 mg/dL (70-110)
[2022-05-24 07:07] LABS: Anisocytosis Slight; Basophils % (A) 0 %; Eosinophils # (A) 0.3 k/uL (0-0.7); Eosinophils % (A) 5 %; HCT 23.9 % (34.0-46.0); HGB 7.9 gm/dL (11.4-16.0); Hypochromasia Slight; Lymphocytes # (A) 0.6 k/uL (1.0-4.8); Lymphocytes % (A) 8 %; MCH 29.6 pg (25.0-35.0); MCHC 32.9 g/dL (31.0-37.0); MCV 89.9 fL (80.0-100.0); Mean Platelet Volume 8.2; Monocytes # (A) 0.5 k/uL (0-1.0); Monocytes % (A) 7 %; Neutrophils # (A) 5.5 k/uL (1.3-7.7); Neutrophils % (A) 77 %; Platelet Count 243 k/uL (150-450); RBC 2.66 m/uL (3.80-5.40); RDW 18.7 % (11.5-15.5); WBC 7.1 k/uL (3.8-10.6)
[2022-05-24] MEDS: INSULIN ASPART (NovoLOG) 100 UNIT/ML VIAL SQ SCH ×6 (07:13→20:33)
--- NOTE | 2022-05-24 07:26 | P.PN ---
Subjective HISTORY OF PRESENTING ILLNESS Patient is a pleasant 77-year-old female with history of paroxysmal atrial fibrillation status post watchman procedure approximate 2017, diabetes mellitus type 2, hypertension, GI bleed who presents secondary to GI bleeding. Patient initially had undergone workup and watchman procedure 4 years ago and states she has not had much issues with bleeding since that time. She has only been on aspirin since then. She denies any history of stroke or TIA. Unfortunately she started having bleeding which was unable to be controlled with endoscopy and therefore underwent exploratory laparotomy 05/18 with control of the bleeding. She had been in sinus rhythm on presentation however converted to atrial fibrillation overnight with elevated heart rates in the 120s and 130s. She was placed on Cardizem drip currently at 10 with heart rates in the 100 to 1:15 range. She denies any chest pain or pressure. She does have some difficulty and pain on her left side when she swallows. Currently she is nothing by mouth and not taking any oral medications. She had previously been on Rythmol as well as metoprolol 50 mg once a day however had previously been on Lopressor 25 twice a day. She denies any history of CAD or heart failure. Patient had been following with a keyboard operator in [place] however no recent echo or stress test. 05/23 Patient seen and examined. Patient tolerating clear liquid diet. Denies any chest pain or pressure. He remains in A. fib with heart rates 90s to 100s. 05/24 Patient seen and examined. Patient denies any chest pain or pressure. States she feels better overall. No fevers or chills. She does have some increase heart rates up into the 100-110 range and was given 1 dose of IV metoprolol overnight. PHYSICAL EXAMINATION Vital signs reviewed. CONSTITUTIONAL: No apparent distress. HEENT: Head is normocephalic. Pupils are equal, round. Sclerae anicteric. Mucous membranes of the mouth are moist. No JVD. No carotid bruit. CHEST EXAMINATION: Lungs are clear to auscultation. No chest wall tenderness is noted on palpation or with deep breathing. HEART EXAMINATION: Irregular rate and rhythm. S1, S2 heard. No murmurs, gallops or rub. ABDOMEN: Soft, nontender. Positive bowel sounds. EXTREMITIES: 2+ peripheral pulses, no lower extremity edema and no calf tenderness. NEUROLOGIC EXAMINATION: Patient is awake, alert and oriented x3. ASSESSMENT 1. Acute GI bleed status post exploratory laparotomy and PRBCs transfusion 2. Paroxysmal atrial fibrillation currently A. fib with mild RVR 3. Hypertension 4. Status post watchman procedure 5. Anemia PLAN Increase Toprol from 50-75 mg daily and monitor response. If heart rates relatively controlled 90s to 100 patient may be discharged home from a cardiology standpoint. Follow-up with myself in 1 week. Continue to hold antiplatelets however ideally restart in next 3-4 weeks if hemoglobin stable given some risk of thromboembolism from watchman however watchman was approximate 4-5 years ago. Objective - Vital Signs Vital signs: Vital Signs Temp 98.0 F 05/24/22 04:00 Pulse 111 H 05/24/22 07:00 Resp 19 05/24/22 07:00 BP 119/74 05/24/22 07:00 Pulse Ox 93 L 05/24/22 07:00 FiO2 21 05/20/22 19:45 Intake & Output 05/23/22 05/24/22 05/24/22 18:59 06:59 18:59 Intake Total 1210 380 20 Output Total 740 790 95 Balance 470 -410 -75 Weight 77.5 kg 76.7 kg Intake: IV 960 180 20 Cefepime 2 gm In Sodium 200 Chloride 0.9% 100 ml @ 25 mls/hr IVPB Q8HR BEN Rx# :[id number] Fluconazole in NaCl,Iso- 100 Osm 200 mg In Saline 1 100ml.bag @ 100 mls/hr IVPB Q24H BEN Rx#: [id number] Lactated Ringers 1,000 ml 460 180 20 @ 20 mls/hr IV .Q24H BEN Rx#:[id number] metroNIDAZOLE-NS PMX 500 200 mg In Saline 1 100ml.bag @ 100 mls/hr IVPB Q8HR BEN Rx#:[id number] Intake, IV Titration 200 Amount Cefepime 2 gm In Sodium 100 Chloride 0.9% 100 ml @ 25 mls/hr IVPB Q8HR BEN Rx# :[id number] metroNIDAZOLE-NS PMX 500 100 mg In Saline 1 100ml.bag @ 100 mls/hr IVPB Q8HR BEN Rx#:[id number] Oral 250 Output: Drainage 80 40 Right Abdomen 80 40 Urine 660 790 55 Other: Voiding Method Indwelling Catheter Indwelling Catheter - Labs CBC & Chem 7: 05/24/22 06:30 05/23/22 05:07 Labs: Abnormal Lab Results - Last 24 Hours (Table) 05/23/22 05/23/22 05/23/22 Range/Units 11:43 17:24 20:32 RBC (3.80-5.40) m/uL Hgb (11.4-16.0) gm/dL Hct (34.0-46.0) % RDW (11.5-15.5) % Lymphocytes # (1.0-4.8) k/uL POC Glucose (mg/dL) 211 H 218 H 198 H (70-110) mg/dL 05/24/22 05/24/22 Range/Units 06:30 07:04 RBC 2.66 L (3.80-5.40) m/uL Hgb 7.9 L (11.4-16.0) gm/dL Hct 23.9 L (34.0-46.0) % RDW 18.7 H (11.5-15.5) % Lymphocytes # 0.6 L (1.0-4.8) k/uL POC Glucose (mg/dL) 172 H (70-110) mg/dL Microbiology - Last 24 Hours (Table) 05/20/22 11:15 Blood Culture - Preliminary Blood No Growth after 72 hours 05/21/22 00:22 Gram Stain - Final Sputum Sputum Culture - Final
[2022-05-24 08:00] LABS: African American GFR (CKD) >90 (>60 ml/min/1.73 sqM); Anion Gap 4 mmol/L; Blood Urea Nitrogen 4 mg/dL (7-17); Calcium 7.7 mg/dL (8.4-10.2); Carbon Dioxide 27 mmol/L (22-30); Chloride 105 mmol/L (98-107); Glucose 148 mg/dL (74-99); Magnesium 1.4 mg/dL (1.6-2.3); Non-African American GFR(CKD) >90 (>60 ml/min/1.73 sqM); Potassium 3.3 mmol/L (3.5-5.1); Sodium 136 mmol/L (137-145)
[2022-05-24] MEDS ORDERED: METOPROLOL SUCCINATE (ER) 25 MG TAB.ER.24H PO SCH (08:00)
[2022-05-24] MEDS: PANTOPRAZOLE 40 MG/10 ML VIAL IVP SCH ×2 (09:22→20:32)
--- NOTE | 2022-05-24 11:28 | P.PN ---
Subjective Progress Note Date: 05/24/22 Patient is a pleasant thousand 7-year-old female with known history of atrial fibrillation but not on anticoagulation had a watchman procedure in the past came in with the complaints of multiple episodes of natalie blood in the stools. Patient does take Excedrin for migraine. Patient had history of peptic ulcer disease in the past denied any history of aortic sclerosis. Patient denied any abdominal pain. Patient is comparing of lightheadedness generalized weakness and tiredness. The patient's of present hemoglobin is around 10.7. Patient denied any hematemesis. 05/19/2022 Patient is admitted for acute GI bleed, underwent upper GI endoscopy showed a be actively bleeding duodenal ulcer which was then cauterized. Subsequently patient was a taken to or for expiratory laparotomy lysis of adhesions and oversewing of a bleeding duodenal ulcer and patient was subsequently admitted to ICU and patient was intubated overnight patient was extubated today. Patient doesn't really has an NG tube with a greenish brownish discharge patient is bit drowsy. 05/20/2022 Patient is evaluated today in intensive care unit she is postoperative day #2 for exploratory laporatomy lysis of adhesions and oversewing of bleeding duodenal ulcer. Patient has been maintained NPO status strict with NG Tube for decompression and has had brownish in color with about 540 mLs in the canister. During evaluation this morning there was natalie red blood return in the NG tube small amount. Patient continues to report abdominal pain epigastric which is somewhat controlled with IV pain medication. She is awake and alert answering questions however is still drowsy and fatigued. Labs today are showing white count 8.7, hgb 7.8 today dropped from 9.5 yesterday morning. Patient has received 3 units of PRBC's this admission so far. Heart rate has been steadily increasing up into the 120s and maintaining sinus mechanism. Does have history of atrial fibrillation and has not been receiving oral rate control medications. Would consider one time small dose of metoprolol, however if this is an acute bleed would be cautionery to avoid hypotensive episode. She is maintained on IV fluids with lactated ringers at 100 mls per hour. Surgery will be notified of blood in NG tube, further recommendations pending. Sodium improved today 138, potassium 3.7, BUN 12, creatinine 0.90. Blood glucose 170s, calcium 7.1. 05/21/2022 Patient evaluated in the intensive care unit resting in bed. She is postoperative day #3. JAYASHREE drain in place RLQ with serosanguinous drainage. Abdominal pain has improved down to 5/10 states it is less sharp today. Bowels are active, no bowel movement yet. Continues with NG tube with intermittent epis odes of red blood noted in NG tube. Hemoglobin today 8.1. Status post 1 unit of PRBC yesterday. Heart rate is elevated today in the 120s -130s sinus tachycardia rate is regular one exam. She received IV lopressor 2.5 mg around 11 and a second dose was given after lunch. Heart rate is now 107. Continues on IV antibiotics. Cultures pending. Potassium 3.7 today, magnesium 1.1. 05/22/2022 Patient continues to be monitored in intensive care unit, postoperative day #4. NG tube remains with 550 mL output overnight. Reports abdominal pain down to 5/10 and reports as less sharp in nature. No BM yet. Heart rate remained elevated and patient converted into atrial fibrillation. Cardiology was consulte d and pt was placed on IV cardizem. Anticoagulation currently on hold. Hemoglobin today 8.1. Continues with low grade fever t max overnight 99.7. on IV cefepime, IV metronidazole, IV fluconazole. Blood culture remains negative, sputum culture pending. 05/23/2022 Patient is monitored in intensive care unit. NG tube has been discontinued. Diet has been advanced, clear liquid. Continues on IV cardizem and heart rate has improved to 90-100s. Overall abdominal pain continues to improve. She is curre ntly rating pain about a 3/10. She has no gas or no bowel movement, bowel sounds are increasing. Hemoglobin today 7.5, there is no further blood noted in the NG tube. Sodium stable at 134, potassium today 3.3 and magnesium 1.5 and patient will receive supplementation. Continues with intermittent low grade temps 99, blood pressure 121/66, continues on 2L nasal cannula. Oxygen saturation 98%. 05/24/2022 Patient continues to be monitored in intensive care unit, pending a bed on the medical floor. NG tube has been discontinued and she is off oxygen. Abdominal pain continues to improve currently about a 2-3/10. She reports passing some gas this morning, bowel sounds are active. She has been taken off the IV cardizem and continues IVP lopressor as needed for elevated heart rate. On IV cefepime, IV fluconazole, and IV metronidazole. Heart rate 90-100s. Blood pressure 129/97, 93% on room air. Working with physical therapy. Hemoglobin today 7.9, no white count. Sodium 136, potassium 3.3 and magnesium 1.4 which will be replaced. Review of Systems Constitutional: Reports fatigue, denies fever. Reports anxiety. Cardio vascular: denied any chest pain, palpitations Gastrointestinal: denied any nausea, vomiting, diarrhea, has abdominal pain improving today 08/10. reports passing gas today. Pulmonary: Denied any shortness of breath cough Neurologic: Denied any new focal deficits Generalized weakness. All inpatient medications were reviewed and appropriate changes in these medications as dictated in the interval history and assessment and plan. PHYSICAL EXAMINATION: GENERAL: Alert x 3 continues to be fatigued. HEENT: Pupils are round and equally reacting to light. EOMI. No scleral icterus. Does have conjunctival pallor. Normocephalic, atraumatic. No pharyngeal erythema. No thyromegaly. CARDIOVASCULAR: S1 and S2 present. No murmurs, rubs, or gallops. Tachycardic, regular PULMONARY: Chest is clear to auscultation, no wheezing or crackles. ABDOMEN: Soft, tender, nondistended, normoactive bowel sounds. No palpable organomegaly. Postsurgical abdomen dressing intact. JAYASHREE drain RLQ with serosanguineous drainage. MUSCULOSKELETAL: No joint swelling or deformity. EXTREMITIES: No cyanosis, clubbing, or pedal edema. Generalized peripheral edema. NEUROLOGICAL: More awake and alert no focal weakness. Does have diffuse generalized weaknes. SKIN: No rashes. Assessment and plan -Acute GI bleed : Actively bleeding duodenal ulcer found on EGD, patient is postoperative exploratory laparotomy, lysis of adhesions, and oversewing of duodenal ulcer. Patient will be continued on Protonix. NG tube discontinued, diet advanced to clears. -Anemia from acute blood loss from bleeding duodenal ulcer status post 3 units of PRBCs and today hemoglobin today is 7.9. -Fever with tachycardia possible sepsis likely abdominal source, blood culture is taken, infectious disease has been consulted. -Atrial fibrillation presently not on any anticoagulation patient has paroxysmal A. fib patient had a watchman procedure, converted to atrial fibrillation with RVR improved on IV cardizem. -Type 2 diabetes mellitus and patient will be started on sliding scale, blood glucose 170s. -History peptic ulcer disease -Migraine for which patient takes Excedrin which can cause peptic ulcer disease DVT prophylaxis: Early ambulation and SCDs GI prophylaxis: Continues on IV protonix Full Code Plan Continue to monitor closely in intensive care unit. NG tube has been discontinued and patients diet has been advanced. Hemoglobin stable today. Infectious disease consultation, continue IV antibiotics. Cardiology consultation in place for heart rate control Infectious disease following cultures. Further recommendations pending. PT/OT consult in place. Repeat labs in AM. The impression and plan of care has been dictated by Alondra Barrientos Nurse Practitioner as directed. Dr. Margarito MD I have performed a history and physical examination and medical decision making of this patient, discussed the same with the dictator, and agree with the dictators assessment and plan as written, documented as a scribe. Based on total visit time, I have performed more than 50% of this visit. Objective - Vital Signs Vital signs: Vital Signs Temp 98.0 F 05/24/22 04:00 Pulse 104 H 05/24/22 08:00 Resp 17 05/24/22 09:00 BP 129/97 05/24/22 09:00 Pulse Ox 93 L 05/24/22 09:00 FiO2 21 05/20/22 19:45 Intake & Output 05/23/22 05/24/22 05/24/22 18:59 06:59 18:59 Intake Total 1210 380 60 Output Total 740 790 220 Balance 470 -410 -160 Weight 77.5 kg 76.7 kg Intake: IV 960 180 60 Cefepime 2 gm In Sodium 200 Chloride 0.9% 100 ml @ 25 mls/hr IVPB Q8HR [facility] Rx# :[id number] Fluconazole in NaCl,Iso- 100 Osm 200 mg In Saline 1 100ml.bag @ 100 mls/hr IVPB Q24H [facility] Rx#: [id number] Lactated Ringers 1,000 ml 460 180 60 @ 20 mls/hr IV .Q24H [facility] Rx#:[id number] metroNIDAZOLE-NS PMX 500 200 mg In Saline 1 100ml.bag @ 100 mls/hr IVPB Q8HR [facility] Rx#:[id number] Intake, IV Titration 200 Amount Cefepime 2 gm In Sodium 100 Chloride 0.9% 100 ml @ 25 mls/hr IVPB Q8HR [facility] Rx# :[id number] metroNIDAZOLE-NS PMX 500 100 mg In Saline 1 100ml.bag @ 100 mls/hr IVPB Q8HR [facility] Rx#:[id number] Oral 250 Output: Drainage 80 40 Right Abdomen 80 40 Urine 660 790 180 Other: Voiding Method Indwelling Catheter Indwelling Catheter - Labs CBC & Chem 7: 05/24/22 06:30 05/24/22 06:30 Labs: Abnormal Lab Results - Last 24 Hours (Table) 05/23/22 05/23/22 05/23/22 Range/Units 11:43 17:24 20:32 RBC (3.80-5.40) m/uL Hgb (11.4-16.0) gm/dL Hct (34.0-46.0) % RDW (11.5-15.5) % Lymphocytes # (1.0-4.8) k/uL Sodium (137-145) mmol/L Potassium (3.5-5.1) mmol/L BUN (7-17) mg/dL Creatinine (0.52-1.04) mg/dL Glucose (74-99) mg/dL POC Glucose (mg/dL) 211 H 218 H 198 H (70-110) mg/dL Calcium (8.4-10.2) mg/dL Magnesium (1.6-2.3) mg/dL 05/24/22 05/24/22 05/24/22 Range/Units 06:30 06:30 07:04 RBC 2.66 L (3.80-5.40) m/uL Hgb 7.9 L (11.4-16.0) gm/dL Hct 23.9 L (34.0-46.0) % RDW 18.7 H (11.5-15.5) % Lymphocytes # 0.6 L (1.0-4.8) k/uL Sodium 136 L (137-145) mmol/L Potassium 3.3 L (3.5-5.1) mmol/L BUN 4 L (7-17) mg/dL Creatinine 0.51 L (0.52-1.04) mg/dL Glucose 148 H (74-99) mg/dL POC Glucose (mg/dL) 172 H (70-110) mg/dL Calcium 7.7 L (8.4-10.2) mg/dL Magnesium 1.4 L (1.6-2.3) mg/dL Microbiology - Last 24 Hours (Table) 05/20/22 11:15 Blood Culture - Preliminary Blood No Growth after 72 hours 05/21/22 00:22 Gram Stain - Final Sputum Sputum Culture - Final Assessment and Plan Time with Patient: Less than 30
--- NOTE | 2022-05-24 11:29 | P.PN ---
Subjective Progress Note Date: 05/24/22 Principal diagnosis: Acute upper GI bleeding secondary to duodenal ulcer On 05/20/2022, the patient is extubated and the patient is currently sitting up on a chair. NG tube is in place. She was having some gastric output and earlier this morning shows also producing some minimal amount of bloody output from the NG. She drops her hemoglobin down to 7.8 and the patient will be given units of packed RBC per surgical recommendation. He remains nothing by mouth. JAYASHREE drain is in place. Output has been 40 mL over the past 8 hours and the patient is on 2 L O2 nasal cannula. She remains on lactated Ringer at the rate of 100 mL an hour. Overall fluid balance +1.5 L over the past 24 hours. The patient's hemoglobin is at 7.8 with a white cell count of 8.7. Bicarb was 23 B UN is 12 creatinine 0.6. She remains on 2 L of oxygen by nasal cannula. Her cardiac rhythm remains sinus. She is using the incentive spirometer. She is falling approximately thousand. Reevaluated today on 05/21/22 patient seems to be doing very well today, she is not in any distress. Hemoglobin this morning is 8.1, patient received a unit of packed RBCs yesterday, and she received a total of 4 units since admission continues to have intermittent coffee-ground material through the nasogastric tube, hemodynamically stable, not in distress. She is on 2 L nasal cannula, O2 sats is 96%. She is doing overall quite well Reevaluated today on 05/22/22, patient remains in the ICU, no active GI bleeding noted. Did not require any blood transfusions in the last 24 hours. Hemoglobin is stable. Nonetheless the patient developed atrial fibrillation with RVR, patient was started on Cardizem drip at 10 mg per hour, she was already on beta blockers and she was given metoprolol earlier. Patient will be seen by cardiology on consultation, and apparently she does have history of paroxysmal a trial fibrillation in the past. Patient is on 2 L nasal cannula, O2 saturation is 95%. Her IV fluid is normal saline at 50 mL per hour, and she is presently on Cardizem drip at 10 mg per hour. Nasogastric tube remains in place. And again no active bleeding noted. Reevaluated today on 05/23/22, patient remains in the ICU, no evidence of any active bleeding, her atrial fibrillation seems to be better controlled, rate ranging between 90 up to 100. Hemoglobin is 7.5, did not require any blood transfusion in the last few days. Patient is hemodynamically stable, hence I plan to transfer the patient out of the ICU to a monitor bed on the cardiac floor sometime today if possible. WBC count is 8.6 hemoglobin 7.5 electrolytes are normal renal profile is normal, magnesium is a bit on the low side at 1.5, being corrected Reevaluated today on 05/24/22, patient remains in the ICU as an overflow, she is basically doing well, no evidence of any active bleeding, hemoglobin is stable, patient is not in any distress, she is on room air, and the plan is to either discharge the patient home or possibly transfer to a medical floor. No active pulmonary issues on this patient. And her IV fluids at KVO.CBC is normal hemoglobin is 7.9 electrolytes are normal renal profile is normal. Objective - Vital Signs Vital signs: Vital Signs Temp 98.0 F 05/24/22 04:00 Pulse 104 H 05/24/22 08:00 Resp 17 05/24/22 09:00 BP 129/97 05/24/22 09:00 Pulse Ox 93 L 05/24/22 09:00 FiO2 21 05/20/22 19:45 Intake & Output 05/23/22 05/24/22 05/24/22 18:59 06:59 18:59 Intake Total 1210 380 60 Output Total 740 790 220 Balance 470 -410 -160 Weight 77.5 kg 76.7 kg Intake: IV 960 180 60 Cefepime 2 gm In Sodium 200 Chloride 0.9% 100 ml @ 25 mls/hr IVPB Q8HR [facility] Rx# :[id number] Fluconazole in NaCl,Iso- 100 Osm 200 mg In Saline 1 100ml.bag @ 100 mls/hr IVPB Q24H [facility] Rx#: [id number] Lactated Ringers 1,000 ml 460 180 60 @ 20 mls/hr IV .Q24H [facility] Rx#:[id number] metroNIDAZOLE-NS PMX 500 200 mg In Saline 1 100ml.bag @ 100 mls/hr IVPB Q8HR [facility] Rx#:[id number] Intake, IV Titration 200 Amount Cefepime 2 gm In Sodium 100 Chloride 0.9% 100 ml @ 25 mls/hr IVPB Q8HR [facility] Rx# :[id number] metroNIDAZOLE-NS PMX 500 100 mg In Saline 1 100ml.bag @ 100 mls/hr IVPB Q8HR [facility] Rx#:[id number] Oral 250 Output: Drainage 80 40 Right Abdomen 80 40 Urine 660 790 180 Other: Voiding Method Indwelling Catheter Indwelling Catheter - Exam Physical Exam: Revealed a 77-year-old female in no distress. on room air Head: Atraumatic, normocephalic HEENT:[Neck is supple.] [No neck masses.] [No thyromegaly.] [No JVD.] Chest: [Clear throughout, no crackles, no rhonchi, no wheezes.] Cardiac Exam: Irregular irregular [Normal S1 and S2, no S3 gallop, no murmur.] Abdomen: [Soft, nontender, no megaly, no rebound, no guarding, normal bowel sounds.] Extremities: [No clubbing, no edema, no cyanosis.] Neurological Exam: [No focal neurologic deficit.] Psychiatric: Normal mood affect and normal mental status examination. Skin: No rashes - Labs CBC & Chem 7: 05/24/22 06:30 05/24/22 06:30 Labs: Abnormal Lab Results - Last 24 Hours (Table) 05/23/22 05/23/22 05/23/22 Range/Units 11:43 17:24 20:32 RBC (3.80-5.40) m/uL Hgb (11.4-16.0) gm/dL Hct (34.0-46.0) % RDW (11.5-15.5) % Lymphocytes # (1.0-4.8) k/uL Sodium (137-145) mmol/L Potassium (3.5-5.1) mmol/L BUN (7-17) mg/dL Creatinine (0.52-1.04) mg/dL Glucose (74-99) mg/dL POC Glucose (mg/dL) 211 H 218 H 198 H (70-110) mg/dL Calcium (8.4-10.2) mg/dL Magnesium (1.6-2.3) mg/dL 05/24/22 05/24/22 05/24/22 Range/Units 06:30 06:30 07:04 RBC 2.66 L (3.80-5.40) m/uL Hgb 7.9 L (11.4-16.0) gm/dL Hct 23.9 L (34.0-46.0) % RDW 18.7 H (11.5-15.5) % Lymphocytes # 0.6 L (1.0-4.8) k/uL Sodium 136 L (137-145) mmol/L Potassium 3.3 L (3.5-5.1) mmol/L BUN 4 L (7-17) mg/dL Creatinine 0.51 L (0.52-1.04) mg/dL Glucose 148 H (74-99) mg/dL POC Glucose (mg/dL) 172 H (70-110) mg/dL Calcium 7.7 L (8.4-10.2) mg/dL Magnesium 1.4 L (1.6-2.3) mg/dL Microbiology - Last 24 Hours (Table) 05/20/22 11:15 Blood Culture - Preliminary Blood No Growth after 72 hours 05/21/22 00:22 Gram Stain - Final Sputum Sputum Culture - Final Assessment and Plan Assessment: Impression: Acute upper GI bleeding secondary to bleeding duodenal ulcer status post exploratory laparotomy and repair of bleeding was an ulcer postoperative day #6 Paroxysmal atrial fibrillation, being followed by cardiology. On metoprolol, rate seems to be better controlled. Blood loss anemia secondary to above. Resolved. Benign essential hypertension Type 2 diabetes Recommendation: Transfer patient out of the ICU to a monitor bed on the cardiac floor. consider discharge planning on this patient is cleared by admitting physician/surgeon and other consultants.Will follow as needed Time with Patient: Less than 30
[2022-05-24 11:37] LABS: Glucose,Whole Blood 165 mg/dL (70-110)
[2022-05-24] MEDS ORDERED: POTASSIUM CHLORIDE 10 MEQ in WATER FOR INJECTION 1 100ML.BAG IVPB SCH (12:00)
--- NOTE | 2022-05-24 12:17 | P.PN ---
Subjective Progress Note Date: 05/24/22 Principal diagnosis: Postop fever Patient is a 77 year female presenting to the hospital with abdominal pain and diarrhea and black stools patient did have EGD with evidence of duodenal ulcer that could not be treated endoscopy status post laparotomy and overseeing of the duodenal ulcer and lysis of adhesion patient subsequently did spike a fever on 05/20/2022. On today's evaluation that is 05/24/2022 patient is afebrile today , patient is breathing comfortably on room air, the patient denies having any chest pain, the patient did have occasional cough but no sputum production, the patient abdominal pain is currently controlled, patient has been tolerating her diet and denies any diarrhea Objective - Vital Signs Vital signs: Vital Signs Temp 98.0 F 05/24/22 04:00 Pulse 111 H 05/24/22 12:00 Resp 27 H 05/24/22 12:00 BP 125/71 05/24/22 12:00 Pulse Ox 92 L 05/24/22 12:00 FiO2 21 05/20/22 19:45 Intake & Output 05/23/22 05/24/22 05/24/22 18:59 06:59 18:59 Intake Total 1210 380 300 Output Total 740 790 355 Balance 470 -410 -55 Weight 77.5 kg 76.7 kg Intake: IV 960 180 300 Cefepime 2 gm In Sodium 200 100 Chloride 0.9% 100 ml @ 25 mls/hr IVPB Q8HR [facility] Rx# :[id number] Fluconazole in NaCl,Iso- 100 Osm 200 mg In Saline 1 100ml.bag @ 100 mls/hr IVPB Q24H [facility] Rx#: [id number] Lactated Ringers 1,000 ml 460 180 100 @ 20 mls/hr IV .Q24H [facility] Rx#:[id number] metroNIDAZOLE-NS PMX 500 200 100 mg In Saline 1 100ml.bag @ 100 mls/hr IVPB Q8HR [facility] Rx#:[id number] Intake, IV Titration 200 Amount Cefepime 2 gm In Sodium 100 Chloride 0.9% 100 ml @ 25 mls/hr IVPB Q8HR [facility] Rx# :[id number] metroNIDAZOLE-NS PMX 500 100 mg In Saline 1 100ml.bag @ 100 mls/hr IVPB Q8HR [facility] Rx#:[id number] Oral 250 Output: Drainage 80 40 Right Abdomen 80 40 Urine 660 790 315 Other: Voiding Method Indwelling Catheter Indwelling Catheter - Exam GENERAL DESCRIPTION: An elderly female lying in bed in no distress RESPIRATORY SYSTEM: Unlabored breathing , decreased breath sounds at bases HEART: S1 S2 regular rate and rhythm , ABDOMEN: Soft , no tenderness EXTREMITIES: No edema feet - Labs CBC & Chem 7: 05/24/22 06:30 05/24/22 06:30 Labs: Abnormal Lab Results - Last 24 Hours (Table) 05/23/22 05/23/22 05/24/22 Range/Units 17:24 20:32 06:30 RBC (3.80-5.40) m/uL Hgb (11.4-16.0) gm/dL Hct (34.0-46.0) % RDW (11.5-15.5) % Lymphocytes # (1.0-4.8) k/uL Sodium 136 L (137-145) mmol/L Potassium 3.3 L (3.5-5.1) mmol/L BUN 4 L (7-17) mg/dL Creatinine 0.51 L (0.52-1.04) mg/dL Glucose 148 H (74-99) mg/dL POC Glucose (mg/dL) 218 H 198 H (70-110) mg/dL Calcium 7.7 L (8.4-10.2) mg/dL Magnesium 1.4 L (1.6-2.3) mg/dL 05/24/22 05/24/22 05/24/22 Range/Units 06:30 07:04 11:36 RBC 2.66 L (3.80-5.40) m/uL Hgb 7.9 L (11.4-16.0) gm/dL Hct 23.9 L (34.0-46.0) % RDW 18.7 H (11.5-15.5) % Lymphocytes # 0.6 L (1.0-4.8) k/uL Sodium (137-145) mmol/L Potassium (3.5-5.1) mmol/L BUN (7-17) mg/dL Creatinine (0.52-1.04) mg/dL Glucose (74-99) mg/dL POC Glucose (mg/dL) 172 H 165 H (70-110) mg/dL Calcium (8.4-10.2) mg/dL Magnesium (1.6-2.3) mg/dL Microbiology - Last 24 Hours (Table) 05/20/22 11:15 Blood Culture - Preliminary Blood No Growth after 72 hours 05/21/22 00:22 Gram Stain - Final Sputum Sputum Culture - Final Assessment and Plan (1) Fever Current Visit: Yes Status: Acute Code(s): R50.9 - FEVER, UNSPECIFIED SNOMED Code(s): 917447244 Plan: 1patient with SIRS in this patient with a low-grade fever and tachycardia more likely related to abdominal source in this patient who did have a bleeding due to none also which could not be treated endoscopy status post laparotomy with lysis of adhesion and oversewing of the bleeding duodenal ulcer will need to cover for the enteric gram-negative both aerobes and anaerobes plus minus yeast 2-patient with a penicillin ALLERGY that would limit the number of antibiotic safety use 3blood culture as well as sputum cultures has been negative 4patient is afebrile and the patient white count is normal, patient will continue with cefepime Flagyl and Diflucan and continue supportive care Time with Patient: Less than 30
[2022-05-24] MEDS ORDERED: Potassium Replacement Protocol 1 EACH MISC MISCELLANE PRN (12:54)
[2022-05-24] MEDS: MAGNESIUM SULFATE-D5W PMX 1 GM in DEXTROSE/WATER 1 100ML.BAG IVPB SCH ×3 (12:56→17:37)
[2022-05-24] MEDS: POTASSIUM CHLORIDE ER 20 MEQ TAB.ER PO SCH ×2 (13:03→17:38)
--- NOTE | 2022-05-24 14:02 | P.PN ---
Progress Note - Text Progress Note Date: 05/24/22 The patient is sitting up in her chair. She has minimal complaints of pain. Her hemoglobin remained stable. Today it is 7.9. It was 7.5 yesterday. She is tolerating fu Clear liquid diet. On exam vital signs appear stable. Abdomen is soft. Incisions clean dry intact. Status post repair of duodenal ulcer. Patient will have her diet advanced as tolerated.
[2022-05-24 16:32] LABS: Glucose,Whole Blood 170 mg/dL (70-110)
[2022-05-24] MEDS: FLUCONAZOLE IN NACL,ISO-OSM 200 MG in SALINE 1 100ML.BAG IVPB SCH (17:37)
[2022-05-24 20:02] LABS: Glucose,Whole Blood 231 mg/dL (70-110)
[2022-05-24] MEDS: LACTATED RINGERS 1,000 ML IV SCH (20:34)
[2022-05-25] MEDS: CEFEPIME 2 GM in SODIUM CHLORIDE 0.9% 100 ML IVPB SCH ×3 (00:13→17:04)
[2022-05-25] MEDS: metroNIDAZOLE-NS PMX 500 MG in SALINE 1 100ML.BAG IVPB SCH ×3 (00:13→17:04)
[2022-05-25] MEDS: MORPHINE SULFATE 2 MG/ML SYRINGE IVP PRN ×3 (03:44→21:14)
[2022-05-25] MEDS: METOPROLOL TARTRATE 5 MG/5 ML VIAL IVP PRN (03:44)
[2022-05-25 04:22] LABS: Anisocytosis Slight; Basophils % (A) 0 %; Eosinophils # (A) 0.4 k/uL (0-0.7); Eosinophils % (A) 5 %; HCT 23.2 % (34.0-46.0); HGB 7.7 gm/dL (11.4-16.0); Hypochromasia Slight; Lymphocytes # (A) 0.7 k/uL (1.0-4.8); Lymphocytes % (A) 9 %; MCH 30.1 pg (25.0-35.0); MCHC 33.4 g/dL (31.0-37.0); Mean Platelet Volume 8.9; Monocytes # (A) 0.5 k/uL (0-1.0); Monocytes % (A) 7 %; Neutrophils # (A) 5.6 k/uL (1.3-7.7); Neutrophils % (A) 75 %; Platelet Count 237 k/uL (150-450); RBC 2.57 m/uL (3.80-5.40); RDW 18.6 % (11.5-15.5); WBC 7.4 k/uL (3.8-10.6)
[2022-05-25 04:39] LABS: Chloride 105 mmol/L (98-107); Glucose 114 mg/dL (74-99); Potassium 3.3 mmol/L (3.5-5.1); Sodium 134 mmol/L (137-145)
[2022-05-25] MEDS ORDERED: POTASSIUM CHLORIDE ER 20 MEQ TAB.ER PO STA (04:41)
[2022-05-25 04:51] LABS: African American GFR (CKD) >90 (>60 ml/min/1.73 sqM); Anion Gap 5 mmol/L; Blood Urea Nitrogen 5 mg/dL (7-17); Calcium 7.4 mg/dL (8.4-10.2); Carbon Dioxide 24 mmol/L (22-30); Magnesium 1.8 mg/dL (1.6-2.3); Non-African American GFR(CKD) >90 (>60 ml/min/1.73 sqM)
[2022-05-25 05:06] LABS: Glucose,Whole Blood 143 mg/dL (70-110)
[2022-05-25] MEDS: INSULIN ASPART (NovoLOG) 100 UNIT/ML VIAL SQ SCH ×7 (06:02→20:07)
[2022-05-25 06:52] LABS: Glucose,Whole Blood 148 mg/dL (70-110)
[2022-05-25] MEDS ORDERED: METOPROLOL SUCCINATE (ER) 100 MG TAB.ER.24H PO SCH (09:00)
--- NOTE | 2022-05-25 09:08 | P.PN ---
Subjective HISTORY OF PRESENTING ILLNESS Patient is a pleasant 77-year-old female with history of paroxysmal atrial fibrillation status post watchman procedure approximate 2017, diabetes mellitus type 2, hypertension, GI bleed who presents secondary to GI bleeding. Patient initially had undergone workup and watchman procedure 4 years ago and states she has not had much issues with bleeding since that time. She has only been on aspirin since then. She denies any history of stroke or TIA. Unfortunately she started having bleeding which was unable to be controlled with endoscopy and therefore underwent exploratory laparotomy 05/18 with control of the bleeding. She had been in sinus rhythm on presentation however converted to atrial fibrillation overnight with elevated heart rates in the 120s and 130s. She was placed on Cardizem drip currently at 10 with heart rates in the 100 to 1:15 range. She denies any chest pain or pressure. She does have some difficulty and pain on her left side when she swallows. Currently she is nothing by mouth and not taking any oral medications. She had previously been on Rythmol as well as metoprolol 50 mg once a day however had previously been on Lopressor 25 twice a day. She denies any history of CAD or heart failure. Patient had been following with a packaging machine supplies distributor in [place] however no recent echo or stress test. 05/23 Patient seen and examined. Patient tolerating clear liquid diet. Denies any chest pain or pressure. He remains in A. fib with heart rates 90s to 100s. 05/24 Patient seen and examined. Patient denies any chest pain or pressure. States she feels better overall. No fevers or chills. She does have some increase heart rates up into the 100-110 range and was given 1 dose of IV metoprolol overnight. 05/25 Patient seen and examined. Patient did have some feeling of palpitations and anxiety last night. Heart rates however relatively similar in the 100- 115, 120 range. Her metoprolol had been increased up to 75 mg yesterday. PHYSICAL EXAMINATION Vital signs reviewed. CONSTITUTIONAL: No apparent distress. HEENT: Head is normocephalic. Pupils are equal, round. Sclerae anicteric. Mucous membranes of the mouth are moist. No JVD. No carotid bruit. CHEST EXAMINATION: Lungs are clear to auscultation. No chest wall tenderness is noted on palpation or with deep breathing. HEART EXAMINATION: Irregular rate and rhythm. S1, S2 heard. No murmurs, gallops or rub. ABDOMEN: Soft, nontender. Positive bowel sounds. EXTREMITIES: 2+ peripheral pulses, no lower extremity edema and no calf tenderness. NEUROLOGIC EXAMINATION: Patient is awake, alert and oriented x3. ASSESSMENT 1. Acute GI bleed status post exploratory laparotomy and PRBCs transfusion 2. Paroxysmal atrial fibrillation currently A. fib with mild RVR 3. Hypertension 4. Status post watchman procedure 5. Anemia PLAN Patient having some symptoms, much of which appear more related to anxiety with heart rates relatively similar in the 100 to 1:15 range. Increase Toprol to 100 and monitor response. If heart rate still not better by noon likely add additional 25 or 50 mg pending blood pressure. If heart rate is better controlled may consider discharge home later today. Continue to hold antiplatelets however ideally restart in next 3-4 weeks if hemoglobin stable given some risk of thromboembolism from watchman however watchman was approximate 4-5 years ago. Objective - Vital Signs Vital signs: Vital Signs Temp 99.0 F 05/25/22 00:00 Pulse 107 H 05/25/22 07:00 Resp 19 05/25/22 07:00 BP 126/60 05/25/22 07:00 Pulse Ox 93 L 05/25/22 07:00 FiO2 21 05/20/22 19:45 Intake & Output 05/24/22 05/25/22 05/25/22 18:59 06:59 18:59 Intake Total 1000 360 Output Total 610 695 85 Balance 390 -335 -85 Weight 78 kg Intake: IV 800 360 Cefepime 2 gm In Sodium 200 100 Chloride 0.9% 100 ml @ 25 mls/hr IVPB Q8HR [facility] Rx# :[id number] Fluconazole in NaCl,Iso- 100 Osm 200 mg In Saline 1 100ml.bag @ 100 mls/hr IVPB Q24H [facility] Rx#: [id number] Lactated Ringers 1,000 ml 200 160 @ 20 mls/hr IV .Q24H [facility] Rx#:[id number] Magnesium Sulfate-D5w Pmx 100 1 gm In Dextrose/Water 1 100ml.bag @ 100 mls/hr IVPB Q1H [facility] Rx#: [id number] metroNIDAZOLE-NS PMX 500 200 100 mg In Saline 1 100ml.bag @ 100 mls/hr IVPB Q8HR [facility] Rx#:[id number] Oral 200 Output: Drainage 40 40 40 Right Abdomen 40 40 40 Urine 570 655 45 Other: Voiding Method Indwelling Catheter Indwelling Catheter - Labs CBC & Chem 7: 05/25/22 04:05 05/25/22 04:05 Labs: Abnormal Lab Results - Last 24 Hours (Table) 05/24/22 05/24/22 05/24/22 Range/Units 11:36 16:31 20:00 RBC (3.80-5.40) m/uL Hgb (11.4-16.0) gm/dL Hct (34.0-46.0) % RDW (11.5-15.5) % Lymphocytes # (1.0-4.8) k/uL Sodium (137-145) mmol/L Potassium (3.5-5.1) mmol/L BUN (7-17) mg/dL Glucose (74-99) mg/dL POC Glucose (mg/dL) 165 H 170 H 231 H (70-110) mg/dL Calcium (8.4-10.2) mg/dL 05/25/22 05/25/22 05/25/22 Range/Units 04:05 04:05 05:02 RBC 2.57 L (3.80-5.40) m/uL Hgb 7.7 L (11.4-16.0) gm/dL Hct 23.2 L (34.0-46.0) % RDW 18.6 H (11.5-15.5) % Lymphocytes # 0.7 L (1.0-4.8) k/uL Sodium 134 L (137-145) mmol/L Potassium 3.3 L (3.5-5.1) mmol/L BUN 5 L (7-17) mg/dL Glucose 114 H (74-99) mg/dL POC Glucose (mg/dL) 143 H (70-110) mg/dL Calcium 7.4 L (8.4-10.2) mg/dL 05/25/22 Range/Units 06:51 RBC (3.80-5.40) m/uL Hgb (11.4-16.0) gm/dL Hct (34.0-46.0) % RDW (11.5-15.5) % Lymphocytes # (1.0-4.8) k/uL Sodium (137-145) mmol/L Potassium (3.5-5.1) mmol/L BUN (7-17) mg/dL Glucose (74-99) mg/dL POC Glucose (mg/dL) 148 H (70-110) mg/dL Calcium (8.4-10.2) mg/dL Microbiology - Last 24 Hours (Table) 05/20/22 11:15 Blood Culture - Preliminary Blood No Growth after 96 hours
[2022-05-25] MEDS: PANTOPRAZOLE 40 MG/10 ML VIAL IVP SCH ×2 (09:19→20:07)
[2022-05-25 09:25] VITALS: BMI 31.4
[2022-05-25] MEDS ORDERED: ENOXAPARIN 40 MG/0.4 ML SYRINGE SQ SCH (09:45)
--- NOTE | 2022-05-25 11:04 | P.PN ---
Progress Note - Text Progress Note Date: 05/25/22 The patient remains stable. She has been advanced to regular diet. There is no sign of GI bleed. Her hemoglobin is 7.7. On exam vital signs appear stable. Abdomen soft. Incisions clean dry intact. Status post repair of duodenal ulcer. Patient can receive supportive care.
--- NOTE | 2022-05-25 11:51 | P.PN ---
Subjective Progress Note Date: 05/25/22 Principal diagnosis: Acute upper GI bleeding secondary to duodenal ulcer On 05/20/2022, the patient is extubated and the patient is currently sitting up on a chair. NG tube is in place. She was having some gastric output and earlier this morning shows also producing some minimal amount of bloody output from the NG. She drops her hemoglobin down to 7.8 and the patient will be given units of packed RBC per surgical recommendation. He remains nothing by mouth. JAYASHREE drain is in place. Output has been 40 mL over the past 8 hours and the patient is on 2 L O2 nasal cannula. She remains on lactated Ringer at the rate of 100 mL an hour. Overall fluid balance +1.5 L over the past 24 hours. The patient's hemoglobin is at 7.8 with a white cell count of 8.7. Bicarb was 23 B UN is 12 creatinine 0.6. She remains on 2 L of oxygen by nasal cannula. Her cardiac rhythm remains sinus. She is using the incentive spirometer. She is falling approximately thousand. Reevaluated today on 05/21/22 patient seems to be doing very well today, she is not in any distress. Hemoglobin this morning is 8.1, patient received a unit of packed RBCs yesterday, and she received a total of 4 units since admission continues to have intermittent coffee-ground material through the nasogastric tube, hemodynamically stable, not in distress. She is on 2 L nasal cannula, O2 sats is 96%. She is doing overall quite well Reevaluated today on 05/22/22, patient remains in the ICU, no active GI bleeding noted. Did not require any blood transfusions in the last 24 hours. Hemoglobin is stable. Nonetheless the patient developed atrial fibrillation with RVR, patient was started on Cardizem drip at 10 mg per hour, she was already on beta blockers and she was given metoprolol earlier. Patient will be seen by cardiology on consultation, and apparently she does have history of paroxysmal a trial fibrillation in the past. Patient is on 2 L nasal cannula, O2 saturation is 95%. Her IV fluid is normal saline at 50 mL per hour, and she is presently on Cardizem drip at 10 mg per hour. Nasogastric tube remains in place. And again no active bleeding noted. Reevaluated today on 05/23/22, patient remains in the ICU, no evidence of any active bleeding, her atrial fibrillation seems to be better controlled, rate ranging between 90 up to 100. Hemoglobin is 7.5, did not require any blood transfusion in the last few days. Patient is hemodynamically stable, hence I plan to transfer the patient out of the ICU to a monitor bed on the cardiac floor sometime today if possible. WBC count is 8.6 hemoglobin 7.5 electrolytes are normal renal profile is normal, magnesium is a bit on the low side at 1.5, being corrected Reevaluated today on 05/24/22, patient remains in the ICU as an overflow, she is basically doing well, no evidence of any active bleeding, hemoglobin is stable, patient is not in any distress, she is on room air, and the plan is to either discharge the patient home or possibly transfer to a medical floor. No active pulmonary issues on this patient. And her IV fluids at KVO.CBC is normal hemoglobin is 7.9 electrolytes are normal renal profile is normal. Reevaluated today on 05/25/22, patient continues to do well, hardly any pulmonary symptoms. Her hemoglobin is holding, her atrial fibrillation is being addressed by cardiology, and the dose of her beta alejandro is being increased as she is having intermittent episodes of atrial fibrillation with RVR. Pulmonary- wright doing well, and I will recommend transfer the patient out of the ICU to a monitor bed on selective, we will see the patient on when necessary basis. Objective - Vital Signs Vital signs: Vital Signs Temp 98.4 F 05/25/22 11:15 Pulse 110 H 05/25/22 11:15 Resp 18 05/25/22 11:15 BP 119/81 05/25/22 09:00 Pulse Ox 95 05/25/22 11:15 FiO2 21 05/20/22 19:45 Intake & Output 05/24/22 05/25/22 05/25/22 18:59 06:59 18:59 Intake Total 1000 360 250 Output Total 610 695 235 Balance 390 -335 15 Weight 78 kg 78 kg Intake: IV 800 360 250 Cefepime 2 gm In Sodium 200 100 100 Chloride 0.9% 100 ml @ 25 mls/hr IVPB Q8HR [facility] Rx# :[id number] Fluconazole in NaCl,Iso- 100 Osm 200 mg In Saline 1 100ml.bag @ 100 mls/hr IVPB Q24H [facility] Rx#: [id number] Invasive Line 5 10 Lactated Ringers 1,000 ml 200 160 40 @ 20 mls/hr IV .Q24H [facility] Rx#:[id number] Magnesium Sulfate-D5w Pmx 100 1 gm In Dextrose/Water 1 100ml.bag @ 100 mls/hr IVPB Q1H [facility] Rx#: [id number] metroNIDAZOLE-NS PMX 500 200 100 100 mg In Saline 1 100ml.bag @ 100 mls/hr IVPB Q8HR [facility] Rx#:[id number] Oral 200 Output: Drainage 40 40 60 Right Abdomen 40 40 60 Urine 570 655 175 Other: Voiding Method Indwelling Catheter Indwelling Catheter External Catheter - Exam Physical Exam: Revealed a 77-year-old female in no distress. on room air Head: Atraumatic, normocephalic HEENT:[Neck is supple.] [No neck masses.] [No thyromegaly.] [No JVD.] Chest: [Clear throughout, no crackles, no rhonchi, no wheezes.] Cardiac Exam: Irregular irregular [Normal S1 and S2, no S3 gallop, no murmur.] Abdomen: [Soft, nontender, no megaly, no rebound, no guarding, normal bowel sounds.] Extremities: [No clubbing, no edema, no cyanosis.] Neurological Exam: [No focal neurologic deficit.] Psychiatric: Normal mood affect and normal mental status examination. Skin: No rashes - Labs CBC & Chem 7: 05/25/22 04:05 05/25/22 08:45 Labs: Abnormal Lab Results - Last 24 Hours (Table) 05/24/22 05/24/22 05/25/22 Range/Units 16:31 20:00 04:05 RBC (3.80-5.40) m/uL Hgb (11.4-16.0) gm/dL Hct (34.0-46.0) % RDW (11.5-15.5) % Lymphocytes # (1.0-4.8) k/uL Sodium 134 L (137-145) mmol/L Potassium 3.3 L (3.5-5.1) mmol/L BUN 5 L (7-17) mg/dL Glucose 114 H (74-99) mg/dL POC Glucose (mg/dL) 170 H 231 H (70-110) mg/dL Calcium 7.4 L (8.4-10.2) mg/dL 05/25/22 05/25/22 05/25/22 Range/Units 04:05 05:02 06:51 RBC 2.57 L (3.80-5.40) m/uL Hgb 7.7 L (11.4-16.0) gm/dL Hct 23.2 L (34.0-46.0) % RDW 18.6 H (11.5-15.5) % Lymphocytes # 0.7 L (1.0-4.8) k/uL Sodium (137-145) mmol/L Potassium (3.5-5.1) mmol/L BUN (7-17) mg/dL Glucose (74-99) mg/dL POC Glucose (mg/dL) 143 H 148 H (70-110) mg/dL Calcium (8.4-10.2) mg/dL Microbiology - Last 24 Hours (Table) 05/20/22 11:15 Blood Culture - Preliminary Blood No Growth after 96 hours Assessment and Plan Assessment: Impression: Acute upper GI bleeding secondary to bleeding duodenal ulcer status post exploratory laparotomy and repair of bleeding was an ulcer postoperative day #7 Paroxysmal atrial fibrillation, being followed by cardiology. On metoprolol, dose being increased. Blood loss anemia secondary to above. Resolved. Benign essential hypertension Type 2 diabetes Recommendation: Transfer patient out of the ICU to a monitor bed on the cardiac floor. We will sign off and see as needed Time with Patient: Less than 30
[2022-05-25] MEDS ORDERED: METOPROLOL SUCCINATE (ER) 50 MG TAB.ER.24H PO STA (11:54)
[2022-05-25 12:12] LABS: Glucose,Whole Blood 185 mg/dL (70-110)
--- NOTE | 2022-05-25 15:08 | P.PN ---
Subjective Progress Note Date: 05/25/22 Principal diagnosis: Postop fever Patient is a 77 year female presenting to the hospital with abdominal pain and diarrhea and black stools patient did have EGD with evidence of duodenal ulcer that could not be treated endoscopy status post laparotomy and overseeing of the duodenal ulcer and lysis of adhesion patient subsequently did spike a fever on 05/20/2022. On today's evaluation that is 05/25/2022 patient remains to be afebrile , patient has been moved out of the ICU , patient is breathing comfortably on room air, the patient denies having any chest pain, the patient did have occasional cough but no sputum production, the patient abdominal pain is currently controlled, patient has been tolerating her diet and denies any nausea vomiting or diarrhea Objective - Vital Signs Vital signs: Vital Signs Temp 98.4 F 05/25/22 11:15 Pulse 110 H 05/25/22 11:15 Resp 18 05/25/22 11:15 BP 119/81 05/25/22 09:00 Pulse Ox 95 05/25/22 11:15 FiO2 21 05/20/22 19:45 Intake & Output 05/24/22 05/25/22 05/25/22 18:59 06:59 18:59 Intake Total 1000 360 250 Output Total 610 695 235 Balance 390 -335 15 Weight 78 kg 78 kg Intake: IV 800 360 250 Cefepime 2 gm In Sodium 200 100 100 Chloride 0.9% 100 ml @ 25 mls/hr IVPB Q8HR [facility] Rx# :[id number] Fluconazole in NaCl,Iso- 100 Osm 200 mg In Saline 1 100ml.bag @ 100 mls/hr IVPB Q24H [facility] Rx#: [id number] Invasive Line 5 10 Lactated Ringers 1,000 ml 200 160 40 @ 20 mls/hr IV .Q24H [facility] Rx#:[id number] Magnesium Sulfate-D5w Pmx 100 1 gm In Dextrose/Water 1 100ml.bag @ 100 mls/hr IVPB Q1H [facility] Rx#: [id number] metroNIDAZOLE-NS PMX 500 200 100 100 mg In Saline 1 100ml.bag @ 100 mls/hr IVPB Q8HR [facility] Rx#:[id number] Oral 200 Output: Drainage 40 40 60 Right Abdomen 40 40 60 Urine 570 655 175 Other: Voiding Method Indwelling Catheter Indwelling Catheter External Catheter - Exam GENERAL DESCRIPTION: An elderly female lying in bed in no distress RESPIRATORY SYSTEM: Unlabored breathing , decreased breath sounds at bases HEART: S1 S2 regular rate and rhythm , ABDOMEN: Soft , no tenderness EXTREMITIES: No edema feet - Labs CBC & Chem 7: 05/25/22 04:05 05/25/22 08:45 Labs: Abnormal Lab Results - Last 24 Hours (Table) 05/24/22 05/24/22 05/25/22 Range/Units 16:31 20:00 04:05 RBC (3.80-5.40) m/uL Hgb (11.4-16.0) gm/dL Hct (34.0-46.0) % RDW (11.5-15.5) % Lymphocytes # (1.0-4.8) k/uL Sodium 134 L (137-145) mmol/L Potassium 3.3 L (3.5-5.1) mmol/L BUN 5 L (7-17) mg/dL Glucose 114 H (74-99) mg/dL POC Glucose (mg/dL) 170 H 231 H (70-110) mg/dL Calcium 7.4 L (8.4-10.2) mg/dL 05/25/22 05/25/22 05/25/22 Range/Units 04:05 05:02 06:51 RBC 2.57 L (3.80-5.40) m/uL Hgb 7.7 L (11.4-16.0) gm/dL Hct 23.2 L (34.0-46.0) % RDW 18.6 H (11.5-15.5) % Lymphocytes # 0.7 L (1.0-4.8) k/uL Sodium (137-145) mmol/L Potassium (3.5-5.1) mmol/L BUN (7-17) mg/dL Glucose (74-99) mg/dL POC Glucose (mg/dL) 143 H 148 H (70-110) mg/dL Calcium (8.4-10.2) mg/dL 05/25/22 Range/Units 12:11 RBC (3.80-5.40) m/uL Hgb (11.4-16.0) gm/dL Hct (34.0-46.0) % RDW (11.5-15.5) % Lymphocytes # (1.0-4.8) k/uL Sodium (137-145) mmol/L Potassium (3.5-5.1) mmol/L BUN (7-17) mg/dL Glucose (74-99) mg/dL POC Glucose (mg/dL) 185 H (70-110) mg/dL Calcium (8.4-10.2) mg/dL Microbiology - Last 24 Hours (Table) 05/20/22 11:15 Blood Culture - Preliminary Blood No Growth after 96 hours Assessment and Plan (1) Fever Current Visit: Yes Status: Acute Code(s): R50.9 - FEVER, UNSPECIFIED SNOMED Code(s): 106282597 Plan: 1patient with SIRS in this patient with a low-grade fever and tachycardia more likely related to abdominal source in this patient who did have a bleeding due to none also which could not be treated endoscopy status post laparotomy with lysis of adhesion and oversewing of the bleeding duodenal ulcer will need to cover for the enteric gram-negative both aerobes and anaerobes plus minus yeast 2-patient with a penicillin ALLERGY that would limit the number of antibiotic safety use 3blood culture as well as sputum cultures has been negative 4patient is afebrile and the patient white count is normal, patient will continue with cefepime Flagyl and Diflucan , once her oral intakes improve we will switch her to oral antibiotic Time with Patient: Less than 30
[2022-05-25 16:57] LABS: Glucose,Whole Blood 180 mg/dL (70-110)
[2022-05-25] MEDS: FLUCONAZOLE IN NACL,ISO-OSM 200 MG in SALINE 1 100ML.BAG IVPB SCH (17:17)
[2022-05-25] MEDS: LACTATED RINGERS 1,000 ML IV SCH (18:17)
[2022-05-25 19:55] LABS: Glucose,Whole Blood 175 mg/dL (70-110)
[2022-05-26 06:16] LABS: Glucose,Whole Blood 168 mg/dL (70-110)
[2022-05-26] MEDS: INSULIN ASPART (NovoLOG) 100 UNIT/ML VIAL SQ SCH ×7 (06:25→20:57)
[2022-05-26 08:11] LABS: Calcium 7.8 mg/dL (8.4-10.2); Potassium 3.7 mmol/L (3.5-5.1)
[2022-05-26 08:28] LABS: Anisocytosis Slight; Basophils % (A) 1 %; Eosinophils # (A) 0.4 k/uL (0-0.7); Eosinophils % (A) 4 %; HCT 24.9 % (34.0-46.0); Hypochromasia Slight; Lymphocytes # (A) 0.9 k/uL (1.0-4.8); Lymphocytes % (A) 11 %; MCH 29.1 pg (25.0-35.0); MCHC 32.1 g/dL (31.0-37.0); MCV 90.7 fL (80.0-100.0); Mean Platelet Volume 8.7; Monocytes # (A) 0.4 k/uL (0-1.0); Monocytes % (A) 5 %; Neutrophils # (A) 6.3 k/uL (1.3-7.7); Neutrophils % (A) 76 %; Platelet Count 302 k/uL (150-450); RBC 2.74 m/uL (3.80-5.40); RDW 18.8 % (11.5-15.5); WBC 8.3 k/uL (3.8-10.6)
[2022-05-26] MEDS: PANTOPRAZOLE 40 MG/10 ML VIAL IVP SCH ×2 (08:47→19:49)
[2022-05-26] MEDS: MORPHINE SULFATE 2 MG/ML SYRINGE IVP PRN ×2 (08:48→19:49)
[2022-05-26] MEDS: metroNIDAZOLE-NS PMX 500 MG in SALINE 1 100ML.BAG IVPB SCH ×3 (08:49→16:52)
[2022-05-26] MEDS: CEFEPIME 2 GM in SODIUM CHLORIDE 0.9% 100 ML IVPB SCH ×4 (08:49→16:52)
[2022-05-26] MEDS: METOPROLOL SUCCINATE (ER) 50 MG TAB.ER.24H PO SCH (08:49)
[2022-05-26] MEDS: DILTIAZEM ORAL 30 MG TAB PO SCH ×2 (10:29→16:51)
--- NOTE | 2022-05-26 11:14 | P.PN ---
Subjective Progress Note Date: 05/26/22 HISTORY OF PRESENTING ILLNESS Patient is a pleasant 77-year-old female with history of paroxysmal atrial f ibrillation status post watchman procedure approximate 2018, diabetes mellitus type 2, hypertension, GI bleed who presents secondary to GI bleeding. Patient initially had undergone workup and watchman procedure 4 years ago and states she has not had much issues with bleeding since that time. She has only been on aspirin since then. She denies any history of stroke or TIA. Unfortunately she started having bleeding which was unable to be controlled with endoscopy and therefore underwent exploratory laparotomy 05/18 with control of the bleeding. She had been in sinus rhythm on presentation however converted to atrial fibrillation overnight with elevated heart rates in the 120s and 130s. She was placed on Cardizem drip currently at 10 with heart rates in the 100 to 1:15 range. She denies any chest pain or pressure. She does have some difficulty and pain on her left side when she swallows. Currently she is nothing by mouth and not taking any oral medications. She had previously been on Rythmol as well as metoprolol 50 mg once a day however had previously been on Lopressor 25 twice a day. She denies any history of CAD or heart failure. Patient had been following with a certified maintenance welder in [place] however no recent echo or stress test. 05/23 Patient seen and examined. Patient tolerating clear liquid diet. Denies any chest pain or pressure. He remains in A. fib with heart rates 90s to 100s. 05/24 Patient seen and examined. Patient denies any chest pain or pressure. States she feels better overall. No fevers or chills. She does have some increase heart rates up into the 100-110 range and was given 1 dose of IV metoprolol overnight. 05/25 Patient seen and examined. Patient did have some feeling of palpitations and anxiety last night. Heart rates however relatively similar in the 100- 115, 120 range. Her metoprolol had been increased up to 75 mg yesterday. 05/26 During the night, patient had 1 episode of her heart rate jumping up to the 140s for brief period with activity. Heart rate is at 111 bpm. Patient does have palpitations. Toprol-XL was increased 250 mg starting yesterday. Hemoglobin is stable at 8. PHYSICAL EXAMINATION Vital signs reviewed. CONSTITUTIONAL: No apparent distress. HEENT: Head is normocephalic. Pupils are equal, round. Sclerae anicteric. Mucous membranes of the mouth are moist. No JVD. No carotid bruit. CHEST EXAMINATION: Lungs are clear to auscultation. No chest wall tenderness is noted on palpation or with deep breathing. HEART EXAMINATION: Irregular rate and rhythm. S1, S2 heard. No murmurs, gallops or rub. ABDOMEN: Soft, nontender. Positive bowel sounds. EXTREMITIES: 2+ peripheral pulses, no lower extremity edema and no calf tenderness. NEUROLOGIC EXAMINATION: Patient is awake, alert and oriented x3. ASSESSMENT 1. Acute GI bleed status post exploratory laparotomy and PRBCs transfusion 2. Paroxysmal atrial fibrillation currently A. fib with mild RVR 3. Hypertension 4. Status post watchman procedure 5. Anemia PLAN Patient having some symptoms, much of which appear more related to anxiety with heart rates relatively similar in the 100 to 1 with occasional bursts 140 with activity 15 range. Continue increased dose of Toprol-XL 150 mg daily and add Cardizem 30 mg oral every 8 hours Continue to hold antiplatelets however ideally restart in next 3-4 weeks if hemoglobin stable given some risk of thromboembolism from watchman however watchman was approximate 4-5 years ago. Nurse practitioner note has been reviewed, I agree with the documented findings and plan of care. Patient was seen and examined. Objective - Vital Signs Vital signs: Vital Signs Temp 98.1 F 05/25/22 20:00 Pulse 95 05/26/22 00:00 Resp 18 05/26/22 00:00 BP 128/74 05/26/22 00:00 Pulse Ox 94 L 05/26/22 00:00 FiO2 21 05/20/22 19:45 Intake & Output 05/25/22 05/26/22 05/26/22 18:59 06:59 18:59 Intake Total 1082 Output Total 235 30 Balance 847 -30 Weight 78 kg Intake: IV 260 Cefepime 2 gm In Sodium 100 Chloride 0.9% 100 ml @ 25 mls/hr IVPB Q8HR [facility] Rx# :[id number] Invasive Line 5 20 Lactated Ringers 1,000 ml 40 @ 20 mls/hr IV .Q24H [facility] Rx#:[id number] metroNIDAZOLE-NS PMX 500 100 mg In Saline 1 100ml.bag @ 100 mls/hr IVPB Q8HR [facility] Rx#:[id number] Oral 822 Output: Drainage 60 30 Right Abdomen 60 30 Urine 175 Other: Voiding Method External Catheter External Catheter # Bowel Movements 1 - Labs CBC & Chem 7: 05/26/22 07:07 05/26/22 07:07 Labs: Abnormal Lab Results - Last 24 Hours (Table) 05/25/22 05/25/22 05/25/22 Range/Units 12:11 16:56 19:52 RBC (3.80-5.40) m/uL Hgb (11.4-16.0) gm/dL Hct (34.0-46.0) % RDW (11.5-15.5) % Lymphocytes # (1.0-4.8) k/uL Glucose (74-99) mg/dL POC Glucose (mg/dL) 185 H 180 H 175 H (70-110) mg/dL Calcium (8.4-10.2) mg/dL 05/26/22 05/26/22 05/26/22 Range/Units 06:15 07:07 07:07 RBC 2.74 L (3.80-5.40) m/uL Hgb 8.0 L (11.4-16.0) gm/dL Hct 24.9 L (34.0-46.0) % RDW 18.8 H (11.5-15.5) % Lymphocytes # 0.9 L (1.0-4.8) k/uL Glucose 141 H (74-99) mg/dL POC Glucose (mg/dL) 168 H (70-110) mg/dL Calcium 7.8 L (8.4-10.2) mg/dL Microbiology - Last 24 Hours (Table) 05/20/22 11:15 Blood Culture - Preliminary Blood No Growth after 120 hours
[2022-05-26 11:57] LABS: Glucose,Whole Blood 162 mg/dL (70-110)
--- NOTE | 2022-05-26 12:07 | P.PN ---
Progress Note - Text Progress Note Date: 05/26/22 The patient is resting comfortably in her bed. She denies a significant abdominal pain. She is tolerating diet. On exam vital signs are stable. Abdomen soft. Incisions clean dry tach. Status post repair of duodenal ulcer. Patient has no sign of bleeding. Her he will was stable at 8.3.
--- NOTE | 2022-05-26 13:20 | P.PN ---
Subjective Progress Note Date: 05/26/22 Principal diagnosis: Postop fever Patient is a 77 year female presenting to the hospital with abdominal pain and diarrhea and black stools patient did have EGD with evidence of duodenal ulcer that could not be treated endoscopy status post laparotomy and overseeing of the duodenal ulcer and lysis of adhesion patient subsequently did spike a fever on 05/20/2022. On today's evaluation that is 05/26/2022 patient continues to be afebrile , patient is breathing comfortably on room air, the patient denies having any chest pain, the patient did have occasional dry cough, the patient abdominal pain is currently controlled, patient has been tolerating her diet and denies any nausea vomiting or diarrhea Objective - Vital Signs Vital signs: Vital Signs Temp 98.8 F 05/26/22 07:45 Pulse 116 H 05/26/22 07:45 Resp 14 05/26/22 07:45 BP 133/72 05/26/22 07:45 Pulse Ox 95 05/26/22 07:45 FiO2 21 05/20/22 19:45 Intake & Output 05/25/22 05/26/22 05/26/22 18:59 06:59 18:59 Intake Total 1082 240 Output Total 235 30 20 Balance 847 -30 220 Weight 78 kg Intake: IV 260 Cefepime 2 gm In Sodium 100 Chloride 0.9% 100 ml @ 25 mls/hr IVPB Q8HR [facility] Rx# :[id number] Invasive Line 5 20 Lactated Ringers 1,000 ml 40 @ 20 mls/hr IV .Q24H [facility] Rx#:[id number] metroNIDAZOLE-NS PMX 500 100 mg In Saline 1 100ml.bag @ 100 mls/hr IVPB Q8HR [facility] Rx#:[id number] Oral 822 240 Output: Drainage 60 30 20 Right Abdomen 60 30 20 Urine 175 Other: Voiding Method External Catheter External Catheter External Catheter # Bowel Movements 1 - Exam GENERAL DESCRIPTION: An elderly female lying in bed in no distress RESPIRATORY SYSTEM: Unlabored breathing , decreased breath sounds at bases HEART: S1 S2 regular rate and rhythm , ABDOMEN: Soft , no tenderness EXTREMITIES: No edema feet - Labs CBC & Chem 7: 05/26/22 07:07 05/26/22 07:07 Labs: Abnormal Lab Results - Last 24 Hours (Table) 05/25/22 05/25/22 05/26/22 Range/Units 16:56 19:52 06:15 RBC (3.80-5.40) m/uL Hgb (11.4-16.0) gm/dL Hct (34.0-46.0) % RDW (11.5-15.5) % Lymphocytes # (1.0-4.8) k/uL Glucose (74-99) mg/dL POC Glucose (mg/dL) 180 H 175 H 168 H (70-110) mg/dL Calcium (8.4-10.2) mg/dL 05/26/22 05/26/22 05/26/22 Range/Units 07:07 07:07 11:46 RBC 2.74 L (3.80-5.40) m/uL Hgb 8.0 L (11.4-16.0) gm/dL Hct 24.9 L (34.0-46.0) % RDW 18.8 H (11.5-15.5) % Lymphocytes # 0.9 L (1.0-4.8) k/uL Glucose 141 H (74-99) mg/dL POC Glucose (mg/dL) 162 H (70-110) mg/dL Calcium 7.8 L (8.4-10.2) mg/dL Microbiology - Last 24 Hours (Table) 05/20/22 11:15 Blood Culture - Preliminary Blood No Growth after 120 hours Assessment and Plan (1) Fever Current Visit: Yes Status: Acute Code(s): R50.9 - FEVER, UNSPECIFIED SNOMED Code(s): 499108023 Plan: 1patient with SIRS in this patient with a low-grade fever and tachycardia more likely related to abdominal source in this patient who did have a bleeding due to none also which could not be treated endoscopy status post laparotomy with lysis of adhesion and oversewing of the bleeding duodenal ulcer will need to cover for the enteric gram-negative both aerobes and anaerobes plus minus yeast 2-patient with a penicillin ALLERGY that would limit the number of antibiotic safety use 3blood culture as well as sputum cultures has been negative 4patient has shown clinical improvement, the patient is afebrile and the patient white count is normal, patient will continue with cefepime Flagyl and Diflucan and monitor clinical course closely Time with Patient: Less than 30
[2022-05-26 16:30] LABS: Glucose,Whole Blood 167 mg/dL (70-110)
[2022-05-26] MEDS: FLUCONAZOLE IN NACL,ISO-OSM 200 MG in SALINE 1 100ML.BAG IVPB SCH (16:52)
[2022-05-26] MEDS: LACTATED RINGERS 1,000 ML IV SCH (16:56)
[2022-05-26 20:38] LABS: Glucose,Whole Blood 172 mg/dL (70-110)
[2022-05-27] MEDS: DILTIAZEM ORAL 30 MG TAB PO SCH ×3 (00:16→17:45)
[2022-05-27] MEDS: metroNIDAZOLE-NS PMX 500 MG in SALINE 1 100ML.BAG IVPB SCH ×3 (00:16→17:26)
[2022-05-27] MEDS: CEFEPIME 2 GM in SODIUM CHLORIDE 0.9% 100 ML IVPB SCH ×3 (00:16→17:26)
[2022-05-27 06:12] LABS: African American GFR (CKD) >90 (>60 ml/min/1.73 sqM); Anion Gap 10 mmol/L; Blood Urea Nitrogen 6 mg/dL (7-17); Calcium 7.8 mg/dL (8.4-10.2); Carbon Dioxide 22 mmol/L (22-30); Chloride 103 mmol/L (98-107); Glucose 127 mg/dL (74-99); Non-African American GFR(CKD) >90 (>60 ml/min/1.73 sqM); Potassium 3.6 mmol/L (3.5-5.1); Sodium 135 mmol/L (137-145)
[2022-05-27] MEDS: INSULIN ASPART (NovoLOG) 100 UNIT/ML VIAL SQ SCH ×7 (06:12→20:38)
[2022-05-27 06:13] LABS: Glucose,Whole Blood 151 mg/dL (70-110)
[2022-05-27 06:16] LABS: Anisocytosis Slight; Basophils # (A) 0.1 k/uL (0-0.2); Basophils % (A) 1 %; Eosinophils # (A) 0.3 k/uL (0-0.7); Eosinophils % (A) 3 %; HCT 25.2 % (34.0-46.0); HGB 7.9 gm/dL (11.4-16.0); Hypochromasia Slight; Lymphocytes # (A) 0.8 k/uL (1.0-4.8); Lymphocytes % (A) 8 %; MCH 28.2 pg (25.0-35.0); MCHC 31.4 g/dL (31.0-37.0); MCV 89.8 fL (80.0-100.0); Monocytes # (A) 0.5 k/uL (0-1.0); Monocytes % (A) 5 %; Neutrophils # (A) 8.2 k/uL (1.3-7.7); Neutrophils % (A) 81 %; Platelet Count 365 k/uL (150-450); RDW 19.1 % (11.5-15.5); WBC 10.2 k/uL (3.8-10.6)
[2022-05-27] MEDS: PANTOPRAZOLE 40 MG/10 ML VIAL IVP SCH ×2 (08:28→20:39)
[2022-05-27] MEDS: METOPROLOL SUCCINATE (ER) 50 MG TAB.ER.24H PO SCH (08:29)
[2022-05-27] MEDS ORDERED: DILTIAZEM ORAL 30 MG TAB PO STA (09:08)
--- NOTE | 2022-05-27 10:46 | P.PN ---
Subjective Progress Note Date: 05/27/22 HISTORY OF PRESENTING ILLNESS Patient is a pleasant 77-year-old female with history of paroxysmal atrial f ibrillation status post watchman procedure approximate 2017, diabetes mellitus type 2, hypertension, GI bleed who presents secondary to GI bleeding. Patient initially had undergone workup and watchman procedure 4 years ago and states she has not had much issues with bleeding since that time. She has only been on aspirin since then. She denies any history of stroke or TIA. Unfortunately she started having bleeding which was unable to be controlled with endoscopy and therefore underwent exploratory laparotomy 05/18 with control of the bleeding. She had been in sinus rhythm on presentation however converted to atrial fibrillation overnight with elevated heart rates in the 120s and 130s. She was placed on Cardizem drip currently at 10 with heart rates in the 100 to 1:15 range. She denies any chest pain or pressure. She does have some difficulty and pain on her left side when she swallows. Currently she is nothing by mouth and not taking any oral medications. She had previously been on Rythmol as well as metoprolol 50 mg once a day however had previously been on Lopressor 25 twice a day. She denies any history of CAD or heart failure. Patient had been following with a goods layer in [place] however no recent echo or stress test. 05/23 Patient seen and examined. Patient tolerating clear liquid diet. Denies any chest pain or pressure. He remains in A. fib with heart rates 90s to 100s. 05/24 Patient seen and examined. Patient denies any chest pain or pressure. States she feels better overall. No fevers or chills. She does have some increase heart rates up into the 100-110 range and was given 1 dose of IV metoprolol overnight. 05/25 Patient seen and examined. Patient did have some feeling of palpitations and anxiety last night. Heart rates however relatively similar in the 100- 115, 120 range. Her metoprolol had been increased up to 75 mg yesterday. 05/26 During the night, patient had 1 episode of her heart rate jumping up to the 140s for brief period with activity. Heart rate is at 111 bpm. Patient does have palpitations. Toprol-XL was increased 150 mg starting yesterday. Hemoglobin is stable at 8. 05/27 Patient was started on Cardizem 30 mg 3 times daily in addition to her Toprol XL 150 mg. Her heart rate has been running up to 125. Blood pressure 146/82. She is still feeling palpitations. Repeat blood work reveals hemoglobin of 7.9, BUN 6 and creatinine 0.54, potassium 3.6. PHYSICAL EXAMINATION Vital signs reviewed. CONSTITUTIONAL: No apparent distress. HEENT: Head is normocephalic. Pupils are equal, round. Sclerae anicteric. Mucous membranes of the mouth are moist. No JVD. No carotid bruit. CHEST EXAMINATION: Lungs are clear to auscultation. No chest wall tenderness is noted on palpation or with deep breathing. HEART EXAMINATION: Irregular rate and rhythm. S1, S2 heard. No murmurs, gallops or rub. ABDOMEN: Soft, nontender. Positive bowel sounds. EXTREMITIES: 2+ peripheral pulses, no lower extremity edema and no calf tenderness. NEUROLOGIC EXAMINATION: Patient is awake, alert and oriented x3. ASSESSMENT 1. Acute GI bleed status post exploratory laparotomy and PRBCs transfusion 2. Paroxysmal atrial fibrillation currently A. fib with mild RVR 3. Hypertension 4. Status post watchman procedure 5. Anemia PLAN Continue increased dose of Toprol-XL 150 mg daily and continue Cardizem increased to 60 mg oral every 8 hours Continue to hold antiplatelets however ideally restart in next 3-4 weeks if he moglobin stable given some risk of thromboembolism from watchman however watchman was approximate 4-5 years ago. Nurse practitioner note has been reviewed, I agree with the documented findings and plan of care. Patient was seen and examined. Objective - Vital Signs Vital signs: Vital Signs Temp 98.8 F 05/27/22 08:00 Pulse 114 H 05/27/22 08:00 Resp 18 05/27/22 08:00 BP 146/82 05/27/22 08:00 Pulse Ox 96 05/27/22 08:00 FiO2 21 05/20/22 19:45 Intake & Output 05/26/22 05/27/22 05/27/22 18:59 06:59 18:59 Intake Total 830 Output Total 30 1000 Balance 800 -1000 Intake: Oral 830 Output: Drainage 30 0 Right Abdomen 30 0 Urine 1000 Other: Voiding Method External Catheter External Catheter External Catheter - Labs CBC & Chem 7: 05/27/22 05:02 05/27/22 05:02 Labs: Abnormal Lab Results - Last 24 Hours (Table) 05/26/22 05/26/22 05/26/22 Range/Units 11:46 16:15 20:24 RBC (3.80-5.40) m/uL Hgb (11.4-16.0) gm/dL Hct (34.0-46.0) % RDW (11.5-15.5) % Neutrophils # (1.3-7.7) k/uL Lymphocytes # (1.0-4.8) k/uL Sodium (137-145) mmol/L BUN (7-17) mg/dL Glucose (74-99) mg/dL POC Glucose (mg/dL) 162 H 167 H 172 H (70-110) mg/dL Calcium (8.4-10.2) mg/dL 05/27/22 05/27/22 05/27/22 Range/Units 05:02 05:02 06:12 RBC 2.80 L (3.80-5.40) m/uL Hgb 7.9 L (11.4-16.0) gm/dL Hct 25.2 L (34.0-46.0) % RDW 19.1 H (11.5-15.5) % Neutrophils # 8.2 H (1.3-7.7) k/uL Lymphocytes # 0.8 L (1.0-4.8) k/uL Sodium 135 L (137-145) mmol/L BUN 6 L (7-17) mg/dL Glucose 127 H (74-99) mg/dL POC Glucose (mg/dL) 151 H (70-110) mg/dL Calcium 7.8 L (8.4-10.2) mg/dL Microbiology - Last 24 Hours (Table) 05/20/22 11:15 Blood Culture - Final Blood No Growth after 144 hours
--- NOTE | 2022-05-27 11:38 | P.PN ---
Subjective Progress Note Date: 05/25/22 Patient is a pleasant thousand 7-year-old female with known history of atrial fibrillation but not on anticoagulation had a watchman procedure in the past came in with the complaints of multiple episodes of natalie blood in the stools. Patient does take Excedrin for migraine. Patient had history of peptic ulcer disease in the past denied any history of aortic sclerosis. Patient denied any abdominal pain. Patient is comparing of lightheadedness generalized weakness and tiredness. The patient's of present hemoglobin is around 10.7. Patient denied any hematemesis. 05/19/2022 Patient is admitted for acute GI bleed, underwent upper GI endoscopy showed a be actively bleeding duodenal ulcer which was then cauterized. Subsequently patient was a taken to or for expiratory laparotomy lysis of adhesions and oversewing of a bleeding duodenal ulcer and patient was subsequently admitted to ICU and patient was intubated overnight patient was extubated today. Patient doesn't really has an NG tube with a greenish brownish discharge patient is bit drowsy. 05/20/2022 Patient is evaluated today in intensive care unit she is postoperative day #2 for exploratory laporatomy lysis of adhesions and oversewing of bleeding duodenal ulcer. Patient has been maintained NPO status strict with NG Tube for decompression and has had brownish in color with about 540 mLs in the canister. During evaluation this morning there was natalie red blood return in the NG tube small amount. Patient continues to report abdominal pain epigastric which is somewhat controlled with IV pain medication. She is awake and alert answering questions however is still drowsy and fatigued. Labs today are showing white count 8.7, hgb 7.8 today dropped from 9.5 yesterday morning. Patient has received 3 units of PRBC's this admission so far. Heart rate has been steadily increasing up into the 120s and maintaining sinus mechanism. Does have history of atrial fibrillation and has not been receiving oral rate control medications. Would consider one time small dose of metoprolol, however if this is an acute bleed would be cautionery to avoid hypotensive episode. She is maintained on IV fluids with lactated ringers at 100 mls per hour. Surgery will be notified of blood in NG tube, further recommendations pending. Sodium improved today 138, potassium 3.7, BUN 12, creatinine 0.90. Blood glucose 170s, calcium 7.1. 05/21/2022 Patient evaluated in the intensive care unit resting in bed. She is postoperative day #3. JAYASHREE drain in place RLQ with serosanguinous drainage. Abdominal pain has improved down to 5/10 states it is less sharp today. Bowels are active, no bowel movement yet. Continues with NG tube with intermittent epis odes of red blood noted in NG tube. Hemoglobin today 8.1. Status post 1 unit of PRBC yesterday. Heart rate is elevated today in the 120s -130s sinus tachycardia rate is regular one exam. She received IV lopressor 2.5 mg around 11 and a second dose was given after lunch. Heart rate is now 107. Continues on IV antibiotics. Cultures pending. Potassium 3.7 today, magnesium 1.1. 05/22/2022 Patient continues to be monitored in intensive care unit, postoperative day #4. NG tube remains with 550 mL output overnight. Reports abdominal pain down to 5/10 and reports as less sharp in nature. No BM yet. Heart rate remained elevated and patient converted into atrial fibrillation. Cardiology was consulte d and pt was placed on IV cardizem. Anticoagulation currently on hold. Hemoglobin today 8.1. Continues with low grade fever t max overnight 99.7. on IV cefepime, IV metronidazole, IV fluconazole. Blood culture remains negative, sputum culture pending. 05/23/2022 Patient is monitored in intensive care unit. NG tube has been discontinued. Diet has been advanced, clear liquid. Continues on IV cardizem and heart rate has improved to 90-100s. Overall abdominal pain continues to improve. She is curre ntly rating pain about a 3/10. She has no gas or no bowel movement, bowel sounds are increasing. Hemoglobin today 7.5, there is no further blood noted in the NG tube. Sodium stable at 134, potassium today 3.3 and magnesium 1.5 and patient will receive supplementation. Continues with intermittent low grade temps 99, blood pressure 121/66, continues on 2L nasal cannula. Oxygen saturation 98%. 05/24/2022 Patient continues to be monitored in intensive care unit, pending a bed on the medical floor. NG tube has been discontinued and she is off oxygen. Abdominal pain continues to improve currently about a 2-3/10. She reports passing some gas this morning, bowel sounds are active. She has been taken off the IV cardizem and continues IVP lopressor as needed for elevated heart rate. On IV cefepime, IV fluconazole, and IV metronidazole. Heart rate 90-100s. Blood pressure 129/97, 93% on room air. Working with physical therapy. Hemoglobin today 7.9, no white count. Sodium 136, potassium 3.3 and magnesium 1.4 which will be replaced. 05/25/2022 Patient is currently lying in bed. Awake alert and oriented 3. No commerce of chest pain. Patient was anxious and had palpitations last night. Heart rate is around 1:15. Cardiology is on board. Metoprolol dose increased to 75 mg. Patient is being continued on antibiotics in the form of cefepime, Flagyl and also on fluconazole. Patient is tolerating oral diet. Hemoglobin is 7.7 today. Laboratory data showed sodium 134, potassium 3.3 which is being replaced and magnesium 1.8 BUN 5 and creatinine 0.5 Review of Systems Constitutional: Reports fatigue, denies fever. Reports anxiety. Cardio vascular: denied any chest pain, palpitations Gastrointestinal: denied any nausea, vomiting, diarrhea, has abdominal pain improving today 08/10. reports passing gas today. Pulmonary: Denied any shortness of breath cough Neurologic: Denied any new focal deficits Generalized weakness. All inpatient medications were reviewed and appropriate changes in these medications as dictated in the interval history and assessment and plan. PHYSICAL EXAMINATION: GENERAL: Alert x 3 continues to be fatigued. HEENT: Pupils are round and equally reacting to light. EOMI. No scleral icterus. Does have conjunctival pallor. Normocephalic, atraumatic. No pharyngeal erythema. No thyromegaly. CARDIOVASCULAR: S1 and S2 present. No murmurs, rubs, or gallops. Tachycardic, regular PULMONARY: Chest is clear to auscultation, no wheezing or crackles. ABDOMEN: Soft, tender, nondistended, normoactive bowel sounds. No palpable organomegaly. Postsurgical abdomen dressing intact. JAYASHREE drain RLQ with serosanguineous drainage. MUSCULOSKELETAL: No joint swelling or deformity. EXTREMITIES: No cyanosis, clubbing, or pedal edema. Generalized peripheral edema. NEUROLOGICAL: More awake and alert no focal weakness. Does have diffuse generalized weaknes. SKIN: No rashes. Assessment and plan -Acute GI bleed : Actively bleeding duodenal ulcer found on EGD, patient is postoperative exploratory laparotomy, lysis of adhesions, and oversewing of duodenal ulcer. Patient will be continued on Protonix. NG tube discontinued, diet advanced to clears. -Anemia from acute blood loss from bleeding duodenal ulcer status post 3 units of PRBCs and today hemoglobin today is 7.9. -Fever with tachycardia possible sepsis likely abdominal source, blood culture is taken, infectious disease has been consulted. -Atrial fibrillation presently not on any anticoagulation patient has paroxysmal A. fib patient had a watchman procedure, converted to atrial fibrillation with RVR improved on IV cardizem. -Type 2 diabetes mellitus and patient will be continued on sliding scale, blood glucose 170s. -History peptic ulcer disease -Migraine for which patient takes Excedrin which can cause peptic ulcer disease DVT prophylaxis: Early ambulation and SCDs GI prophylaxis: Continues on IV protonix Full Code Plan Continue to monitor closely in intensive care unit. NG tube has been d iscontinued and patients diet has been advanced. Hemoglobin stable today. Infectious disease consultation, continue IV antibiotics. Cardiology consultation in place for heart rate control Infectious disease following cultures. Further recommendations pending. PT/OT consult in place. Repeat labs in AM. Objective - Vital Signs Vital signs: Vital Signs Temp 98.9 F 05/25/22 15:15 Pulse 114 H 05/25/22 15:15 Resp 18 05/25/22 15:15 BP 119/81 05/25/22 09:00 Pulse Ox 94 L 05/25/22 15:15 FiO2 21 05/20/22 19:45 Intake & Output 05/25/22 05/25/22 05/26/22 06:59 18:59 06:59 Intake Total 360 1082 Output Total 695 235 Balance -335 847 Weight 78 kg 78 kg Intake: IV 360 260 Cefepime 2 gm In Sodium 100 100 Chloride 0.9% 100 ml @ 25 mls/hr IVPB Q8HR [facility] Rx# :[id number] Invasive Line 5 20 Lactated Ringers 1,000 ml 160 40 @ 20 mls/hr IV .Q24H [facility] Rx#:[id number] metroNIDAZOLE-NS PMX 500 100 100 mg In Saline 1 100ml.bag @ 100 mls/hr IVPB Q8HR [facility] Rx#:[id number] Oral 822 Output: Drainage 40 60 Right Abdomen 40 60 Urine 655 175 Other: Voiding Method Indwelling Catheter External Catheter External Catheter # Bowel Movements 1 - Labs CBC & Chem 7: 12/25/22 05:02 05/27/22 05:02 Labs: Abnormal Lab Results - Last 24 Hours (Table) 05/25/22 05/25/22 05/25/22 Range/Units 04:05 04:05 05:02 RBC 2.57 L (3.80-5.40) m/uL Hgb 7.7 L (11.4-16.0) gm/dL Hct 23.2 L (34.0-46.0) % RDW 18.6 H (11.5-15.5) % Lymphocytes # 0.7 L (1.0-4.8) k/uL Sodium 134 L (137-145) mmol/L Potassium 3.3 L (3.5-5.1) mmol/L BUN 5 L (7-17) mg/dL Glucose 114 H (74-99) mg/dL POC Glucose (mg/dL) 143 H (70-110) mg/dL Calcium 7.4 L (8.4-10.2) mg/dL 05/25/22 05/25/22 05/25/22 Range/Units 06:51 12:11 16:56 RBC (3.80-5.40) m/uL Hgb (11.4-16.0) gm/dL Hct (34.0-46.0) % RDW (11.5-15.5) % Lymphocytes # (1.0-4.8) k/uL Sodium (137-145) mmol/L Potassium (3.5-5.1) mmol/L BUN (7-17) mg/dL Glucose (74-99) mg/dL POC Glucose (mg/dL) 148 H 185 H 180 H (70-110) mg/dL Calcium (8.4-10.2) mg/dL 05/25/22 Range/Units 19:52 RBC (3.80-5.40) m/uL Hgb (11.4-16.0) gm/dL Hct (34.0-46.0) % RDW (11.5-15.5) % Lymphocytes # (1.0-4.8) k/uL Sodium (137-145) mmol/L Potassium (3.5-5.1) mmol/L BUN (7-17) mg/dL Glucose (74-99) mg/dL POC Glucose (mg/dL) 175 H (70-110) mg/dL Calcium (8.4-10.2) mg/dL Microbiology - Last 24 Hours (Table) 05/20/22 11:15 Blood Culture - Preliminary Blood No Growth after 120 hours
--- NOTE | 2022-05-27 11:40 | P.PN ---
Subjective Progress Note Date: 05/26/22 Patient is a pleasant thousand 7-year-old female with known history of atrial fibrillation but not on anticoagulation had a watchman procedure in the past came in with the complaints of multiple episodes of natalie blood in the stools. Patient does take Excedrin for migraine. Patient had history of peptic ulcer disease in the past denied any history of aortic sclerosis. Patient denied any abdominal pain. Patient is comparing of lightheadedness generalized weakness and tiredness. The patient's of present hemoglobin is around 10.7. Patient denied any hematemesis. 05/19/2022 Patient is admitted for acute GI bleed, underwent upper GI endoscopy showed a be actively bleeding duodenal ulcer which was then cauterized. Subsequently patient was a taken to or for expiratory laparotomy lysis of adhesions and oversewing of a bleeding duodenal ulcer and patient was subsequently admitted to ICU and patient was intubated overnight patient was extubated today. Patient doesn't really has an NG tube with a greenish brownish discharge patient is bit drowsy. 05/20/2022 Patient is evaluated today in intensive care unit she is postoperative day #2 for exploratory laporatomy lysis of adhesions and oversewing of bleeding duodenal ulcer. Patient has been maintained NPO status strict with NG Tube for decompression and has had brownish in color with about 540 mLs in the canister. During evaluation this morning there was natalie red blood return in the NG tube small amount. Patient continues to report abdominal pain epigastric which is somewhat controlled with IV pain medication. She is awake and alert answering questions however is still drowsy and fatigued. Labs today are showing white count 8.7, hgb 7.8 today dropped from 9.5 yesterday morning. Patient has received 3 units of PRBC's this admission so far. Heart rate has been steadily increasing up into the 120s and maintaining sinus mechanism. Does have history of atrial fibrillation and has not been receiving oral rate control medications. Would consider one time small dose of metoprolol, however if this is an acute bleed would be cautionery to avoid hypotensive episode. She is maintained on IV fluids with lactated ringers at 100 mls per hour. Surgery will be notified of blood in NG tube, further recommendations pending. Sodium improved today 138, potassium 3.7, BUN 12, creatinine 0.90. Blood glucose 170s, calcium 7.1. 05/21/2022 Patient evaluated in the intensive care unit resting in bed. She is postoperative day #3. JAYASHREE drain in place RLQ with serosanguinous drainage. Abdominal pain has improved down to 5/10 states it is less sharp today. Bowels are active, no bowel movement yet. Continues with NG tube with intermittent epis odes of red blood noted in NG tube. Hemoglobin today 8.1. Status post 1 unit of PRBC yesterday. Heart rate is elevated today in the 120s -130s sinus tachycardia rate is regular one exam. She received IV lopressor 2.5 mg around 11 and a second dose was given after lunch. Heart rate is now 107. Continues on IV antibiotics. Cultures pending. Potassium 3.7 today, magnesium 1.1. 05/22/2022 Patient continues to be monitored in intensive care unit, postoperative day #4. NG tube remains with 550 mL output overnight. Reports abdominal pain down to 5/10 and reports as less sharp in nature. No BM yet. Heart rate remained elevated and patient converted into atrial fibrillation. Cardiology was consulte d and pt was placed on IV cardizem. Anticoagulation currently on hold. Hemoglobin today 8.1. Continues with low grade fever t max overnight 99.7. on IV cefepime, IV metronidazole, IV fluconazole. Blood culture remains negative, sputum culture pending. 05/23/2022 Patient is monitored in intensive care unit. NG tube has been discontinued. Diet has been advanced, clear liquid. Continues on IV cardizem and heart rate has improved to 90-100s. Overall abdominal pain continues to improve. She is curre ntly rating pain about a 3/10. She has no gas or no bowel movement, bowel sounds are increasing. Hemoglobin today 7.5, there is no further blood noted in the NG tube. Sodium stable at 134, potassium today 3.3 and magnesium 1.5 and patient will receive supplementation. Continues with intermittent low grade temps 99, blood pressure 121/66, continues on 2L nasal cannula. Oxygen saturation 98%. 05/24/2022 Patient continues to be monitored in intensive care unit, pending a bed on the medical floor. NG tube has been discontinued and she is off oxygen. Abdominal pain continues to improve currently about a 2-3/10. She reports passing some gas this morning, bowel sounds are active. She has been taken off the IV cardizem and continues IVP lopressor as needed for elevated heart rate. On IV cefepime, IV fluconazole, and IV metronidazole. Heart rate 90-100s. Blood pressure 129/97, 93% on room air. Working with physical therapy. Hemoglobin today 7.9, no white count. Sodium 136, potassium 3.3 and magnesium 1.4 which will be replaced. 05/25/2022 Patient is currently lying in bed. Awake alert and oriented 3. No complaints of chest pain. Patient was anxious and had palpitations last night. Heart rate is around 1:15. Cardiology is on board. Metoprolol dose increased to 75 mg. Patient is being continued on antibiotics in the form of cefepime, Flagyl and also on fluconazole. Patient is tolerating oral diet. Hemoglobin is 7.7 today. Laboratory data showed sodium 134, potassium 3.3 which is being replaced and magnesium 1.8 BUN 5 and creatinine 0.5 05/26/2022 Patient is currently resting in the bed. Awake alert and oriented 3. No complaints of chest pain or shortness of breath. No nausea vomiting abdominal pain or diarrhea. Heart rate is is on 115. Pulse ox 93% on room air. Patient is being continued on antibiotics. Currently on metoprolol XL 150 mg by mouth daily. Cardiology is on board. Laboratory data show WBC 8.3 hemoglobin 8.0 platelets 30 to BUN 8 and creatinine 0.8) potassium 3.7. Review of Systems Constitutional: Reports fatigue, denies fever. Reports anxiety. Cardio vascular: denied any chest pain, palpitations Gastrointestinal: denied any nausea, vomiting, diarrhea, has abdominal pain improving today 08/10. reports passing gas today. Pulmonary: Denied any shortness of breath cough Neurologic: Denied any new focal deficits Generalized weakness. All inpatient medications were reviewed and appropriate changes in these medications as dictated in the interval history and assessment and plan. PHYSICAL EXAMINATION: GENERAL: Alert x 3 continues to be fatigued. HEENT: Pupils are round and equally reacting to light. EOMI. No scleral icterus. Does have conjunctival pallor. Normocephalic, atraumatic. No pharyngeal erythema. No thyromegaly. CARDIOVASCULAR: S1 and S2 present. No murmurs, rubs, or gallops. Tachycardic, regular PULMONARY: Chest is clear to auscultation, no wheezing or crackles. ABDOMEN: Soft, tender, nondistended, normoactive bowel sounds. No palpable organomegaly. Postsurgical abdomen dressing intact. JAYASHREE drain RLQ with seros anguineous drainage. MUSCULOSKELETAL: No joint swelling or deformity. EXTREMITIES: No cyanosis, clubbing, or pedal edema. Generalized peripheral edema. NEUROLOGICAL: More awake and alert no focal weakness. Does have diffuse generalized weaknes. SKIN: No rashes. Assessment and plan -Acute GI bleed : Actively bleeding duodenal ulcer found on EGD, patient is postoperative exploratory laparotomy, lysis of adhesions, and oversewing of duodenal ulcer. Patient will be continued on Protonix. NG tube discontinued, diet advanced to clears. -Anemia from acute blood loss from bleeding duodenal ulcer status post 3 units of PRBCs and today hemoglobin today is 7.9. -Fever with tachycardia possible sepsis likely abdominal source, blood culture is taken, infectious disease has been consulted. -Paroxysmal Atrial fibrillation presently not on any anticoagulation patient has paroxysmal A. fib patient had a watchman procedure, converted to atrial fibrillation with RVR improved on IV cardizem. Changed to by mouth metoprolol XL. -Type 2 diabetes mellitus and patient will be continued on sliding scale, blood glucose 170s. -History peptic ulcer disease -Migraine for which patient takes Excedrin which can cause peptic ulcer disease DVT prophylaxis: Early ambulation and SCDs GI prophylaxis: Continues on IV protonix Full Code Plan Continue to monitor closely in intensive care unit. NG tube has been discontinued and patients diet has been advanced. Hemoglobin stable today. Infectious disease consultation, continue IV antibiotics. Cardiology consultation in place for heart rate control . Metoprolol dose increased. Infectious disease following cultures. Further recommendations pending. PT/OT consult in place. Repeat labs in AM. Objective - Vital Signs Vital signs: Vital Signs Temp 98.2 F 05/26/22 19:56 Pulse 113 H 05/26/22 19:56 Resp 16 05/26/22 19:56 BP 131/65 05/26/22 19:56 Pulse Ox 93 L 05/26/22 19:56 FiO2 21 05/20/22 19:45 Intake & Output 05/26/22 05/26/22 05/27/22 06:59 18:59 06:59 Intake Total 830 Output Total 30 30 Balance -30 800 Intake: Oral 830 Output: Drainage 30 30 Right Abdomen 30 30 Other: Voiding Method External Catheter External Catheter - Labs CBC & Chem 7: 05/27/22 05:02 05/27/22 05:02 Labs: Abnormal Lab Results - Last 24 Hours (Table) 05/26/22 05/26/22 05/26/22 Range/Units 06:15 07:07 07:07 RBC 2.74 L (3.80-5.40) m/uL Hgb 8.0 L (11.4-16.0) gm/dL Hct 24.9 L (34.0-46.0) % RDW 18.8 H (11.5-15.5) % Lymphocytes # 0.9 L (1.0-4.8) k/uL Glucose 141 H (74-99) mg/dL POC Glucose (mg/dL) 168 H (70-110) mg/dL Calcium 7.8 L (8.4-10.2) mg/dL 05/26/22 05/26/22 Range/Units 11:46 16:15 RBC (3.80-5.40) m/uL Hgb (11.4-16.0) gm/dL Hct (34.0-46.0) % RDW (11.5-15.5) % Lymphocytes # (1.0-4.8) k/uL Glucose (74-99) mg/dL POC Glucose (mg/dL) 162 H 167 H (70-110) mg/dL Calcium (8.4-10.2) mg/dL Microbiology - Last 24 Hours (Table) 05/20/22 11:15 Blood Culture - Final Blood No Growth after 144 hours
[2022-05-27 11:50] LABS: Glucose,Whole Blood 199 mg/dL (70-110)
--- NOTE | 2022-05-27 11:56 | P.PN ---
Progress Note - Text Progress Note Date: 05/27/22 The patient's resting comfortably in her bed. She denies any significant pain. She is tolerating her diet. Her hemoglobin 7.9. On exam vital signs are stable. Abdomen is soft. Incision is clean dry tach. Status post repair of bleeding duodenal ulcer. Patient will continue receive supportive care.
--- NOTE | 2022-05-27 14:02 | P.PN ---
Subjective Progress Note Date: 05/27/22 Principal diagnosis: Postop fever Patient is a 77 year female presenting to the hospital with abdominal pain and diarrhea and black stools patient did have EGD with evidence of duodenal ulcer that could not be treated endoscopy status post laparotomy and overseeing of the duodenal ulcer and lysis of adhesion patient subsequently did spike a fever on 05/20/2022. On today's evaluation that is 05/27/2022 patient denies any fever or chills , patient is breathing comfortably on room air, the patient denies chest pain, the patient denies any cough or sputum production, the patient abdominal pain is currently controlled, patient has been tolerating her diet and wants real food, denies any nausea vomiting or diarrhea Objective - Vital Signs Vital signs: Vital Signs Temp 98.7 F 05/27/22 12:00 Pulse 114 H 05/27/22 12:26 Resp 18 05/27/22 12:26 BP 132/79 05/27/22 12:00 Pulse Ox 97 05/27/22 12:00 FiO2 21 05/20/22 19:45 Intake & Output 05/26/22 05/27/22 05/27/22 18:59 06:59 18:59 Intake Total 830 Output Total 30 1000 Balance 800 -1000 Intake: Oral 830 Output: Drainage 30 0 Right Abdomen 30 0 Urine 1000 Other: Voiding Method External Catheter External Catheter External Catheter - Exam GENERAL DESCRIPTION: An elderly female lying in bed in no distress RESPIRATORY SYSTEM: Unlabored breathing , decreased breath sounds at bases HEART: S1 S2 regular rate and rhythm , ABDOMEN: Soft , no tenderness EXTREMITIES: No edema feet - Labs CBC & Chem 7: 05/27/22 05:02 05/27/22 05:02 Labs: Abnormal Lab Results - Last 24 Hours (Table) 05/26/22 05/26/22 05/27/22 Range/Units 16:15 20:24 05:02 RBC 2.80 L (3.80-5.40) m/uL Hgb 7.9 L (11.4-16.0) gm/dL Hct 25.2 L (34.0-46.0) % RDW 19.1 H (11.5-15.5) % Neutrophils # 8.2 H (1.3-7.7) k/uL Lymphocytes # 0.8 L (1.0-4.8) k/uL Sodium (137-145) mmol/L BUN (7-17) mg/dL Glucose (74-99) mg/dL POC Glucose (mg/dL) 167 H 172 H (70-110) mg/dL Calcium (8.4-10.2) mg/dL 05/27/22 05/27/22 05/27/22 Range/Units 05:02 06:12 11:47 RBC (3.80-5.40) m/uL Hgb (11.4-16.0) gm/dL Hct (34.0-46.0) % RDW (11.5-15.5) % Neutrophils # (1.3-7.7) k/uL Lymphocytes # (1.0-4.8) k/uL Sodium 135 L (137-145) mmol/L BUN 6 L (7-17) mg/dL Glucose 127 H (74-99) mg/dL POC Glucose (mg/dL) 151 H 199 H (70-110) mg/dL Calcium 7.8 L (8.4-10.2) mg/dL Microbiology - Last 24 Hours (Table) 05/20/22 11:15 Blood Culture - Final Blood No Growth after 144 hours Assessment and Plan (1) Fever Current Visit: Yes Status: Acute Code(s): R50.9 - FEVER, UNSPECIFIED SNOMED Code(s): 070177189 Plan: 1patient with SIRS in this patient with a low-grade fever and tachycardia more likely related to abdominal source in this patient who did have a bleeding due to none also which could not be treated endoscopy status post laparotomy with lysis of adhesion and oversewing of the bleeding duodenal ulcer will need to cover for the enteric gram-negative both aerobes and anaerobes plus minus yeast 2-patient with a penicillin ALLERGY that would limit the number of antibiotic safety use 3blood culture as well as sputum cultures has been negative 4patient continued to show clinical improvement, the patient is afebrile and the patient white count is normal, patient will continue with cefepime Flagyl and Diflucan and transitioned to oral antibiotic once her oral intake improves Time with Patient: Less than 30
[2022-05-27 16:51] LABS: Glucose,Whole Blood 269 mg/dL (70-110)
[2022-05-27] MEDS: DILTIAZEM ORAL 60 MG TAB PO SCH ×2 (17:26→20:55)
[2022-05-27] MEDS: FLUCONAZOLE IN NACL,ISO-OSM 200 MG in SALINE 1 100ML.BAG IVPB SCH (17:26)
[2022-05-27 20:26] LABS: Glucose,Whole Blood 216 mg/dL (70-110)
[2022-05-27] MEDS: MORPHINE SULFATE 2 MG/ML SYRINGE IVP PRN (20:39)
[2022-05-28] MEDS: CEFEPIME 2 GM in SODIUM CHLORIDE 0.9% 100 ML IVPB SCH ×2 (00:03→09:03)
[2022-05-28] MEDS: metroNIDAZOLE-NS PMX 500 MG in SALINE 1 100ML.BAG IVPB SCH ×2 (00:03→09:03)
[2022-05-28] MEDS: LACTATED RINGERS 1,000 ML IV SCH (00:04)
[2022-05-28] MEDS: INSULIN ASPART (NovoLOG) 100 UNIT/ML VIAL SQ SCH ×7 (06:28→21:15)
[2022-05-28] MEDS: PANTOPRAZOLE 40 MG/10 ML VIAL IVP SCH (09:03)
[2022-05-28] MEDS: METOPROLOL SUCCINATE (ER) 50 MG TAB.ER.24H PO SCH (09:04)
[2022-05-28] MEDS: DILTIAZEM ORAL 60 MG TAB PO SCH ×3 (09:11→21:27)
[2022-05-28] MEDS ORDERED: FUROSEMIDE 10 MG/ML 4 ML VIAL IV STA (10:58)
[2022-05-28 11:32] LABS: Glucose,Whole Blood 187 mg/dL (70-110)
--- NOTE | 2022-05-28 12:07 | P.PN ---
Progress Note - Text Progress Note Date: 05/28/22 Patient feels well. She is tolerating diet. On exam vital signs are stable. Abdomen is soft. Incision is clean dry intact. JAYASHREE drain has minimal output. Status post repair of duodenal ulcer. Patient will have her JAYASHREE drain removed today. She is stable for discharge from a surgical standpoint.
--- NOTE | 2022-05-28 12:59 | P.PN ---
Subjective Progress Note Date: 05/28/22 HISTORY OF PRESENTING ILLNESS Patient is a pleasant 77-year-old female with history of paroxysmal atrial f ibrillation status post watchman procedure approximate 2018, diabetes mellitus type 2, hypertension, GI bleed who presents secondary to GI bleeding. Patient initially had undergone workup and watchman procedure 4 years ago and states she has not had much issues with bleeding since that time. She has only been on aspirin since then. She denies any history of stroke or TIA. Unfortunately she started having bleeding which was unable to be controlled with endoscopy and therefore underwent exploratory laparotomy 05/18 with control of the bleeding. She had been in sinus rhythm on presentation however converted to atrial fibrillation overnight with elevated heart rates in the 120s and 130s. She was placed on Cardizem drip currently at 10 with heart rates in the 100 to 1:15 range. She denies any chest pain or pressure. She does have some difficulty and pain on her left side when she swallows. Currently she is nothing by mouth and not taking any oral medications. She had previously been on Rythmol as well as metoprolol 50 mg once a day however had previously been on Lopressor 25 twice a day. She denies any history of CAD or heart failure. Patient had been following with a [facility] in [place] however no recent echo or stress test. 05/23 Patient seen and examined. Patient tolerating clear liquid diet. Denies any chest pain or pressure. He remains in A. fib with heart rates 90s to 100s. 05/24 Patient seen and examined. Patient denies any chest pain or pressure. States she feels better overall. No fevers or chills. She does have some increase heart rates up into the 100-110 range and was given 1 dose of IV metoprolol overnight. 05/25 Patient seen and examined. Patient did have some feeling of palpitations and anxiety last night. Heart rates however relatively similar in the 100- 115, 120 range. Her metoprolol had been increased up to 75 mg yesterday. 05/26 During the night, patient had 1 episode of her heart rate jumping up to the 140s for brief period with activity. Heart rate is at 111 bpm. Patient does have palpitations. Toprol-XL was increased 150 mg starting yesterday. Hemoglobin is stable at 8. 05/27 Patient was started on Cardizem 30 mg 3 times daily in addition to her Toprol XL 150 mg. Her heart rate has been running up to 125. Blood pressure 146/82. She is still feeling palpitations. Repeat blood work reveals hemoglobin of 7.9, BUN 6 and creatinine 0.54, potassium 3.6. 05/28 Patient's heart rates running between 90 and 100 which is improving. 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 She is complaining of lower extremity edema. Regarding her surgery, patient is doing well, she is currently on a regular diet and tolerating. She denies having any chest pain or shortness of breath. One dose of IV Lasix ordered. PHYSICAL EXAMINATION Vital signs reviewed. CONSTITUTIONAL: No apparent distress. HEENT: Head is normocephalic. Pupils are equal, round. Sclerae anicteric. Mucous membranes of the mouth are moist. No JVD. No carotid bruit. CHEST EXAMINATION: Lungs are clear to auscultation. No chest wall tenderness is noted on palpation or with deep breathing. HEART EXAMINATION: Irregular rate and rhythm. S1, S2 heard. No murmurs, gallops or rub. ABDOMEN: Soft, nontender. Positive bowel sounds. EXTREMITIES: 2+ peripheral pulses, 1+ lower extremity edema and no calf tenderness. NEUROLOGIC EXAMINATION: Patient is awake, alert and oriented x3. ASSESSMENT 1. Acute GI bleed status post exploratory laparotomy and PRBCs transfusion 2. Paroxysmal atrial fibrillation currently A. fib with RVR 3. Hypertension 4. Status post watchman procedure 5. Anemia PLAN Continue increased dose of Toprol-XL 150 mg daily and continue Cardizem increased to 60 mg oral every 8 hours Continue to hold antiplatelets however ideally restart in next 3-4 weeks if hemoglobin stable given some risk of thromboembolism from watchman however watchman was approximate 4-5 years ago. One dose of IV Lasix and IV fluids discontinued Further recommendations as patient progresses. Nurse practitioner note has been reviewed, I agree with the documented findings and plan of care. Patient was seen and examined. Objective - Vital Signs Vital signs: Vital Signs Temp 98.1 F 05/28/22 07:20 Pulse 91 05/28/22 07:20 Resp 15 05/28/22 07:20 BP 101/70 05/28/22 07:20 Pulse Ox 97 05/28/22 07:20 FiO2 21 05/20/22 19:45 Intake & Output 05/27/22 05/28/22 05/28/22 18:59 06:59 18:59 Output Total 500 0 Balance -500 0 Output: Drainage 0 Right Abdomen 0 Urine 500 Other: Voiding Method External Catheter # Voids 2 - Labs CBC & Chem 7: 05/27/22 05:02 05/27/22 05:02 Labs: Abnormal Lab Results - Last 24 Hours (Table) 05/27/22 05/27/22 05/27/22 Range/Units 11:47 16:49 20:23 POC Glucose (mg/dL) 199 H 269 H 216 H (70-110) mg/dL
--- NOTE | 2022-05-28 14:18 | P.PN ---
Subjective Progress Note Date: 05/28/22 Principal diagnosis: Postop fever Patient is a 77 year female presenting to the hospital with abdominal pain and diarrhea and black stools patient did have EGD with evidence of duodenal ulcer that could not be treated endoscopy status post laparotomy and overseeing of the duodenal ulcer and lysis of adhesion patient subsequently did spike a fever on 05/20/2022. On today's evaluation that is 05/28/2022 patient remains to be febrile , patient is breathing comfortably on room air, the patient denies chest pain, the patient did have occasional dry cough, the patient abdominal pain is currently controlled, patient has been tolerating a regular diet no nausea no vomiting or diarrhea Objective - Vital Signs Vital signs: Vital Signs Temp 98.1 F 05/28/22 07:20 Pulse 91 05/28/22 07:20 Resp 15 05/28/22 07:20 BP 101/70 05/28/22 07:20 Pulse Ox 97 05/28/22 07:20 FiO2 21 05/20/22 19:45 Intake & Output 05/27/22 05/28/22 05/28/22 18:59 06:59 18:59 Output Total 500 0 Balance -500 0 Output: Drainage 0 Right Abdomen 0 Urine 500 Other: Voiding Method External Catheter # Voids 2 - Exam GENERAL DESCRIPTION: An elderly female lying in bed in no distress RESPIRATORY SYSTEM: Unlabored breathing , decreased breath sounds at bases HEART: S1 S2 regular rate and rhythm , ABDOMEN: Soft , no tenderness EXTREMITIES: No edema feet - Labs CBC & Chem 7: 05/27/22 05:02 05/27/22 05:02 Labs: Abnormal Lab Results - Last 24 Hours (Table) 05/27/22 05/27/22 05/28/22 Range/Units 16:49 20:23 11:31 POC Glucose (mg/dL) 269 H 216 H 187 H (70-110) mg/dL Assessment and Plan (1) Fever Current Visit: Yes Status: Acute Code(s): R50.9 - FEVER, UNSPECIFIED SNOMED Code(s): 720971817 Plan: 1patient with SIRS in this patient with a low-grade fever and tachycardia more likely related to abdominal source in this patient who did have a bleeding due to none also which could not be treated endoscopy status post laparotomy with lysis of adhesion and oversewing of the bleeding duodenal ulcer will need to cover for the enteric gram-negative both aerobes and anaerobes plus minus yeast 2-patient with a penicillin ALLERGY that would limit the number of antibiotic safety use 3blood culture as well as sputum cultures has been negative 4patient has shown clinical improvement, the patient is afebrile and the patient white count is normal, patient has been tolerating her diet we will discontinue cefepime and Flagyl and Diflucan given short course of oral Omnicef and Flagyl Time with Patient: Less than 30
[2022-05-28] MEDS: metroNIDAZOLE 500 MG TAB PO SCH ×2 (16:00→21:14)
[2022-05-28 16:39] LABS: Glucose,Whole Blood 220 mg/dL (70-110)
[2022-05-28 20:35] LABS: Glucose,Whole Blood 252 mg/dL (70-110)
[2022-05-28] MEDS: CEFDINIR 300 MG CAP PO SCH (21:15)
[2022-05-28] MEDS: PANTOPRAZOLE 40 MG TABLET PO SCH (21:15)
[2022-05-28] MEDS: traZODone HCL 100 MG TAB PO SCH (21:27)
[2022-05-29 05:50] LABS: Glucose,Whole Blood 194 mg/dL (70-110)
[2022-05-29 06:03] LABS: Glucose,Whole Blood 182 mg/dL (70-110)
[2022-05-29] MEDS: INSULIN ASPART (NovoLOG) 100 UNIT/ML VIAL SQ SCH ×7 (06:46→20:15)
[2022-05-29] MEDS: PANTOPRAZOLE 40 MG TABLET PO SCH ×2 (06:46→17:33)
--- NOTE | 2022-05-29 08:50 | P.PN ---
Subjective Progress Note Date: 05/29/22 HISTORY OF PRESENTING ILLNESS Patient is a pleasant 77-year-old female with history of paroxysmal atrial f ibrillation status post watchman procedure approximate 2018, diabetes mellitus type 2, hypertension, GI bleed who presents secondary to GI bleeding. Patient initially had undergone workup and watchman procedure 4 years ago and states she has not had much issues with bleeding since that time. She has only been on aspirin since then. She denies any history of stroke or TIA. Unfortunately she started having bleeding which was unable to be controlled with endoscopy and therefore underwent exploratory laparotomy 05/18 with control of the bleeding. She had been in sinus rhythm on presentation however converted to atrial fibrillation overnight with elevated heart rates in the 120s and 130s. She was placed on Cardizem drip currently at 10 with heart rates in the 100 to 1:15 range. She denies any chest pain or pressure. She does have some difficulty and pain on her left side when she swallows. Currently she is nothing by mouth and not taking any oral medications. She had previously been on Rythmol as well as metoprolol 50 mg once a day however had previously been on Lopressor 25 twice a day. She denies any history of CAD or heart failure. Patient had been following with a duralumin metalworker in [place] however no recent echo or stress test. 05/23 Patient seen and examined. Patient tolerating clear liquid diet. Denies any chest pain or pressure. He remains in A. fib with heart rates 90s to 100s. 05/24 Patient seen and examined. Patient denies any chest pain or pressure. States she feels better overall. No fevers or chills. She does have some increase heart rates up into the 100-110 range and was given 1 dose of IV metoprolol overnight. 05/25 Patient seen and examined. Patient did have some feeling of palpitations and anxiety last night. Heart rates however relatively similar in the 100- 115, 120 range. Her metoprolol had been increased up to 75 mg yesterday. 05/26 During the night, patient had 1 episode of her heart rate jumping up to the 140s for brief period with activity. Heart rate is at 111 bpm. Patient does have palpitations. Toprol-XL was increased 150 mg starting yesterday. Hemoglobin is stable at 8. 05/27 Patient was started on Cardizem 30 mg 3 times daily in addition to her Toprol XL 150 mg. Her heart rate has been running up to 125. Blood pressure 146/82. She is still feeling palpitations. Repeat blood work reveals hemoglobin of 7.9, BUN 6 and creatinine 0.54, potassium 3.6. 05/28 Patient's heart rates running between 90 and 100 which is improving. rn acls is atrial fibrillation. She is complaining of lower extremity edema. Regarding her surgery, patient is doing well, she is currently on a regular diet and tolerating. She denies having any chest pain or shortness of breath. One dose of IV Lasix ordered. 05/29 Patient is seen today on the [facility] floor. She is doing well from her abdominal surgery. Drains were removed yesterday. Heart rate has been running 80s to 115. She is currently on Cardizem 60 mg 3 times daily, Toprol-XL 150 mg daily. Blood pressure is 115/71. Echocardiogram will be ordered. PHYSICAL EXAMINATION Vital signs reviewed. CONSTITUTIONAL: No apparent distress. HEENT: Head is normocephalic. Pupils are equal, round. Sclerae anicteric. Mucous membranes of the mouth are moist. No JVD. No carotid bruit. CHEST EXAMINATION: Lungs are clear to auscultation. No chest wall tenderness is noted on palpation or with deep breathing. HEART EXAMINATION: Irregular rate and rhythm. S1, S2 heard. No murmurs, gallops or rub. ABDOMEN: Soft, nontender. Positive bowel sounds. EXTREMITIES: 2+ peripheral pulses, 1+ lower extremity edema and no calf tenderness. NEUROLOGIC EXAMINATION: Patient is awake, alert and oriented x3. ASSESSMENT 1. Acute GI bleed status post exploratory laparotomy and PRBCs transfusion 2. Paroxysmal atrial fibrillation currently A. fib with mild RVR 3. Hypertension 4. Status post watchman procedure 5. Anemia PLAN Continue increased dose of Toprol-XL 150 mg daily and continue Cardizem increased to 60 mg oral every 8 hours Continue to hold antiplatelets however ideally restart in next 3-4 weeks if hemoglobin stable given some risk of thromboembolism from watchman however watchman was approximate 4-5 years ago. Obtain 2-D echocardiogram to assess cardiac structure and function Patient is cleared for discharge with plan for follow-up with Dr. Warren in the office. Nurse practitioner note has been reviewed, I agree with the documented findings and plan of care. Patient was seen and examined. Objective - Vital Signs Vital signs: Vital Signs Temp 97.7 F 05/29/22 07:30 Pulse 100 05/29/22 07:30 Resp 15 05/29/22 07:30 BP 115/71 05/29/22 07:30 Pulse Ox 90 L 05/29/22 07:30 FiO2 21 05/20/22 19:45 Intake & Output 05/28/22 05/29/22 05/29/22 18:59 06:59 18:59 Other: Voiding Method External Catheter # Voids 5 - Labs CBC & Chem 7: 05/27/22 05:02 05/27/22 05:02 Labs: Abnormal Lab Results - Last 24 Hours (Table) 05/28/22 05/28/22 05/28/22 Range/Units 06:01 11:31 16:38 POC Glucose (mg/dL) 182 H 187 H 220 H (70-110) mg/dL 05/28/22 05/29/22 Range/Units 20:32 05:48 POC Glucose (mg/dL) 252 H 194 H (70-110) mg/dL
[2022-05-29 08:57] LABS: Basophils # (A) 0.07 X 10*3/uL (0.00-0.10); Basophils % (A) 0.6 %; Eosinophils # (A) 0.46 X 10*3/uL (0.04-0.35); Eosinophils % (A) 4.3 %; HCT 21.6 % (37.2-46.3); Immature Grans, Automated 1.6 %; Lymphocytes # (A) 0.92 X 10*3/uL (0.90-5.00); Lymphocytes % (A) 8.5 %; MCH 28.6 pg (27.0-32.0); MCHC 32.4 g/dL (32.0-37.0); MCV 88.2 fL (80.0-97.0); Mean Platelet Volume 10.5 fL (9.5-12.2); Monocytes # (A) 0.82 X 10*3/uL (0.20-1.00); Monocytes % (A) 7.6 %; NRBC Per 100 WBC 0.5 /100 WBCS (0.0-0.0); Neutrophils # (A) 8.33 X 10*3/uL (1.80-7.70); Neutrophils % (A) 77.4 %; Platelet Count 400 X 10*3/uL (140-440); RBC 2.45 X 10*6/uL (4.10-5.20); WBC 10.77 X 10*3/uL (4.50-10.00)
[2022-05-29 09:11] LABS: African American GFR (CKD) 102.6 (60.0-200.0); Anion Gap 11.9 mmol/L (10.00-18.00); BUN/Creat Ratio 10.5 Ratio (12.00-20.00); Blood Urea Nitrogen 6.3 mg/dL (9.0-27.0); Calcium 8.1 mg/dL (8.7-10.3); Carbon Dioxide 26.1 mmol/L (20.0-27.5); Non-African American GFR(CKD) 88.5 (60.0-200.0); Potassium 3.2 mmol/L (3.5-5.5)
[2022-05-29] MEDS: METOPROLOL SUCCINATE (ER) 50 MG TAB.ER.24H PO SCH (10:16)
[2022-05-29] MEDS: metroNIDAZOLE 500 MG TAB PO SCH ×3 (10:16→20:15)
[2022-05-29] MEDS: DILTIAZEM ORAL 60 MG TAB PO SCH ×3 (10:17→20:15)
[2022-05-29] MEDS: CEFDINIR 300 MG CAP PO SCH ×2 (10:17→20:15)
[2022-05-29 11:41] LABS: Glucose,Whole Blood 205 mg/dL (70-110)
--- NOTE | 2022-05-29 12:07 | P.PN ---
Subjective Progress Note Date: 05/27/22 Patient is a pleasant thousand 7-year-old female with known history of atrial fibrillation but not on anticoagulation had a watchman procedure in the past came in with the complaints of multiple episodes of natalie blood in the stools. Patient does take Excedrin for migraine. Patient had history of peptic ulcer disease in the past denied any history of aortic sclerosis. Patient denied any abdominal pain. Patient is comparing of lightheadedness generalized weakness and tiredness. The patient's of present hemoglobin is around 10.7. Patient denied any hematemesis. 05/19/2022 Patient is admitted for acute GI bleed, underwent upper GI endoscopy showed a be actively bleeding duodenal ulcer which was then cauterized. Subsequently patient was a taken to or for expiratory laparotomy lysis of adhesions and oversewing of a bleeding duodenal ulcer and patient was subsequently admitted to ICU and patient was intubated overnight patient was extubated today. Patient doesn't really has an NG tube with a greenish brownish discharge patient is bit drowsy. 05/20/2022 Patient is evaluated today in intensive care unit she is postoperative day #2 for exploratory laporatomy lysis of adhesions and oversewing of bleeding duodenal ulcer. Patient has been maintained NPO status strict with NG Tube for decompression and has had brownish in color with about 540 mLs in the canister. During evaluation this morning there was natalie red blood return in the NG tube small amount. Patient continues to report abdominal pain epigastric which is somewhat controlled with IV pain medication. She is awake and alert answering questions however is still drowsy and fatigued. Labs today are showing white count 8.7, hgb 7.8 today dropped from 9.5 yesterday morning. Patient has received 3 units of PRBC's this admission so far. Heart rate has been steadily increasing up into the 120s and maintaining sinus mechanism. Does have history of atrial fibrillation and has not been receiving oral rate control medications. Would consider one time small dose of metoprolol, however if this is an acute bleed would be cautionery to avoid hypotensive episode. She is maintained on IV fluids with lactated ringers at 100 mls per hour. Surgery will be notified of blood in NG tube, further recommendations pending. Sodium improved today 138, potassium 3.7, BUN 12, creatinine 0.90. Blood glucose 170s, calcium 7.1. 05/21/2022 Patient evaluated in the intensive care unit resting in bed. She is postoperative day #3. JAYASHREE drain in place RLQ with serosanguinous drainage. Abdominal pain has improved down to 5/10 states it is less sharp today. Bowels are active, no bowel movement yet. Continues with NG tube with intermittent epis odes of red blood noted in NG tube. Hemoglobin today 8.1. Status post 1 unit of PRBC yesterday. Heart rate is elevated today in the 120s -130s sinus tachycardia rate is regular one exam. She received IV lopressor 2.5 mg around 11 and a second dose was given after lunch. Heart rate is now 107. Continues on IV antibiotics. Cultures pending. Potassium 3.7 today, magnesium 1.1. 05/22/2022 Patient continues to be monitored in intensive care unit, postoperative day #4. NG tube remains with 550 mL output overnight. Reports abdominal pain down to 5/10 and reports as less sharp in nature. No BM yet. Heart rate remained elevated and patient converted into atrial fibrillation. Cardiology was consulte d and pt was placed on IV cardizem. Anticoagulation currently on hold. Hemoglobin today 8.1. Continues with low grade fever t max overnight 99.7. on IV cefepime, IV metronidazole, IV fluconazole. Blood culture remains negative, sputum culture pending. 05/23/2022 Patient is monitored in intensive care unit. NG tube has been discontinued. Diet has been advanced, clear liquid. Continues on IV cardizem and heart rate has improved to 90-100s. Overall abdominal pain continues to improve. She is curre ntly rating pain about a 3/10. She has no gas or no bowel movement, bowel sounds are increasing. Hemoglobin today 7.5, there is no further blood noted in the NG tube. Sodium stable at 134, potassium today 3.3 and magnesium 1.5 and patient will receive supplementation. Continues with intermittent low grade temps 99, blood pressure 121/66, continues on 2L nasal cannula. Oxygen saturation 98%. 05/24/2022 Patient continues to be monitored in intensive care unit, pending a bed on the medical floor. NG tube has been discontinued and she is off oxygen. Abdominal pain continues to improve currently about a 2-3/10. She reports passing some gas this morning, bowel sounds are active. She has been taken off the IV cardizem and continues IVP lopressor as needed for elevated heart rate. On IV cefepime, IV fluconazole, and IV metronidazole. Heart rate 90-100s. Blood pressure 129/97, 93% on room air. Working with physical therapy. Hemoglobin today 7.9, no white count. Sodium 136, potassium 3.3 and magnesium 1.4 which will be replaced. 05/25/2022 Patient is currently lying in bed. Awake alert and oriented 3. No complaints of chest pain. Patient was anxious and had palpitations last night. Heart rate is around 1:15. Cardiology is on board. Metoprolol dose increased to 75 mg. Patient is being continued on antibiotics in the form of cefepime, Flagyl and also on fluconazole. Patient is tolerating oral diet. Hemoglobin is 7.7 today. Laboratory data showed sodium 134, potassium 3.3 which is being replaced and magnesium 1.8 BUN 5 and creatinine 0.5 05/26/2022 Patient is currently resting in the bed. Awake alert and oriented 3. No complaints of chest pain or shortness of breath. No nausea vomiting abdominal pain or diarrhea. Heart rate is is on 115. Pulse ox 93% on room air. Patient is being continued on antibiotics. Currently on metoprolol XL 150 mg by mouth daily. Cardiology is on board. Laboratory data show WBC 8.3 hemoglobin 8.0 platelets 30 to BUN 8 and creatinine 0.8) potassium 3.7. 05/27/22 Patient is currently lying in the bed. Awake alert and oriented 3. No complaints of chest pain or shortness of breath. Heart rate is still elevated. Patient is being continued on Toprol-XL 150 mg and Cardizem 30 mg 3 times a day was initiated. Blood pressure is stable. Still complains of heart racing of fast. Hemoglobin is 7.9 today. Other laboratory data showed WBC 10.2 hemoglobin 7.9 and platelets 365 sodium 134 potassium 3.6 chloride 103 bicarb is 22 review and 6 and creatinine 0.54 and blood sugar is 127. Patient is tolerating oral diet. Denied any complaints of diarrhea. No abdominal pain. Patient is being continued on broad-spectrum antibiotics due to abdominal source of infection. Review of Systems Constitutional: Reports fatigue, denies fever. Reports anxiety. Cardio vascular: denied any chest pain, palpitations Gastrointestinal: denied any nausea, vomiting, diarrhea, has abdominal pain improving today 08/10. reports passing gas today. Pulmonary: Denied any shortness of breath cough Neurologic: Denied any new focal deficits Generalized weakness. All inpatient medications were reviewed and appropriate changes in these medications as dictated in the interval history and assessment and plan. PHYSICAL EXAMINATION: GENERAL: Alert x 3 continues to be fatigued. HEENT: Pupils are round and equally reacting to light. EOMI. No scleral icterus. Does have conjunctival pallor. Normocephalic, atraumatic. No pharyngeal erythema. No thyromegaly. CARDIOVASCULAR: S1 and S2 present. No murmurs, rubs, or gallops. Tachycardic, regular PULMONARY: Chest is clear to auscultation, no wheezing or crackles. ABDOMEN: Soft, tender, nondistended, normoactive bowel sounds. No palpable organomegaly. Postsurgical abdomen dressing intact. JAYASHREE drain RLQ with serosanguineous drainage. MUSCULOSKELETAL: No joint swelling or deformity. EXTREMITIES: No cyanosis, clubbing, or pedal edema. Generalized peripheral edema. NEUROLOGICAL: More awake and alert no focal weakness. Does have diffuse generalized weaknes. SKIN: No rashes. Assessment and plan -Acute GI bleed : Actively bleeding duodenal ulcer found on EGD, patient is postoperative exploratory laparotomy, lysis of adhesions, and oversewing of duodenal ulcer. Patient will be continued on Protonix. NG tube discontinued, diet advanced to clears. -Anemia from acute blood loss from bleeding duodenal ulcer status post 3 units of PRBCs and today hemoglobin today is 7.9. -Fever with tachycardia possible sepsis likely abdominal source, blood culture is taken, infectious disease has been consulted. -Paroxysmal Atrial fibrillation presently not on any anticoagulation patient has paroxysmal A. fib patient had a watchman procedure, converted to atrial fibrillation with RVR improved on IV cardizem. Changed to by mouth metoprolol XL. -Type 2 diabetes mellitus and patient will be continued on sliding scale, blood glucose 170s. -History peptic ulcer disease -Migraine for which patient takes Excedrin which can cause peptic ulcer disease DVT prophylaxis: Early ambulation and SCDs GI prophylaxis: Continues on IV protonix Full Code Plan Continue to monitor closely in intensive care unit. NG tube has been discontinued and patients diet has been advanced. Hemoglobin stable today. I nfectious disease consultation, continue IV antibiotics. Cardiology consultation in place for heart rate control . Metoprolol dose increased. Cardizem was started. Infectious disease following cultures. Further recommendations pending. PT/OT consult in place. Repeat labs in AM. Objective - Vital Signs Vital signs: Vital Signs Temp 98.3 F 05/27/22 20:02 Pulse 99 05/27/22 20:02 Resp 20 05/27/22 20:02 BP 124/79 05/27/22 20:02 Pulse Ox 96 05/27/22 20:02 FiO2 21 05/20/22 19:45 Intake & Output 05/27/22 05/27/22 05/28/22 06:59 18:59 06:59 Output Total 1000 500 Balance -1000 -500 Output: Drainage 0 Right Abdomen 0 Urine 1000 500 Other: Voiding Method External Catheter External Catheter - Labs CBC & Chem 7: 05/29/22 04:24 05/29/22 04:24 Labs: Abnormal Lab Results - Last 24 Hours (Table) 05/27/22 05/27/22 05/27/22 Range/Units 05:02 05:02 06:12 RBC 2.80 L (3.80-5.40) m/uL Hgb 7.9 L (11.4-16.0) gm/dL Hct 25.2 L (34.0-46.0) % RDW 19.1 H (11.5-15.5) % Neutrophils # 8.2 H (1.3-7.7) k/uL Lymphocytes # 0.8 L (1.0-4.8) k/uL Sodium 135 L (137-145) mmol/L BUN 6 L (7-17) mg/dL Glucose 127 H (74-99) mg/dL POC Glucose (mg/dL) 151 H (70-110) mg/dL Calcium 7.8 L (8.4-10.2) mg/dL 05/27/22 05/27/22 05/27/22 Range/Units 11:47 16:49 20:23 RBC (3.80-5.40) m/uL Hgb (11.4-16.0) gm/dL Hct (34.0-46.0) % RDW (11.5-15.5) % Neutrophils # (1.3-7.7) k/uL Lymphocytes # (1.0-4.8) k/uL Sodium (137-145) mmol/L BUN (7-17) mg/dL Glucose (74-99) mg/dL POC Glucose (mg/dL) 199 H 269 H 216 H (70-110) mg/dL Calcium (8.4-10.2) mg/dL
--- NOTE | 2022-05-29 12:09 | P.PN ---
Subjective Progress Note Date: 05/28/22 Patient is a pleasant thousand 7-year-old female with known history of atrial fibrillation but not on anticoagulation had a watchman procedure in the past came in with the complaints of multiple episodes of natalie blood in the stools. Patient does take Excedrin for migraine. Patient had history of peptic ulcer disease in the past denied any history of aortic sclerosis. Patient denied any abdominal pain. Patient is comparing of lightheadedness generalized weakness and tiredness. The patient's of present hemoglobin is around 10.7. Patient denied any hematemesis. 05/19/2022 Patient is admitted for acute GI bleed, underwent upper GI endoscopy showed a be actively bleeding duodenal ulcer which was then cauterized. Subsequently patient was a taken to or for expiratory laparotomy lysis of adhesions and oversewing of a bleeding duodenal ulcer and patient was subsequently admitted to ICU and patient was intubated overnight patient was extubated today. Patient doesn't really has an NG tube with a greenish brownish discharge patient is bit drowsy. 05/20/2022 Patient is evaluated today in intensive care unit she is postoperative day #2 for exploratory laporatomy lysis of adhesions and oversewing of bleeding duodenal ulcer. Patient has been maintained NPO status strict with NG Tube for decompression and has had brownish in color with about 540 mLs in the canister. During evaluation this morning there was natalie red blood return in the NG tube small amount. Patient continues to report abdominal pain epigastric which is somewhat controlled with IV pain medication. She is awake and alert answering questions however is still drowsy and fatigued. Labs today are showing white count 8.7, hgb 7.8 today dropped from 9.5 yesterday morning. Patient has received 3 units of PRBC's this admission so far. Heart rate has been steadily increasing up into the 120s and maintaining sinus mechanism. Does have history of atrial fibrillation and has not been receiving oral rate control medications. Would consider one time small dose of metoprolol, however if this is an acute bleed would be cautionery to avoid hypotensive episode. She is maintained on IV fluids with lactated ringers at 100 mls per hour. Surgery will be notified of blood in NG tube, further recommendations pending. Sodium improved today 138, potassium 3.7, BUN 12, creatinine 0.90. Blood glucose 170s, calcium 7.1. 05/21/2022 Patient evaluated in the intensive care unit resting in bed. She is postoperative day #3. JAYASHREE drain in place RLQ with serosanguinous drainage. Abdominal pain has improved down to 5/10 states it is less sharp today. Bowels are active, no bowel movement yet. Continues with NG tube with intermittent epis odes of red blood noted in NG tube. Hemoglobin today 8.1. Status post 1 unit of PRBC yesterday. Heart rate is elevated today in the 120s -130s sinus tachycardia rate is regular one exam. She received IV lopressor 2.5 mg around 11 and a second dose was given after lunch. Heart rate is now 107. Continues on IV antibiotics. Cultures pending. Potassium 3.7 today, magnesium 1.1. 05/22/2022 Patient continues to be monitored in intensive care unit, postoperative day #4. NG tube remains with 550 mL output overnight. Reports abdominal pain down to 5/10 and reports as less sharp in nature. No BM yet. Heart rate remained elevated and patient converted into atrial fibrillation. Cardiology was consulte d and pt was placed on IV cardizem. Anticoagulation currently on hold. Hemoglobin today 8.1. Continues with low grade fever t max overnight 99.7. on IV cefepime, IV metronidazole, IV fluconazole. Blood culture remains negative, sputum culture pending. 05/23/2022 Patient is monitored in intensive care unit. NG tube has been discontinued. Diet has been advanced, clear liquid. Continues on IV cardizem and heart rate has improved to 90-100s. Overall abdominal pain continues to improve. She is curre ntly rating pain about a 3/10. She has no gas or no bowel movement, bowel sounds are increasing. Hemoglobin today 7.5, there is no further blood noted in the NG tube. Sodium stable at 134, potassium today 3.3 and magnesium 1.5 and patient will receive supplementation. Continues with intermittent low grade temps 99, blood pressure 121/66, continues on 2L nasal cannula. Oxygen saturation 98%. 05/24/2022 Patient continues to be monitored in intensive care unit, pending a bed on the medical floor. NG tube has been discontinued and she is off oxygen. Abdominal pain continues to improve currently about a 2-3/10. She reports passing some gas this morning, bowel sounds are active. She has been taken off the IV cardizem and continues IVP lopressor as needed for elevated heart rate. On IV cefepime, IV fluconazole, and IV metronidazole. Heart rate 90-100s. Blood pressure 129/97, 93% on room air. Working with physical therapy. Hemoglobin today 7.9, no white count. Sodium 136, potassium 3.3 and magnesium 1.4 which will be replaced. 05/25/2022 Patient is currently lying in bed. Awake alert and oriented 3. No complaints of chest pain. Patient was anxious and had palpitations last night. Heart rate is around 1:15. Cardiology is on board. Metoprolol dose increased to 75 mg. Patient is being continued on antibiotics in the form of cefepime, Flagyl and also on fluconazole. Patient is tolerating oral diet. Hemoglobin is 7.7 today. Laboratory data showed sodium 134, potassium 3.3 which is being replaced and magnesium 1.8 BUN 5 and creatinine 0.5 05/26/2022 Patient is currently resting in the bed. Awake alert and oriented 3. No complaints of chest pain or shortness of breath. No nausea vomiting abdominal pain or diarrhea. Heart rate is is on 115. Pulse ox 93% on room air. Patient is being continued on antibiotics. Currently on metoprolol XL 150 mg by mouth daily. Cardiology is on board. Laboratory data show WBC 8.3 hemoglobin 8.0 platelets 30 to BUN 8 and creatinine 0.8) potassium 3.7. 05/27/22 Patient is currently lying in the bed. Awake alert and oriented 3. No complaints of chest pain or shortness of breath. Heart rate is still elevated. Patient is being continued on Toprol-XL 150 mg and Cardizem 30 mg 3 times a day was initiated. Blood pressure is stable. Still complains of heart racing of fast. Hemoglobin is 7.9 today. Other laboratory data showed WBC 10.2 hemoglobin 7.9 and platelets 365 sodium 134 potassium 3.6 chloride 103 bicarb is 22 review and 6 and creatinine 0.54 and blood sugar is 127. Patient is tolerating oral diet. Denied any complaints of diarrhea. No abdominal pain. Patient is being continued on broad-spectrum antibiotics due to abdominal source of infection. 05/04 11/22 patient is lying in bed. Awake alert and oriented 3. Able to get her to the bed today. Patient was given a dose of IV Lasix due to worsening bilateral lower extremity swelling. Heart rate is around 100 today. Currently on metoprolol XL and Cardizem 30 minutes 3 times a day. Cardiology is on board. Patient has been afebrile. Continued on broad-spectrum antibiotics. ID and general surgery is on board. Review of Systems Constitutional: Reports fatigue, denies fever. Reports anxiety. Cardio vascular: denied any chest pain, palpitations Gastrointestinal: denied any nausea, vomiting, diarrhea, has abdominal pain improving today 08/10. reports passing gas today. Pulmonary: Denied any shortness of breath cough Neurologic: Denied any new focal deficits Generalized weakness. All inpatient medications were reviewed and appropriate changes in these medications as dictated in the interval history and assessment and plan. PHYSICAL EXAMINATION: GENERAL: Alert x 3 continues to be fatigued. HEENT: Pupils are round and equally reacting to light. EOMI. No scleral icterus. Does have conjunctival pallor. Normocephalic, atraumatic. No pharyngeal erythema. No thyromegaly. CARDIOVASCULAR: S1 and S2 present. No murmurs, rubs, or gallops. Tachycardic, regular PULMONARY: Chest is clear to auscultation, no wheezing or crackles. ABDOMEN: Soft, tender, nondistended, normoactive bowel sounds. No palpable organomegaly. Postsurgical abdomen dressing intact. JAYASHREE drain RLQ with serosanguineous drainage. MUSCULOSKELETAL: No joint swelling or deformity. EXTREMITIES: No cyanosis, clubbing, or pedal edema. Generalized peripheral edema. NEUROLOGICAL: More awake and alert no focal weakness. Does have diffuse generalized weaknes. SKIN: No rashes. Assessment and plan -Acute GI bleed : Actively bleeding duodenal ulcer found on EGD, patient is postoperative exploratory laparotomy, lysis of adhesions, and oversewing of duodenal ulcer. Patient will be continued on Protonix. NG tube discontinued, diet advanced to clears. -Anemia from acute blood loss from bleeding duodenal ulcer status post 3 units of PRBCs and today hemoglobin today is 7.9. -Fever with tachycardia possible sepsis likely abdominal source, blood culture is taken, infectious disease has been consulted. -Paroxysmal Atrial fibrillation presently not on any anticoagulation patient has paroxysmal A. fib patient had a watchman procedure, converted to atrial fibrillation with RVR improved on IV cardizem. Changed to by mouth metoprolol XL. -Type 2 diabetes mellitus and patient will be continued on sliding scale, blood glucose 170s. -History peptic ulcer disease -Migraine for which patient takes Excedrin which can cause peptic ulcer disease DVT prophylaxis: Early ambulation and SCDs GI prophylaxis: Continues on IV protonix Full Code Plan Continue to monitor closely in intensive care unit. NG tube has been discontinued and patients diet has been advanced. Hemoglobin stable today. Infectious disease consultation, continue IV antibiotics. Cardiology consultation in place for heart rate control . Metoprolol dose increased. Cardizem was started. Patient was given a dose of IV Lasix due to worsening lower extremity swelling. Anemia could be contributing. Infectious disease following cultures. Further recommendations pending. PT/OT consult in place. Repeat labs in AM. Objective - Vital Signs Vital signs: Vital Signs Temp 97.5 F L 05/28/22 18:47 Pulse 80 05/28/22 18:47 Resp 18 05/28/22 18:47 BP 107/66 05/28/22 18:47 Pulse Ox 95 05/28/22 18:47 FiO2 21 05/20/22 19:45 Intake & Output 05/28/22 05/28/22 05/29/22 06:59 18:59 06:59 Output Total 0 Balance 0 Output: Drainage 0 Right Abdomen 0 Other: # Voids 2 - Labs CBC & Chem 7: 05/29/22 04:24 05/29/22 04:24 Labs: Abnormal Lab Results - Last 24 Hours (Table) 05/28/22 05/28/22 05/28/22 Range/Units 11:31 16:38 20:32 POC Glucose (mg/dL) 187 H 220 H 252 H (70-110) mg/dL
[2022-05-29] MEDS ORDERED: POTASSIUM CHLORIDE ER 20 MEQ TAB.ER PO STA (12:56)
--- NOTE | 2022-05-29 13:06 | P.PN ---
Subjective Progress Note Date: 05/29/22 CHIEF COMPLAINT: Duodenal ulcer HISTORY OF PRESENT ILLNESS: Patient is currently in a regular medical floor. She is postop day #11 status post exploratory laparotomy, lysis of adhesions, oversewing of bleeding duodenal ulcer. Patient is tolerating regular diet. She reports no pain. JAYASHREE drain was removed. She denies any nausea or vomiting. She is having bowel movements. Afebrile. WBC 10.77 Hgb is down from 7.9-7.0 platelets 400 sodium is 130 potassium 3.2 creatinine 0.6 They're working on discharging patient to [facility] PHYSICAL EXAM: VITAL SIGNS: Reviewed. GENERAL: Well-developed in no acute distress. HEENT: No sclera icterus. Extraocular movements grossly intact. Moist buccal mucosa. Head is atraumatic, normocephalic. ABDOMEN: Soft. Nondistended. Incision site clean dry and intact NEUROLOGIC: Alert and oriented. Cranial nerves II through XII grossly intact. ASSESSMENT: 1. Duodenal ulcer status post exploratory laparotomy, lysis of adhesions, oversewing of bleeding duodenal ulcer 2. Acute GI bleed secondary to duodenal ulcer 3. Acute blood loss anemia 4. Hypokalemia PLAN: -Patient can be discharged from surgical standpoint when medically cleared -Continue to monitor hemoglobin -Continue Protonix -Continue regular diet -Replace potassium Physician Skills Instructor note has been reviewed by physician. Signing provider agrees with the documented findings, assessment, and plan of care. Objective - Vital Signs Vital signs: Vital Signs Temp 97.7 F 05/29/22 07:30 Pulse 100 05/29/22 07:30 Resp 15 05/29/22 07:30 BP 115/71 05/29/22 07:30 Pulse Ox 90 L 05/29/22 07:30 FiO2 21 05/20/22 19:45 Intake & Output 05/28/22 05/29/22 05/29/22 18:59 06:59 18:59 Weight 78 kg Other: Voiding Method External Catheter # Voids 5 - Labs CBC & Chem 7: 05/29/22 04:24 05/29/22 04:24 Labs: Abnormal Lab Results - Last 24 Hours (Table) 05/28/22 05/28/22 05/28/22 Range/Units 06:01 16:38 20:32 WBC (4.50-10.00) X 10*3/uL RBC (4.10-5.20) X 10*6/uL Hgb (12.0-15.0) g/dL Hct (37.2-46.3) % RDW (11.5-14.5) % Absolute Nucleated RBC (0.00-0.00) X 10*3/uL Immature Gran # (0.00-0.04) X 10*3/uL Neutrophils # (1.80-7.70) X 10*3/uL Eosinophils # (0.04-0.35) X 10*3/uL NRBC/100 WBC Diff (0.0-0.0) /100 WBCS Potassium (3.5-5.5) mmol/L BUN (9.0-27.0) mg/dL BUN/Creatinine Ratio (12.00-20.00) Ratio Glucose (70-110) mg/dL POC Glucose (mg/dL) 182 H 220 H 252 H (70-110) mg/dL Calcium (8.7-10.3) mg/dL 05/29/22 05/29/22 05/29/22 Range/Units 04:24 04:24 05:48 WBC 10.77 H (4.50-10.00) X 10*3/uL RBC 2.45 L (4.10-5.20) X 10*6/uL Hgb 7.0 L (12.0-15.0) g/dL Hct 21.6 L (37.2-46.3) % RDW 21.0 H (11.5-14.5) % Absolute Nucleated RBC 0.05 H (0.00-0.00) X 10*3/uL Immature Gran # 0.17 H (0.00-0.04) X 10*3/uL Neutrophils # 8.33 H (1.80-7.70) X 10*3/uL Eosinophils # 0.46 H (0.04-0.35) X 10*3/uL NRBC/100 WBC Diff 0.5 H (0.0-0.0) /100 WBCS Potassium 3.2 L (3.5-5.5) mmol/L BUN 6.3 L (9.0-27.0) mg/dL BUN/Creatinine Ratio 10.50 L (12.00-20.00) Ratio Glucose 163 H (70-110) mg/dL POC Glucose (mg/dL) 194 H (70-110) mg/dL Calcium 8.1 L (8.7-10.3) mg/dL 05/29/22 Range/Units 11:40 WBC (4.50-10.00) X 10*3/uL RBC (4.10-5.20) X 10*6/uL Hgb (12.0-15.0) g/dL Hct (37.2-46.3) % RDW (11.5-14.5) % Absolute Nucleated RBC (0.00-0.00) X 10*3/uL Immature Gran # (0.00-0.04) X 10*3/uL Neutrophils # (1.80-7.70) X 10*3/uL Eosinophils # (0.04-0.35) X 10*3/uL NRBC/100 WBC Diff (0.0-0.0) /100 WBCS Potassium (3.5-5.5) mmol/L BUN (9.0-27.0) mg/dL BUN/Creatinine Ratio (12.00-20.00) Ratio Glucose (70-110) mg/dL POC Glucose (mg/dL) 205 H (70-110) mg/dL Calcium (8.7-10.3) mg/dL
[2022-05-29] MEDS ORDERED: HYDROcodone/APAP 5-325MG 1 EACH TAB PO PRN (14:39)
--- NOTE | 2022-05-29 15:33 | P.PN ---
Subjective Progress Note Date: 05/29/22 Principal diagnosis: Postop fever Patient is a 77 year female presenting to the hospital with abdominal pain and diarrhea and black stools patient did have EGD with evidence of duodenal ulcer that could not be treated endoscopy status post laparotomy and overseeing of the duodenal ulcer and lysis of adhesion patient subsequently did spike a fever on 05/20/2022. On today's evaluation that is 05/29/2022 patient continues to be febrile , patient is breathing comfortably on room air, the patient denies chest pain, the patient denies any cough or sputum production, the patient abdominal pain has decreased in intensity, patient has been tolerating a regular diet no nausea no vomiting or diarrhea Objective - Vital Signs Vital signs: Vital Signs Temp 97.7 F 05/29/22 07:30 Pulse 100 05/29/22 07:30 Resp 15 05/29/22 07:30 BP 115/71 05/29/22 07:30 Pulse Ox 90 L 05/29/22 07:30 FiO2 21 05/20/22 19:45 Intake & Output 05/28/22 05/29/22 05/29/22 18:59 06:59 18:59 Weight 78 kg Other: Voiding Method External Catheter # Voids 5 - Exam GENERAL DESCRIPTION: An elderly female lying in bed in no distress RESPIRATORY SYSTEM: Unlabored breathing , decreased breath sounds at bases HEART: S1 S2 regular rate and rhythm , ABDOMEN: Soft , no tenderness EXTREMITIES: No edema feet - Labs CBC & Chem 7: 05/29/22 04:24 05/29/22 04:24 Labs: Abnormal Lab Results - Last 24 Hours (Table) 05/28/22 05/28/22 05/28/22 Range/Units 06:01 16:38 20:32 WBC (4.50-10.00) X 10*3/uL RBC (4.10-5.20) X 10*6/uL Hgb (12.0-15.0) g/dL Hct (37.2-46.3) % RDW (11.5-14.5) % Absolute Nucleated RBC (0.00-0.00) X 10*3/uL Immature Gran # (0.00-0.04) X 10*3/uL Neutrophils # (1.80-7.70) X 10*3/uL Eosinophils # (0.04-0.35) X 10*3/uL NRBC/100 WBC Diff (0.0-0.0) /100 WBCS Potassium (3.5-5.5) mmol/L BUN (9.0-27.0) mg/dL BUN/Creatinine Ratio (12.00-20.00) Ratio Glucose (70-110) mg/dL POC Glucose (mg/dL) 182 H 220 H 252 H (70-110) mg/dL Calcium (8.7-10.3) mg/dL 05/29/22 05/29/22 05/29/22 Range/Units 04:24 04:24 05:48 WBC 10.77 H (4.50-10.00) X 10*3/uL RBC 2.45 L (4.10-5.20) X 10*6/uL Hgb 7.0 L (12.0-15.0) g/dL Hct 21.6 L (37.2-46.3) % RDW 21.0 H (11.5-14.5) % Absolute Nucleated RBC 0.05 H (0.00-0.00) X 10*3/uL Immature Gran # 0.17 H (0.00-0.04) X 10*3/uL Neutrophils # 8.33 H (1.80-7.70) X 10*3/uL Eosinophils # 0.46 H (0.04-0.35) X 10*3/uL NRBC/100 WBC Diff 0.5 H (0.0-0.0) /100 WBCS Potassium 3.2 L (3.5-5.5) mmol/L BUN 6.3 L (9.0-27.0) mg/dL BUN/Creatinine Ratio 10.50 L (12.00-20.00) Ratio Glucose 163 H (70-110) mg/dL POC Glucose (mg/dL) 194 H (70-110) mg/dL Calcium 8.1 L (8.7-10.3) mg/dL 05/29/22 Range/Units 11:40 WBC (4.50-10.00) X 10*3/uL RBC (4.10-5.20) X 10*6/uL Hgb (12.0-15.0) g/dL Hct (37.2-46.3) % RDW (11.5-14.5) % Absolute Nucleated RBC (0.00-0.00) X 10*3/uL Immature Gran # (0.00-0.04) X 10*3/uL Neutrophils # (1.80-7.70) X 10*3/uL Eosinophils # (0.04-0.35) X 10*3/uL NRBC/100 WBC Diff (0.0-0.0) /100 WBCS Potassium (3.5-5.5) mmol/L BUN (9.0-27.0) mg/dL BUN/Creatinine Ratio (12.00-20.00) Ratio Glucose (70-110) mg/dL POC Glucose (mg/dL) 205 H (70-110) mg/dL Calcium (8.7-10.3) mg/dL Assessment and Plan (1) Fever Current Visit: Yes Status: Acute Code(s): R50.9 - FEVER, UNSPECIFIED SNOMED Code(s): 768971935 Plan: 1patient with SIRS in this patient with a low-grade fever and tachycardia more likely related to abdominal source in this patient who did have a bleeding due to none also which could not be treated endoscopy status post laparotomy with ly sis of adhesion and oversewing of the bleeding duodenal ulcer will need to cover for the enteric gram-negative both aerobes and anaerobes plus minus yeast 2-patient with a penicillin ALLERGY that would limit the number of antibiotic safety use 3blood culture as well as sputum cultures has been negative 4patient has shown clinical improvement, the patient is afebrile and the patient white count is normal, patient to continue with the short course of oral Omnicef and Flagyl and monitor clinical course closely Time with Patient: Less than 30
[2022-05-29 16:28] LABS: Glucose,Whole Blood 243 mg/dL (70-110)
[2022-05-29 19:49] LABS: Glucose,Whole Blood 261 mg/dL (70-110)
[2022-05-29] MEDS: traZODone HCL 100 MG TAB PO SCH (20:15)
[2022-05-30 02:08] VITALS: TEMP 98
[2022-05-30 05:39] LABS: Anisocytosis Slight; Basophils # (A) 0.1 k/uL (0-0.2); Basophils % (A) 1 %; Eosinophils # (A) 0.5 k/uL (0-0.7); Eosinophils % (A) 6 %; HCT 26.6 % (34.0-46.0); HGB 8.6 gm/dL (11.4-16.0); Hypochromasia Marked; Lymphocytes % (A) 12 %; MCH 29.7 pg (25.0-35.0); MCHC 32.2 g/dL (31.0-37.0); MCV 92.2 fL (80.0-100.0); Mean Platelet Volume 8.6; Monocytes # (A) 0.5 k/uL (0-1.0); Monocytes % (A) 6 %; Neutrophils # (A) 6.2 k/uL (1.3-7.7); Neutrophils % (A) 73 %; Platelet Count 445 k/uL (150-450); RBC 2.89 m/uL (3.80-5.40); RDW 19.1 % (11.5-15.5); WBC 8.4 k/uL (3.8-10.6)
[2022-05-30 06:00] LABS: African American GFR (CKD) >90 (>60 ml/min/1.73 sqM); Anion Gap 5 mmol/L; Blood Urea Nitrogen 8 mg/dL (7-17); Calcium 8.2 mg/dL (8.4-10.2); Carbon Dioxide 29 mmol/L (22-30); Chloride 105 mmol/L (98-107); Glucose 162 mg/dL (74-99); Non-African American GFR(CKD) 87 (>60 ml/min/1.73 sqM); Potassium 4.2 mmol/L (3.5-5.1); Sodium 139 mmol/L (137-145)
[2022-05-30 06:03] LABS: Glucose,Whole Blood 208 mg/dL (70-110)
[2022-05-30] MEDS: INSULIN ASPART (NovoLOG) 100 UNIT/ML VIAL SQ SCH ×4 (06:23→12:28)
[2022-05-30] MEDS: PANTOPRAZOLE 40 MG TABLET PO SCH (06:23)
[2022-05-30 08:02] VITALS: BP 111/70; PULSE 94; RESP 17
[2022-05-30] MEDS ORDERED: MAGNESIUM SULFATE-D5W PMX 1 GM in DEXTROSE/WATER 1 100ML.BAG IVPB SCH ×2 (08:15→12:00)
--- NOTE | 2022-05-30 08:35 | P.PN ---
Subjective Progress Note Date: 05/30/22 HISTORY OF PRESENTING ILLNESS Patient is a pleasant 77-year-old female with history of paroxysmal atrial f ibrillation status post watchman procedure approximate 2018, diabetes mellitus type 2, hypertension, GI bleed who presents secondary to GI bleeding. Patient initially had undergone workup and watchman procedure 4 years ago and states she has not had much issues with bleeding since that time. She has only been on aspirin since then. She denies any history of stroke or TIA. Unfortunately she started having bleeding which was unable to be controlled with endoscopy and therefore underwent exploratory laparotomy 05/18 with control of the bleeding. She had been in sinus rhythm on presentation however converted to atrial fibrillation overnight with elevated heart rates in the 120s and 130s. She was placed on Cardizem drip currently at 10 with heart rates in the 100 to 1:15 range. She denies any chest pain or pressure. She does have some difficulty and pain on her left side when she swallows. Currently she is nothing by mouth and not taking any oral medications. She had previously been on Rythmol as well as metoprolol 50 mg once a day however had previously been on Lopressor 25 twice a day. She denies any history of CAD or heart failure. Patient had been following with a glucose and syrup weigher in [place] however no recent echo or stress test. 05/23 Patient seen and examined. Patient tolerating clear liquid diet. Denies any chest pain or pressure. He remains in A. fib with heart rates 90s to 100s. 05/24 Patient seen and examined. Patient denies any chest pain or pressure. States she feels better overall. No fevers or chills. She does have some increase heart rates up into the 100-110 range and was given 1 dose of IV metoprolol overnight. 05/25 Patient seen and examined. Patient did have some feeling of palpitations and anxiety last night. Heart rates however relatively similar in the 100- 115, 120 range. Her metoprolol had been increased up to 75 mg yesterday. 05/26 During the night, patient had 1 episode of her heart rate jumping up to the 140s for brief period with activity. Heart rate is at 111 bpm. Patient does have palpitations. Toprol-XL was increased 150 mg starting yesterday. Hemoglobin is stable at 8. 05/27 Patient was started on Cardizem 30 mg 3 times daily in addition to her Toprol XL 150 mg. Her heart rate has been running up to 125. Blood pressure 146/82. She is still feeling palpitations. Repeat blood work reveals hemoglobin of 7.9, BUN 6 and creatinine 0.54, potassium 3.6. 05/28 Patient's heart rates running between 90 and 100 which is improving. 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 She is complaining of lower extremity edema. Regarding her surgery, patient is doing well, she is currently on a regular diet and tolerating. She denies having any chest pain or shortness of breath. One dose of IV Lasix ordered. 05/29 Patient is seen today on the [facility] floor. She is doing well from her abdominal surgery. Drains were removed yesterday. Heart rate has been running 80s to 115. She is currently on Cardizem 60 mg 3 times daily, Toprol-XL 150 mg daily. Blood pressure is 115/71. Echocardiogram will be ordered. 05/30 Patient states she is doing very well and is planning to go home today. She denies any shortness of breath, chest pain, palpitations. Heart rate is now running in the 80s. She is off telemetry but continues in atrial fibrillation We will change Cardizem to Cardizem CD and patient does not have Rythmol at discharge. Blood pressure 111/70, pulse ox 93% on room air. Hemoglobin 8.6. Potassium 4.2, BUN 8 and creatinine 0.64. Echocardiogram reveals PHYSICAL EXAMINATION Vital signs reviewed. CONSTITUTIONAL: No apparent distress. HEENT: Head is normocephalic. Pupils are equal, round. Sclerae anicteric. Mucous membranes of the mouth are moist. No JVD. No carotid bruit. CHEST EXAMINATION: Lungs are clear to auscultation. No chest wall tenderness is noted on palpation or with deep breathing. HEART EXAMINATION: Irregular rate and rhythm. S1, S2 heard. No murmurs, gallops or rub. ABDOMEN: Soft, nontender. Positive bowel sounds. EXTREMITIES: 2+ peripheral pulses, no lower extremity edema and no calf tenderness. NEUROLOGIC EXAMINATION: Patient is awake, alert and oriented x3. ASSESSMENT 1. Acute GI bleed status post exploratory laparotomy and PRBCs transfusion 2. Paroxysmal atrial fibrillation currently A. fib with mild RVR 3. Hypertension 4. Status post watchman procedure 5. Anemia PLAN Continue increased dose of Toprol-XL 150 mg daily and continue Cardizem t ransitioned to CD 120 mg daily Patient to be off Rythmol at the time of discharge Continue to hold antiplatelets however ideally restart in next 3-4 weeks if hemoglobin stable given some risk of thromboembolism from watchman however watchman was approximate 4-5 years ago. Patient is cleared for discharge with plan for follow-up with Dr. Warren in the office. Nurse practitioner note has been reviewed, I agree with the documented findings and plan of care. Patient was seen and examined. Objective - Vital Signs Vital signs: Vital Signs Temp 98.0 F 05/30/22 02:00 Pulse 87 05/30/22 02:00 Resp 16 05/30/22 02:00 BP 98/61 05/30/22 02:00 Pulse Ox 94 L 05/30/22 02:00 FiO2 21 05/20/22 19:45 Intake & Output 05/29/22 05/30/22 05/30/22 18:59 06:59 18:59 Weight 78 kg Other: Voiding Method Toilet # Voids 4 - Labs CBC & Chem 7: 05/30/22 04:38 05/30/22 04:38 Labs: Abnormal Lab Results - Last 24 Hours (Table) 05/29/22 05/29/22 05/29/22 Range/Units 04:24 04:24 11:40 WBC 10.77 H (4.50-10.00) X 10*3/uL RBC 2.45 L (4.10-5.20) X 10*6/uL Hgb 7.0 L (12.0-15.0) g/dL Hct 21.6 L (37.2-46.3) % RDW 21.0 H (11.5-14.5) % Absolute Nucleated RBC 0.05 H (0.00-0.00) X 10*3/uL Immature Gran # 0.17 H (0.00-0.04) X 10*3/uL Neutrophils # 8.33 H (1.80-7.70) X 10*3/uL Eosinophils # 0.46 H (0.04-0.35) X 10*3/uL NRBC/100 WBC Diff 0.5 H (0.0-0.0) /100 WBCS Potassium 3.2 L (3.5-5.5) mmol/L BUN 6.3 L (9.0-27.0) mg/dL BUN/Creatinine Ratio 10.50 L (12.00-20.00) Ratio Glucose 163 H (70-110) mg/dL POC Glucose (mg/dL) 205 H (70-110) mg/dL Calcium 8.1 L (8.7-10.3) mg/dL Magnesium (1.6-2.3) mg/dL 05/29/22 05/29/22 05/30/22 Range/Units 16:27 19:47 04:38 WBC (4.50-10.00) X 10*3/uL RBC (4.10-5.20) X 10*6/uL Hgb (12.0-15.0) g/dL Hct (37.2-46.3) % RDW (11.5-14.5) % Absolute Nucleated RBC (0.00-0.00) X 10*3/uL Immature Gran # (0.00-0.04) X 10*3/uL Neutrophils # (1.80-7.70) X 10*3/uL Eosinophils # (0.04-0.35) X 10*3/uL NRBC/100 WBC Diff (0.0-0.0) /100 WBCS Potassium (3.5-5.5) mmol/L BUN (9.0-27.0) mg/dL BUN/Creatinine Ratio (12.00-20.00) Ratio Glucose 162 H (70-110) mg/dL POC Glucose (mg/dL) 243 H 261 H (70-110) mg/dL Calcium 8.2 L (8.7-10.3) mg/dL Magnesium (1.6-2.3) mg/dL 05/30/22 05/30/22 05/30/22 Range/Units 04:38 04:38 06:01 WBC (4.50-10.00) X 10*3/uL RBC 2.89 L (4.10-5.20) X 10*6/uL Hgb 8.6 L (12.0-15.0) g/dL Hct 26.6 L (37.2-46.3) % RDW 19.1 H (11.5-14.5) % Absolute Nucleated RBC (0.00-0.00) X 10*3/uL Immature Gran # (0.00-0.04) X 10*3/uL Neutrophils # (1.80-7.70) X 10*3/uL Eosinophils # (0.04-0.35) X 10*3/uL NRBC/100 WBC Diff (0.0-0.0) /100 WBCS Potassium (3.5-5.5) mmol/L BUN (9.0-27.0) mg/dL BUN/Creatinine Ratio (12.00-20.00) Ratio Glucose (70-110) mg/dL POC Glucose (mg/dL) 208 H (70-110) mg/dL Calcium (8.7-10.3) mg/dL Magnesium 1.5 L (1.6-2.3) mg/dL
[2022-05-30] MEDS ORDERED: DILTIAZEM CD 120 MG CAP.ER.24H PO SCH (09:00)
[2022-05-30] MEDS: metroNIDAZOLE 500 MG TAB PO SCH (09:17)
[2022-05-30] MEDS: METOPROLOL SUCCINATE (ER) 50 MG TAB.ER.24H PO SCH (09:17)
[2022-05-30] MEDS: CEFDINIR 300 MG CAP PO SCH (09:18)
--- NOTE | 2022-05-30 11:10 | P.PN ---
Subjective Progress Note Date: 05/29/22 Patient is a pleasant thousand 7-year-old female with known history of atrial fibrillation but not on anticoagulation had a watchman procedure in the past came in with the complaints of multiple episodes of natalie blood in the stools. Patient does take Excedrin for migraine. Patient had history of peptic ulcer disease in the past denied any history of aortic sclerosis. Patient denied any abdominal pain. Patient is comparing of lightheadedness generalized weakness and tiredness. The patient's of present hemoglobin is around 10.7. Patient denied any hematemesis. 05/19/2022 Patient is admitted for acute GI bleed, underwent upper GI endoscopy showed a be actively bleeding duodenal ulcer which was then cauterized. Subsequently patient was a taken to or for expiratory laparotomy lysis of adhesions and oversewing of a bleeding duodenal ulcer and patient was subsequently admitted to ICU and patient was intubated overnight patient was extubated today. Patient doesn't really has an NG tube with a greenish brownish discharge patient is bit drowsy. 05/20/2022 Patient is evaluated today in intensive care unit she is postoperative day #2 for exploratory laporatomy lysis of adhesions and oversewing of bleeding duodenal ulcer. Patient has been maintained NPO status strict with NG Tube for decompression and has had brownish in color with about 540 mLs in the canister. During evaluation this morning there was natalie red blood return in the NG tube small amount. Patient continues to report abdominal pain epigastric which is somewhat controlled with IV pain medication. She is awake and alert answering questions however is still drowsy and fatigued. Labs today are showing white count 8.7, hgb 7.8 today dropped from 9.5 yesterday morning. Patient has received 3 units of PRBC's this admission so far. Heart rate has been steadily increasing up into the 120s and maintaining sinus mechanism. Does have history of atrial fibrillation and has not been receiving oral rate control medications. Would consider one time small dose of metoprolol, however if this is an acute bleed would be cautionery to avoid hypotensive episode. She is maintained on IV fluids with lactated ringers at 100 mls per hour. Surgery will be notified of blood in NG tube, further recommendations pending. Sodium improved today 138, potassium 3.7, BUN 12, creatinine 0.90. Blood glucose 170s, calcium 7.1. 05/21/2022 Patient evaluated in the intensive care unit resting in bed. She is postoperative day #3. JAYASHREE drain in place RLQ with serosanguinous drainage. Abdominal pain has improved down to 5/10 states it is less sharp today. Bowels are active, no bowel movement yet. Continues with NG tube with intermittent epis odes of red blood noted in NG tube. Hemoglobin today 8.1. Status post 1 unit of PRBC yesterday. Heart rate is elevated today in the 120s -130s sinus tachycardia rate is regular one exam. She received IV lopressor 2.5 mg around 11 and a second dose was given after lunch. Heart rate is now 107. Continues on IV antibiotics. Cultures pending. Potassium 3.7 today, magnesium 1.1. 05/22/2022 Patient continues to be monitored in intensive care unit, postoperative day #4. NG tube remains with 550 mL output overnight. Reports abdominal pain down to 5/10 and reports as less sharp in nature. No BM yet. Heart rate remained elevated and patient converted into atrial fibrillation. Cardiology was consulte d and pt was placed on IV cardizem. Anticoagulation currently on hold. Hemoglobin today 8.1. Continues with low grade fever t max overnight 99.7. on IV cefepime, IV metronidazole, IV fluconazole. Blood culture remains negative, sputum culture pending. 05/23/2022 Patient is monitored in intensive care unit. NG tube has been discontinued. Diet has been advanced, clear liquid. Continues on IV cardizem and heart rate has improved to 90-100s. Overall abdominal pain continues to improve. She is curre ntly rating pain about a 3/10. She has no gas or no bowel movement, bowel sounds are increasing. Hemoglobin today 7.5, there is no further blood noted in the NG tube. Sodium stable at 134, potassium today 3.3 and magnesium 1.5 and patient will receive supplementation. Continues with intermittent low grade temps 99, blood pressure 121/66, continues on 2L nasal cannula. Oxygen saturation 98%. 05/24/2022 Patient continues to be monitored in intensive care unit, pending a bed on the medical floor. NG tube has been discontinued and she is off oxygen. Abdominal pain continues to improve currently about a 2-3/10. She reports passing some gas this morning, bowel sounds are active. She has been taken off the IV cardizem and continues IVP lopressor as needed for elevated heart rate. On IV cefepime, IV fluconazole, and IV metronidazole. Heart rate 90-100s. Blood pressure 129/97, 93% on room air. Working with physical therapy. Hemoglobin today 7.9, no white count. Sodium 136, potassium 3.3 and magnesium 1.4 which will be replaced. 05/25/2022 Patient is currently lying in bed. Awake alert and oriented 3. No complaints of chest pain. Patient was anxious and had palpitations last night. Heart rate is around 1:15. Cardiology is on board. Metoprolol dose increased to 75 mg. Patient is being continued on antibiotics in the form of cefepime, Flagyl and also on fluconazole. Patient is tolerating oral diet. Hemoglobin is 7.7 today. Laboratory data showed sodium 134, potassium 3.3 which is being replaced and magnesium 1.8 BUN 5 and creatinine 0.5 05/26/2022 Patient is currently resting in the bed. Awake alert and oriented 3. No complaints of chest pain or shortness of breath. No nausea vomiting abdominal pain or diarrhea. Heart rate is is on 115. Pulse ox 93% on room air. Patient is being continued on antibiotics. Currently on metoprolol XL 150 mg by mouth daily. Cardiology is on board. Laboratory data show WBC 8.3 hemoglobin 8.0 platelets 30 to BUN 8 and creatinine 0.8) potassium 3.7. 05/27/22 Patient is currently lying in the bed. Awake alert and oriented 3. No complaints of chest pain or shortness of breath. Heart rate is still elevated. Patient is being continued on Toprol-XL 150 mg and Cardizem 30 mg 3 times a day was initiated. Blood pressure is stable. Still complains of heart racing of fast. Hemoglobin is 7.9 today. Other laboratory data showed WBC 10.2 hemoglobin 7.9 and platelets 365 sodium 134 potassium 3.6 chloride 103 bicarb is 22 review and 6 and creatinine 0.54 and blood sugar is 127. Patient is tolerating oral diet. Denied any complaints of diarrhea. No abdominal pain. Patient is being continued on broad-spectrum antibiotics due to abdominal source of infection. 05/04 11/22 patient is lying in bed. Awake alert and oriented 3. Able to get her to the bed today. Patient was given a dose of IV Lasix due to worsening bilateral lower extremity swelling. Heart rate is around 100 today. Currently on metoprolol XL and Cardizem 30 minutes 3 times a day. Cardiology is on board. Patient has been afebrile. Continued on broad-spectrum antibiotics. ID and general surgery is on board. 05/29/2022 Patient is currently lying in the bed. Awake alert and oriented 3. No commerce of chest pain. No nausea vomiting or abdominal pain or diarrhea. Hemoglobin dropped down to 7.0 today. Denied any complains of hematemesis or melena. Patient is on Protonix 40 g twice daily. Follow-up hemoglobin tomorrow. Heart rate is better controlled with Cardizem CD and metoprolol XL. Patient really to follow with cardiology as an outpatient. Anticipate discharge in the next 24 hours with a hemoglobin is stable. Review of Systems Constitutional: Reports fatigue, denies fever. Reports anxiety. Cardio vascular: denied any chest pain, palpitations Gastrointestinal: denied any nausea, vomiting, diarrhea, has abdominal pain improving today 08/10. reports passing gas today. Pulmonary: Denied any shortness of breath cough Neurologic: Denied any new focal deficits Generalized weakness. All inpatient medications were reviewed and appropriate changes in these medications as dictated in the interval history and assessment and plan. PHYSICAL EXAMINATION: GENERAL: Alert x 3 continues to be fatigued. HEENT: Pupils are round and equally reacting to light. EOMI. No scleral icterus. Does have conjunctival pallor. Normocephalic, atraumatic. No pharyngeal erythema. No thyromegaly. CARDIOVASCULAR: S1 and S2 present. No murmurs, rubs, or gallops. Tachycardic, regular PULMONARY: Chest is clear to auscultation, no wheezing or crackles. ABDOMEN: Soft, tender, nondistended, normoactive bowel sounds. No palpable organomegaly. Postsurgical abdomen dressing intact. JAYASHREE drain RLQ with serosanguineous drainage. MUSCULOSKELETAL: No joint swelling or deformity. EXTREMITIES: No cyanosis, clubbing, or pedal edema. Generalized peripheral edema. NEUROLOGICAL: More awake and alert no focal weakness. Does have diffuse generalized weaknes. SKIN: No rashes. Assessment and plan -Acute GI bleed : Actively bleeding duodenal ulcer found on EGD, patient is postoperative exploratory laparotomy, lysis of adhesions, and oversewing of du odenal ulcer. Patient will be continued on Protonix. NG tube discontinued, diet advanced to clears. -Anemia from acute blood loss from bleeding duodenal ulcer status post 3 units of PRBCs and today hemoglobin today is 7.9. -Fever with tachycardia possible sepsis likely abdominal source, blood culture is taken, infectious disease has been consulted. -Paroxysmal Atrial fibrillation presently not on any anticoagulation patient has paroxysmal A. fib patient had a watchman procedure, converted to atrial fibrillation with RVR improved on IV cardizem. Changed to by mouth metoprolol XL. -Type 2 diabetes mellitus and patient will be continued on sliding scale, blood glucose 170s. -History peptic ulcer disease -Migraine for which patient takes Excedrin which can cause peptic ulcer disease DVT prophylaxis: Early ambulation and SCDs GI prophylaxis: Continues on IV protonix Full Code Plan Continue to monitor closely in intensive care unit. NG tube has been discontinued and patients diet has been advanced. Hemoglobin stable today. Infectious disease consultation, continue IV antibiotics. Cardiology consultation in place for heart rate control . Metoprolol dose increased. Cardizem was started. Patient was given a dose of IV Lasix due to worsening lower extremity swelling. Anemia could be contributing. Infectious disease following cultures. Further recommendations pending. PT/OT c onsult in place. Repeat labs in AM. Objective - Vital Signs Vital signs: Vital Signs Temp 98.2 F 05/29/22 20:00 Pulse 72 05/29/22 20:00 Resp 16 05/29/22 20:00 BP 105/65 05/29/22 20:00 Pulse Ox 96 05/29/22 20:00 FiO2 21 05/20/22 19:45 Intake & Output 05/29/22 05/29/22 05/30/22 06:59 18:59 06:59 Weight 78 kg Other: Voiding Method External Catheter # Voids 5 - Labs CBC & Chem 7: 05/30/22 04:38 05/30/22 04:38 Labs: Abnormal Lab Results - Last 24 Hours (Table) 05/28/22 05/29/22 05/29/22 Range/Units 06:01 04:24 04:24 WBC 10.77 H (4.50-10.00) X 10*3/uL RBC 2.45 L (4.10-5.20) X 10*6/uL Hgb 7.0 L (12.0-15.0) g/dL Hct 21.6 L (37.2-46.3) % RDW 21.0 H (11.5-14.5) % Absolute Nucleated RBC 0.05 H (0.00-0.00) X 10*3/uL Immature Gran # 0.17 H (0.00-0.04) X 10*3/uL Neutrophils # 8.33 H (1.80-7.70) X 10*3/uL Eosinophils # 0.46 H (0.04-0.35) X 10*3/uL NRBC/100 WBC Diff 0.5 H (0.0-0.0) /100 WBCS Potassium 3.2 L (3.5-5.5) mmol/L BUN 6.3 L (9.0-27.0) mg/dL BUN/Creatinine Ratio 10.50 L (12.00-20.00) Ratio Glucose 163 H (70-110) mg/dL POC Glucose (mg/dL) 182 H (70-110) mg/dL Calcium 8.1 L (8.7-10.3) mg/dL 05/29/22 05/29/22 05/29/22 Range/Units 05:48 11:40 16:27 WBC (4.50-10.00) X 10*3/uL RBC (4.10-5.20) X 10*6/uL Hgb (12.0-15.0) g/dL Hct (37.2-46.3) % RDW (11.5-14.5) % Absolute Nucleated RBC (0.00-0.00) X 10*3/uL Immature Gran # (0.00-0.04) X 10*3/uL Neutrophils # (1.80-7.70) X 10*3/uL Eosinophils # (0.04-0.35) X 10*3/uL NRBC/100 WBC Diff (0.0-0.0) /100 WBCS Potassium (3.5-5.5) mmol/L BUN (9.0-27.0) mg/dL BUN/Creatinine Ratio (12.00-20.00) Ratio Glucose (70-110) mg/dL POC Glucose (mg/dL) 194 H 205 H 243 H (70-110) mg/dL Calcium (8.7-10.3) mg/dL 12/27/22 Range/Units 19:47 WBC (4.50-10.00) X 10*3/uL RBC (4.10-5.20) X 10*6/uL Hgb (12.0-15.0) g/dL Hct (37.2-46.3) % RDW (11.5-14.5) % Absolute Nucleated RBC (0.00-0.00) X 10*3/uL Immature Gran # (0.00-0.04) X 10*3/uL Neutrophils # (1.80-7.70) X 10*3/uL Eosinophils # (0.04-0.35) X 10*3/uL NRBC/100 WBC Diff (0.0-0.0) /100 WBCS Potassium (3.5-5.5) mmol/L BUN (9.0-27.0) mg/dL BUN/Creatinine Ratio (12.00-20.00) Ratio Glucose (70-110) mg/dL POC Glucose (mg/dL) 261 H (70-110) mg/dL Calcium (8.7-10.3) mg/dL
[2022-05-30 11:17] LABS: Glucose,Whole Blood 232 mg/dL (70-110)
--- NOTE | 2022-05-30 11:33 | P.PN ---
Subjective Progress Note Date: 05/30/22 CHIEF COMPLAINT: Duodenal ulcer HISTORY OF PRESENT ILLNESS: Patient is currently in a regular medical floor. She is postop day #12 status post exploratory laparotomy, lysis of adhesions, oversewing of bleeding duodenal ulcer. Patient is tolerating regular diet. She reports no pain. She denies any nausea or vomiting. Denies any blood in her stools. Afebrile. WBC normal at 8.4 Hgb is up from 7-8.6. Potassium improved from 3.2-4.2 and magnesium 1.5. PHYSICAL EXAM: VITAL SIGNS: Reviewed. GENERAL: Well-developed in no acute distress. HEENT: No sclera icterus. Extraocular movements grossly intact. Moist buccal mucosa. Head is atraumatic, normocephalic. ABDOMEN: Soft. Nondistended. Incision site clean dry and intact NEUROLOGIC: Alert and oriented. Cranial nerves II through XII grossly intact. ASSESSMENT: 1. Duodenal ulcer status post exploratory laparotomy, lysis of adhesions, o versewing of bleeding duodenal ulcer 2. Acute GI bleed secondary to duodenal ulcer 3. Acute blood loss anemia 4. Hypokalemia resolved 5. Hypomagnesemia receiving supplement PLAN: -Patient can be discharged from surgical standpoint when medically cleared -Continue Protonix -Continue regular diet Physician [facility] Decorator note has been reviewed by physician. Signing provider agrees with the documented findings, assessment, and plan of care. Objective - Vital Signs Vital signs: Vital Signs Temp 98.0 F 05/30/22 08:00 Pulse 94 05/30/22 09:15 Resp 17 05/30/22 09:15 BP 111/70 05/30/22 08:00 Pulse Ox 93 L 05/30/22 08:00 FiO2 21 05/20/22 19:45 Intake & Output 05/29/22 05/30/22 05/30/22 18:59 06:59 18:59 Weight 78 kg Other: Voiding Method Toilet Toilet # Voids 4 - Labs CBC & Chem 7: 05/30/22 04:38 05/30/22 04:38 Labs: Abnormal Lab Results - Last 24 Hours (Table) 05/29/22 05/29/22 05/29/22 Range/Units 11:40 16:27 19:47 RBC (3.80-5.40) m/uL Hgb (11.4-16.0) gm/dL Hct (34.0-46.0) % RDW (11.5-15.5) % Glucose (74-99) mg/dL POC Glucose (mg/dL) 205 H 243 H 261 H (70-110) mg/dL Calcium (8.4-10.2) mg/dL Magnesium (1.6-2.3) mg/dL 05/30/22 05/30/22 05/30/22 Range/Units 04:38 04:38 04:38 RBC 2.89 L (3.80-5.40) m/uL Hgb 8.6 L (11.4-16.0) gm/dL Hct 26.6 L (34.0-46.0) % RDW 19.1 H (11.5-15.5) % Glucose 162 H (74-99) mg/dL POC Glucose (mg/dL) (70-110) mg/dL Calcium 8.2 L (8.4-10.2) mg/dL Magnesium 1.5 L (1.6-2.3) mg/dL 05/30/22 05/30/22 Range/Units 06:01 11:16 RBC (3.80-5.40) m/uL Hgb (11.4-16.0) gm/dL Hct (34.0-46.0) % RDW (11.5-15.5) % Glucose (74-99) mg/dL POC Glucose (mg/dL) 208 H 232 H (70-110) mg/dL Calcium (8.4-10.2) mg/dL Magnesium (1.6-2.3) mg/dL
[2022-05-30] MEDS ORDERED: MAGNESIUM OXIDE 400 MG TAB PO SCH (12:30)
--- NOTE | 2022-05-30 14:47 | P.PN ---
Subjective Progress Note Date: 05/30/22 Principal diagnosis: Postop fever Patient is a 77 year female presenting to the hospital with abdominal pain and diarrhea and black stools patient did have EGD with evidence of duodenal ulcer that could not be treated endoscopy status post laparotomy and overseeing of the duodenal ulcer and lysis of adhesion patient subsequently did spike a fever on 05/20/2022. On today's evaluation that is 05/30/2022 patient remains to be febrile , patient is breathing comfortably on room air, the patient denies chest pain, the patient denies cough or sputum production, the patient denies abdominal pain and has been tolerating her regular diet no nausea no vomiting or diarrhea Objective - Vital Signs Vital signs: Vital Signs Temp 98.0 F 05/30/22 08:00 Pulse 94 05/30/22 09:15 Resp 17 05/30/22 09:15 BP 111/70 05/30/22 08:00 Pulse Ox 93 L 05/30/22 08:00 FiO2 21 05/20/22 19:45 Intake & Output 05/29/22 05/30/22 05/30/22 18:59 06:59 18:59 Weight 78 kg Other: Voiding Method Toilet Toilet # Voids 4 - Exam GENERAL DESCRIPTION: An elderly female lying in bed in no distress RESPIRATORY SYSTEM: Unlabored breathing , decreased breath sounds at bases HEART: S1 S2 regular rate and rhythm , ABDOMEN: Soft , no tenderness EXTREMITIES: No edema feet - Labs CBC & Chem 7: 05/30/22 04:38 05/30/22 04:38 Labs: Abnormal Lab Results - Last 24 Hours (Table) 05/29/22 05/29/22 05/30/22 Range/Units 16:27 19:47 04:38 RBC (3.80-5.40) m/uL Hgb (11.4-16.0) gm/dL Hct (34.0-46.0) % RDW (11.5-15.5) % Glucose 162 H (74-99) mg/dL POC Glucose (mg/dL) 243 H 261 H (70-110) mg/dL Calcium 8.2 L (8.4-10.2) mg/dL Magnesium (1.6-2.3) mg/dL 05/30/22 05/30/22 05/30/22 Range/Units 04:38 04:38 06:01 RBC 2.89 L (3.80-5.40) m/uL Hgb 8.6 L (11.4-16.0) gm/dL Hct 26.6 L (34.0-46.0) % RDW 19.1 H (11.5-15.5) % Glucose (74-99) mg/dL POC Glucose (mg/dL) 208 H (70-110) mg/dL Calcium (8.4-10.2) mg/dL Magnesium 1.5 L (1.6-2.3) mg/dL 05/30/22 Range/Units 11:16 RBC (3.80-5.40) m/uL Hgb (11.4-16.0) gm/dL Hct (34.0-46.0) % RDW (11.5-15.5) % Glucose (74-99) mg/dL POC Glucose (mg/dL) 232 H (70-110) mg/dL Calcium (8.4-10.2) mg/dL Magnesium (1.6-2.3) mg/dL Assessment and Plan (1) Fever Status: Acute Code(s): R50.9 - FEVER, UNSPECIFIED SNOMED Code(s): 188892708 Plan: 1patient with SIRS in this patient with a low-grade fever and tachycardia more likely related to abdominal source in this patient who did have a bleeding due to none also which could not be treated endoscopy status post laparotomy with lysis of adhesion and oversewing of the bleeding duodenal ulcer will need to cover for the enteric gram-negative both aerobes and anaerobes plus minus yeast 2-patient with a penicillin ALLERGY that would limit the number of antibiotic safety use 3blood culture as well as sputum cultures has been negative 4patient has shown clinical improvement, the patient is afebrile and the patient white count is normal, patient will be advised a short course of oral Om nicef and Flagyl on discharge and close outpatient follow-up Time with Patient: Less than 30
== END 2022-05-30 14:10 | disposition home health service (06) | DRG 326 ==
LOC: EC 22:44 → 3SCARD 05-18 00:38 → 2SICU 05-18 16:22 → 3SCARD 05-25 11:08 → 4SSUR 05-27 19:52
PROVIDERS: ADMIT Hospitalist; ATTEND Hospitalist
PROC: 0D9670Z Drainage of Stomach with Drainage Device, Via Natural or Artificial Opening (ICD-10-PCS; 2022-05-18)
PROC: 0W3P8ZZ Control Bleeding in Gastrointestinal Tract, Via Natural or Artificial Opening Endoscopic (ICD-10-PCS; 2022-05-18)
PROC: 3E0G8GC Introduction of Other Therapeutic Substance into Upper GI, Via Natural or Artificial Opening Endoscopic (ICD-10-PCS; 2022-05-18)
PROC: 30233N1 Transfusion of Nonautologous Red Blood Cells into Peripheral Vein, Percutaneous Approach (ICD-10-PCS; 2022-05-18)
PROC: 0DQ90ZZ Repair Duodenum, Open Approach (ICD-10-PCS; principal; 2022-05-18 08:30)
PROC: 0DN90ZZ Release Duodenum, Open Approach (ICD-10-PCS; 2022-05-18 08:30)
DX: K26.4 Chronic or unspecified duodenal ulcer with hemorrhage (principal); U07.1 COVID-19; K31.5 Obstruction of duodenum; D62 Acute posthemorrhagic anemia; R65.10 Systemic inflammatory response syndrome (SIRS) of non-infectious origin without acute organ dysfunction; I10 Essential (primary) hypertension; E11.9 Type 2 diabetes mellitus without complications; E86.0 Dehydration; I48.0 Paroxysmal atrial fibrillation; K66.0 Peritoneal adhesions (postprocedural) (postinfection); R50.82 Postprocedural fever; K44.9 Diaphragmatic hernia without obstruction or gangrene; R03.1 Nonspecific low blood-pressure reading; G43.909 Migraine, unspecified, not intractable, without status migrainosus; F41.9 Anxiety disorder, unspecified; R60.0 Localized edema; E87.6 Hypokalemia; E83.42 Hypomagnesemia; M79.89 Other specified soft tissue disorders; Z79.899 Other long term (current) drug therapy; Z79.84 Long term (current) use of oral hypoglycemic drugs; Z88.0 Allergy status to penicillin; Z95.818 Presence of other cardiac implants and grafts; Z79.1 Long term (current) use of non-steroidal anti-inflammatories (NSAID)
CPT/HCPCS: 36415; 36430; 36600; 43243; 43255; 71045; 80048; 80053; 81001; 82805; 83605; 83735; 84100; 84132; 84443; 84484; 85025; 85027; 85610; 85730; 86850; 86900; 86901; 86920; 87040; 87070; 87205; 87635; 87636; 94002; 94003; 96361; 96374; 96375; 96376; 99285

== ENCOUNTER 2022-09-28 06:04 | Day surgery (SDC) | payer MEDICARE ==
[2022-09-28] MEDS ORDERED: LIDOCAINE 1% (10MG/ML) FOR IV START INTRADERMA ONE (06:40)
[2022-09-28] MEDS ORDERED: LACTATED RINGERS 1,000 ML IV ONE (06:40)
[2022-09-28 06:46] VITALS: TEMP 98.2
[2022-09-28 06:48] LABS: Glucose,Whole Blood 192 mg/dL (70-110)
[2022-09-28 07:03] LABS: Calcium 9.2 mg/dL (8.4-10.2); Potassium 4.1 mmol/L (3.5-5.1)
[2022-09-28] MEDS ORDERED: LIDOCAINE 2% INJ 20 MG/ML (2 ML VIAL) ONE (07:26)
[2022-09-28] MEDS ORDERED: PROPOFOL 10 MG/ML 20 ML VIAL IV ONE (07:26)
--- NOTE | 2022-09-28 08:01 | P.TEE ---
Description of Procedure(s): Procedure performed: Transesophageal Echocardiogram with color flow doppler, pulsed wave doppler and continuous wave doppler, synchronized cardioversion Moderate conscious sedation: Moderate conscious sedation was supplied by anesthesia, see separate report Complications: none Indications: Symptomatic atrial fibrillation History: Pleasant 77-year-old female with a history of persistent atrial fibrillation, GI bleed, previous watchman device implant however noted to have thrombus by last HAMIDA. She was placed on anticoagulation with recommendations for repeat HAMIDA/possible cardioversion. PROCEDURE: After the risks, benefits and alternatives of the above mentioned procedure was explained in detail with the patient, informed consent was obtained. Patient was brought to the lab in a fasting state. Patient was given sedation. The throat was sprayed with Hurricane to anesthetize the throat. A lubricated Omni probe was then introduced into the esophagus and stomach and multiple views were obtained. 2D echo with color flow doppler, pulsed wave doppler and continuous wave doppler was utilized. Agitated saline bubbles were injected to assess for any intra-atrial shunt. The probe was then removed. Synchronized cardioversion was performed with 200 J 1 with a resultant sinus rhythm. Patient tolerated the procedure well. Patient was transferred to the post procedure area in stable and satisfactory condition. FINDINGS: 1. The aortic valve is tricuspid and function normal with mild aortic regurgitation. 2. The mitral valve appears be normal with moderate to severe mitral regurgitation. PISA radius 0.7 at Nyquist of 44 with only systolic blunting of pulmonary veins more consistent with moderate mitral regurgitation. 3. Tricuspid valve appears be normal with severe tricuspid regurgitation 4. The interatrial septum is intact. No evidence of PFO. 5. Left atrial appendage has a Watchman device in proper position with no thrombus noted and no color flow. 6. Left ventricular ejection fraction 55% 7. Severe biatrial enlargement
[2022-09-28 08:43] LABS: Glucose,Whole Blood 177 mg/dL (70-110)
[2022-09-28 09:29] VITALS: BP 141/85; PULSE 67; RESP 15
== END 2022-09-28 09:53 | disposition home or self-care (01) ==
LOC: OR 06:04
PROVIDERS: ATTEND Internal Medicine
DX: I08.3 Combined rheumatic disorders of mitral, aortic and tricuspid valves (principal); I48.91 Unspecified atrial fibrillation
CPT/HCPCS: 93312; 93320; 93325; 92960; 80048; J2704; J2001

== ENCOUNTER 2023-08-26 12:03 | Day surgery (SDC) | payer MEDICARE ==
[2023-08-21 12:14] VITALS: BMI 25.4
[~2023-08-26 12:03] MED LIST: LACTATED RINGERS 1,000 ML IV SCH
[2023-08-26] MEDS: SODIUM CHLORIDE 0.9% 1,000 ML IV SCH (12:43)
[2023-08-26 13:04] LABS: Glucose,Whole Blood 163 mg/dL (70-110)
[2023-08-26 13:22] VITALS: TEMP 97
[2023-08-26] MEDS ORDERED: PROPOFOL 10 MG/ML 20 ML VIAL IV ONE (13:27)
[2023-08-26] MEDS ORDERED: LIDOCAINE 2% (PF) 20 MG/ML 5 ML VIAL ONE (13:27)
[2023-08-26] MEDS: BENZOCAINE SPRAY 1 CAN TOPICAL ONE (13:29)
--- NOTE | 2023-08-26 13:46 | P.TEE ---
Description of Procedure(s): Procedure performed: Transesophageal Echocardiogram with color flow doppler, pulsed wave doppler and continuous wave doppler, synchronized cardioversion Moderate conscious sedation: Moderate conscious sedation was supplied by anesthesia, see separate report. Complications: none Indications: Atrial fibrillation History: Patient is a pleasant 78-year-old female with history of atrial fibrillation as well as GI bleed status post Watchman and had undergone prior HAMIDA which did show thrombus on the Watchman when she had not been taking any aspirin. She was placed back on anticoagulation and has been doing well. She is still having persistent palpitations and therefore recommended to undergo repeat HAMIDA cardioversion. PROCEDURE: After the risks, benefits and alternatives of the above mentioned procedure was explained in detail with the patient, informed consent was obtained. Patient was brought to the lab in a fasting state. Patient was given sedation by anesthesia, see separate report. The throat was sprayed with Hurricane to anesthetize the throat. A lubricated Omni probe was then introduced into the esophagus and stomach and multiple views were obtained. 2D echo with color flow doppler, pulsed wave doppler and continuous wave doppler was utilized. Agitated saline bubbles were injected to assess for any intra- atrial shunt. The probe was then removed. There was no thrombus noted and therefore patient underwent synchronized cardioversion x 1 with 200J with resultant sinus rhythm. Patient tolerated the procedure well. Patient was transferred to the post procedure area in stable and satisfactory condition. FINDINGS: 1. The aortic valve is tricuspid with mild aortic stenosis. 2. The mitral valve appears be normal with mild mitral regurgitation. 3. Tricuspid valve is normal with moderate to severe tricuspid regurgitation. 4. The interatrial septum is intact. No evidence of PFO. 5. There is a Watchman device in the left atrial appendage with no leak and no thrombus 6. Left ventricular ejection fraction 55%
[2023-08-26 14:14] LABS: Glucose,Whole Blood 149 mg/dL (70-110)
[2023-08-26 15:09] VITALS: BP 116/75; PULSE 59; RESP 16
== END 2023-08-26 15:23 | disposition home or self-care (01) ==
LOC: OR 12:03
PROVIDERS: ATTEND Internal Medicine
DX: I08.1 Rheumatic disorders of both mitral and tricuspid valves (principal); I48.19 Other persistent atrial fibrillation; I10 Essential (primary) hypertension; E78.5 Hyperlipidemia, unspecified; E11.9 Type 2 diabetes mellitus without complications; Z88.0 Allergy status to penicillin; Z79.899 Other long term (current) drug therapy; Z79.84 Long term (current) use of oral hypoglycemic drugs
CPT/HCPCS: 93312; 93320; 93325; 92960; J2704; J2001

== ENCOUNTER 2024-10-01 11:57 | Emergency (ER) | payer MEDICARE ==
--- NOTE | 2024-10-01 13:15 | ED ---
General Adult HPI - General Chief complaint: Back Pain/Injury Stated complaint: back pain, dizziness Time Seen by Provider: 10/01/24 12:10 Source: patient, RN notes reviewed, old records reviewed Mode of arrival: wheelchair Limitations: no limitations - History of Present Illness Initial comments: This is a 79-year-old female who presents to the emergency department complaining of left-sided back pain that radiates around to her flank. Patient states she has had no dysuria hematuria urinary frequency. Patient denies any fever chills or cough. Patient states she had no nausea vomiting or diarrhea. Patient states that pain definitely increases if she moves twists or bends it is definitely worse. Patient denies any recent injury or any heavy lifting recently. - Related Data Home Medications Medication Instructions Recorded Confirmed Atorvastatin [Lipitor] 20 mg PO HS 02/13/22 08/26/23 metFORMIN HCL [Glucophage] 500 mg PO HS 02/13/22 08/26/23 Montelukast [Singulair] 10 mg PO HS 05/18/22 08/26/23 traZODone HCL 1 - 2 tab PO HS 05/18/22 08/26/23 Empagliflozin [Jardiance] 25 mg PO DAILY 07/16/22 08/26/23 Metoprolol Tartrate [Lopressor] 50 mg PO BID 07/16/22 08/26/23 Pantoprazole Sodium [Protonix] 40 mg PO DAILY 07/16/22 08/26/23 Propafenone [Rythmol] 150 mg PO BID 07/16/22 08/26/23 lisinopriL 2.5 mg PO DAILY 07/16/22 08/26/23 Previous Rx's Medication Instructions Recorded Cyclobenzaprine [Flexeril] 10 mg PO BID #10 tab 10/01/24 Ketorolac [Toradol] 10 mg PO Q8HR #15 tab 10/01/24 Allergies Allergy/AdvReac Type Severity Reaction Status Date / Time Penicillins Allergy Rash/Hives Verified 10/01/24 12:05 on entire body Review of Systems ROS Statement: Those systems with pertinent positive or pertinent negative responses have been documented in the HPI. ROS Other: All systems not noted in ROS Statement are negative. Past Medical History Past Medical History: Atrial Fibrillation, Diabetes Mellitus, GI Bleed, Hyperlipidemia, Hypertension Additional Past Medical History / Comment(s): had a blood clot on the heart,bleeding ulcers, itching from allergies History of Any Multi-Drug Resistant Organisms: None Reported Past Surgical History: Appendectomy, Cholecystectomy, Heart Catheterization Additional Past Surgical History / Comment(s): aborted HAMIDA 07-27-22,expl. lap. for bleeding duodenal ulcer,Watchman procedure 2019 Past Anesthesia/Blood Transfusion Reactions: No Reported Reaction Additional Past Anesthesia/Blood Transfusion Reaction / Comment(s): no problems with 7 prior blood transfusions Past Psychological History: No Psychological Hx Reported Smoking Status: Never smoker Past Alcohol Use History: Occasional Past Drug Use History: None Reported - Past Family History Mother Family Medical History: Myocardial Infarction ([place]) Father Family Medical History: Cancer, Diabetes Mellitus Additional Family Medical History / Comment(s): throat cancer Sister(s) Family Medical History: Myocardial Infarction ([place]) Brother(s) Family Medical History: Myocardial Infarction ([place]) General Exam - General Exam Comments Initial Comments: GENERAL: Patient is well-developed and well-nourished. Patient is nontoxic and well- hydrated and is in no acute distress. ENT: Neck is soft and supple. No significant lymphadenopathy is noted. Oropharynx is clear. Moist mucous membranes. Neck has full range of motion without eliciting any pain. EYES: The sclera were anicteric and conjunctiva were pink and moist. Extraocular movements were intact and pupils were equal round and reactive to light. Eyelids were unremarkable. PULMONARY: Unlabored respirations. Good breath sounds bilaterally. No audible rales rhonchi or wheezing was noted. CARDIOVASCULAR: There is a regular rate and rhythm without any murmurs gallops or rubs. ABDOMEN: Soft and nontender with normal bowel sounds. SKIN: Skin is clear with no lesions or rashes and otherwise unremarkable. NEUROLOGIC: Patient is alert and oriented x3. Cranial nerves II through XII are grossly intact. Motor and sensory are also intact. Normal speech, volume and content. Symmetrical smile. MUSCULOSKELETAL: Normal extremities with adequate strength and full range of motion. Patient has reproducible back pain on the lower left back. LYMPHATICS: No significant lymphadenopathy is noted PSYCHIATRIC: Normal psychiatric evaluation. Limitations: no limitations Course Vital Signs 10/01/24 12:02 Temperature 98.6 F Pulse Rate 85 Respiratory 18 Rate Blood Pressure 178/80 O2 Sat by Pulse 99 Oximetry Medical Decision Making - Medical Decision Making Was pt. sent in by a medical professional or institution ([facility], [facility], urgent care, hospital, or half-way...) When possible be specific @ -No Did you speak to anyone other than the patient for history (EMS, parent, family, police, friend...)? What history was obtained from this source @ -No Did you review nursing and triage notes (agree or disagree)? Why? @ -I reviewed and agree with nursing and triage notes Were old charts reviewed (outside hosp., previous admission, EMS record, old EKG, old radiological studies, urgent care reports/EKG's, half-way records)? Report findings @ -No old charts were reviewed Differential Diagnosis? @ -Differential Back Pain: Strain, zoster, cauda equina syndrome, epidural abscess, vertebral osteomyelitis, discitis, fracture, subluxation, disc herniation, DJD, spinal stenosis, dissection, AAA, pancreatitis, peptic ulcer disease, pyelonephritis, kidney stone, this is not meant to be an all-inclusive list. EKG interpreted by me (3pts min.). @ -As above X-rays interpreted by me (1pt min.). @ -None done CT interpreted by me (1pt min.). @ -CAT scan of the abdomen pelvis shows no acute abnormality U/S interpreted by me (1pt. min.). @ -None done What testing was considered but not performed or refused? (CT, X-rays, U/S, labs)? Why? @ -None What meds were considered but not given or refused? Why? @ -None Did you discuss the management of the patient with other professionals ( professionals i.e. [facility], [facility], lab, RT, psych nurse, social group worker, cemetery keeper, teacher, police or patrol park officer, home health care case manager)? Give summary @ -No Was smoking cessation discussed for >3mins.? @ -No Was critical care preformed (if so, how long)? @ -No Were there social determinants of health that impacted care today? How? (Homelessness, low income, unemployed, alcoholism, drug addiction, transportation, low edu. Level, literacy, decrease access to med. care, snf, rehab)? @ -No Was there de-escalation of care discussed even if they declined (Discuss DNR or withdrawal of care, Hospice)? DNR status @ -No What co-morbidities impacted this encounter? (DM, HTN, Smoking, COPD, CAD, Cancer, CVA, ARF, Chemo, Hep., AIDS, mental health diagnosis, sleep apnea, morbid obesity)? @ -None Was patient admitted / discharged? Hospital course, mention meds given and route, prescriptions, significant lab abnormalities, going to OR and other pertinent info. @ -Patient received Toradol and Dilaudid in the emergency department was feeling considerably better lab work showed no acute abnormality. Urine did not show an y acute abnormality. Patient CT scan showed no acute abnormality. Patient is feeling considerably better patient will be sent home with Toradol Flexeril and follow-up with the primary medical care doctor. Patient admitted to me just prior to leaving that she did ride her bicycle twice as long as she normally does and she wonders if she irritated her back by doing that just prior to her back pain starting. Undiagnosed new problem with uncertain prognosis? @ -No Drug Therapy requiring intensive monitoring for toxicity (Heparin, Nitro, Insulin, Cardizem)? @ -No Were any procedures done? @ -No Diagnosis/symptom? @ -Lumbar strain Acute, or Chronic, or Acute on Chronic? @ -Acute Uncomplicated (without systemic symptoms) or Complicated (systemic symptoms)? @ -Complicated Side effects of treatment? @ -No Exacerbation, Progression, or Severe Exacerbation? @ -No Poses a threat to life or bodily function? How? (Chest pain, [place], [place], pneumonia, PE, COPD, DKA, ARF, appy, cholecystitis, CVA, Diverticulitis, Homicidal, Suicidal, threat to staff... and all critical care pts) @ -No - Lab Data Result diagrams: 10/01/24 14:15 10/01/24 14:15 Lab Results 10/01/24 10/01/24 10/01/24 Range/Units 13:38 14:15 14:15 WBC 6.79 (4.50-10.00) 10*3/uL RBC 4.45 (4.10-5.20) 10*6/uL Hgb 13.8 (12.0-15.0) g/dL Hct 39.5 (37.2-46.3) % MCV 88.8 (80.0-97.0) fL MCH 31.0 (27.0-32.0) pg MCHC 34.9 (32.0-37.0) g/dL Plt Count 237 (140-440) 10*3/uL MPV 9.9 (9.5-12.2) fL Immature Gran % (Auto) 0.1 % Neutrophils % 71.7 % Lymphocytes % 15.8 % Monocytes % 9.3 % Eosinophils % 2.2 % Basophils % 0.9 % Immature Gran # 0.01 (0.00-0.04) 10*3/uL Neutrophils # 4.87 (1.80-7.70) 10*3/uL Lymphocytes # 1.07 (0.90-5.00) 10*3/uL Monocytes # 0.63 (0.20-1.00) 10*3/uL Eosinophils # 0.15 (0.04-0.35) 10*3/uL Basophils # 0.06 (0.00-0.10) 10*3/uL Sodium 139 (137-145) mmol/L Potassium 3.8 (3.5-5.1) mmol/L Chloride 107 (98-107) mmol/L Carbon Dioxide 18 L (22-30) mmol/L Anion Gap 14 mmol/L BUN 17 (7-17) mg/dL Creatinine 0.92 (0.52-1.04) mg/dL Est GFR (CKD-EPI)AfAm 69 (>60 ml/min/1.73 sqM) Est GFR (CKD-EPI)NonAf 60 (>60 ml/min/1.73 sqM) Glucose 148 H (74-99) mg/dL Plasma Lactic Acid Ber[place]ane (0.7-2.0) mmol/L Calcium 10.4 H (8.4-10.2) mg/dL Total Bilirubin 1.0 (0.2-1.3) mg/dL AST 20 (14-36) U/L ALT 15 (4-34) U/L Alkaline Phosphatase 95 (38-126) U/L Total Protein 7.0 (6.3-8.2) g/dL Albumin 4.5 (3.5-5.0) g/dL Amylase 47 (30-110) U/L Lipase 45 (23-300) U/L Urine Color Colorless Urine Appearance Clear (Clear) Urine pH 7.0 (5.0-8.0) Ur Specific [place] 1.005 (1.001-1.035) Urine Protein Negative (Negative) Urine Glucose (UA) 4+ H (Negative) Urine Ketones 1+ H (Negative) Urine Blood Negative (Negative) Urine Nitrite Negative (Negative) Urine Bilirubin Negative (Negative) Urine Urobilinogen <2.0 (<2.0) mg/dL Ur Leukocyte Esterase Negative (Negative) 10/01/24 Range/Units 14:15 WBC (4.50-10.00) 10*3/uL RBC (4.10-5.20) 10*6/uL Hgb (12.0-15.0) g/dL Hct (37.2-46.3) % MCV (80.0-97.0) fL MCH (27.0-32.0) pg MCHC (32.0-37.0) g/dL Plt Count (140-440) 10*3/uL MPV (9.5-12.2) fL Immature Gran % (Auto) % Neutrophils % % Lymphocytes % % Monocytes % % Eosinophils % % Basophils % % Immature Gran # (0.00-0.04) 10*3/uL Neutrophils # (1.80-7.70) 10*3/uL Lymphocytes # (0.90-5.00) 10*3/uL Monocytes # (0.20-1.00) 10*3/uL Eosinophils # (0.04-0.35) 10*3/uL Basophils # (0.00-0.10) 10*3/uL Sodium (137-145) mmol/L Potassium (3.5-5.1) mmol/L Chloride (98-107) mmol/L Carbon Dioxide (22-30) mmol/L Anion Gap mmol/L BUN (7-17) mg/dL Creatinine (0.52-1.04) mg/dL Est GFR (CKD-EPI)AfAm (>60 ml/min/1.73 sqM) Est GFR (CKD-EPI)NonAf (>60 ml/min/1.73 sqM) Glucose (74-99) mg/dL Plasma Lactic Acid [place]ane 1.7 (0.7-2.0) mmol/L Calcium (8.4-10.2) mg/dL Total Bilirubin (0.2-1.3) mg/dL AST (14-36) U/L ALT (4-34) U/L Alkaline Phosphatase (38-126) U/L Total Protein (6.3-8.2) g/dL Albumin (3.5-5.0) g/dL Amylase (30-110) U/L Lipase (23-300) U/L Urine Color Urine Appearance (Clear) Urine pH (5.0-8.0) Ur Specific [place] (1.001-1.035) Urine Protein (Negative) Urine Glucose (UA) (Negative) Urine Ketones (Negative) Urine Blood (Negative) Urine Nitrite (Negative) Urine Bilirubin (Negative) Urine Urobilinogen (<2.0) mg/dL Ur Leukocyte Esterase (Negative) Disposition Clinical Impression: Strain of lumbar region Disposition: HOME SELF-CARE Condition: Good Instructions (If sedation given, give patient instructions): Low Back Strain (ED) Prescriptions: Cyclobenzaprine [Flexeril] 10 mg PO BID #10 tab Ketorolac [Toradol] 10 mg PO Q8HR #15 tab Is patient prescribed a controlled substance at d/c from ED?: No Referrals: German Leigh MD [Primary Care Provider] - 1-2 days Time of Disposition: 15:11
[2024-10-01 13:48] LABS: Appearance,Urine Clear (Clear); Bilirubin,Urine Negative (Negative); Blood,Urine Negative (Negative); Color,Urine Colorless; Glucose,Urine (UA) 4+ (Negative); Ketones,Urine 1+ (Negative); Leukocyte Esterase,Urine Negative (Negative); Nitrite,Urine Negative (Negative); Protein,Urine Negative (Negative); Specific Gravity,Urine 1.005 (1.001-1.035); Urobilinogen,Urine <2.0 mg/dL (<2.0)
[2024-10-01] MEDS: HYDROmorphone 0.5 MG/0.5 ML SYRINGE IVP STA (13:55)
[2024-10-01] MEDS: KETOROLAC 15 MG/ML 1 ML VIAL IVP STA (13:56)
[2024-10-01] MEDS: SODIUM CHLORIDE 0.9% 500 ML 500 ML IV ONE (13:56)
[2024-10-01 14:28] LABS: Basophils # (A) 0.06 10*3/uL (0.00-0.10); Basophils % (A) 0.9 %; Eosinophils # (A) 0.15 10*3/uL (0.04-0.35); Eosinophils % (A) 2.2 %; HCT 39.5 % (37.2-46.3); HGB 13.8 g/dL (12.0-15.0); Lymphocytes # (A) 1.07 10*3/uL (0.90-5.00); Lymphocytes % (A) 15.8 %; MCHC 34.9 g/dL (32.0-37.0); MCV 88.8 fL (80.0-97.0); Mean Platelet Volume 9.9 fL (9.5-12.2); Monocytes # (A) 0.63 10*3/uL (0.20-1.00); Monocytes % (A) 9.3 %; Neutrophils # (A) 4.87 10*3/uL (1.80-7.70); Neutrophils % (A) 71.7 %; Platelet Count 237 10*3/uL (140-440); RBC 4.45 10*6/uL (4.10-5.20); RDW 13.5 % (11.5-14.5); WBC 6.79 10*3/uL (4.50-10.00)
[2024-10-01 14:42] LABS: ALT 15 U/L (4-34); AST 20 U/L (14-36); African American GFR (CKD) 69 (>60 ml/min/1.73 sqM); Albumin 4.5 g/dL (3.5-5.0); Alkaline Phosphatase 95 U/L (38-126); Amylase 47 U/L (30-110); Anion Gap 14 mmol/L; Blood Urea Nitrogen 17 mg/dL (7-17); Calcium 10.4 mg/dL (8.4-10.2); Carbon Dioxide 18 mmol/L (22-30); Chloride 107 mmol/L (98-107); Glucose 148 mg/dL (74-99); Lipase 45 U/L (23-300); Non-African American GFR(CKD) 60 (>60 ml/min/1.73 sqM); Potassium 3.8 mmol/L (3.5-5.1); Sodium 139 mmol/L (137-145)
--- NOTE | 2024-10-01 14:56 | CT ---
EXAMINATION TYPE: CT abdomen pelvis wo con DATE OF EXAM: 10/01/2024 COMPARISON: None CLINICAL INDICATION: Female, 79 years old with history of Flank pain left; PHH, Left side flank pain. TECHNIQUE: CT scan of the abdomen and pelvis is performed without oral or IV contrast. CT DLP: 404.[address] CTDI: mGy Automated exposure control for dose reduction was used. FINDINGS: Within the limitations of a non-contrast study, the following observations are made. The lungs are clear. There is surgical absence of the gallbladder. There is no biliary ductal dilatation. There is no organomegaly of the liver, pancreas, spleen or adrenal glands. There are no renal calcifications or hydronephrosis. The caliber of the abdominal aorta is normal and there is no retroperitoneal adenopathy or hemorrhage . The bowel loops are normal in caliber is no evidence of obstruction. No inflammatory changes are iden tified in the mesentery and there is no free intraperitoneal air or fluid. There is no pelvic mass, free fluid, abscess or adenopathy. There is moderate diverticulosis of the c olon without CT evidence of diverticulitis. There is moderate multilevel degenerative disc disease in the lumbar spine. IMPRESSION: No acute changes within the abdomen or pelvis. [facility], , 10/01/2024 2:54 PM
[2024-10-01 15:37] VITALS: BP 165/84; PULSE 82; RESP 20; TEMP 98.4
== END 2024-10-01 15:37 | disposition home or self-care (01) ==
LOC: EC 11:57
DX: S39.012A Strain of muscle, fascia and tendon of lower back, initial encounter (principal); Z88.0 Allergy status to penicillin; X58.XXXA Exposure to other specified factors, initial encounter
CPT/HCPCS: 36415; 80053; 82150; 83605; 83690; 85025; 81003; 74176; 99284; 96374; 96375; J1885; J1171

== ENCOUNTER 2024-12-08 11:46 | Day surgery (SDC) | payer MEDICARE ==
[2024-12-03 15:36] VITALS: BMI 25.4
[2024-12-08] MEDS ORDERED: SODIUM CHLORIDE 0.9% 1,000 ML IV SCH (12:00)
[2024-12-08 12:33] VITALS: TEMP 97.1
[2024-12-08] MEDS: SODIUM CHLORIDE 0.9% 500 ML 500 ML IV ONE (12:33)
[2024-12-08] MEDS: IV FLUID CONTINUATION 1,000 ML IV ONE (12:33)
[2024-12-08 12:37] LABS: Glucose,Whole Blood 177 mg/dL (70-110)
[2024-12-08] MEDS ORDERED: PROPOFOL 10 MG/ML 20 ML VIAL IV ONE (12:55)
[2024-12-08] MEDS ORDERED: LIDOCAINE 1% INJ 10MG/ML (20 ML MDV) ONE (12:55)
[2024-12-08 12:59] LABS: African American GFR (CKD) 65 (>60 ml/min/1.73 sqM); Anion Gap 13 mmol/L; Blood Urea Nitrogen 20 mg/dL (7-17); Calcium 10.4 mg/dL (8.4-10.2); Carbon Dioxide 22 mmol/L (22-30); Chloride 105 mmol/L (98-107); Glucose 176 mg/dL (74-99); Non-African American GFR(CKD) 56 (>60 ml/min/1.73 sqM); Potassium 4.5 mmol/L (3.5-5.1); Sodium 140 mmol/L (137-145)
[2024-12-08] MEDS: BENZOCAINE SPRAY 1 EACH MUCOUS MEM STA (13:19)
[2024-12-08] MEDS: IV FLUID CONTINUATION 500 ML IV ONE ×2 (13:34→14:18)
[2024-12-08 14:29] VITALS: RESP 16
[2024-12-08 14:40] VITALS: BP 152/74; PULSE 60
--- NOTE | 2024-12-09 11:43 | P.TEE ---
Description of Procedure(s): Procedure performed: Transesophageal Echocardiogram with color flow doppler, pulsed wave doppler and continuous wave doppler, synchronized cardioversion Moderate conscious sedation: Moderate conscious sedation was supplied by anesthesia, see separate report. Complications: none Indications: Atrial fibrillation PROCEDURE: After the risks, benefits and alternatives of the above mentioned procedure was explained in detail with the patient, informed consent was obtained. Patient was brought to the lab in a fasting state. Patient was given sedation by anesthesia, see separate report. The throat was sprayed with Hurricane to anesthetize the throat. A lubricated Omni probe was then introduced into the esophagus and stomach and multiple views were obtained. 2D echo with color flow doppler, pulsed wave doppler and continuous wave doppler was utilized. Agitated saline bubbles were injected to assess for any intra-atrial shunt. The probe was then removed. There was no thrombus noted and therefore patient underwent synchronized cardioversion x 1 with 200J with resultant sinus rhythm. Patient tolerated the procedure well. Patient was transferred to the post procedure area in stable and satisfactory condition. FINDINGS: 1. The aortic valve is tricuspid with decreased leaflet excursion and moderate aortic stenosis with aortic valve area 1.1 cm by planimetry. There is mild to moderate aortic regurgitation. 2. The mitral valve appears be normal with moderate regurgitation. 3. Tricuspid valve has mild tricuspid regurgitation 4. The interatrial septum is intact. No evidence of PFO. 5. There is a Watchman device in place with good positioning and no leak. There is no thrombus noted around the watchman. 6. Left ventricular EF 55%
== END 2024-12-08 15:04 | disposition home or self-care (01) ==
LOC: OR 11:46
PROVIDERS: ATTEND Internal Medicine
DX: I08.3 Combined rheumatic disorders of mitral, aortic and tricuspid valves (principal); I48.91 Unspecified atrial fibrillation; I10 Essential (primary) hypertension; E78.5 Hyperlipidemia, unspecified; E11.9 Type 2 diabetes mellitus without complications; Z79.84 Long term (current) use of oral hypoglycemic drugs; Z79.899 Other long term (current) drug therapy; Z88.0 Allergy status to penicillin
CPT/HCPCS: 93312; 93320; 93325; 92960; 80048; J2003; J2704